=== PATIENT | male | born 1945 | race Caucasian/White ===

== ENCOUNTER 2016-10-12 05:16 | Inpatient (IN) | payer OTHER, MEDICARE ==
[2016-09-30 09:27] VITALS: BMI 33.0
--- NOTE | 2016-09-30 09:58 | PAT Medication Instructions ---
Service Date Sep 30, 2016. Current Home Medication List Alendronate/Cholecalciferol (Fosamax+D 70MG/2800 Iu), 1 TABLET PO WK Aspirin (Aspirin Ec), 81 MG PO HS Fish Oil ([place]ell-3), 1 CAP PO HS Irbesartan (Irbesartan), 1 TAB PO HS Meloxicam (Mobic), 15 MG PO QAM Metformin Hcl (Glucophage), 500 MG PO QAM Metoprolol Succinate (Toprol Xl), 25 MG PO HS Medication Instructions For Your Scheduled Surgery Alendronate/Cholecalciferol (Fosamax+D 70MG/2800 Iu), 1 TABLET PO WK (okay to continue as directed) Meloxicam (Mobic), 15 MG PO QAM (okay to continue per surgeon for instructions) - Hold the following medications starting 09/30/16: Fish Oil (Bunnell-3), 1 CAP PO HS - Hold the following medications 48 hours prior to surgery: Metformin Hcl (Glucophage), 500 MG PO QAM - Hold the following medications as scheduled the night before surgery: Irbesartan (Irbesartan), 1 TAB PO HS - Take the following medications as scheduled the night before surgery: Metoprolol Succinate (Toprol Xl), 25 MG PO HS Aspirin (Aspirin Ec), 81 MG PO HS (okay to continue per surgeon) If you have any questions please call us at [phone] or [phone] or [phone]
[2016-09-30 10:34] LABS: BASO % 0.5 %; BASO ABS # 0.03 K/uL (0-0.2); COMPLETE YES; EOS % 2.1 %; HEMATOCRIT 41.1 % (42-52); IG% 0.2 %; LYMPH % 41.9 %; LYMPH ABS # 2.43 K/uL (1.2-3.4); MANUAL MICROSCOPIC REQUIRED? NO; MEAN CELL VOLUME 86.9 fL (80-100); MEAN CORPUSCULAR HEMOGLOBIN 29.2 pg (25-34); MEAN CORPUSCULAR HGB CONC 33.6 g/dl (32-36); MEAN PLATELET VOLUME 8.6 fL (7.4-10.4); MONO % 10.5 %; NEUT % 44.8 %; PLATELET COUNT 241 K/uL (130-400); RED BLOOD COUNT 4.73 M/uL (4.7-6.1); REVIEW REQ? NO; URINE APPEARANCE CLEAR (CLEAR); URINE BILIRUBIN NEG (NEG); URINE COLOR DK YELLOW; URINE NITRITE NEG (NEG); URINE PH 5.5 (4.5-7.5); URINE SPECIFIC GRAVITY 1.027 (1.000-1.030); UROBILINOGEN NEG (NEG)
--- NOTE | 2016-09-30 10:38 | DIAGNOSTIC IMAGING REPORT ---
CHEST PREADMISSION(PA/LAT) HISTORY: 71 years-old Male preadmission exam COMPARISON: CT chest 10/14/2015 TECHNIQUE: Frontal and lateral views of the chest FINDINGS: Pleural-based calcifications in the region of the left upper lobe and superior segment left lower lobe are again seen. Cardiac silhouette is again mildly enlarged. No pneumothorax, pleural effusion or focal airspace consolidation. The bones are grossly intact. IMPRESSION: 1. No acute cardiopulmonary process. 2. Pleural-based calcifications of the left upper lobe and superior segment left lower lobe are unchanged. The above report was generated using voice recognition software. It may contain grammatical, syntax or spelling errors. Electronically signed by: Sharif Farmer M.D. 09/30/2016 10:37 AM Dictated Date/Time: 09/30/2016 10:35 AM
[2016-09-30 12:39] LABS: BUN/CREATININE RATIO 17.2 (10-20); CALCIUM 8.7 mg/dl (8.5-10.1); CREATININE 0.9 mg/dl (0.60-1.40); POTASSIUM 4.5 mmol/L (3.5-5.1)
[~2016-10-12] VITALS: Ht 177.8 cm; Wt 103.9 kg
[2016-10-12] VITALS (11 sets, daily range): BP systolic 112–165; BP diastolic 69–108; PULSE 69–106; TEMP 36.3–36.9; O2SAT 90–97; Ht 177.8 cm; Wt 103.9 kg
[~2016-10-12 05:16] MED LIST: ASPI81TA28 PO; FSMD/70 PO; GLC/500 PO; IRBE1TAB50 PO; MELO7.5T5 PO; METO25TA3 PO; OMEG10007 PO
[2016-10-12] MEDS ORDERED: HEPARIN SOD 5000 UNIT/0.5 ML CARP SQ SCH (06:00)
[2016-10-12] MEDS ORDERED: CEFAZOLIN 2000 MG/60 ML D5W IV SCH (06:00)
[2016-10-12] MEDS ORDERED: LACTATED RINGER'S 1000ML 1,000 ML IV SCH (06:00)
[2016-10-12] MEDS ORDERED: DEXAMETHASONE SOD INJ 4 MG/ML VIAL ONE ×2 (06:33→08:43)
[2016-10-12] MEDS ORDERED: PHENYLEPHRINE HCL INJ 10 MG/ML VIAL ONE (06:33)
[2016-10-12] MEDS ORDERED: SUCCINYLCHOLINE CHLORIDE 20 MG/ML 10 ML VIAL IV ONE (06:33)
[2016-10-12] MEDS ORDERED: EpHEDrine SULFATE INJ 50 MG/ML AMP ONE (06:33)
[2016-10-12] MEDS ORDERED: FENTANYL CITRATE INJ 50 MCG/1 ML 2 ML VIAL ONE (06:34)
[2016-10-12] MEDS ORDERED: LIDOCAINE HCL 2% 2 ML VIAL (20MG/ML) ONE (06:34)
[2016-10-12] MEDS ORDERED: GLYCOPYRROLATE INJ 0.2 MG/ML VIAL ONE ×2 (06:34→08:43)
[2016-10-12] MEDS ORDERED: ONDANSETRON INJ 2 MG/ML 2 ML VIAL ONE (06:34)
[2016-10-12] MEDS ORDERED: ROCURONIUM BROMIDE 10 MG/ML 5 ML VIAL IV ONE (06:34)
[2016-10-12] MEDS ORDERED: NEOSTIGMINE METHYLSULFATE 5 MG/5 ML SYR ONE (06:34)
[2016-10-12] MEDS ORDERED: MIDAZOLAM HCL 1 MG/ML 2ML VIAL ONE (06:34)
[2016-10-12] MEDS ORDERED: PROPOFOL IV EMULSION 10 MG/ML 20 ML VIAL IV ONE (06:34)
[2016-10-12] MEDS ORDERED: BUPIVACAINE 0.5 % 5 MG/1 ML MPF 30ML VIAL ONE (06:54)
[2016-10-12] MEDS ORDERED: METHYLENE BLUE 0.5% 10 ML VIAL ONE (06:54)
--- NOTE | 2016-10-12 07:27 | History & Physical Bridge Note ---
H&P Re-Evaluation Bridge Note: I have examined the patient, reviewed the History & Physical and in the interval since the performance of the History & Physical I have noted the following changes of clinical significance: No changes noted
[2016-10-12] MEDS ORDERED: NALOXONE HCL 0.4 MG/1 ML VIAL/CARP IV PRN (08:30)
[2016-10-12] MEDS ORDERED: LABETALOL HCL IV 5 MG/ML 20ML IV PRN (08:30)
[2016-10-12] MEDS ORDERED: ONDANSETRON INJ 2 MG/ML 2 ML VIAL IV PRN ×2 (08:30→11:15)
[2016-10-12] MEDS ORDERED: EpHEDrine SULFATE INJ 50 MG/ML AMP IV PRN (08:30)
[2016-10-12] MEDS ORDERED: PHENYLEPHRINE 100MCG/ML 5ML SYR IV PRN (08:30)
[2016-10-12] MEDS ORDERED: MoRPHine SULFATE 10 MG/ML CARP/VIAL IV PRN (08:30)
[2016-10-12] MEDS ORDERED: ATROPINE SULFATE 0.1 MG/ML 5ML SYR IV PRN (08:30)
[2016-10-12] MEDS ORDERED: MEPERIDINE HCL 25 MG/ML CARP IV PRN (08:30)
[2016-10-12] MEDS ORDERED: FLUMAZENIL 0.1 MG/1 ML 10 ML VIAL IV PRN (08:30)
[2016-10-12] MEDS ORDERED: HYDROmorphone INJ 1 MG/ML SYR IV PRN ×2 (08:30→11:15)
[2016-10-12] MEDS ORDERED: HYDROmorphone INJ 2 MG/ML SYR/VIAL ONE (09:00)
[2016-10-12] MEDS ORDERED: FLOSEAL HEMOSTATIC MATRIX 10ML TOP ONE (09:41)
[2016-10-12] MEDS ORDERED: SURGICEL ABSORB HEMOSTAT 2IN X 14IN TOP ONE (09:41)
[2016-10-12] MEDS ORDERED: OXYBUTYNIN CHLORIDE 5 MG TAB PO PRN (11:15)
[2016-10-12] MEDS ORDERED: ACETAMINOPHEN/CODEINE 300/30MG TAB PO PRN (11:15)
[2016-10-12] MEDS ORDERED: KETOROLAC TROMETHAMINE 15 MG/ML VIAL IV PRN (11:15)
[2016-10-12 12:09] LABS: HEMATOCRIT 40.2 % (42-52); MEAN CELL VOLUME 87.2 fL (80-100); MEAN CORPUSCULAR HEMOGLOBIN 29.9 pg (25-34); MEAN PLATELET VOLUME 8.4 fL (7.4-10.4); PLATELET COUNT 231 K/uL (130-400); RED BLOOD COUNT 4.61 M/uL (4.7-6.1); WHITE BLOOD COUNT 10.09 K/uL (4.8-10.8)
[2016-10-12 12:15] LABS: MEAN CORPUSCULAR HGB CONC 34.3 g/dl (32-36)
[2016-10-12 12:37] LABS: BUN/CREATININE RATIO 13.6 (10-20); CALCIUM 8.2 mg/dl (8.5-10.1); CREATININE 0.98 mg/dl (0.60-1.40); POTASSIUM 3.9 mmol/L (3.5-5.1)
--- NOTE | 2016-10-12 12:42 | Anesthesiology Progress Note ---
Anesthesia Post Op Note Date & Time Oct 12, 2016 at 12:42 Vital Signs Pain Intensity: 2 Vital Signs Past 12 Hours Date Time Temp Pulse Resp B/P (MAP) Pulse Ox O2 Delivery O2 Flow Rate FiO2 10/12/16 12:35 36.2 83 20 110/64 92 Nasal Cannula 3 10/12/16 12:01 83 17 119/75 96 10/12/16 12:01 83 17 10/12/16 11:56 83 15 114/73 96 10/12/16 11:56 83 15 10/12/16 11:51 83 14 10/12/16 11:51 83 14 96 10/12/16 11:50 83 19 10/12/16 11:50 83 19 119/78 97 10/12/16 11:46 116/69 10/12/16 11:45 84 18 10/12/16 11:45 84 18 96 10/12/16 11:41 112/79 10/12/16 11:40 84 15 97 10/12/16 11:40 84 15 10/12/16 11:36 121/72 10/12/16 11:35 36.7 85 12 121/72 96 Mask 10 10/12/16 11:35 86 17 10/12/16 11:35 85 17 98 10/12/16 05:40 36.8 106 18 165/108 95 Room Air Notes Mental Status: alert / awake / arousable, participated in evaluation Pt Amnestic to Procedure: Yes Nausea / Vomiting: adequately controlled Pain: adequately controlled Airway Patency, RR, SpO2: stable & adequate BP & HR: stable & adequate Hydration State: stable & adequate Anesthetic Complications: no major complications apparent
[2016-10-12] MEDS ORDERED: PHARMACY GLYCEMIC MGMT CONSULT PRN (12:45)
--- NOTE | 2016-10-12 14:09 | Pharmacy Progress Note ---
Glycemic Control Intl Consult Date of Service Oct 12, 2016. Scope Glycemic Pharmacist consulted by TRICE Hernandez on 10/12/16 for glycemic control and to write orders per [facility] inpatient glycemic control protocol Objective Weight (Kilograms): 103.900 Accuchecks BSG (last 24hrs): Test 10/12/16 06:03 10/12/16 11:39 10/12/16 12:01 Bedside Glucose 95 mg/dl (70-99) 133 mg/dl (70-99) Random Glucose 152 mg/dl (70-99) Laboratory Data (last 24hrs) Test 10/12/16 12:01 Anion Gap 6.0 mmol/L BUN/Creatinine Ratio 13.6 Blood Urea Nitrogen 13 mg/dl Creatinine 0.98 mg/dl Potassium Level 3.9 mmol/L Sodium Level 140 mmol/L White Blood Count 10.09 K/uL Recent Pertinent Medications Outpatient Anti-diabetic Regimen: * metformin Risk Factors for Insulin Resistance: * Steroids * Recent Surgery * Diet Assessment & Plan ASSESSMENT: * 71 yo diabetic M admitted s/p lap prostatectomy, POD #0 * Fasting BSG prior to surgery 95 mg/dL, likely indicative of good glycemic control as outpatient on metformin alone * A1c added to AM labs * Pt did receive IV dexamethasone 8 mg IV total while in OR * Expecting steroid-induced hyperglycemia * Give 0.4 units/kg NPH X 1 to cover steroids given * Continue tight Novolog for first 24 hours post op and loosen tomorrow * Hold oral metformin till diet can be assess post-op * ADA & AACE recommend a goal blood sugar range 140-180 mg/dl for the majority of critically ill & non-critically ill patients. However, more stringent targets may be selected in individual cases. Tighten to 110-140 mg/dL given admission BSGs and tighter control will reduce risk of infection post-op. PLAN FOR INPATIENT GLYCEMIC CONTROL: * Hold outpatient metformin POD #0 * If diet tolerated, add metformin POD #1 with dinner * Basal insulin with NPH 40 units X 1 now * Re-dose only if BSGs >140 mg/dL in the AM * Correctional Insulin with NOVOLOG per scale ACHS + 0200 * Goal Range: Low 110 mg/dL - High 140 mg/dL * Correction Factor: 20 mg/dL/unit * Nutritional / Prandial insulin per carb ratio of 1 unit per 7 grams CHO consumed * Please note that the plan above was derived based on current level of insulin resistance and hospital stress. These recommendations are appropriate for inpatient admission only. Plan of care upon discharge will need to be reassessed to avoid potential outpatient hypo/hyperglycemia. Thank you.
[2016-10-12] MEDS ORDERED: NovoLIN-N (NPH) PER UNIT CHARGE SQ ONE (14:15)
[2016-10-12] MEDS: LACTATED RINGER'S 1000ML 1,000 ML IV SCH ×2 (14:19→18:02)
[2016-10-12] MEDS ORDERED: GLUCOSE 10 TABS/TUBE PO PRN (14:30)
[2016-10-12] MEDS ORDERED: DEXTROSE 50% 50 ML SYR IV PRN (14:30)
[2016-10-12] MEDS ORDERED: GLUCAGON FOR INJ 1 MG VIAL SQ PRN (14:30)
[2016-10-12] MEDS ORDERED: GLUCOSE 40% GEL 15 GM TUBE PO PRN (14:30)
--- NOTE | 2016-10-12 15:10 | [facility] Operative Report ---
Operative Report Operative Date Oct 12, 2016. Pre-Operative Diagnosis Cancer of prostate Post-Operative Diagnosis Same as preoperative diagnosis Procedure(s) Performed Laparoscopic Salvage Prostatectomy, bilateral pelvic lymph node dissection, umbilical hernia repair Surgeon Dr. 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 Complication(s) None Disposition Recovery Room / PACU (stable) Indications Prostate cancer recurrence status post brachytherapy; active cancer within the prostate We had a lengthy discussion regarding his current disease status and the risks of undergoing a salvage prostatectomy. Specifically discussed the risk of fistula, colon injury, rectal injury, incontinence, impotence, and incomplete resection cancer. He is very understanding of the situation, and wishes to proceed with the surgery. Description of Procedure Reagan Carbajal was identified in the preoperative holding area, appropriate informed consent reviewed and completed and the patient was transported to the operating suite. He received appropriate preoperative antibiotics the form of Ancef. Adequate general anesthesia was achieved, the patient was placed in dorsal lithotomy position where he was sterilely prepped and draped in standard fashion. On evaluation of the abdomen he is noted to have an umbilical hernia, with this in mind a Veress needle was passed inferior to the umbilicus and the abdomen was insufflated to 15 mmHg. Given the location of the umbilical hernia I elected to place a right-sided 12 mm hygiene assistant port utilizing a 10 mm 0 lens and an Visiport. Spectrum of the midline revealed the hernia however there were no abdominal contents related through this small amount of adhesions on the upper aspect of midline where his prior a midline laparotomy had occurred. Is able to lyse these adhesions without difficulty utilizing endoscopic scissors. Inspection of the remaining aspects of anterior abdominal wall revealed no other adhesions where our ports were planned. We proceeded to place the ports in sequential fashion in the standard locations for robotic prostatectomy. Before dressing the prostate I begin by mobilizing the left lateral aspect of the sigmoid colon which was slightly adherent to the left aspect of the pelvic wall. After mobilizing as I was able to free the pouch of Ze. I was able to visualize the Luna catheter protruding into the bladder, as well as demarcate location of the prostate, seminal vesicles, and vasa. I made an incision in the posterior aspect of the peritoneum overlying the seminal vesicles. I dissected posterior to the seminal vesicles and then ultimately posterior to the prostate splitting to nondisease fascia. His prior brachytherapy certainly caused a skin reaction with some fibrosis of this area and tedious dissection, over we're able to reach the apex of the prostate without any visible rectal injuries. I then turned my attention back to the anterior abdominal wall, and identified the umbilical ligaments. Medial umbilical ligaments were incised adjacent to the umbilicus on both the right and the left. I incised the peritoneum lateral to each of these down towards internal inguinal rings. On the left he was noted to have an direct inguinal hernia this was easily reduced and I avoided any direct encroachment upon it with my incision. Mind incisions were carried down to the level of the vasa bilaterally. Then dissected under the pubic arch exposing the inferior surface of the pubic arch. I expose the anterior surface the prostate but removing the fat overlying it. The no pelvic fascia was exposed bilaterally. I then incised the endopelvic fascia first on the right and then secondarily on the left. Of note, on each side as I approach the apex I encountered brachytherapy seeds which are external to the prostate itself. Levator musculature was also spared, however was blanched appearance consistent with prior radiation exposure. pubo prostatic ligaments were thinned, and the DVC exposed. A [id number] 0 Vicryl stitch was placed on the dorsal venous complex. Before proceeding further with the prostatectomy, I turned my attention to the lymph node dissection. The right-sided external iliac vein and artery were identified in the fat inferior to it was elevated off of the under aspect of the vein. I from the vein utilizing monopolar electrocautery traced this laterally until I encountered the circumflex vein. Distally, I cared my dissection under the pubic arch until I encountered the obturator nerve. Care was used to avoid injury to the nerve. A clip was placed on the proximal component of the packet. There is excellent hemostasis. I placed an additional clip on on the lymph node packet and push this into the lower pelvis. We may note to the assistance in the room that the right sided lymph node dissection was marked with a clip. I performed the same procedure on the left. I first identified the external iliac vein and artery on the left pelvic sidewall. Then elevated the fat off the inferior aspect of the external iliac vein utilizing monopolar electrocautery. I cared my dissection laterally as far as the circumflex vein distally as far as the obturator nerve. Extreme care was used to hold dissecting the lymphovascular packet off of the nerve. Proximal extent of this packet was controlled with a clip. Hemostasis was excellent. This packet as well as the previously dissected right-sided packet were collected in an Endo Catch bag placed in the upper abdomen. I then turned my attention back to the prostate. By placing lateral to medial traction at the presumed area of the bladder neck and simultaneously pulling on the Luna catheter, I was able to demarcate the bladder neck. A combination of bipolar monopolar electrocautery used to make an anterior cystotomy. Luna catheter was deflated and pulled through the cystotomy to help provide anterior traction on the prostate. I was able to dissect around the posterior aspect of the bladder neck and through the posterior aspect of detrusor muscle. As we carried this further, I encountered her prior dissection as well as the bilateral ampullae of the vasa seminal vesicles. Given the prior posterior dissection of the structures, the dissection from the anterior surface was quite straightforward and allowed me to expose several cm length of the vasa and the full length of the seminal vesicles. Vasa were transected. I was unable to apply anterior traction utilizing the seminal vesicles and the vasa and further inspect my prior posterior dissection of the prostate. Utilizing this approach I was able to carry the slightly further and truly reach the apex of the prostate. Extreme care was used to avoid any incidental injury into the rectum. At that time the vascular pedicles were quite well demarcated, and they were controlled utilizing the robotic vessel sealer device. As I near the area where the rectum was, I avoided utilizing this device and converted to a combination of bipolar electrocautery and sharp dissection. There was excellent hemostasis throughout. Although there was no intent to perform a nerve sparing dissection, I erred on the side of dissecting through the neurovascular bundle to avoid inappropriate encroachment upon the rectum or the prostate. Of note, particularly on the left, the posterior lateral aspect fo the prostate was quite firm. I approached this area meticulously, and as I dissected through this thickened tissue I encountered numerous brachytherapy seeds. These were again quite lateral and outside of the prostatic tissue itself. As I near the apex of the prostate there was again a fibrotic response to his prior brachy therapy. I was able to carefully tease my way through these tissues while identifying the urethra and a true apical tissue of the prostate. Before incising the apex, I controlled the dorsal venous complex was again with bipolar electrocautery. I then used a combination of monopolar electrocautery and sharp dissection to truly separate the apex of the prostate from the remaining aspects of the urethra. Extreme care was used to avoid undue pressure upon the urethra as I suspected this would be quite fragile. After removing the prostate, we inspected the prostatic fossa. There is excellent hemostasis. Prior to the case starting I placed a rectal tube, and at this time we'll utilize this to help check the rectum and rule out injury. We filled the prostatic fossa with irrigation and then administered a small amount of air through the rectal tube. There were no bubbles to imply any unrecognized injury. I perform this test twice. Given the lack of any evidence of injury we removed the rectal tube. I then proceeded to begin by anastomosis. I utilized a double armed V lock suture. We began at the posterior bladder neck and carried this dissection around the anterior surface. I used great care to avoid pulling on the sutures unnecessarily has both the bladder neck and the urethra appeared to be quite friable. In addition to my standard closure I continued my suture line by crossing the sutures in the anterior midline and continuing to imbricate additional tissue over the suture line around the lateral aspects of the prostate. I then placed a new Luna catheter and irrigated the bladder. There is no evidence of any leak, and the urine was clear. At that time placed a MARISOL drain in the abdomen to the left lateral most robotic port. We additionally administered FloSeal coagulant around the bladder neck and anastomosis. The abdomen was subsequently deflated and the robot undocked. I extracted the specimen through the periumbilical incision and incised through the umbilicus itself including the hernia. Specimens were passed off the table. I then proceeded to close the midline incision utilizing a running 0 Vicryl stitch. I incorporate the opening of the umbilical hernia in my closure. Provided a buttressing suture above this fascial closure utilizing 2- 0 Vicryl. I incised a bit of redundant umbilical skin and reapproximated the skin through this entire incision utilizing 4-0 Monocryl. All other incisions were closed utilizing 4-0 Monocryl. MARISOL was sutured in place with a 2-0 silk . All wounds were infiltrated with half percent Marcaine, and dressed with Dermabond. Patient was subsequently extubated and taken to the PACU in stable condition. There were no complications. I attest to the content of the Intraoperative Record and any orders documented therein. Any exceptions are noted below.
[2016-10-12] MEDS: CEFAZOLIN IV 2,000 MG in DEXTROSE 5% 50ML 50 ML IV SCH (16:13)
[2016-10-12] MEDS ORDERED: NURSING VERBAL MED ORDER ONE (16:45)
[2016-10-12] MEDS ORDERED: COUGH DROP (SUGAR FREE) LOZ 24 LOZ/1 BOX PO PRN (16:45)
[2016-10-12] MEDS: ACETAMINOPHEN 500 MG TAB PO SCH (18:02)
[2016-10-12] MEDS: INSULIN ASPART 100 UNITS/ML 3 ML PEN SC SCH ×2 (18:04→21:00)
[2016-10-12] MEDS: HEPARIN SOD 5000 UNIT/0.5 ML CARP SQ SCH (18:05)
[2016-10-12] MEDS ORDERED: IRBESARTAN 150 MG TAB PO SCH (21:00)
[2016-10-12] MEDS ORDERED: METOPROLOL SUCC 25MG EXT REL TAB PO SCH (21:00)
[2016-10-12] MEDS ORDERED: ASPIRIN 81 MG ECTAB PO SCH (21:00)
[2016-10-12] MEDS: DOCUSATE SODIUM 100 MG CAP PO SCH (21:56)
[2016-10-13] MEDS: CEFAZOLIN IV 2,000 MG in DEXTROSE 5% 50ML 50 ML IV SCH ×2 (00:25→07:44)
[2016-10-13] MEDS: ACETAMINOPHEN 500 MG TAB PO SCH ×3 (00:26→12:12)
[2016-10-13] MEDS: LACTATED RINGER'S 1000ML 1,000 ML IV SCH ×2 (00:28→07:41)
[2016-10-13] MEDS ORDERED: INSULIN ASPART 100 UNITS/ML 3 ML PEN SC SCH (02:00)
[2016-10-13 03:57] VITALS: BP 120/67; PULSE 89; TEMP 36.5; O2SAT 94
[2016-10-13 07:06] VITALS: BP 138/74; PULSE 92; TEMP 36.9; O2SAT 92
[2016-10-13 07:16] LABS: BASO % 0.1 %; BASO ABS # 0.01 K/uL (0-0.2); COMPLETE YES; EOS % 0.2 %; IG% 0.3 %; LYMPH % 23.7 %; MEAN CELL VOLUME 85.2 fL (80-100); MEAN CORPUSCULAR HEMOGLOBIN 29.1 pg (25-34); MEAN CORPUSCULAR HGB CONC 34.2 g/dl (32-36); MEAN PLATELET VOLUME 8.6 fL (7.4-10.4); MONO % 9.6 %; NEUT % 66.1 %; PLATELET COUNT 244 K/uL (130-400); RED BLOOD COUNT 4.46 M/uL (4.7-6.1); WHITE BLOOD COUNT 10.11 K/uL (4.8-10.8)
[2016-10-13 07:45] VITALS: O2SAT 92
[2016-10-13] MEDS: HEPARIN SOD 5000 UNIT/0.5 ML CARP SQ SCH (07:47)
[2016-10-13 07:52] LABS: BUN/CREATININE RATIO 16.2 (10-20); CALCIUM 8.1 mg/dl (8.5-10.1); CREATININE 0.81 mg/dl (0.60-1.40); POTASSIUM 3.9 mmol/L (3.5-5.1)
--- NOTE | 2016-10-13 08:03 | Anesthesiology Progress Note ---
Anesthesia Post Op Note Date & Time Oct 13, 2016 at 08:02 Vital Signs Pain Intensity: 1.0 Vital Signs Past 12 Hours Date Time Temp Pulse Resp B/P (MAP) Pulse Ox O2 Delivery O2 Flow Rate FiO2 10/13/16 07:06 36.9 92 16 138/74 (95) 92 Room Air 10/13/16 03:57 36.5 89 18 120/67 (84) 94 Room Air 10/12/16 23:20 36.8 88 18 112/69 (83) 92 Room Air 10/12/16 21:09 117/73 (88) 10/12/16 20:06 36.9 92 18 118/71 (87) 93 Room Air Notes Mental Status: alert / awake / arousable, participated in evaluation Pt Amnestic to Procedure: Yes Nausea / Vomiting: adequately controlled Pain: adequately controlled Airway Patency, RR, SpO2: stable & adequate BP & HR: stable & adequate Hydration State: stable & adequate Anesthetic Complications: no major complications apparent
[2016-10-13 08:42] LABS: ESTIMATED AVERAGE GLUCOSE 120 mg/dl; HA1C FLAG Normal (Normal)
--- NOTE | 2016-10-13 08:49 | Progress Note ---
Subjective Date of Service: Oct 13, 2016. Subjective Pt evaluation today including: conversation w/ patient, chart review, lab review Voiding: rivera catheter in place (patent, draining clear, yellow urine) 71 yo male s/p salvage RALRP with lymph node dissection. Pt denies pain this morning. Feels well. Denies n/v. Tolerating clear liquids. Denies flatus or BM. I&Os acceptable. Labs stable. Review of Systems Constitutional: No fever, No chills Respiratory: No shortness of breath Cardiac: No chest pain Abdomen: No pain, No nausea, No vomiting Male : No hematuria Heme: No abnormal bleeding/bruising Objective Vital Signs Date Time Temp Pulse Resp B/P (MAP) Pulse Ox O2 Delivery O2 Flow Rate FiO2 10/13/16 07:06 36.9 92 16 138/74 (95) 92 Room Air 10/13/16 03:57 36.5 89 18 120/67 (84) 94 Room Air 10/12/16 23:20 36.8 88 18 112/69 (83) 92 Room Air 10/12/16 21:09 117/73 (88) 10/12/16 20:06 36.9 92 18 118/71 (87) 93 Room Air 10/12/16 19:40 Room Air 10/12/16 16:13 36.3 90 18 120/74 (89) 91 Room Air 10/12/16 15:04 36.8 91 18 127/71 (89) 96 Nasal Cannula 3.0 10/12/16 14:01 36.3 87 14 134/96 (109) 93 Nasal Cannula 3.0 10/12/16 13:32 36.3 84 14 124/70 (88) 90 Nasal Cannula 3.0 10/12/16 13:05 94 Nasal Cannula 3.0 10/12/16 13:00 97 Nasal Cannula 3.0 10/12/16 12:58 36.8 69 19 115/75 (88) 97 Nasal Cannula 3.0 10/12/16 12:42 85 20 95 10/12/16 12:42 85 20 10/12/16 12:40 130/79 10/12/16 12:37 83 16 10/12/16 12:37 83 16 93 10/12/16 12:35 36.2 83 20 110/64 92 Nasal Cannula 3 10/12/16 12:35 105/70 10/12/16 12:32 83 19 10/12/16 12:32 83 19 93 10/12/16 12:31 110/64 10/12/16 12:27 85 20 96 10/12/16 12:27 85 20 10/12/16 12:25 106/68 10/12/16 12:22 83 19 10/12/16 12:22 83 19 93 10/12/16 12:20 107/86 10/12/16 12:17 83 19 10/12/16 12:17 83 19 93 10/12/16 12:16 103/79 10/12/16 12:12 82 12 93 10/12/16 12:12 82 12 10/12/16 12:10 102/70 10/12/16 12:07 82 11 96 10/12/16 12:07 82 11 10/12/16 12:05 117/77 10/12/16 12:02 83 14 10/12/16 12:02 83 14 95 10/12/16 12:01 83 17 119/75 96 10/12/16 12:01 83 17 10/12/16 11:56 83 15 114/73 96 10/12/16 11:56 83 15 10/12/16 11:51 83 14 10/12/16 11:51 83 14 96 10/12/16 11:50 83 19 10/12/16 11:50 83 19 119/78 97 10/12/16 11:46 116/69 10/12/16 11:45 84 18 10/12/16 11:45 84 18 96 10/12/16 11:41 112/79 10/12/16 11:40 84 15 97 10/12/16 11:40 84 15 10/12/16 11:36 121/72 10/12/16 11:35 36.7 85 12 121/72 96 Mask 10 10/12/16 11:35 86 17 10/12/16 11:35 85 17 98 Physical Exam General Appearance: no apparent distress Eyes: normal inspection ENT: hearing grossly normal Neck: no JVD Respiratory/Chest: no respiratory distress, no accessory muscle use Cardiovascular: no JVD Abdomen: + pertinent finding (abdominal incisions c/d/i; MARISOL draining serosanguinsous fluid) Extremities: normal inspection Neurologic/Psychiatric: alert, normal mood/affect, oriented x 3 Skin: normal color Laboratory Results Last 24 Hours Test 10/12/16 11:39 10/12/16 12:01 10/12/16 16:47 10/12/16 21:07 Bedside Glucose 133 mg/dl 125 mg/dl 138 mg/dl White Blood Count 10.09 K/uL Red Blood Count 4.61 M/uL Hemoglobin 13.8 g/dL Hematocrit 40.2 % Mean Corpuscular Volume 87.2 fL Mean Corpuscular Hemoglobin 29.9 pg Mean Corpuscular Hemoglobin Concent 34.3 g/dl RDW Standard Deviation 42.4 fL RDW Coefficient of Variation 13.4 % Platelet Count 231 K/uL Mean Platelet Volume 8.4 fL Sodium Level 140 mmol/L Potassium Level 3.9 mmol/L Chloride Level 108 mmol/L Carbon Dioxide Level 26 mmol/L Anion Gap 6.0 mmol/L Blood Urea Nitrogen 13 mg/dl Creatinine 0.98 mg/dl Est Creatinine Clear Calc Drug Dose 82.3 ml/min Estimated GFR () 88.9 Estimated GFR (Non- 76.7 BUN/Creatinine Ratio 13.6 Random Glucose 152 mg/dl Calcium Level 8.2 mg/dl Test 10/13/16 01:55 10/13/16 06:33 10/13/16 08:09 Bedside Glucose 84 mg/dl 90 mg/dl White Blood Count 10.11 K/uL Red Blood Count 4.46 M/uL Hemoglobin 13.0 g/dL Hematocrit 38.0 % Mean Corpuscular Volume 85.2 fL Mean Corpuscular Hemoglobin 29.1 pg Mean Corpuscular Hemoglobin Concent 34.2 g/dl Platelet Count 244 K/uL Mean Platelet Volume 8.6 fL Neutrophils (%) (Auto) 66.1 % Lymphocytes (%) (Auto) 23.7 % Monocytes (%) (Auto) 9.6 % Eosinophils (%) (Auto) 0.2 % Basophils (%) (Auto) 0.1 % Neutrophils # (Auto) 6.68 K/uL Lymphocytes # (Auto) 2.40 K/uL Monocytes # (Auto) 0.97 K/uL Eosinophils # (Auto) 0.02 K/uL Basophils # (Auto) 0.01 K/uL RDW Standard Deviation 41.3 fL RDW Coefficient of Variation 13.3 % Immature Granulocyte % (Auto) 0.3 % Immature Granulocyte # (Auto) 0.03 K/uL Sodium Level 140 mmol/L Potassium Level 3.9 mmol/L Chloride Level 108 mmol/L Carbon Dioxide Level 27 mmol/L Anion Gap 5.0 mmol/L Blood Urea Nitrogen 13 mg/dl Creatinine 0.81 mg/dl Est Creatinine Clear Calc Drug Dose 99.5 ml/min Estimated GFR () 102.9 Estimated GFR (Non- 88.8 BUN/Creatinine Ratio 16.2 Random Glucose 82 mg/dl Estimated Average Glucose 120 mg/dl Hemoglobin A1c 5.8 % Calcium Level 8.1 mg/dl Assessment and Plan POD #1 s/p salvage RALRP with lymph node dissection AFVSS. Pt doing well post-op. Will advance to a mechanical soft diet for breakfast. Hep lock after breakfast if tolerating PO. Encourage ambulation to hallway this morning. Encourage use of IS. Possible d/c home after lunch if tolerating PO, ambulating without difficulty, and pain controlled. The pt will go home with Cipro, Colace, and oxybutynin. Already receiving a standing Rx for [place] from Dr. Allen in [place]. No further pain prescriptions at this time. The pt agrees with this plan. Discharge planning: home
[2016-10-13] MEDS ORDERED: CIPR1TAB10 PO (08:51)
[2016-10-13] MEDS ORDERED: CLC100 PO (08:51)
[2016-10-13] MEDS ORDERED: DTR5 PO (08:51)
--- NOTE | 2016-10-13 08:55 | Discharge Instructions ---
Discharge Instructions Date of Service Oct 13, 2016. Admission Reason for Admission: Prostate Cancer Discharge Discharge Diagnosis / Problem: Prostate Cancer Discharge Goals Goal(s): Decrease discomfort, Increase independence, Improve disease control, Improve nutritional status, Therapeutic intervention Activity Recommendations Activity Limitations: as noted below Shower/Bathe: tomorrow 1. Do not lift >15lbs x 6 weeks. 2. No heavy exercise x 6 weeks. You may engage in light activity such as walking and stairs as tolerated. 3. No sexual intercourse until cleared by Dr. Curry or Dr. Alford. 4. Do not drive x [address] while taking narcotics. 5. You have been prescribed the antibiotic Ciprofloxacin. Please start this 2 days prior to rivera catheter removal. Finish all of the antibiotic you have been prescribed. 6. Immediately call our office at [phone] if your catheter is removed for any reason. 7. Follow-up as scheduled. Please call our office at [phone] if you need to reschedule for any reason. 8. You may resume taking your Mobic and fish oil in 7-10 days. . . Current Hospital Diet Hospital Diet(s): Regular Diet Discharge Diet Recommended Diet: Diabetes Type 2 Diet Procedures Procedures Performed: Laparoscopic Salvage Prostatectomy, bilateral pelvic lymph node dissection, umbilical hernia repair Pending Studies Studies pending at discharge: yes List of pending studies: prostate pathology Laboratory Results Hemoglobin A1c Test 10/13/16 06:33 Range/Units Estimated Average Glucose 120 mg/dl Hemoglobin A1c 5.8 H 4.5-5.6 % Medical Emergencies . Who to Call and When: Medical Emergencies: If at any time you feel your situation is an emergency, please call 911 immediately. . Non-Emergent Contact Non-Emergency issues call your: Urologist Call Non-Emergent contact if: temperature is above 101.5, your pain is not controlled, your pain is worsening, your pain is unusual for you, your pain is concerning you, wound has increased drainage, wound has increased redness, wound has increased pain, you have any medication questions . . "Provider Documentation" section prepared by Tia Smallwood. . VTE Core Measure Inpt VTE Proph given/why not?: Unfractionated heparin SQ, SCD's [place] Drug Monitoring Program Search Results: patient reviewed within database, see additional documentation (Pt receiving chronic Rx for [place]. No further narcotic prescriptions provided. Discussed with pt, and he is agreeable. )
[2016-10-13] MEDS ORDERED: METFORMIN HCL 500 MG TAB PO SCH (09:00)
[2016-10-13] MEDS: DOCUSATE SODIUM 100 MG CAP PO SCH (09:03)
[2016-10-13] MEDS: INSULIN ASPART 100 UNITS/ML 3 ML PEN SC SCH ×2 (09:08→13:10)
[2016-10-13] MEDS ORDERED: NURSING VERBAL MED ORDER ONE (10:15)
[2016-10-13 11:28] VITALS: BP 126/76; PULSE 86; TEMP 36.7; O2SAT 91
[2016-10-13 14:18] VITALS: BP 126/76; PULSE 86; TEMP 36.7; O2SAT 91
--- NOTE | 2016-10-14 09:02 | Discharge Summary ---
Discharge Summary Date of Service Oct 14, 2016. Discharge Summary Admission Date: Oct 12, 2016 at 07:20 Discharge Date: Oct 13, 2016 Discharge Disposition: Home Principal Diagnosis: Prostate cancer Procedures: Robotic salvage prostatectomy with lymph node dissection Medication Reconciliation New Medications: Ciprofloxacin Hcl (Cipro) 500 Mg Tab 500 MG PO BID, #10 TAB Start 2 days prior to rivera catheter removal. Docusate Sodium (Docusate Sodium) 100 Mg Cap 100 MG PO BID PRN for Constipation, #60 CAP 0 Refills Oxybutynin Chloride (Oxybutynin Chloride) 5 Mg Tab 5 MG PO Q8 PRN for BLADDER SPASMS, #30 TAB 0 Refills Continued Medications: Alendronate/Cholecalciferol (Fosamax+D 70MG/2800 Iu) 70 Mg Tab 1 TABLET PO WK, TAB SUNDAYS Aspirin (Aspirin Ec) 81 Mg Tab 81 MG PO HS Irbesartan (Irbesartan) 300 Mg Tab 1 TAB PO HS for 90 Days, TAB 3 Refills Metformin Hcl (Glucophage) 500 Mg Tab 500 MG PO QAM, TAB Metoprolol Succinate (Toprol Xl) 25 Mg Tabcr 25 MG PO HS, #30 TAB Discontinued Medications: Fish Oil ([place]-3) 1 Ea Cap 1 CAP PO HS, CAP Meloxicam (Mobic) 7.5 Mg Tab 15 MG PO QAM, TAB Hospital Course Reagan Carbajal was admitted on a October 12 for planned robotic salvage prostatectomy. Details of the procedure as dictated previously in the operative report, however in summary tolerated the procedure extremely well. He was transferred to the floor in stable condition and progressed appropriately overnight. He was tolerating a diet on the morning of postoperative day 1. He was ambulatory, his pain was well controlled, his drain outputs and urine output were appropriate. All laboratory examinations were appropriate as well without any significant drop in hemoglobin and stable creatinine. Chief determine a stable for discharge home on the evening of postoperative day 1, his MARISOL drain was removed, he received appropriate Rivera teaching and was discharged. Total time spent on discharge = This includes examination of the patient, discharge planning, medication reconciliation, and communication with other providers. Discharge Instructions Please see previously written discharge instructions
--- NOTE | 2016-10-31 13:10 | EDITING REQUIRED CODING QUERY ---
CODING QUERY To promote full compliance with coding requirements relating to patient care, provider participation is requested in all cases of facilities locator uncertainty. Please assist us with the question(s) below: Coding Question(s): Dr. Alford, I am needing to provide the CPT codes for this procedure, and need the approach. Please specify if the approach was: ( ) Loop ( ) Perineal / Transperineal (x ) Radical ( ) Retropubic (Punch / Transcapsular) ( ) Suprapubic / Transvesical Punch ( ) Transcapsular ( ) Other, please explain Physician's Response(s): This is a robotic assisted laparoscopic radical prostatectomy with lymph node dissection - but it is considered a salvage because the patient had prior radiation therapy Thank you for your time, SHAWN Arce, CENTER MEDICAL DIRECTOR
== END 2016-10-13 15:31 | disposition home or self-care (01) | DRG 708 ==
LOC: C.ACU 05:16 → C.MSN 07:20 → ENRESERV 12:12
PROVIDERS: ADMIT Urology; ATTEND Urology
PROC: 0VT04ZZ Resection of Prostate, Percutaneous Endoscopic Approach (ICD-10-PCS; principal; 2016-10-12 07:30)
PROC: 0VT34ZZ Resection of Bilateral Seminal Vesicles, Percutaneous Endoscopic Approach (ICD-10-PCS; principal; 2016-10-12 07:30)
PROC: 0WQF4ZZ Repair Abdominal Wall, Percutaneous Endoscopic Approach (ICD-10-PCS; principal; 2016-10-12 07:30)
PROC: 8E0W4CZ Robotic Assisted Procedure of Trunk Region, Percutaneous Endoscopic Approach (ICD-10-PCS; principal; 2016-10-12 07:30)
DX: C61 Malignant neoplasm of prostate (principal); K42.9 Umbilical hernia without obstruction or gangrene; I25.10 Atherosclerotic heart disease of native coronary artery without angina pectoris; I10 Essential (primary) hypertension; I48.91 Unspecified atrial fibrillation; E11.9 Type 2 diabetes mellitus without complications; M19.90 Unspecified osteoarthritis, unspecified site; N40.0 Benign prostatic hyperplasia without lower urinary tract symptoms; M81.8 Other osteoporosis without current pathological fracture; I25.2 Old myocardial infarction; E66.9 Obesity, unspecified; Z68.32 Body mass index [BMI] 32.0-32.9, adult; Z87.891 Personal history of nicotine dependence; Z92.3 Personal history of irradiation; Z80.42 Family history of malignant neoplasm of prostate; Z79.1 Long term (current) use of non-steroidal anti-inflammatories (NSAID); Z79.82 Long term (current) use of aspirin; Z79.84 Long term (current) use of oral hypoglycemic drugs; Z79.899 Other long term (current) drug therapy

== ENCOUNTER → 2016-11-29 | Outpatient (CLI) | payer OTHER, MEDICARE ==
[~2016-11-29] MED LIST changes: +CIPR1TAB10 PO; +CLC100 PO; +DTR5 PO; -MELO7.5T5 PO; -OMEG10007 PO
== END | disposition home or self-care (01) ==
LOC: C.LABSPEC 10:06
PROVIDERS: ATTEND Urology
DX: C61 Malignant neoplasm of prostate (principal); N39.0 Urinary tract infection, site not specified

== ENCOUNTER → 2016-12-15 | Outpatient (CLI) | payer OTHER, MEDICARE ==
[~2016-12-15] MED LIST changes: -CIPR1TAB10 PO; +DOCU-94 PO; +DTR/5 PO; +GADAVIST IV PRN; +HYDR-4079 PO; +IRBE-39 PO; +LEUP30IN3; +MELO7.5T5 PO; +MULT-506 PO; +OMEG10007 PO
--- NOTE | 2016-12-15 15:51 | DIAGNOSTIC IMAGING REPORT ---
PROSTATE MRI COMBO CLINICAL HISTORY: 71-year-old male with prostate carcinoma status post prostatectomy with positive margins. Postsurgical elevated PSA. TECHNIQUE: Multisequence, multiplanar MR imaging of the prostate was performed before and after the administration of intravenous contrast. Additional postprocessing was performed on a separate [employer] workstation by the radiologist. COMPARISON: None. FINDINGS: The prostate is surgically absent. There are no areas of suspicious marrow replacement. There is colonic diverticulosis with minimal infiltration of the peridiverticular fat at the sigmoid level. Mild sigmoid diverticulitis is suspected. There are small fat-containing inguinal hernias. There are bilateral inguinal fluid collections consistent with postsurgical seromas/lymphoceles. There is a borderline enlarged 1 cm right iliac lymph node No pathologic soft tissue nodules are visualized within the pelvis. There is circumferential enhancement at the bladder neck urethral anastomosis. The symmetry favors postsurgical change control specialist recurrent neoplasm. IMPRESSION: 1. Postsurgical changes of a prior prostatectomy 2. No visible skeletal metastasis 3. Borderline enlarged 1 cm right iliac lymph node 4. Circumferential enhancement the bladder neck ureteral anastomosis. The symmetry favors postsurgical change or recurrent neoplasm 5. Bilateral inguinal seromas/lymphoceles 6. Bilateral fat-containing inguinal hernias 7. Suspected mild diverticulitis Electronically signed by: Brian Toth M.D. 12/15/2016 3:50 PM Dictated Date/Time: 12/15/2016 3:36 PM
== END | disposition home or self-care (01) ==
LOC: C.MRIBC 13:20
PROVIDERS: ATTEND Radiology Radiation Oncology
DX: C61 Malignant neoplasm of prostate (principal); Z98.890 Other specified postprocedural states; R59.9 Enlarged lymph nodes, unspecified; I89.8 Other specified noninfective disorders of lymphatic vessels and lymph nodes; K40.00 Bilateral inguinal hernia, with obstruction, without gangrene, not specified as recurrent

== ENCOUNTER → 2017-04-14 | Outpatient (CLI) | payer OTHER, MEDICARE ==
[~2017-04-14] MED LIST changes: -CLC100 PO; -DTR5 PO; -GADAVIST IV PRN; -IRBE-39 PO; -METO25TA3 PO; +METO25TA4 PO
[2017-04-14 13:07] VITALS: BP 98/56; PULSE 104; TEMP 36.9; O2SAT 94
--- NOTE | 2017-04-14 16:07 | Radiation Oncology Follow-Up ---
Radiation Oncology Follow-Up Date of Visit Apr 14, 2017. Reason For Visit One-month follow-up in cancer survivorship care plan Radiation Completion Date Brachy therapy;prostatectomy;RT 02/23/17;Hormonal suppression Diagnosis (1) Prostate cancer Status: Acute Onset Date: 2009 Permanent Comment: Rising PSA, pretreatment PSA 11 Status post biopsies and finding of a Hurt 3+3 Status post brachytherapy 85 seeds placed 2009 Rising PSA 2013 initiation of hormonal suppression with Lupron Rising PSA with repeat biopsy August 23 2016 Day 4+3, 4+4 and 4+5 Status post prostatectomy 10/13/2016 Hurt 4+5 Extraprostatic extension Seminal vesicle invasion and perineural invasion Positive bladder neck margin right and left and anterior left Post prostatectomy PSA at 1.9 Hormonal suppression ongoing Status post completion of radiation therapy 02/23/2017 he received 7020 cGy Last Edited By: Julienne Mcarthur on Apr 14, 2017 15:57 History of Present Illness Mr. Carbajal was found to have an adenocarcinoma the prostate stage TI cN0 M0 who was seen by Dr. Shahriar jay on 04/24/2009 for consideration of prostate seed implant. His presenting prostate-specific antigen was approximately 13. His pre-implant biopsies revealed a low-grade prostate cancer with a gland measuring 38.7 mL. On 05/16/2009 the patient underwent a prostate seed implant with iodine 125 as monotherapy. The prescribed dose was 145 Gy. A total of 84 seeds was implanted and post implant dosimetry revealed a D 90 of 97.4% with a D 90 of 95% and a B1 50 of 40%. The rectal dose showed a B1 100 of 1.1 mL receiving 1.45% of planned dose. A post-implant prostate-specific antigen in October 2011 showed a decreased to 4.4. In April 2010 prostate-specific antigen was 2.4. In January 2011 his prostate-specific antigen increased to 5.36. In July 2011 his prostate-specific antigen increased to 13.7. Patient underwent a bone scan which showed a single area of increased uptake in the right side of the upper cervical vertebral bodies consistent with degenerative changes. Plain films of the cervical spine were also taken. There was no definitive evidence of metastatic disease. The patient was started on Lupron and given SAYRA 45 mg injection on 09/03/2011. On 12/06/2011 his prostate- specific antigen was repeated showing a response to therapy at 3.56 Patient was seen on 03/01/2012. Digital rectal exam showed no prostate nodularity and affect the prostate was smaller. His prostate-specific antigen was taken on February 22 and was 2.21. Patient was given his second 45 mg injection as he was tolerating these well. Repeat prostate-specific antigen on 07/24/2012 was 1.24. Patient was given his third injection of 45 mg of Lupron. On January 2013 his prostate-specific antigen was repeated and showed a slight increase to 2.37. His fourth injection of Lupron was given with 45 mg with planned repeat in 6 months. In 2013 his prostate-specific antigen continued to increase and the patient was started on the Casodex in addition to his Lupron. Unfortunately his prostate-specific antigen continued to rise and he was felt to have failed Casodex and was referred by his oncologist in [place] Dr. Debora Ruiz to urology at the [facility]. Patient ultimately decided to see Dr. Yael Velasco a urologist with [facility]. She initially saw him on 08/02/2016. His most recent prostate- specific antigen was 11.6. The patient underwent an MRI of the pelvis on 2016, a bone scan 06/09/[address] of the chest abdomen and pelvis previously performed on 10/14/2015. Patient was seen by Dr. Stephen Campbell on 08/06/2016. He agreed with the decision by Dr. Velasco to proceed with a repeat biopsy. This biopsy was performed on . A total of 14 core samples were taken. Biopsy from the left base was positive for adenocarcinoma Day grade 4+4 involving 40% of the core tissue sample with no perineural invasion identified. One biopsy from the left lateral mid gland was positive for adenocarcinoma Hurt grade 4+4 involving 65 % of the core tissue sample with no perineural invasion identified. Two biopsies from the left mid gland was positive for adenocarcinoma Hurt grade 4 +5 involving 25% of the core tissue sample with no perineural invasion identified. Biopsy from the right mid-gland was positive for adenocarcinoma Hurt grade 4+3 involving 30% of the core tissue sample with no perineural invasion identified. Biopsy from the right lateral mid gland were positive for adenocarcinoma Day grade 4+3 involving 10% of the core tissue sample with no perineural invasion identified. Therefore total of 6 out of 14 biopsies were positive. 2 biopsies were positive with Day grade 4+3, 2 of the biopsies were positive for Day grade 4+4 and 2 biopsies were positive for Hurt grade 4+5. For the biopsies were positive in the left gland and 2 were positive in the right gland. Accession #: [id number]. Dr. Velasco ordered a ProstaScint whole body scan with SPECT/CT fusion performed on 09/07/2016. This was compared to his prior studies. There was mild focal radiotracer uptake in the left inferolateral prostate or spotting to an area of hypo-perfusion on the MRI. Additional areas of mild uptake was noted in the right lateral prostate representing either recurrent tumor or viable prostate tissue. Dr. Velasco recommended consideration of possible cryotherapy for a failure post prostate seed implant. She also discussed the possibility of radical prostatectomy. The patient wished to be seen locally and Dr. Velasco was kind enough to contact Dr. Alford. Patient was seen as a new patient on 09/20/2016. After discussion of the salvage treatment options the patient opted to proceed with a robotic radical prostatectomy. He did discuss the probability of disease outside of the prostate as well as the potential risks and side effects of a radical prostatectomy following prior therapy with prostate seed implant. The patient ultimately did agree and procedure was performed on 10/13/2016. The prostate measured 4.0 x 4.0 x 3.2 cm weighing 28 g. This showed residual adenocarcinoma primary Day pattern 4 , secondary Hurt pattern 5 and a tertiary pattern 3. The tumor involved approximately 35% of the prostate by volume. There was evidence of extraprostatic extension involving the left posterior and anterior sites. There was evidence of invasion of the urinary bladder neck. There was evidence of invasion of the seminal vesicles on the right. The margins were involved by carcinoma with positive margins at the bladder neck right and left and anterior left. There was no evidence of lymphovascular invasion. There was evidence of perineural invasion. A total of 5 lymph nodes were taken and all were negative for evidence of metastatic disease. The final AJCC pathologic staging was therefore a pT3b pN0. Case: [id number]. A post-prostatectomy prostate-specific antigen was drawn on 11/18/2016. Unfortunately this showed persistent prostate-specific antigen value of 1.90. This is consistent with residual disease present. Dr. Alford therefore was kind enough to ask us to see his patient to discuss with him the potential role of salvage radiation. Hormonal suppression. Status post completion of salvage radiation therapy 02/23. He received 7020 cGy. Interim History He is doing well from a urinary standpoint. He gave an AUA score of 4. He completed and expanded prostate cancer index composite for clinical practice and gave a score of 5 of 12 and urinary incontinence symptoms. He gave a score of 1 of 12 and urinary irritation symptoms. He was score 0 12 and bowel symptoms. He did not complete the sexual side effects section but did make comment that this was not a problem. He gave a score of 2 of 12 and hormonal vitality symptoms. His total was 8 of 60. He had a recheck PSA March 14, 2017. This was 3.07. He has developed a discomfort in the left groin area. He has had this for the past 3 weeks. The pain does not radiate. He has hydrocodone available. He takes this twice daily because of the discomfort. He gives a pain level of 7 prior to oxycodone. Intermittently he takes Aleve bowel movements are loose for which he takes Metamucil. He saw Dr. Alford yesterday. A CAT scan of the abdomen and pelvis has been ordered to evaluate the left groin pain. Allergies Coded Allergies: Adhesives (Verified Adverse Reaction, Intermediate, REDNESS WITH EKG ELECTRODES, 10/12/16) Home Medications Scheduled Alendronate/Cholecalciferol (Fosamax+D 70MG/2800 Iu), 1 TABLET PO WK Aspirin (Aspirin Ec), 81 MG PO HS Docusate Sodium (Colace), 1 CAP PO DAILY Fish Oil ([place]-3), 1 CAP PO DAILY Irbesartan (Irbesartan), 1 TAB PO HS Leuprolide Acetate (Lupron [place]), 45 MG Q6MO Meloxicam (Mobic), 15 MG PO DAILY Metformin Hcl (Glucophage), 500 MG PO QAM Metoprolol Succinate (Toprol Xl), 50 MG PO HS Multivitamin (Multivitamin), 1 TAB PO DAILY Oxybutynin Chloride (Ditropan), 1 TAB PO BID Scheduled PRN Hydrocodone/Acetaminophen 10MG/325MG ([place] 10MG/325MG), 1 TAB PO Q4H PRN for Pain Review of Systems Gastrointestinal: Symptoms: WNL GI Comments: Continues metamucil;BMs have returned to baseline Oral: Symptoms: No Problems Respiratory: Symptoms: WNL Urinary: Comments: 2 voids/night-improved;Urinary leakage w/strenuous physical activity; Skin: Symptoms: No Problems Physical Exam Vital Signs Date Time Temp Pulse Resp B/P (MAP) Pulse Ox O2 Delivery O2 Flow Rate FiO2 04/14/17 13:07 36.9 104 20 98/56 94 Fatigue: None General Appearance: no apparent distress Eyes: normal inspection, EOMI ENT: normal ENT inspection, hearing grossly normal Respiratory/Chest: lungs clear, no respiratory distress, no accessory muscle use Cardiovascular: regular rate, rhythm, no gallop, no murmur Abdomen: normal bowel sounds, soft, + tenderness (Tenderness is noted in the left lower quadrant and groin. There is no rebound or guarding.) Extremities: non-tender Neurologic/Psychiatric: no motor/sensory deficits, alert, normal mood/affect Skin: warm/dry Pain Management Patient Reports Pain: Yes Initial Pain Intensity: 7.0 Pain Management Plan He has pain medication available to help control his discomfort. He has oxycodone as well as Aleve. Laboratory Laboratory Results: were reviewed Laboratory Comments: Reviewed in the interim history. Pathology Pathology Results: not applicable Imaging Imaging Studies: not applicable Assessment & Plan Plan: His laboratory studies were reviewed with Dr. Sevilla. He continues on the hormone suppression. His next injection is scheduled to be given at Dr. Alford's office in May. Will await the results of the CAT scan and review the images. I did recommend that he take ibuprofen twice daily over the next week. This would help if the discomfort is related to inflammation caused by the radiation. Will otherwise return to our office in 6 months. He is seeing Dr. Alford with a recheck PSA in 4 months. He may call our office if he has any questions or concerns in the interim. Today we completed a cancer survivorship care plan. A copy of the document was given to the patient. Total Time In Follow-Up I spent 20 minutes speaking to the patient and performing examination. I spent 20 minutes reviewing information, preparing the survivorship document, and completing this note. Copy To Jimmy Allen M.D.; Stephen Marcus M.D.; Ventura Alford M.D.
== END | disposition home or self-care (01) ==
LOC: EDSTATUS 03-24 14:45 → C.ONC 12:55
PROVIDERS: ATTEND Physician Assistant Medical
DX: Z08 Encounter for follow-up examination after completed treatment for malignant neoplasm (principal); Z92.3 Personal history of irradiation; Z85.46 Personal history of malignant neoplasm of prostate

== ENCOUNTER → 2017-04-18 | Outpatient (CLI) | payer OTHER, MEDICARE ==
[2017-04-18 14:52] LABS: BLOOD UREA NITROGEN 13 mg/dl (7-18); CREATININE 0.92 mg/dl (0.60-1.40)
== END | disposition home or self-care (01) ==
LOC: C.LAB 11:36
PROVIDERS: ATTEND Urology
DX: C61 Malignant neoplasm of prostate (principal)

== ENCOUNTER → 2017-04-20 | Outpatient (CLI) | payer OTHER, MEDICARE ==
[~2017-04-20] MED LIST changes: +OPTIRAY 320 IV PRN
--- NOTE | 2017-04-20 08:28 | DIAGNOSTIC IMAGING REPORT ---
ABD/PELVIS COMBO CLINICAL HISTORY: 71 years-old Male presenting with C61 Cancer of [id number]. TECHNIQUE: Multidetector CT of the abdomen and pelvis was performed before and after the administration of intravenous contrast. IV contrast: 93 mL of Optiray 320. A dose lowering technique was used consistent with the principles of ALARA (as low as reasonably achievable). COMPARISON: Nondiagnostic CT from 12/16/2016 and MR prostate from 12/15/2016. CT DOSE (mGy.cm): The estimated cumulative dose is 1960.84 mGycm. FINDINGS: [employer] topogram: Surgical clips project over the pelvis from prior prostatectomy. Lung bases: Minimal basilar opacities, likely atelectasis. 7 mm solid pulmonary nodule in the left lower lobe (series 5 image 9), unchanged since 10/14/2015. Multichamber enlargement of the heart. Coronary artery and mitral annular calcification. No pericardial or pleural effusion. Liver: Normal morphology. No liver lesion. Patent hepatic vasculature. Biliary: Mild biliary ductal prominence likely a reservoir effect in the post cholecystectomy state. Gallbladder surgically absent. Pancreas: Mild parenchymal atrophy. Spleen: Normal. Adrenal glands: Normal. Kidneys and ureters: Punctate nonobstructing calculus at the lower pole of the right kidney. Multiple hypodensities in both kidneys without evidence of enhancing septations or mural nodularity. Thin mural calcification noted in the exophytic 4.5 cm cyst arising from the anterior aspect of the interpolar region of the left kidney consistent with a minimally complex cyst (Bosniak 2). No hydronephrosis. Normal excretion of contrast from the bilateral kidneys. Ureters normal. Bladder: Normal. Pelvic organs: Postsurgical changes of prostatectomy. No suspicious enhancing nodularity at the ureteral anastomosis. Bowel: Diverticulosis of the descending and sigmoid colon. No pericolonic inflammatory change or significant colonic wall thickening. The appendix is normal. No bowel obstruction. Feces in the terminal ileum suggests delayed transit. Small hiatal hernia. Peritoneal cavity: No free fluid or intraperitoneal gas. Lymph nodes: Multiple pathologically enlarged lymph nodes in the left inguinal region and less distinctly in the external iliac region. Multilocular focal collections or centrally necrotic nodes in the left external iliac region demonstrate extensive surrounding inflammatory change. Vasculature: The left external iliac artery and vein are poorly visualized as they transit adjacent or through the external iliac inflammatory changes. Abdominal wall: Small fat-containing umbilical hernia. Infiltration along the left lower quadrant associated with the left inguinal canal. Musculoskeletal: Focal hypodense collection extends from the left external iliac region into the left iliopsoas (series 5 image 344). Degenerative changes of the spine. No focal destructive or sclerotic lesion. Degenerative changes of the hips also noted. IMPRESSION: 1. Left inguinal lymphadenopathy and questionable left external iliac lymphadenopathy, which is new from prior. 2. Interval development of significant inflammatory change in the left external iliac region at the site of prior seroma or lymphocele. The multiloculated hypodense collections in the left external iliac region may represent centrally necrotic lymph nodes or small abscesses. Extension into the iliopsoas would favor these being abscesses. 3. Postsurgical changes of prostatectomy. 4. Nonobstructing right renal calculus. 5. Diverticulosis. The report will be called/faxed according to standard departmental protocol. Electronically signed by: Juanito Hughes M.D. 04/20/2017 8:27 AM Dictated Date/Time: 04/20/2017 8:04 AM
== END | disposition home or self-care (01) ==
LOC: C.CTS 07:21
PROVIDERS: ATTEND Urology
DX: C61 Malignant neoplasm of prostate (principal); R59.0 Localized enlarged lymph nodes; N20.0 Calculus of kidney; K57.90 Diverticulosis of intestine, part unspecified, without perforation or abscess without bleeding; Z90.79 Acquired absence of other genital organ(s)

== ENCOUNTER → 2017-04-21 | Outpatient (CLI) | payer OTHER, MEDICARE ==
[~2017-04-21] MED LIST changes: -OPTIRAY 320 IV PRN
[2017-04-21 09:57] LABS: BLOOD UREA NITROGEN 14 mg/dl (7-18); CREATININE 0.82 mg/dl (0.60-1.40)
== END | disposition home or self-care (01) ==
LOC: C.LAB 07:54
PROVIDERS: ATTEND Urology
DX: C61 Malignant neoplasm of prostate (principal)

== ENCOUNTER → 2017-10-12 | Outpatient (CLI) | payer OTHER, MEDICARE ==
[~2017-10-12] MED LIST changes: +ATOR10TA82 PO; +IRBE-39 PO
[2017-10-12 13:01] VITALS: BP 143/87; PULSE 103; TEMP 36.8; O2SAT 95
--- NOTE | 2017-10-12 15:35 | Radiation Oncology Follow-Up ---
Radiation Oncology Follow-Up Date of Visit Oct 12, 2017. Reason For Visit Six-month follow-up Radiation Completion Date External Beam - 02/23/17 Diagnosis (1) Prostate cancer Status: Acute Onset Date: 2009 Permanent Comment: Rising PSA, pretreatment PSA 11 Status post biopsies and finding of a [place] 3+3 Status post brachytherapy 85 seeds placed 2009 Rising PSA 2011 initiation of hormonal suppression 03/2013 Rising PSA with repeat biopsy August 23 2016 Day 4+3, 4+4 and 4+5 Status post prostatectomy 10/13/2016 [place] 4+5 Extraprostatic extension Seminal vesicle invasion and perineural invasion Positive bladder neck margin right and left and anterior left Post prostatectomy PSA at 1.9 Reinitiation of hormonal suppression February 10, 2017. Plan for 18 months of suppression. Status post completion of radiation therapy 02/23/2017. He received 7020 cGy Last Edited By: Julienne Mcarthur on Oct 13, 2017 16:32 History of Present Illness Mr. Carbajal was found to have an adenocarcinoma the prostate stage TI cN0 M0 who was seen by Dr. Shahriar jay on 04/24/2009 for consideration of prostate seed implant. His presenting prostate-specific antigen was approximately 13. His pre-implant biopsies revealed a low-grade prostate cancer with a gland measuring 38.7 mL. On 05/16/2009 the patient underwent a prostate seed implant with iodine 125 as monotherapy. The prescribed dose was 145 Gy. A total of 84 seeds was implanted and post implant dosimetry revealed a D 90 of 97.4% with a D 90 of 95% and a B1 50 of 40%. The rectal dose showed a B1 100 of 1.1 mL receiving 1.45% of planned dose. A post-implant prostate-specific antigen in October 2011 showed a decreased to 4.4. In April 2010 prostate-specific antigen was 2.4. In January 2011 his prostate-specific antigen increased to 5.36. In July 2011 his prostate-specific antigen increased to 13.7. Patient underwent a bone scan which showed a single area of increased uptake in the right side of the upper cervical vertebral bodies consistent with degenerative changes. Plain films of the cervical spine were also taken. There was no definitive evidence of metastatic disease. The patient was started on Lupron and given SAYRA 45 mg injection on 09/03/2011. On 12/06/2011 his prostate- specific antigen was repeated showing a response to therapy at 3.56 Patient was seen on 03/01/2012. Digital rectal exam showed no prostate nodularity and affect the prostate was smaller. His prostate-specific antigen was taken on February 22 and was 2.21. Patient was given his second 45 mg injection as he was tolerating these well. Repeat prostate-specific antigen on 07/24/2012 was 1.24. Patient was given his third injection of 45 mg of Lupron. On January 2013 his prostate-specific antigen was repeated and showed a slight increase to 2.37. His fourth injection of Lupron was given with 45 mg with planned repeat in 6 months. In 2013 his prostate-specific antigen continued to increase and the patient was started on the Casodex in addition to his Lupron. Unfortunately his prostate-specific antigen continued to rise and he was felt to have failed Casodex and was referred by his oncologist in [place] Dr. Debora Ruiz to urology at the [facility]. Patient ultimately decided to see Dr. Yael Velasco a urologist with [facility]. She initially saw him on 08/02/2016. His most recent prostate- specific antigen was 11.6. The patient underwent an MRI of the pelvis on 2016, a bone scan 06/09/[address] of the chest abdomen and pelvis previously performed on 10/14/2015. Patient was seen by Dr. Stephen Campbell on 08/06/2016. He agreed with the decision by Dr. Velasco to proceed with a repeat biopsy. This biopsy was performed on . A total of 14 core samples were taken. Biopsy from the left base was positive for adenocarcinoma [place] grade 4+4 involving 40% of the core tissue sample with no perineural invasion identified. One biopsy from the left lateral mid gland was positive for adenocarcinoma Day grade 4+4 involving 65 % of the core tissue sample with no perineural invasion identified. Two biopsies from the left mid gland was positive for adenocarcinoma Day grade 4 +5 involving 25% of the core tissue sample with no perineural invasion identified. Biopsy from the right mid-gland was positive for adenocarcinoma Day grade 4+3 involving 30% of the core tissue sample with no perineural invasion identified. Biopsy from the right lateral mid gland were positive for adenocarcinoma Day grade 4+3 involving 10% of the core tissue sample with no perineural invasion identified. Therefore total of 6 out of 14 biopsies were positive. 2 biopsies were positive with Day grade 4+3, 2 of the biopsies were positive for [place] grade 4+4 and 2 biopsies were positive for [place] grade 4+5. For the biopsies were positive in the left gland and 2 were positive in the right gland. Accession #: [id number]. Dr. Velasco ordered a ProstaScint whole body scan with SPECT/CT fusion performed on 09/07/2016. This was compared to his prior studies. There was mild focal radiotracer uptake in the left inferolateral prostate or spotting to an area of hypo-perfusion on the MRI. Additional areas of mild uptake was noted in the right lateral prostate representing either recurrent tumor or viable prostate tissue. Dr. Velasco recommended consideration of possible cryotherapy for a failure post prostate seed implant. She also discussed the possibility of radical prostatectomy. The patient wished to be seen locally and Dr. Velasco was kind enough to contact Dr. Alford. Patient was seen as a new patient on 09/20/2016. After discussion of the salvage treatment options the patient opted to proceed with a robotic radical prostatectomy. He did discuss the probability of disease outside of the prostate as well as the potential risks and side effects of a radical prostatectomy following prior therapy with prostate seed implant. The patient ultimately did agree and procedure was performed on 10/13/2016. The prostate measured 4.0 x 4.0 x 3.2 cm weighing 28 g. This showed residual adenocarcinoma primary Day pattern 4 , secondary [place] pattern 5 and a tertiary pattern 3. The tumor involved approximately 35% of the prostate by volume. There was evidence of extraprostatic extension involving the left posterior and anterior sites. There was evidence of invasion of the urinary bladder neck. There was evidence of invasion of the seminal vesicles on the right. The margins were involved by carcinoma with positive margins at the bladder neck right and left and anterior left. There was no evidence of lymphovascular invasion. There was evidence of perineural invasion. A total of 5 lymph nodes were taken and all were negative for evidence of metastatic disease. The final AJCC pathologic staging was therefore a pT3b pN0. Case: [id number]. A post-prostatectomy prostate-specific antigen was drawn on 11/18/2016. Unfortunately this showed persistent prostate-specific antigen value of 1.90. This is consistent with residual disease present. Dr. Alford therefore was kind enough to ask us to see his patient to discuss with him the potential role of salvage radiation. Hormonal suppression. Status post completion of salvage radiation therapy 02/23. He received 7020 cGy. Interim History He feels that he is stable from a urinary standpoint. He gave an AUA score of 7. He completed and expanded prostate cancer index composite for clinical practice and gave a score of 3 of 12 and urinary incontinence symptoms. He gives score 0 of 12 and urinary irritation symptoms. He gave a score of 1 of 12 and bowel symptoms. He gave a score of 8 of 12 and sexual symptoms to note he scored this as not being a problem. He gave a score of 3 of 12 and hormonal vitality symptoms. Total was 15 of 60. He had a recheck PSA July 11, 2017. That was 0.56. Allergies Coded Allergies: Adhesives (Verified Adverse Reaction, Intermediate, REDNESS WITH EKG ELECTRODES, 10/12/16) Home Medications Scheduled Alendronate/Cholecalciferol (Fosamax+D 70MG/2800 Iu), 1 TABLET PO WK Aspirin (Aspirin Ec), 81 MG PO HS Atorvastatin (Lipitor), 1 TAB PO DAILY Docusate Sodium (Colace), 1 CAP PO DAILY Irbesartan (Avapro), 1 TAB PO DAILY Leuprolide Acetate (Lupron Depot), 45 MG Q6MO Meloxicam (Mobic), 15 MG PO DAILY Metformin Hcl (Glucophage), 500 MG PO QAM Metoprolol Succinate (Toprol Xl), 50 MG PO HS Multivitamin (Multivitamin), 1 TAB PO DAILY Oxybutynin Chloride (Ditropan), 1 TAB PO BID Scheduled PRN Hydrocodone/Acetaminophen 10MG/325MG ([place] 10MG/325MG), 1 TAB PO Q4H PRN for Pain Review of Systems Gastrointestinal: Symptoms: WNL GI Comments: Continues metamucil;BMs have returned to baseline Oral: Symptoms: No Problems Respiratory: Symptoms: WNL Urinary: Symptoms: WNL, Incontinence, Nocturia Comments: Nocturia x 2-3, Stress Incontinence, See AUA & EPIC Skin: Symptoms: No Problems Physical Exam Vital Signs Date Time Temp Pulse Resp B/P (MAP) Pulse Ox O2 Delivery O2 Flow Rate FiO2 10/12/17 13:01 36.8 103 16 143/87 95 Fatigue: None General Appearance: no apparent distress Eyes: normal inspection, EOMI ENT: normal ENT inspection, hearing grossly normal Respiratory/Chest: lungs clear, no respiratory distress, no accessory muscle use Cardiovascular: regular rate, rhythm, no gallop, no murmur Abdomen: non tender, soft, no organomegaly Anal / Rectum: Normal sphincter tone. There is a smooth nodule at 6 o'clock with the patient in the prone position. Probable internal hemorrhoid will polyp. There is no rectal bleeding. Extremities: no pedal edema Neurologic/Psychiatric: no motor/sensory deficits, alert, normal mood/affect Skin: warm/dry Pain Management Patient Reports Pain: No Initial Pain Intensity: 0.0 Pain Management Plan He denies pain therefore requires no pain management. Laboratory Laboratory Results: were reviewed Laboratory Comments: Reviewed in the interim history. Pathology Pathology Results: were reviewed, and pertinent findings noted in HPI Imaging Imaging Studies: not applicable Assessment & Plan Plan: Continue PSAs every 6 months. He has an appointment with Dr. Alford in December and will have a PSA prior to that visit. Plan is for hormonal suppression for 18 months. This is being given in radiation oncology. We discussed doing Kegel exercises to help treat incontinence. He is familiar with patients undergoing physical therapy to help with incontinence. I have asked him to call if he would like a referral for physical therapy if the Kegel exercises do not help. We will have him return to our office in January at the time of his next Lupron injection. We will also perform examination to determine if the palpable area has decreased in size since completing the radiation treatments. This is reviewed with Dr. Sevilla and he was in agreement to the above plan of treatment. This will be the final Lupron injection in January. Total Time In Follow-Up I spent 20 minutes speaking to the patient in performing examination. I spent 15 minutes reviewing information and completing this note. AK Copy To Jimmy Allen M.D.; [place] Alford M.D.
== END | disposition home or self-care (01) ==
LOC: C.ONC 12:47
PROVIDERS: ATTEND Physician Assistant Medical
DX: Z08 Encounter for follow-up examination after completed treatment for malignant neoplasm (principal); Z92.3 Personal history of irradiation; Z85.46 Personal history of malignant neoplasm of prostate

== ENCOUNTER 2021-04-12 12:06 | Inpatient (IN) ==
[2021-04-12] MEDS ORDERED: SODIUM CHLORIDE 0.9% 500 ML IV STA (12:23)
[2021-04-12] MEDS ORDERED: STAT IV Infusion **Titration per Protocol STA (12:23)
[2021-04-12] MEDS ORDERED: dilTIAZem HCl 5 MG/ML 5 ML VIAL IV STA ×2 (12:23→13:31)
[2021-04-12] MEDS ORDERED: dilTIAZem HCl 5 MG/ML 5 ML VIAL IV ONE (12:24)
[2021-04-12 12:29] LABS: Basophils # (auto) 0.02 K/uL (0-0.2); Basophils % (auto) 0.2 %; Eosinophils # (auto) 0.05 K/uL (0-0.5); Eosinophils % (auto) 0.6 %; Immature Granulocytes # (auto) 0.02 K/uL (0.00-0.02); Immature Granulocytes % (auto) 0.2 %; Lymphocytes # (auto) 0.66 K/uL (1.2-3.4); Lymphocytes % (auto) 8.2 %; Mean Corpuscular Hemoglobin 29.9 pg (25-34); Mean Corpuscular Hgb Conc 33.3 g/dL (32-36); Mean Corpuscular Volume 89.7 fL (80-100); Mean Platelet Volume 9.4 fL (7.4-10.4); Monocytes # (auto) 1.26 K/uL (0.11-0.59); Monocytes % (auto) 15.7 %; Neutrophils # (auto) 6.01 K/uL (1.4-6.5); Neutrophils % (auto) 75.1 %; Platelet Count 172 K/uL (130-400); RDW Coefficient of Variation 13.5 % (11.5-14.5); RDW Standard Deviation 44.3 fL (36.4-46.3); Red Blood Count 4.68 M/uL (4.7-6.1); White Blood Count 8.02 K/uL (4.8-10.8)
--- NOTE | 2021-04-12 12:29 | Emergency Department Note ---
History of Present Illness General Chief complaint: Cardiac Assessment Stated complaint: Heart racing Time Seen by Provider: 04/12/21 12:14 Source: patient and family (Son) Mode of arrival: EMS History of Present Illness Provider complaint: Tachycardia Onset (ago): day(s) 4 Location: chest Pain Consistency: + intermittent Quality: + other (Heart racing) Relieved By: + none Associated symptoms: + shortness of breath; no chest pain, no cough, no fever/chills or no syncope This is a 75-year-old male with a history of paroxysmal atrial fibrillation only on aspirin presenting with palpitations starting 4 days ago. He states that he feels his heart racing. It is associated with shortness of breath. He denies any chest pain or discomfort. He did not pass out or feel like he was going to pass out. He recently saw his secretary book keeper and he is only on aspirin for paroxysmal A. fib. He does not know why he was not put on other blood thinners. He has not been sick recently other than 3 weeks ago when he had Covid. He states he is fully recovered from that. He is not having any fever, abdominal pain, vomiting, diarrhea or urinary symptoms. He denies any leg swelling or pain. He does still have a residual cough occasionally. Home Medications Medication Instructions Recorded Confirmed Type alendronate 70 mg tablet 70 mg PO WK tab 10/10/18 04/12/21 History enzalutamide 40 mg capsule (Xtandi) 160 mg PO DAILY 10/12/19 04/12/21 History metformin 500 mg tablet 500 mg PO DAILY 10/12/19 04/12/21 History amlodipine 5 mg tablet 5 mg PO DAILY #30 tab 08/20/20 04/12/21 Rx atorvastatin 10 mg tablet (Lipitor) 40 mg PO DAILY #0 tab 08/20/20 04/12/21 Rx metoprolol succinate 25 mg 25 mg PO DAILY 08/20/20 04/12/21 History tablet,extended release 24 hr nystatin 100,000 unit/gram topical 1 applic TOPICAL BID #15 g 08/25/20 04/12/21 Rx cream triamcinolone acetonide 0.1 % 1 applic TOPICAL BID #15 g 08/25/20 04/12/21 Rx topical cream solifenacin 10 mg tablet (Vesicare) 10 mg PO DAILY #90 tab 02/25/21 04/12/21 Rx aspirin 81 mg capsule 81 mg PO DAILY 04/12/21 04/12/21 History hydrocodone 10 mg-acetaminophen 1 tab PO DAILY 04/12/21 04/12/21 History 325 mg tablet Allergies Allergy/AdvReac Type Severity Reaction Status Date / Time adhesive AdvReac Intermediate REDNESS Verified 04/12/21 13:23 WITH EKG ELECTRODES Past Med/Surg History Medical History (Updated 04/12/21 @ 13:33 by Eduard Sol MD) Hx of brachytherapy Surgical History H/O heart surgery History of carpal tunnel surgery Hx of cholecystectomy Family History Mother Lung cancer Father Lung cancer Social History Smoking Status: Never smoker Hx Alcohol Use: No Hx Substance Use: No Preferred Language: Portuguese Communication Ability: Effective Angular Developer Required: No Beliefs That Will Affect Care: None Current Living Situation: Spouse Feels Safe at Home: Yes Assistive Devices: None Review of Systems See HPI for pertinent positives & negatives. and A total of 10 systems reviewed and were otherwise negative Physical Exam Vital Signs Vital Signs - 24 hr 04/12/21 12:12 04/12/21 12:25 04/12/21 12:30 Temperature 37.2 C Temperature Source Oral Pulse Rate 149 H 132 H 130 H Pulse Rate from SpO2 Sensor 110 H 106 H Respiratory Rate 28 H 26 H 21 Respiratory Effort / Characteristics Spontaneous Short of Breath SOB on Exertion Respiratory Depth Normal Blood Pressure 125/90 130/102 H Blood Pressure Mean 101 111 Blood Pressure Position Semi-fowlers Pulse Oximetry 90 97 97 Oxygen Delivery Method Room Air Nasal Cannula Nasal Cannula Oxygen Flow Rate 2 2 Sepsis Recent Fever Within 48 Hours No Sepsis New/Unexplained Change in Mental Status No Sepsis Action Taken by Nursing No Action Required 04/12/21 12:37 04/12/21 12:45 04/12/21 13:00 Temperature Temperature Source Pulse Rate 128 H 126 H 127 H Pulse Rate from SpO2 Sensor 93 H 111 H 72 Respiratory Rate 25 H 24 26 H Respiratory Effort / Characteristics Respiratory Depth Blood Pressure 120/76 125/85 Blood Pressure Mean 90 98 Blood Pressure Position Pulse Oximetry 97 95 96 Oxygen Delivery Method Nasal Cannula Nasal Cannula Nasal Cannula Oxygen Flow Rate 2 2 2 Sepsis Recent Fever Within 48 Hours Sepsis New/Unexplained Change in Mental Status Sepsis Action Taken by Nursing 04/12/21 13:01 04/12/21 13:15 04/12/21 13:30 Temperature Temperature Source Pulse Rate 127 H 127 H 126 H Pulse Rate from SpO2 Sensor 85 113 H 122 H Respiratory Rate 23 25 H 28 H Respiratory Effort / Characteristics Respiratory Depth Blood Pressure 141/90 H 140/83 Blood Pressure Mean 107 102 Blood Pressure Position Pulse Oximetry 94 95 96 Oxygen Delivery Method Nasal Cannula Nasal Cannula Nasal Cannula Oxygen Flow Rate 2 2 2 Sepsis Recent Fever Within 48 Hours Sepsis New/Unexplained Change in Mental Status Sepsis Action Taken by Nursing 04/12/21 13:31 04/12/21 13:45 Temperature Temperature Source Pulse Rate 127 H 126 H Pulse Rate from SpO2 Sensor 114 H 119 H Respiratory Rate 29 H 29 H Respiratory Effort / Characteristics Respiratory Depth Blood Pressure 134/82 106/78 Blood Pressure Mean 99 87 Blood Pressure Position Pulse Oximetry 95 96 Oxygen Delivery Method Nasal Cannula Nasal Cannula Oxygen Flow Rate 2 2 Sepsis Recent Fever Within 48 Hours Sepsis New/Unexplained Change in Mental Status Sepsis Action Taken by Nursing Constitutional: Vital signs reviewed. Eyes: Pupils are equal round reactive to light. Conjunctiva are noninjected. ENT: Pharynx is clear without erythema or exudate. Mucous membranes are moist. Neck supple without meningeal signs. Respiratory: Clear to auscultation bilaterally. Breath sounds are equal bilaterally. Cardiovascular: Tachycardic. Heart rate 130. GI: Soft, nondistended and nontender. Bowel sounds are present. Rectal: Guaiac negative brown stool. Musculoskeletal: No peripheral edema. No lower extremity tenderness. Integumentary: No cyanosis. or jaundice. Neurological: The patient is awake and alert. No focal deficits. Psychiatric: Normal affect. Not anxious appearing. Course Administered Medications Diltiazem HCl 125 mg/ Dextrose 125 mls @ 5 mls/hr IV .Q24H [facility]; Protocol Stop: 05/12/21 12:29 Last Titration: 04/12/21 13:35 Dose: 10 mg/hr, 10 mls/hr Documented by: [id number] Cosigned by: [id number] Admin: 04/12/21 12:42 Dose: 5 mg/hr, 5 mls/hr Documented by: [id number] Cosigned by: [id number] Heparin Sodium/Dextrose (Heparin Sodium/Dextrose) 25,000 units in 500 mls @ 20 mls/hr IV .Q24H [facility]; Protocol Stop: 05/12/21 13:14 Last Admin: 04/12/21 13:41 Dose: 1,000 units/hr, 20 mls/hr Documented by: [id number] Cosigned by: [id number] Magnesium Sulfate/Dextrose (Magnesium Sulfate / D5w) 1 gm in 100 mls @ 100 mls/hr IV Q1H [facility] Stop: 04/12/21 15:33 Last Admin: 04/12/21 13:49 Dose: 100 mls/hr Documented by: [id number] Discontinued Medications Diltiazem HCl (Diltiazem Hcl 5 Mg/Ml 5 Ml Vial) Confirm Administered Dose 25 mg IV .STK-MED ONE Stop: 04/12/21 12:25 Last Admin: 04/12/21 12:42 Dose: Not Given Documented by: [id number] Diltiazem HCl (Diltiazem Hcl 5 Mg/Ml 5 Ml Vial) 5 mg IV NOW STA Stop: 04/12/21 12:24 Last Admin: 04/12/21 12:42 Dose: 5 mg Documented by: [id number] Cosigned by: [id number] Diltiazem HCl (Diltiazem Hcl 5 Mg/Ml 5 Ml Vial) 5 mg IV NOW STA Stop: 04/12/21 13:32 Last Admin: 04/12/21 13:43 Dose: 5 mg Documented by: [id number] Cosigned by: [id number] Heparin Sodium (Porcine) (Heparin Sod (Porcine) 1000 Unit/Ml) 1 units IV NOW ONE Stop: 04/12/21 13:05 Last Admin: 04/12/21 13:43 Dose: 4,000 units Documented by: [id number] Cosigned by: [id number] Sodium Chloride (Nss) 500 mls @ 999 mls/hr IV .Q31M STA Stop: 04/12/21 12:53 Last Admin: 04/12/21 12:42 Dose: Not Given Documented by: [id number] Critical Care Time Critical Care Time: Yes Total Critical Care Time: 40 I have personally spent approximately 40 minutes of critical care time in the direct management of this patient. This includes bedside care, interpretation of diagnostic studies, and testing, discussion with consultants, patient, and family members, and other required patient management activities. These minutes are in excess of all separately billable procedures. Medical Decision Making Differential Diagnosis Sinus tachycardia, atrial fibrillation with RVR, metabolic derangement, unstable angina, anemia Medical Records Attestation: I reviewed the patient's medical records. I did perform a limited focused review of portions of the patient's old chart on the electronic medical record. The patient developed dyspnea on exertion with decreased exercise tolerance and diaphoresis in July of last year and had a cardiac catheterization which showed the following:Coronary Anatomy Dominant: Right Left Main (% Stenosis): Ostial (20) and Distal LAD (% Stenosis): Ostial (20) and Distal (60) D1 (% Stenosis): Proximal Circumflex (% Stenosis): Normal OM1 (% Stenosis): Mid (Mild irregularity) OM2 (% Stenosis): Normal RCA (% Stenosis): Mid (Mild) R PDA (% Stenosis): Normal R PL1 (% Stenosis): Normal Ramus (% Stenosis): Proximal (30) Left Ventricular Angiography EF (%): N/A Home Medications Current Medication List: was personally reviewed by me Laboratory Data Attestation: I reviewed the patient's lab results. Result diagrams: 04/12/21 12:12 04/12/21 12:12 Lab Results 04/12/21 04/12/21 04/12/21 Range/Units 12:12 12:12 12:12 WBC 8.02 (4.8-10.8) K/uL RBC 4.68 L (4.7-6.1) M/uL Hgb 14.0 (14.0-18.0) g/dL Hct 42.0 (42-52) % MCV 89.7 (80-100) fL MCH 29.9 (25-34) pg MCHC 33.3 (32-36) g/dL RDW Std Deviation 44.3 (36.4-46.3) fL RDW Coeff of Lisa 13.5 (11.5-14.5) % Plt Count 172 (130-400) K/uL MPV 9.4 (7.4-10.4) fL Immature Gran % (Auto) 0.2 % Neut % (Auto) 75.1 % Lymph % (Auto) 8.2 % Sunflower % (Auto) 15.7 % Eos % (Auto) 0.6 % Baso % (Auto) 0.2 % Neut # (Auto) 6.01 (1.4-6.5) K/uL Lymph # (Auto) 0.66 L (1.2-3.4) K/uL Sunflower # (Auto) 1.26 H (0.11-0.59) K/uL Eos # (Auto) 0.05 (0-0.5) K/uL Baso # (Auto) 0.02 (0-0.2) K/uL Immature Gran # (Auto) 0.02 (0.00-0.02) K/uL APTT (21.0-31.0) Seconds PTT Ratio Sodium 139 (136-145) mmol/L Potassium 3.7 (3.5-5.1) mmol/L Chloride 106 (98-107) mmol/L Carbon Dioxide 24 (21-32) mmol/L Anion Gap 9 (3-11) BUN 15 (6-23) mg/dl Creatinine 1.04 (0.6-1.4) mg/dl Est Cr Clr Drug Dosing 71.1 ml/min Est GFR ( Amer) 80.5 ml/min Est GFR (Non-Af Amer) 69.4 ml/min BUN/Creatinine Ratio 14.4 (10-20) Glucose 98 (70-99(Fasting)) mg/dl Calcium 8.5 (8.5-10.1) mg/dl Magnesium 1.4 L (1.7-2.4) mg/dl Total Bilirubin 0.7 (0.2-1.0) mg/dl AST 13 (13-39) U/L ALT 5 L (7-52) U/L Alkaline Phosphatase 119 H (34-104) U/L Troponin I 0.10 H* (0-0.04) ng/ml Total Protein 6.9 (6.0-8.3) gm/dl Albumin 3.4 (3.4-5.0) gm/dl Globulin 3.5 (2.5-4.0) gm/dl Albumin/Globulin Ratio 1.0 (0.9-2) TSH 1.571 (0.300-4.500) uIu/ml SARS-CoV-2, RNA, NAAT (NEGATIVE) 02/20/22 02/20/22 Range/Units 12:12 12:33 WBC (4.8-10.8) K/uL RBC (4.7-6.1) M/uL Hgb (14.0-18.0) g/dL Hct (42-52) % MCV (80-100) fL MCH (25-34) pg MCHC (32-36) g/dL RDW Std Deviation (36.4-46.3) fL RDW Coeff of Lisa (11.5-14.5) % Plt Count (130-400) K/uL MPV (7.4-10.4) fL Immature Gran % (Auto) % Neut % (Auto) % Lymph % (Auto) % Sunflower % (Auto) % Eos % (Auto) % Baso % (Auto) % Neut # (Auto) (1.4-6.5) K/uL Lymph # (Auto) (1.2-3.4) K/uL Sunflower # (Auto) (0.11-0.59) K/uL Eos # (Auto) (0-0.5) K/uL Baso # (Auto) (0-0.2) K/uL Immature Gran # (Auto) (0.00-0.02) K/uL APTT 26.0 (21.0-31.0) Seconds PTT Ratio 1.0 Sodium (136-145) mmol/L Potassium (3.5-5.1) mmol/L Chloride (98-107) mmol/L Carbon Dioxide (21-32) mmol/L Anion Gap (3-11) BUN (6-23) mg/dl Creatinine (0.6-1.4) mg/dl Est Cr Clr Drug Dosing ml/min Est GFR ( Amer) ml/min Est GFR (Non-Af Amer) ml/min BUN/Creatinine Ratio (10-20) Glucose (70-99(Fasting)) mg/dl Calcium (8.5-10.1) mg/dl Magnesium (1.7-2.4) mg/dl Total Bilirubin (0.2-1.0) mg/dl AST (13-39) U/L ALT (7-52) U/L Alkaline Phosphatase (34-104) U/L Troponin I (0-0.04) ng/ml Total Protein (6.0-8.3) gm/dl Albumin (3.4-5.0) gm/dl Globulin (2.5-4.0) gm/dl Albumin/Globulin Ratio (0.9-2) TSH (0.300-4.500) uIu/ml SARS-CoV-2, RNA, NAAT NEGATIVE (NEGATIVE) Imaging Data Radiologist's Impression: Chest X-Ray 04/12/21 12:23 XR chest 1V portable HISTORY: 75 years-old Male Dysrhythmia acute atypical chest pain COMPARISON: Chest radiograph 09/30/[address] 10/14/2015. TECHNIQUE: Portable AP view of the chest FINDINGS: Cardiac silhouette is enlarged. Pulmonary vascular congestion with ill-defined bilateral mid to lower lung zone predominant airspace opacities. No pneumothorax, or large pleural effusion. Degenerative changes of the shoulders and spine. Left-sided pleural calcifications redemonstrated. IMPRESSION: 1. Ill-defined opacities of the mid to lower lung zones is suggestive of an infectious or inflammatory pneumonitis. 2. Cardiomegaly. ACT 112: Negative or not required by law. The above report was generated using voice recognition software. It may contain grammatical, syntax or spelling errors. Electronically signed by: Cuate Farmer M.D. 04/12/2021 12:54 PM ECG Data Attestation: I personally reviewed and interpreted this ECG as follows: Indication: + SOB/dyspnea Rate (beats per minute): 151 Rhythm: + other (Supraventricular tachycardia) ECG Intervals/blocks: + Left anterior fascicular block and + Normal QRS ECG ST segments: + Nonspecific ST abnormalities ECG Findings: no PVCs Comparison ECG Date: from (2020-08-18) Change: the following changes noted (Tachycardia is new. Left anterior fascicular block was previously present.) MDM Narrative I did evaluate the patient as noted above. The patient is presenting with tac hycardia intermittently for the past 4 days with shortness of breath. He does have a history of paroxysmal A. fib. IV access was established. I did place an order for continuous cardiac monitoring. The monitor showed atrial fibrillation at a rate of 130.I did order and personally review the patient's 12-lead EKG as described above. He has A. fib with a rate of [address] changes. I did treat him with Cardizem 5 mg IV and 1/2 L of normal saline IV. He was placed on a continuous IV drip of Cardizem at 5 mg an hour. I did look through old visits from the [employer] system to cardiology and there is no mention of atrial fibrillation. I also cannot find any prior EKG showing atrial fibrillation. His son states that he never heard that he had atrial fibrillation and the patient does not know why he thought he had it. I did discuss risks and benefits of heparinization and he was agreeable to it. He denies any history of major bleed or any black or bloody stools. Idid perform a rectal examination and he had guaiac negative brown stool. I did start the patient on heparin with a bolus and continuous infusion. I did order and personally reviewed the images of the patient's chest x-ray as described above. He has what appears to be bilateral lower lobe pneumonitis. I did order and review the patient's blood work as noted in the electronic medical record. CBC is unremarkable without leukocytosis or anemia. Platelet count is 172. Electrolytes are unremarkable other than the mag of 1.4. He was given IV magnesium. His troponin is slightly elevated at 0.10. TSH is within normal limits. Covid testing is negative. I did discuss the test results with the patient. His heart rate is still at 125 on 10 mg of Cardizem an hour. I did bolus him with another 5 mg IV bolus of Cardizem. His heart rate did come down to 118. He will be hospitalized for further care and evaluation. I did discuss case with the hospitalist and continuous pillowcase cutter. Impression & Plan Atrial fibrillation with rapid ventricular response, Elevated troponin, Hypomagnesemia, Pneumonitis Discharge Plan Visit Data Chief Complaint: Cardiac Assessment Stated Complaint: Heart racing ED Provider: Eduard Sol Discharge Problem: Atrial fibrillation with rapid ventricular response, Elevated troponin, Hypomagnesemia, Pneumonitis Patient Disposition: Being Evaluated by Hospitalist Forms Stand Alone Forms: My [facility] Prescriptions Prescriptions: No Action metformin 500 mg tablet 500 mg PO DAILY RF: 0 Xtandi 40 mg capsule 160 mg PO DAILY RF: 0 alendronate 70 mg tablet 70 mg PO WK RF: 0 triamcinolone acetonide 0.1 % cream 1 applic topical BID Qty: 15 RF: 2 nystatin 100,000 unit/gram cream 1 applic topical BID Qty: 15 RF: 2 solifenacin [Vesicare] 10 mg tablet 10 mg PO DAILY Qty: 90 RF: 3 metoprolol succinate 25 mg Tablet Extended Release 24 Hr 25 mg PO DAILY RF: 0 atorvastatin [Lipitor] 10 mg tablet 40 mg PO DAILY Qty: 0 RF: 0 amlodipine 5 mg tablet 5 mg PO DAILY Qty: 30 RF: 6 hydrocodone-acetaminophen 10-325 mg tablet 1 tab PO DAILY RF: 0 aspirin 81 mg Capsule 81 mg PO DAILY RF: 0 Referrals Referrals: Jimmy Allen [Primary Care Provider] -
[2021-04-12] MEDS: dilTIAZem HCL 125 MG in DEXTROSE 5% 100 ML IV SCH ×2 (12:42→22:27)
[2021-04-12] MEDS ORDERED: Heparin IV Adult Wt-Based Low-Dose WITH Bolus Protocol STA (12:49)
--- NOTE | 2021-04-12 12:55 | XRay Report ---
XR chest 1V portable HISTORY: 75 years-old Male Dysrhythmia acute atypical chest pain COMPARISON: Chest radiograph 09/30/[address] 10/14/2015. TECHNIQUE: Portable AP view of the chest FINDINGS: Cardiac silhouette is enlarged. Pulmonary vascular congestion with ill-defined bilateral mid to lower lung zone predominant airspace opacities. No pneumothorax, or large pleural effusion. Degenerative c hanges of the shoulders and spine. Left-sided pleural calcifications redemonstrated. IMPRESSION: 1. Ill-defined opacities of the mid to lower lung zones is suggestive of an infectious or inflammator y pneumonitis. 2. Cardiomegaly. ACT 112: Negative or not required by law. The above report was generated using voice recognition software. It may contain grammatical, syntax o r spelling errors. Electronically signed by: Cuate Farmer M.D. 04/12/2021 12:54 PM
[2021-04-12 12:58] LABS: Albumin Level 3.4 gm/dl (3.4-5.0); BUN Creatinine Ratio 14.4 (10-20); Bilirubin,Total 0.7 mg/dl (0.2-1.0); Calcium 8.5 mg/dl (8.5-10.1); Creatinine Clr Calc Pharmacy 71.1 ml/min; Est GFR (African American) 80.5 ml/min; Est GFR (Non-African American) 69.4 ml/min; Globulin 3.5 gm/dl (2.5-4.0); Magnesium 1.4 mg/dl (1.7-2.4); Potassium 3.7 mmol/L (3.5-5.1); Total Protein 6.9 gm/dl (6.0-8.3)
[2021-04-12] MEDS ORDERED: HEPARIN SOD (PORCINE) 1000 UNIT/ML IV ONE (13:04)
[2021-04-12 13:05] LABS: Troponin I 0.1 ng/ml (0-0.04)
[2021-04-12] MEDS ORDERED: HEPARIN SODIUM/DEXTROSE 25,000 UNITS/500 ML BAG IV SCH (13:15)
[2021-04-12] MEDS: MAGNESIUM SULFATE / D5W 1 GM/100 ML BAG IV SCH ×2 (13:49→14:58)
--- NOTE | 2021-04-12 13:56 | History & Physical Report ---
Date of Service April 12, 2021 Assessment & Plan (1) Atrial fibrillation with rapid ventricular response: (2) Elevated troponin: (3) Pulmonary embolism: Plan: Patient is 75-year-old male with PMH CAD medically managed, HTN, dyslipidemia, DM II, diastolic dysfunction, metastatic prostate cancer to bone s/p Brachy therapy, prostatectomy currently on Lupron and enzalutamide following with urology-Dr. Alford and [place] oncology-Dr. Leal presented to ER with complaint of palpitations x 3-4 days. 3 weeks ago had COVID-19. Outpatient cardiology notes do not report history of atrial fibrillation. In ER patient found to be tachycardic up to 150, atrial fibrillation RVR. Noted to be hypoxic on room air with ambulation down into the 80s, up to low 90s on 2 L via nasal cannula. No leukocytosis, TSH WNL. Troponin 0.1 Obtained CTA chest to R/O PE secondary to patient's new A. fib, recent history of COVID-19 and history of CVA 1. Extensive bilateral pulmonary emboli with evidence of right heart strain. 2. Trace pleural effusions with right lung base opacities suggestive of atelectasis and possible developing pulmonary infarct(s). 3. Indeterminate 1.1 cm lobular solid nodule of the left lower lobe has slightly increased in size dating back to the comparison 2016 study. Equivocal central macroscopic fat raises the possibility of a pulmonary hamartoma. 1 year follow- up chest CT recommended. In ER patient was given bolus and started on low-dose heparin. Will switch to standard dose heparin In ER on Cardizem drip, will continue Continue home metoprolol succinate Magnesium level was 1.4, in ER given 2 g magnesium sulfate Continue supplemental oxygen Echo Pulmonology consult Trend troponin EKG a.m. Cardiology consult CBC, BMP, mag level in a.m. History of CAD Plan as above Continue aspirin, atorvastatin, metoprolol succinate DM II A1c in a.m. Hold metformin NovoLog sliding scale HTN Continue amlodipine, metoprolol succinate Dyslipidemia Continue atorvastatin History metastatic prostate cancer to bone S/p brachy therapy, prostatectomy currently on Lupron and enzalutamide following with urology-Dr. Alford and [place] oncology-Dr. Leal Reports just had PET scan at [place] recently, unsure of results Today's CT chest with subtle upper abdominal omental nodules, suspicious for omental carcinomatosis, mild mediastinal adenopathy Will need further follow-up with oncology DVT Prophylaxis On Heparin IV Full Code as per discussion with pt Follows with Dr Jimmy Allen in [place] for routine care Pt was seen and care coordinated with Dr Sow. See addendum History of Present Illness Chief Complaint: Palpitations Primary Care Provider: Jimmy Allen Patient is 75-year-old male with PMH CAD medically managed, HTN, dyslipidemia, DM II, diastolic dysfunction, metastatic prostate cancer to bone s/p brachy therapy, prostatectomy currently on Lupron and enzalutamide following with urology-Dr. Alford and [place] oncology-Dr. Leal presented to ER with complaint of palpitations x 3-4 days. Patient reports 3 weeks ago had onset of headache, myalgias, cough, shortness of breath. He reports positive COVID-19 test. Reports his myalgias and headache and shortness of breath improved. Cough has continued to improve however still has some nonproductive cough. 3 to 4 days ago patient states started with exertional shortness of breath and heart racing. He states he has been unable to walk more than a few steps without needing to sit down secondary to the shortness of breath. Patient reports intermittent anterior chest discomfort described as dull ache that is nonradiating. Patient is unsure if this occurs with the episodes of shortness of breath, heart racing or ambulation. Unsure if he is dizzy. Denies syncope. Has chronic urinary incontinence secondary to prostate surgery, denies any hematuria, dysuria. Reports wound to buttock "for a long time" that he admits gets pruritic and he itches. He sometimes uses a topical steroid cream. Denies fever/chills, diaphoresis, N/V/D/C, vision changes, neck pain, orthopnea, mopped assist, sore throat, choking, otalgia, rhinorrhea, abdominal pain, paresthesias, extremity weakness, extremity edema, other rashes, urinary symptoms. Follows with [facility] cardiology and no mention of atrial fibrillation in outpatient notes. Allergies Allergy/AdvReac Type Severity Reaction Status Date / Time adhesive AdvReac Intermediate REDNESS Verified 04/12/21 13:23 WITH EKG ELECTRODES Home Medications Medication Instructions Recorded Confirmed Type alendronate 70 mg tablet 70 mg PO WK tab 10/10/18 04/12/21 History enzalutamide 40 mg capsule (Xtandi) 160 mg PO DAILY 10/12/19 04/12/21 History metformin 500 mg tablet 500 mg PO DAILY 10/12/19 04/12/21 History amlodipine 5 mg tablet 5 mg PO DAILY #30 tab 08/20/20 04/12/21 Rx metoprolol succinate 25 mg 25 mg PO DAILY 08/20/20 04/12/21 History tablet,extended release 24 hr nystatin 100,000 unit/gram topical 1 applic TOPICAL BID #15 g 08/25/20 04/12/21 Rx cream triamcinolone acetonide 0.1 % 1 applic TOPICAL BID #15 g 08/25/20 04/12/21 Rx topical cream aspirin 81 mg capsule 81 mg PO HS 04/12/21 04/12/21 History atorvastatin 10 mg tablet (Lipitor) 40 mg PO HS 04/12/21 04/12/21 History hydrocodone 10 mg-acetaminophen 1 tab PO DAILY PRN 04/12/21 04/12/21 History 325 mg tablet metoprolol succinate 25 mg 12.5 mg PO HS 04/12/21 04/12/21 History tablet,extended release 24 hr solifenacin 10 mg tablet (Vesicare) 10 mg PO HS 04/12/21 04/12/21 History Past Med/Surg History Medical History CAD (coronary artery disease) Diabetes mellitus, type II Dyslipidemia HTN (hypertension) Hx of brachytherapy Prostate cancer metastatic to bone Surgical History H/O heart surgery History of cardiac catheterization History of carpal tunnel surgery History of prostatectomy Hx of cholecystectomy Family History Mother Lung cancer Father Lung cancer Social History Smoking Status: Never smoker Second Hand Exposure: No; Do You Dip or Chew Tobacco: No; Tobacco Cessation Education Requested by Patient: No Hx Alcohol Use: No Hx Substance Use: No Preferred Language: Slovenian Communication Ability: Effective Back Padder Required: No Beliefs That Will Affect Care: Muslim Current Living Situation: Spouse Other Information That Helps Us Care for You: No Feels Safe at Home: Yes Safety Concerns: Feels Safe At This Time Assistive Devices: None Review of Systems Review of Systems: All systems reviewed & are unremarkable except as noted in HPI & below Physical Exam Physical Exam: General: mild distress, overweight Head: normocephalic, atraumatic Eyes: PERRL, EOM's intact, conjunctiva non-injected, anicteric ENT: normal inspection external ears, nose, mucous membranes moist Neck: supple, trachea midline Lungs: clear, at rest RR: 20, with ambulation to bathroom RR: 24 with noted SOB and unable to speak in full sentences, improves with rest, O2 sat drops to 84% on RA with ambulation up to 94% on 2L via NC, no wheezing/rhonchi/rales CV: tachycardia rate 124, irregular, no murmur, trace edema Abd: normal BS, soft, non-tender Ext: no cyanosis, no calf tenderness Neuro: A&O x 3, no focal deficits noted, normal affect Skin: warm, dry, buttocks: +nonblanching erythema, purple coloration with scaling and peeling skin, no discharge or ulceration noted Results & Data Results & Data ([facility]) Vital Signs (Past 12 Hours) Vital Signs Temp Pulse Resp BP Pulse Ox 04/12/21 12:37 128 H 25 H 120/76 97 04/12/21 12:30 130 H 21 130/102 H 97 04/12/21 12:25 132 H 26 H 97 04/12/21 12:12 37.2 C 149 H 28 H 125/90 90 Laboratory Results Short CBC 04/12/21 Range/Units 12:12 WBC 8.02 (4.8-10.8) K/uL Hgb 14.0 (14.0-18.0) g/dL Hct 42.0 (42-52) % Plt Count 172 (130-400) K/uL BMP 04/12/21 04/12/21 04/12/21 12:12 16:58 18:06 Sodium 139 137 Potassium 3.7 3.8 Chloride 106 103 Carbon Dioxide 24 22 BUN 15 13 Creatinine 1.04 0.95 Glucose 98 126 H Calcium 8.5 8.0 L Cardiac Enzymes 04/12/21 04/12/21 Range/Units 12:12 18:06 Troponin I 0.10 H* 0.09 H* (0-0.04) ng/ml Liver Function 04/12/21 Range/Units 12:12 Total Bilirubin 0.7 (0.2-1.0) mg/dl AST 13 (13-39) U/L ALT 5 L (7-52) U/L Alkaline Phosphatase 119 H (34-104) U/L Albumin 3.4 (3.4-5.0) gm/dl Diagnostic Findings Chest X-Ray 04/12/21 12:23 XR chest 1V portable HISTORY: 75 years-old Male Dysrhythmia acute atypical chest pain COMPARISON: Chest radiograph 09/30/[address] 10/14/2015. TECHNIQUE: Portable AP view of the chest FINDINGS: Cardiac silhouette is enlarged. Pulmonary vascular congestion with ill-defined bilateral mid to lower lung zone predominant airspace opacities. No pneumothorax, or large pleural effusion. Degenerative changes of the shoulders and spine. Left-sided pleural calcifications redemonstrated. IMPRESSION: 1. Ill-defined opacities of the mid to lower lung zones is suggestive of an infectious or inflammatory pneumonitis. 2. Cardiomegaly. ACT 112: Negative or not required by law. The above report was generated using voice recognition software. It may contain grammatical, syntax or spelling errors. Electronically signed by: Cuate Farmer M.D. 04/12/2021 12:54 PM Chest CTA 04/12/21 15:58 CT angio chest PE protocol CT DOSE: 643.96 mGy.cm HISTORY: 75 years-old Male with PE. Acute shortness of breath chest pain and cardiac arrhythmia TECHNIQUE: Multiple CTA images of the chest were obtained after the intravenous administration of 120 ml Optiray. Coronal and sagittal MIPS were obtained from the axial data set and were submitted for review. All measurements were obtained according to NASCET criteria. A dose lowering technique was utilized adhering to the principles of ALARA. COMPARISON: Chest radiograph of same day, chest CT 10/14/2015, CT abdomen and pelvis 05/23/2018. FINDINGS: CTA: Heart is moderately enlarged. No pericardial effusion. Myocardial thickening with mural fibrofatty changes of the left ventricular apex are suggestive of prior myocardial infarction. Aortic and mitral annular with mild to moderate coronary artery calcifications. No thoracic aortic aneurysm or dissection. Patency of the imaged great vessels. Extensive bilateral pulmonary emboli involve the lobar, segmental and subsegmental pulmonary arterial branches bilaterally, right greater than left. Straightening of the intraventricular cardiac septum. Mild dilation of the pulmonary artery. CT CHEST: No thyroid nodule. Prominent and mildly enlarged mediastinal and hilar lymph nodes measure up to 10 mm, likely reactive. Trace pleural effusions. No pneumothorax. Chronic cortical thickening of the posterolateral left fifth rib with adjacent pleural calcifications and pleural parenchymal scarring is similar in appearance to the 2016 exam. There is a lobular solid 1.1 x 0.8 x 1.9 cm nodule of the left lower lobe which previously measured up to 9 mm on the 2016 exam. This may demonstrate macroscopic fat centrally. Groundglass and consolida tive opacities are noted within the right lung base. The central airways are patent. 9.1 x 8.1 cm cyst of the right kidney. Small hiatal hernia with mild distal esophageal wall thickening. No acute process of the imaged upper abdomen. Colonic diverticulosis. Mild fecal retention. Indeterminate 1.1 x 0.8 cm nodule involves the upper abdominal omentum on image 41 series 4. Several additional subtle subcentimeter nodular foci also noted throughout the omentum. Healed chronic right-sided rib fractures. Healing subacute appearing nondisplaced fracture of the anterior left seventh rib. Bilateral gynecomastia. IMPRESSION: 1. Extensive bilateral pulmonary emboli with evidence of right heart strain. 2. Trace pleural effusions with right lung base opacities suggestive of atelectasis and possible developing pulmonary infarct(s). 3. Indeterminate 1.1 cm lobular solid nodule of the left lower lobe has slightly increased in size dating back to the comparison 2016 study. Equivocal central m acroscopic fat raises the possibility of a pulmonary hamartoma. 1 year follow-up chest CT recommended. 4. Subtle upper abdominal omental nodules are suspicious for omental carcinomatosis. Oncology follow-up is needed. 5. Small hiatal hernia. 6. Mild mediastinal adenopathy. ACT 112: Negative or not required by law. The above report was generated using voice recognition software. It may contain grammatical, syntax or spelling errors. Electronically signed by: Cuate Farmer M.D. 04/12/2021 4:48 PM Supervising Physician Co-Signing Physician Notes Attending Addendum: delayed entry date of service noted above care coordinated with TAMIA Zelaya please refer to her notes for full details, I agree with her notes patient seen and examined, records reviewed by myself as well on exam, patient seen resting in bed, sitting up, not in distress On 2 L of oxygen States he feels improved overall No active dyspnea, chest pain, palpitations, dizziness no other symptoms VS noted and reviewed oriented x3, not in distress, speaks in sentences with no effort nor accessory muscle use normal rate, regular rhythm, no murmurs Mild rales at the bases non distended, soft, nontender no bipedal edema, erythema, warmth no neuro deficits WBC 8.0 Hg [address] chest: Extensive bilateral pulmonary emboli EKG: Atrial flutter, heart rate 150s ASSESSMENT AND PLAN Extensive lateral PE Risk factors: Underlying metastatic prostate cancer, recent COVID-19 infection Continue heparin IV drip Echocardiogram ordered We will consult pulmonary service Atrial fibrillation in RVR Continue to Cardizem drip Already on heparin drip We will consult cardiology other diagnoses and plan of care as per RON Zelaya. notes Kwesi Sow MD
[2021-04-12] MEDS ORDERED: FUROSEMIDE INJ 20 MG/2 ML VIAL IV ONE (16:00)
[2021-04-12] MEDS ORDERED: GLUCAGON FOR INJ 1 MG VIAL SQ PRN (16:12)
[2021-04-12] MEDS ORDERED: DEXTROSE 50% 50 ML SYRINGE IV PRN (16:12)
[2021-04-12] MEDS ORDERED: GLUCOSE 10 TABS/TUBE PO PRN (16:12)
[2021-04-12] MEDS ORDERED: GLUCOSE 40% GEL 15 GM TUBE PO PRN (16:12)
[2021-04-12] MEDS ORDERED: ACETAMINOPHEN 325 MG TAB PO PRN (16:12)
[2021-04-12] MEDS ORDERED: CARBOHYDRATES FOR HYPOGLYCEMIA PO PRN (16:12)
[2021-04-12] MEDS ORDERED: OPTIRAY 320 125ml IV ONE (16:33)
--- NOTE | 2021-04-12 16:50 | CT Scan Report ---
CT angio chest PE protocol CT DOSE: 643.96 mGy.cm HISTORY: 75 years-old Male with PE. Acute shortness of breath chest pain and cardiac arrhythmia TECHNIQUE: Multiple CTA images of the chest were obtained after the intravenous administration of 120 ml Optiray. Coronal and sagittal MIPS were obtained from the axial data set and were submitted for review. All measurements were obtained according to NASCET criteria. A dose lowering technique was u tilized adhering to the principles of ALARA. COMPARISON: Chest radiograph of same day, chest CT 10/14/2015, CT abdomen and pelvis 05/23/2018. FINDINGS: CTA: Heart is moderately enlarged. No pericardial effusion. Myocardial thickening with mural fibrofatty ch anges of the left ventricular apex are suggestive of prior myocardial infarction. Aortic and mitral a nnular with mild to moderate coronary artery calcifications. No thoracic aortic aneurysm or dissectio n. Patency of the imaged great vessels. Extensive bilateral pulmonary emboli involve the lobar, segme ntal and subsegmental pulmonary arterial branches bilaterally, right greater than left. Straightening of the intraventricular cardiac septum. Mild dilation of the pulmonary artery. CT CHEST: No thyroid nodule. Prominent and mildly enlarged mediastinal and hilar lymph nodes measure up to 10 m m, likely reactive. Trace pleural effusions. No pneumothorax. Chronic cortical thickening of the post erolateral left fifth rib with adjacent pleural calcifications and pleural parenchymal scarring is si milar in appearance to the 2016 exam. There is a lobular solid 1.1 x 0.8 x 1.9 cm nodule of the left lower lobe which previously measured up to 9 mm on the 2016 exam. This may demonstrate macroscopic fa t centrally. Groundglass and consolidative opacities are noted within the right lung base. The centra l airways are patent. 9.1 x 8.1 cm cyst of the right kidney. Small hiatal hernia with mild distal esophageal wall thickenin g. No acute process of the imaged upper abdomen. Colonic diverticulosis. Mild fecal retention. Indete rminate 1.1 x 0.8 cm nodule involves the upper abdominal omentum on image 41 series 4. Several additi onal subtle subcentimeter nodular foci also noted throughout the omentum. Healed chronic right-sided rib fractures. Healing subacute appearing nondisplaced fracture of the anterior left seventh rib. Evin ateral gynecomastia. IMPRESSION: 1. Extensive bilateral pulmonary emboli with evidence of right heart strain. 2. Trace pleural effusions with right lung base opacities suggestive of atelectasis and possible deve loping pulmonary infarct(s). 3. Indeterminate 1.1 cm lobular solid nodule of the left lower lobe has slightly increased in size da ting back to the comparison 2016 study. Equivocal central macroscopic fat raises the possibility of a pulmonary hamartoma. 1 year follow-up chest CT recommended. 4. Subtle upper abdominal omental nodules are suspicious for omental carcinomatosis. Oncology follow- up is needed. 5. Small hiatal hernia. 6. Mild mediastinal adenopathy. ACT 112: Negative or not required by law. The above report was generated using voice recognition software. It may contain grammatical, syntax o r spelling errors. Electronically signed by: Cuate Farmer M.D. 04/12/2021 4:48 PM
[2021-04-12] MEDS: INSULIN ASPART PER UNIT SC SCH ×2 (16:51→21:14)
[2021-04-12 17:29] LABS: BUN Creatinine Ratio 13.7 (10-20); Creatinine Clr Calc Pharmacy 77.8 ml/min; Est GFR (African American) 89.8 ml/min; Est GFR (Non-African American) 77.4 ml/min
[2021-04-12 18:47] LABS: Potassium 3.8 mmol/L (3.5-5.1)
[2021-04-12 19:07] LABS: Troponin I 0.09 ng/ml (0-0.04)
[2021-04-12] MEDS ORDERED: Heparin IV Adult Wt-Based Standard *NO* Bolus Protocol IV SCH (19:16)
[2021-04-12] MEDS: HEPARIN SODIUM/DEXTROSE 25,000 UNITS/500 ML BAG IV SCH (20:02)
[2021-04-12 20:35] LABS: Partial Thromboplastin Ratio 1.4
[2021-04-13 02:42] LABS: Hematocrit (blood only) 38.7 % (42-52); Hemoglobin 12.8 g/dL (14.0-18.0); Mean Corpuscular Hemoglobin 29.2 pg (25-34); Mean Corpuscular Hgb Conc 33.1 g/dL (32-36); Mean Corpuscular Volume 88.4 fL (80-100); Mean Platelet Volume 9.2 fL (7.4-10.4); Platelet Count 172 K/uL (130-400); RDW Coefficient of Variation 13.3 % (11.5-14.5); RDW Standard Deviation 42.6 fL (36.4-46.3); Red Blood Count 4.38 M/uL (4.7-6.1); White Blood Count 6.72 K/uL (4.8-10.8)
[2021-04-13 03:07] LABS: Troponin I 0.07 ng/ml (0-0.04)
[2021-04-13 03:13] LABS: Partial Thromboplastin Ratio 2.1
[2021-04-13 03:20] LABS: Magnesium 1.7 mg/dl (1.7-2.4)
[2021-04-13] MEDS: HEPARIN SODIUM/DEXTROSE 25,000 UNITS/500 ML BAG IV SCH ×2 (06:36→23:03)
[2021-04-13] MEDS: dilTIAZem HCL 125 MG in DEXTROSE 5% 100 ML IV SCH ×3 (06:36→23:03)
[2021-04-13 07:24] LABS: Estimated Average Glucose 128 mg/dl; Hemoglobin A1C 6.1 % (4.5-5.6)
--- NOTE | 2021-04-13 08:53 | Pulmonary Consultation ---
Date of Consultation April 13, 2021 Assessment & Plan (1) Pulmonary embolism: (2) Acute respiratory failure with hypoxia: CT chest 04/12/2021 personally reviewed: Extensive bilateral PE affecting the right and the left main pulmonary artery Bilateral dependent atelectasis Small right-sided pleural effusion Insignificant mediastinal lymphadenopathy 2D echo to 04/13/21: EF 55 to 60%, moderate concentric LVH, RVSP 54 mmHg --Acute pulmonary embolism sPESI 8.9% Patient has history of prostate CA Currently hemodynamically stable No indication for TPA I would consider this a provoked given that he recently had COVID-19 pneumonia --Acute hypoxic respiratory failure Secondary to above We will do supplementation to keep O2 saturation between 90-92% --[id number] smoking history Patient will benefit from PFTs as an outpatient Plan: Recommend urgent 2D echo if not already done to look at the right-sided heart p ressures No indication for TPA right now Continue with heparin drip Incentive spirometry Please note the above document was generated using voice recognition software. It may contain grammatical, syntax or spelling errors.Any formal questions or concerns about the content, text or information contained within the body of this dictation should be directly addressed to the provider for clarification. History of Present Illness Attending Physician: Kwesi Sow MD History of Present Illness 75-year-old male presents to the hospital with complaints of shortness of breath and palpitation Past medical history: Coronary artery disease medically managed, dyslipidemia, hypertension, history of metastatic prostate CA currently on oral chemotherapy Patient was also diagnosed with COVID-19 pneumonia approximately 4 weeks ago Patient had CTA chest done in the ED which showed pulmonary embolism Pulmonary consulted for the same At the time of examination patient said that he is doing well compared to when he came to the hospital The palpitations have decreased He still complains of shortness of breath especially on exertion Denies any headache, no chest pain, no pleuritic chest pain Denies any cough. No hemoptysis Fair appetite. Social history: [id number] smoking history quit at the age of 49 Lung cancer, history of lung cancer in the father was a smoker Allergies Allergy/AdvReac Type Severity Reaction Status Date / Time adhesive AdvReac Intermediate REDNESS Verified 04/12/21 13:23 WITH EKG ELECTRODES Home Medications Medication Instructions Recorded Confirmed Type alendronate 70 mg tablet 70 mg PO WK tab 10/10/18 04/12/21 History enzalutamide 40 mg capsule (Xtandi) 160 mg PO DAILY 10/12/19 04/12/21 History metformin 500 mg tablet 500 mg PO DAILY 10/12/19 04/12/21 History amlodipine 5 mg tablet 5 mg PO DAILY #30 tab 08/20/20 04/12/21 Rx metoprolol succinate 25 mg 25 mg PO DAILY 08/20/20 04/12/21 History tablet,extended release 24 hr nystatin 100,000 unit/gram topical 1 applic TOPICAL BID #15 g 08/25/20 04/12/21 Rx cream triamcinolone acetonide 0.1 % 1 applic TOPICAL BID #15 g 08/25/20 04/12/21 Rx topical cream aspirin 81 mg capsule 81 mg PO HS 04/12/21 04/12/21 History atorvastatin 10 mg tablet (Lipitor) 40 mg PO HS 04/12/21 04/12/21 History hydrocodone 10 mg-acetaminophen 1 tab PO DAILY PRN 04/12/21 04/12/21 History 325 mg tablet metoprolol succinate 25 mg 12.5 mg PO HS 04/12/21 04/12/21 History tablet,extended release 24 hr solifenacin 10 mg tablet (Vesicare) 10 mg PO HS 04/12/21 04/12/21 History Patient History Medical History CAD (coronary artery disease) Diabetes mellitus, type II Dyslipidemia HTN (hypertension) Hx of brachytherapy Prostate cancer metastatic to bone Surgical History H/O heart surgery History of cardiac catheterization History of carpal tunnel surgery History of prostatectomy Hx of cholecystectomy Family History Mother Lung cancer Father Lung cancer Social History Smoking Status: Never smoker Second Hand Exposure: No; Do You Dip or Chew Tobacco: No; Tobacco Cessation Education Requested by Patient: No Hx Alcohol Use: No Hx Substance Use: No Preferred Language: Italian Communication Ability: Effective Cat Hooker Required: No Beliefs That Will Affect Care: Jainism Current Living Situation: Spouse Other Information That Helps Us Care for You: No Feels Safe at Home: Yes Safety Concerns: Feels Safe At This Time Assistive Devices: None Review of Systems Review of Systems: All systems reviewed & are unremarkable except as noted in HPI & below Physical Exam Physical Exam: Constitutional: No acute distress HEENT: EOMI, PERRLA Respiratory system: Decreased air entry bilaterally, no wheeze, no rhonchi, mild crackles bilaterally CVS: S1-S2 positive, no murmurs or gallops Abdomen: Soft, nontender, nondistended, positive bowel sounds x4 Extremities: +2 pulses bilaterally radialis/ dorsalis pedis, no cyanosis, no edema Neuro: Awake alert oriented x3 Psych: Normal mood and affect G/U: No Luna Skin: no rashes, warm and dry Lymphatic: no cervical or axillary lymphadenopathy Results & Data Results & Data ([facility]) Vital Signs (Past 12 Hours) Vital Signs Temp Pulse Resp BP Pulse Ox 04/13/21 08:06 36.9 C 101 H 18 110/72 94 04/13/21 02:58 37 C 102 H 15 111/68 92 04/12/21 23:20 37.0 C 64 18 106/65 90 Laboratory Results 04/13/21 02:30 04/12/21 18:06 PG Care Time/CCT Total # of Minutes Spent Total Time Spent with Patient: Total time spent is greater than 50% in coordination of care (as documented) at patient's floor/unit and/or counseling patient: [place] [address] Initial Inpt Care Lvl 3 Patient Type New Diagnoses Pulmonary embolism I26.99 Acute respiratory failure with hypoxia J96.01
[2021-04-13] MEDS: INSULIN ASPART PER UNIT SC SCH ×4 (09:29→21:18)
[2021-04-13 09:46] LABS: BUN Creatinine Ratio 11.3 (10-20); Calcium 8.1 mg/dl (8.5-10.1); Creatinine Clr Calc Pharmacy 68.9 ml/min; Est GFR (African American) 78.6 ml/min; Est GFR (Non-African American) 67.8 ml/min
--- NOTE | 2021-04-13 10:22 | Electrocardiogram Report ---
Test Reason : Blood Pressure : / mmHG Vent. Rate : 083 BPM Atrial Rate : 300 BPM P-R Int : 000 ms QRS Dur : 092 ms QT Int : 414 ms P-R-T Axes : 000 -40 056 degrees QTc Int : 486 ms Atrial flutter with variable A-V block Left axis deviation Prolonged QT Abnormal ECG When compared with ECG of 30-SEP-2016 10:09, Atrial flutter is new Confirmed by Ventura Villa ([id number]) on 04/13/2021 10:22:44 AM Referred By: REFERRED SELF Confirmed By:Anil Villa
--- NOTE | 2021-04-13 10:22 | Electrocardiogram Report ---
Test Reason : Blood Pressure : / mmHG Vent. Rate : 151 BPM Atrial Rate : 151 BPM P-R Int : 124 ms QRS Dur : 084 ms QT Int : 258 ms P-R-T Axes : 000 -46 097 degrees QTc Int : 408 ms Supraventricular tachycardia , possibly atrial flutter Left anterior fascicular block Marked ST abnormality, possible lateral subendocardial injury Abnormal ECG When compared with ECG of 30-SEP-2016 10:09, Vent. rate has increased BY 82 BPM Left anterior fascicular block is now Present ST now depressed in Lateral leads Confirmed by Ventura Villa ([id number]) on 04/13/2021 10:22:15 AM Referred By: ED Confirmed By:Anil Villa
--- NOTE | 2021-04-13 10:25 | Electrocardiogram Report ---
Test Reason : Blood Pressure : / mmHG Vent. Rate : 124 BPM Atrial Rate : 125 BPM P-R Int : 144 ms QRS Dur : 080 ms QT Int : 330 ms P-R-T Axes : 000 -52 107 degrees QTc Int : 474 ms Supraventricular tachycardia likely atrial flutter Left axis deviation Nonspecific ST abnormality Abnormal ECG Confirmed by Ventura Villa ([id number]) on 04/13/2021 10:24:47 AM Referred By: REFERRED SELF Confirmed By:Anil Villa
--- NOTE | 2021-04-13 11:18 | Cardiology Consultation ---
Date of Consultation April 13, 2021 Assessment & Plan (1) Acute respiratory failure with hypoxia: (2) Pulmonary embolism: (3) CAD (coronary artery disease): (4) Atrial flutter: (5) Atrial fibrillation with rapid ventricular response: (6) Elevated troponin: Complex 75-year-old male with metastatic prostate cancer, positive for COVID-19 approximately 3 weeks ago. Patient presented to [facility] on April 12, 2021 with complaints of significant shortness of breath and tachypalpitations with work-up revealing extensive bilateral pulmonary emboli with associated atrial flutter/fibrillation and elevated troponin without symptoms to suggest an acute coronary syndrome. IV heparin initiated appropriately with likely plans for lifelong anticoagulation. Recommend resumption of metoprolol, weaning off the Cardizem drip as indicated. Resting echocardiogram pending. Further recommend ations pending the results of the resting echocardiogram as well as evaluation by Dr. Allan. Supervising Physician Co-Signing Physician Notes Patient seen and examined at bedside. History of metastatic prostate cancer and recent COVID-19 infection. He presented to the emergency department 04/12/2021 secondary to significant shortness of breath and palpitations. Evaluation revealing bilateral pulmonary embolus and rapid atrial fibrillation. Intravenous heparin and IV diltiazem infusion initiated. Heart rates improved. Currently resting comfortably. Denies chest pain or shortness of breath at rest. No palpitations, lightheadedness, or dizziness. Denies any recent travel or trauma. No asymmetric lower extremity edema or calf tenderness. PE: VSS. Gen: NAD, AAO x3. Heart: Irregular rhythm, normal S1-S2. No murmur. Lungs: Clear bilateral, no rales, rhonchi, wheeze. Remedies: Trace bilateral pedal edema. Neuro: No focal deficit. A/P: Agree with above PA-C history, physical exam, assessment and plan. Wean Cardizem infusion as tolerated. Outpatient dose of Toprol-XL 12.5 mg daily. Titrated to 25 mg twice daily during hospitalization. Continue IV heparin with transition to oral anticoagulation as per internal medicine. Assess bilateral lower extremity venous duplex. History of Present Illness Reason for Consultation: Atrial fibrillation Requesting Physician: Magi Attending Physician: Magi History of Present Illness Mr. Reagan Carbajal is a very pleasant 75-year-old male with notable history including metastatic prostate cancer to the bone, status post brachytherapy, prostatectomy, currently on Lupron and enzalutamide. Patient notably had Covid- 19 about 3 weeks ago. Last Tuesday, on his way to [place] for cancer follow- up, the patient noticed increased shortness of breath that he attributed to anxiety. Since that time he has experienced increased dyspnea, nonproductive cough, and generalized malaise. Over the weekend he experienced significantly worsening dyspnea with associated palpitations, marked reduction in exercise tolerance. Patient was referred to the ER with EKG on presentation revealing what appears to be atrial flutter at a ventricular rate of 151 bpm with left anterior fascicular block, marked inferior and lateral T wave changes. Due to observed hypoxia patient ultimately referred for a CT angio of the chest, PE protocol, that revealed extensive bilateral pulmonary emboli with evidence of right heart strain, trace pleural effusions, right lung base opacity suggestive of atelectasis and possible developing pulmonary infarct. There was an indeterminate 1.1 cm lobular solid nodule of the left lower lobe there was felt to be slightly increased in size, subtle upper abdominal omental nodule suspicious for omental carciomatosis, small hiatal hernia, mild mediastinal adenopathy. IV heparin initiated in the ER. Resting echocardiography has been completed, formal interpretation pending along with pulmonary consultation. EKGs and continuous telemetry monitoring revealed atrial flutter/fibrillation with acceptably controlled rates on diltiazem. It does not appear that his prior to arrival metoprolol succinate was continued on admission. The patient, at the time of my evaluation, is no longer requiring supplemental oxygen. Patient initially presented on August 18, 2020 with significant exertional dyspnea, abrupt onset reduction in exercise tolerance/functional status. Laboratory work revealed renal dysfunction and mild hyperkalemia for which meloxicam was discontinued. Valsartan was initially held due to observed hypotension then discontinued noting laboratory findings of renal dysfunction and hyperkalemia. Metoprolol was increased to 25 mg in the morning and 12.5 mg in the evening for additional heart rate control. Atorvastatin increased to 40 mg/day. Resting echocardiography showed normal LV systolic function without wall motion abnormality (see below). Diagnostic cardiac catheterization on August 20, 2020 revealed right-dominant coronary anatomy with moderate coronary atherosclerosis (60% narrowing of the LAD at the juncture of the mid and apical portions, thin caliber vessel, 30% narrowing at the origin of the high diagonal branch, luminal irregularities of the left circumflex, moderate irregularities of the ramus intermedius, and mild luminal irregularities of the RCA), normal left ventricular end-diastolic pressure. Medication changes made at the time of catheterization included the addition of amlodipine 5 mg/day. Past Medical and Surgical History The patient describes having a tumor behind the heart, undergoing surgical intervention as an , benign. Atherosclerotic heart disease of three affiliated coronary artery Hypertension Diastolic dysfunction Dyslipidemia Type 2 diabetes mellitus Prostate cancer, metastatic (bone). Status post brachytherapy. On Lupron and Xtandi. Followed by Dr. Ventura Alford Urinary incontinence. Nocturia. Obesity Status post cholecystectomy Status post prostatectomy Status post carpal tunnel surgery Family History: Positive for lung cancer in both mother and father Social History: Reformed smoker. Social alcohol. No illegal drug use. . Retired. Complete Review of Systems is as stated above, negative, or noncontributory. Allergies Allergy/AdvReac Type Severity Reaction Status Date / Time adhesive AdvReac Intermediate REDNESS Verified 04/12/21 13:23 WITH EKG ELECTRODES Home Medications Medication Instructions Recorded Confirmed Type alendronate 70 mg tablet 70 mg PO WK tab 10/10/18 04/12/21 History enzalutamide 40 mg capsule (Xtandi) 160 mg PO DAILY 10/12/19 04/12/21 History metformin 500 mg tablet 500 mg PO DAILY 10/12/19 04/12/21 History amlodipine 5 mg tablet 5 mg PO DAILY #30 tab 08/20/20 04/12/21 Rx metoprolol succinate 25 mg 25 mg PO DAILY 08/20/20 04/12/21 History tablet,extended release 24 hr nystatin 100,000 unit/gram topical 1 applic TOPICAL BID #15 g 08/25/20 04/12/21 Rx cream triamcinolone acetonide 0.1 % 1 applic TOPICAL BID #15 g 08/25/20 04/12/21 Rx topical cream aspirin 81 mg capsule 81 mg PO HS 04/12/21 04/12/21 History atorvastatin 10 mg tablet (Lipitor) 40 mg PO HS 04/12/21 04/12/21 History hydrocodone 10 mg-acetaminophen 1 tab PO DAILY PRN 04/12/21 04/12/21 History 325 mg tablet metoprolol succinate 25 mg 12.5 mg PO HS 04/12/21 04/12/21 History tablet,extended release 24 hr solifenacin 10 mg tablet (Vesicare) 10 mg PO HS 04/12/21 04/12/21 History Patient History Medical History CAD (coronary artery disease) Diabetes mellitus, type II Dyslipidemia HTN (hypertension) Hx of brachytherapy Prostate cancer metastatic to bone Surgical History H/O heart surgery History of cardiac catheterization History of carpal tunnel surgery History of prostatectomy Hx of cholecystectomy Family History Mother Lung cancer Father Lung cancer Social History Smoking Status: Never smoker Second Hand Exposure: No; Do You Dip or Chew Tobacco: No; Tobacco Cessation Education Requested by Patient: No Hx Alcohol Use: No Hx Substance Use: No Preferred Language: Lithuanian Communication Ability: Effective Crisis Counselor Required: No Beliefs That Will Affect Care: Anglican Current Living Situation: Spouse Other Information That Helps Us Care for You: No Feels Safe at Home: Yes Safety Concerns: Feels Safe At This Time Assistive Devices: None Review of Systems Review of Systems: Complete Review of Systems is as stated above, negative, or noncontributory. Physical Exam Physical Exam: General: Alert, healthy, no distress, well nourished, well developed, comfortabl e and cooperative Eyes: PER. Conjunctiva pink, sclera clear. HENT: Normocephalic. Atraumatic. Neck: No carotid bruits. No JVD. No HJR. Heart: Regular at 90 bpm. No murmur. No rub. PMI is nondisplaced. Lungs: Diminished but clear. Abdomen: +BS. Soft. Nontender. No masses. No organomegaly. Extremities: No edema. No clubbing. No cyanosis. Pulses: radial=2/4, posterior tibial=2/4. Limited neurological examination: No focal deficit. Results & Data ([facility]) Vital Signs (Past 12 Hours) Vital Signs Temp Pulse Resp BP Pulse Ox 04/13/21 10:34 36.5 C 96 H 19 122/86 94 04/13/21 08:06 36.9 C 101 H 18 110/72 94 04/13/21 02:58 37 C 102 H 15 111/68 92 04/12/21 23:20 37.0 C 64 18 106/65 90 Laboratory Results Laboratory Results - last 24 hr 04/12/21 04/12/21 04/12/21 12:12 12:12 12:12 WBC 8.02 RBC 4.68 L Hgb 14.0 Hct 42.0 MCV 89.7 MCH 29.9 MCHC 33.3 RDW Std Deviation 44.3 RDW Coeff of Lsia 13.5 Plt Count 172 MPV 9.4 Immature Gran % (Auto) 0.2 Neut % (Auto) 75.1 Lymph % (Auto) 8.2 Wagoner % (Auto) 15.7 Eos % (Auto) 0.6 Baso % (Auto) 0.2 Neut # (Auto) 6.01 Lymph # (Auto) 0.66 L Wagoner # (Auto) 1.26 H Eos # (Auto) 0.05 Baso # (Auto) 0.02 Immature Gran # (Auto) 0.02 APTT PTT Ratio Sodium 139 Potassium 3.7 Chloride 106 Carbon Dioxide 24 Anion Gap 9 BUN 15 Creatinine 1.04 Est Cr Clr Drug Dosing 71.1 Est GFR ( Amer) 80.5 Est GFR (Non-Af Amer) 69.4 BUN/Creatinine Ratio 14.4 Glucose 98 POC Glucose Estimat Average Glucose Hemoglobin A1c Calcium 8.5 Magnesium 1.4 L Total Bilirubin 0.7 AST 13 ALT 5 L Alkaline Phosphatase 119 H Troponin I 0.10 H* Total Protein 6.9 Albumin 3.4 Globulin 3.5 Albumin/Globulin Ratio 1.0 TSH 1.571 SARS-CoV-2, RNA, NAAT 04/12/21 04/12/21 04/12/21 12:12 12:33 16:44 WBC RBC Hgb Hct MCV MCH MCHC RDW Std Deviation RDW Coeff of Lisa Plt Count MPV Immature Gran % (Auto) Neut % (Auto) Lymph % (Auto) Wagoner % (Auto) Eos % (Auto) Baso % (Auto) Neut # (Auto) Lymph # (Auto) Wagoner # (Auto) Eos # (Auto) Baso # (Auto) Immature Gran # (Auto) APTT 26.0 PTT Ratio 1.0 Sodium Potassium Chloride Carbon Dioxide Anion Gap BUN Creatinine Est Cr Clr Drug Dosing Est GFR ( Amer) Est GFR (Non-Af Amer) BUN/Creatinine Ratio Glucose POC Glucose 125 H Estimat Average Glucose Hemoglobin A1c Calcium Magnesium Total Bilirubin AST ALT Alkaline Phosphatase Troponin I Total Protein Albumin Globulin Albumin/Globulin Ratio TSH SARS-CoV-2, RNA, NAAT NEGATIVE 04/12/21 04/12/21 04/12/21 16:58 18:06 19:49 WBC RBC Hgb Hct MCV MCH MCHC RDW Std Deviation RDW Coeff of Lisa Plt Count MPV Immature Gran % (Auto) Neut % (Auto) Lymph % (Auto) Wagoner % (Auto) Eos % (Auto) Baso % (Auto) Neut # (Auto) Lymph # (Auto) Wagoner # (Auto) Eos # (Auto) Baso # (Auto) Immature Gran # (Auto) APTT PTT Ratio Sodium 137 Potassium 3.8 Chloride 103 Carbon Dioxide 22 Anion Gap BUN 13 Creatinine 0.95 Est Cr Clr Drug Dosing 77.8 Est GFR ( Amer) 89.8 Est GFR (Non-Af Amer) 77.4 BUN/Creatinine Ratio 13.7 Glucose 126 H POC Glucose 121 H Estimat Average Glucose Hemoglobin A1c Calcium 8.0 L Magnesium Total Bilirubin AST ALT Alkaline Phosphatase Troponin I 0.09 H* Total Protein Albumin Globulin Albumin/Globulin Ratio TSH SARS-CoV-2, RNA, NAAT 04/12/21 04/13/21 04/13/21 20:19 02:30 02:30 WBC RBC Hgb Hct MCV MCH MCHC RDW Std Deviation RDW Coeff of Lisa Plt Count MPV Immature Gran % (Auto) Neut % (Auto) Lymph % (Auto) Wagoner % (Auto) Eos % (Auto) Baso % (Auto) Neut # (Auto) Lymph # (Auto) Wagoner # (Auto) Eos # (Auto) Baso # (Auto) Immature Gran # (Auto) APTT 38.0 H 54.0 H* PTT Ratio 1.4 2.1 Sodium Potassium Chloride Carbon Dioxide Anion Gap BUN Creatinine Est Cr Clr Drug Dosing Est GFR ( Amer) Est GFR (Non-Af Amer) BUN/Creatinine Ratio Glucose POC Glucose Estimat Average Glucose Hemoglobin A1c Calcium Magnesium 1.7 Total Bilirubin AST ALT Alkaline Phosphatase Troponin I 0.07 H* Total Protein Albumin Globulin Albumin/Globulin Ratio TSH SARS-CoV-2, RNA, NAAT 04/13/21 04/13/21 04/13/21 02:30 02:30 07:02 WBC 6.72 RBC 4.38 L Hgb 12.8 L Hct 38.7 L MCV 88.4 MCH 29.2 MCHC 33.1 RDW Std Deviation 42.6 RDW Coeff of Lisa 13.3 Plt Count 172 MPV 9.2 Immature Gran % (Auto) Neut % (Auto) Lymph % (Auto) Wagoner % (Auto) Eos % (Auto) Baso % (Auto) Neut # (Auto) Lymph # (Auto) Wagoner # (Auto) Eos # (Auto) Baso # (Auto) Immature Gran # (Auto) APTT PTT Ratio Sodium Potassium Chloride Carbon Dioxide Anion Gap BUN Creatinine Est Cr Clr Drug Dosing Est GFR ( Amer) Est GFR (Non-Af Amer) BUN/Creatinine Ratio Glucose POC Glucose 117 H Estimat Average Glucose 128 Hemoglobin A1c 6.1 H Calcium Magnesium Total Bilirubin AST ALT Alkaline Phosphatase Troponin I Total Protein Albumin Globulin Albumin/Globulin Ratio TSH SARS-CoV-2, RNA, NAAT 04/13/21 04/13/21 09:04 10:55 WBC RBC Hgb Hct MCV MCH MCHC RDW Std Deviation RDW Coeff of Lisa Plt Count MPV Immature Gran % (Auto) Neut % (Auto) Lymph % (Auto) Wagoner % (Auto) Eos % (Auto) Baso % (Auto) Neut # (Auto) Lymph # (Auto) Wagoner # (Auto) Eos # (Auto) Baso # (Auto) Immature Gran # (Auto) APTT PTT Ratio Sodium 137 Potassium 4.0 Chloride 102 Carbon Dioxide 29 Anion Gap 6 BUN 12 Creatinine 1.06 Est Cr Clr Drug Dosing 68.9 Est GFR ( Amer) 78.6 Est GFR (Non-Af Amer) 67.8 BUN/Creatinine Ratio 11.3 Glucose 136 H POC Glucose 93 Estimat Average Glucose Hemoglobin A1c Calcium 8.1 L Magnesium Total Bilirubin AST ALT Alkaline Phosphatase Troponin I Total Protein Albumin Globulin Albumin/Globulin Ratio TSH SARS-CoV-2, RNA, NAAT Diagnostic Findings August 18, 2020 TTE Interpretation Summary (as per Dr. Toth): The LV wall thickness is moderately increased (concentric). The left ventricular wall motion is normal. The qualitative LV ejection fraction is 65-69% (normal). The left ventricular diastolic function is mildly abnormal (grade I). The aortic valve is mildly calcified. Aortic stenosis is absent. There is moderate mitral annular calcification. Mitral stenosis is absent. Significant mitral regurgitation is absent. There is no evidence of pulmonary hypertension. August 20, 2020 Coronary Angiography ([facility], Dr. Grant): Left main: Normal length and caliber with mild calcification and 20% ostial and distal narrowing Left anterior descending: Type III in distribution gives rise to a high diagonal branch and a large septal branch in its proximal portion. Then courses to the apex. At the juncture of the mid and apical portions there is a 60 % narrowing in a thin caliber vessel. The origin of the high diagonal branch is narrowed by 30% Left circumflex: Nondominant moderately large. It gives rise to a small marginal branch then large obtuse marginal branch with only a trivial vessel along the AV groove. There are moderate luminal irregularities in the left circumflex distribution. Ramus intermedius: Large bifurcating vessel with moderate irregularities of less than 30% in its proximal Right coronary artery: Large dominant vessel giving rise to a sinoatrial and conus branch at its origin, a large right ventricular branch in its midportion and a small acute marginal branch. At the AV groove it gives rise to a long posterior descending artery and along the AV groove a bifurcating posterior ventricular branch. There are mild luminal irregularities in right coronary distribution LV angiography: Not performed Hemodynamics left ventricular pressure 130/1 LVEDP is 6 Continuous telemetry monitoring reveals atrial flutter, possibly atrial fibrillation with rates in the 80s and 90s.
[2021-04-13] MEDS: METOPROLOL SUCC 25MG EXT REL TAB PO SCH ×2 (13:12→21:20)
--- NOTE | 2021-04-13 13:25 | Hospitalist Progress Note ---
Date of Service April 13, 2021 Assessment & Plan (1) Atrial fibrillation with rapid ventricular response: (2) Elevated troponin: (3) Pulmonary embolism: Plan: Patient is 75-year-old male with CAD, HTN, dyslipidemia, DM II, diastolic dysfunction, metastatic prostate cancer to bone s/p Brachy therapy, prostatectomy currently on Lupron and enzalutamide following with urology-Dr. Alford and [place] oncology-Dr. Leal presented to ER with complaint of palpitations x 3-4 days. 3 weeks ago had COVID-19. Outpatient cardiology notes do not report history of atrial fibrillation. Atrial fibrillation, in rapid ventricular response In the setting of extensive bilateral pulmonary embolism In ER patient found to be tachycardic up to 150, atrial fibrillation RVR. Noted to be hypoxic on room air with ambulation down into the 80s, up to low 90s on 2 L via nasal cannula. No leukocytosis, TSH WNL. Troponin 0.1 Obtained CTA chest to R/O PE secondary to patient's new A. fib, recent history of COVID-19 and history of CVA 1. Extensive bilateral pulmonary emboli with evidence of right heart strain. 2. Trace pleural effusions with right lung base opacities suggestive of atelectasis and possible developing pulmonary infarct(s). 3. Indeterminate 1.1 cm lobular solid nodule of the left lower lobe has slightly increased in size dating back to the comparison 2016 study. Equivocal central macroscopic fat raises the possibility of a pulmonary hamartoma. 1 year follow- up chest CT recommended. Main risk factors for extensive PE include underlying metastatic prostatic cancer, recent Covid infection Hemodynamically stable, currently on room air Continue heparin drip Echocardiogram pending Pulmonary service consulted, appreciate the recommendations Patient in A. fib, now rate controlled Usual metoprolol increased from 25/12.5 mg to 25 twice daily Wean off diltiazem drip Continue heparin drip Renal service consulted, appreciate the recommendations History of CAD Plan as above Continue aspirin, atorvastatin, metoprolol succinate DM II A1c 6.1 Hold metformin NovoLog sliding scale HTN Continue amlodipine, metoprolol succinate Dyslipidemia Continue atorvastatin History metastatic prostate cancer to bone S/p brachy therapy, prostatectomy currently on Lupron and enzalutamide following with urology-Dr. Alford and [place] oncology-Dr. Leal Reports just had PET scan at [facility] recently Today's CT chest with subtle upper abdominal omental nodules, suspicious for omental carcinomatosis, mild mediastinal adenopathy Will need further follow-up with oncology, scheduled to see [facility] oncologist April 20 DVT Prophylaxis On Heparin IV Disposition Lives at home Anticipate discharge to home medically stable plan of care discussed with patient in detail and at length all questions answered He is understanding, agreeable, comfortable with the plan of care Admission and Anticipated Discharge Date Admission Date: April 12, 2021 Subjective Follow-up for extensive bilateral PEs, atrial fibrillation RVR, etc. Seen resting in bed, sitting up, in good spirits States he continues to feel improved today Denies shortness of breath, chest pain, palpitations, dizziness No bleeding No other symptoms Review of Systems Review of Systems: all noted and negative except for above Physical Exam Physical Exam: General- oriented x 3, not in distress, speaks in sentences with no effort or accessory muscle use Eyes- anicteric Neck- no JVD Lungs- clear BS BL no rales/wheezing Heart- normal rate, irregularly irregular rhythm; no murmurs Abdomen- normal bowel sounds, nondistended, soft, nontender Extremities- no pretibial edema, no calf tenderness Neuro- alert, oriented x 3; no gross focal neurologic deficits Skin- warm & dry Results & Data Results & Data ([facility]) Vital Signs (Past 12 Hours) Vital Signs Temp Pulse Resp BP Pulse Ox 04/13/21 13:09 101 H 16 111/72 93 04/13/21 10:34 36.5 C 96 H 19 122/86 94 04/13/21 08:06 36.9 C 101 H 18 110/72 94 04/13/21 02:58 37 C 102 H 15 111/68 92 all noted and reviewed including below
--- NOTE | 2021-04-14 06:57 | Ultrasound Report ---
BILATERAL LOWER EXTREMITY VENOUS DOPPLER CLINICAL HISTORY: Pulmonary emboli. COMPARISON STUDY: No previous studies for comparison. TECHNIQUE: Sonography of the deep venous system of the bilateral lower extremities was performed. Co mpression and augmentation were evaluated. FINDINGS: There is no deep venous thrombus within the right lower extremity. Note is made of extensiv e superficial thrombus within the left greater saphenous vein. This extends the near entirety of the greater saphenous vein to within 1 cm of the confluent within the common femoral vein. There is deep venous thrombus within the left gastrocnemius veins which begins 1.7 cm from the confluence with the popliteal vein. A 5.6 x 1.2 x 3.3 cm left popliteal fluid collection is noted. This contains a 1.3 cm oval-shaped hypoechoic focus without color flow. This favors a complex popliteal cyst. IMPRESSION: 1. Deep venous thrombus within the left gastrocnemius veins and extensive superficial thrombus within the left greater saphenous vein. 2. No deep venous thrombus within the right lower extremity. ACT 112: Negative or not required by law. Electronically signed by: Cheikh Lopez M.D. 04/14/2021 6:56 AM
[2021-04-14 07:14] LABS: Basophils # (auto) 0.01 K/uL (0-0.2); Basophils % (auto) 0.2 %; Eosinophils # (auto) 0.15 K/uL (0-0.5); Eosinophils % (auto) 2.4 %; Hematocrit (blood only) 40.6 % (42-52); Hemoglobin 13.5 g/dL (14.0-18.0); Immature Granulocytes # (auto) 0.03 K/uL (0.00-0.02); Immature Granulocytes % (auto) 0.5 %; Mean Corpuscular Hemoglobin 29.5 pg (25-34); Mean Corpuscular Hgb Conc 33.3 g/dL (32-36); Mean Corpuscular Volume 88.6 fL (80-100); Mean Platelet Volume 9.3 fL (7.4-10.4); Monocytes # (auto) 0.84 K/uL (0.11-0.59); Monocytes % (auto) 13.4 %; Neutrophils # (auto) 4.22 K/uL (1.4-6.5); Neutrophils % (auto) 67.5 %; Platelet Count 231 K/uL (130-400); RDW Coefficient of Variation 13.4 % (11.5-14.5); Red Blood Count 4.58 M/uL (4.7-6.1); White Blood Count 6.25 K/uL (4.8-10.8)
[2021-04-14 07:38] LABS: BUN Creatinine Ratio 12.5 (10-20); Calcium 8.4 mg/dl (8.5-10.1); Creatinine Clr Calc Pharmacy 76.3 ml/min; Est GFR (African American) 88.6 ml/min; Est GFR (Non-African American) 76.5 ml/min; Magnesium 1.7 mg/dl (1.7-2.4); Potassium 3.4 mmol/L (3.5-5.1)
[2021-04-14 07:41] LABS: Partial Thromboplastin Ratio 1.7
[2021-04-14 07:48] LABS: Partial Thromboplastin Time 45.3 Seconds (21.0-31.0)
[2021-04-14] MEDS ORDERED: POTASSIUM CHLORIDE CRTAB 20 MEQ TABCR PO STA (08:12)
[2021-04-14] MEDS: INSULIN ASPART PER UNIT SC SCH ×4 (08:36→20:28)
[2021-04-14] MEDS: METOPROLOL SUCC 25MG EXT REL TAB PO SCH ×2 (08:37→20:26)
[2021-04-14] MEDS: dilTIAZem HCL 125 MG in DEXTROSE 5% 100 ML IV SCH (10:57)
--- NOTE | 2021-04-14 11:50 | Cardiology Progress Note ---
Date of Service April 14, 2021 Assessment & Plan (1) Acute respiratory failure with hypoxia: (2) Pulmonary embolism: (3) CAD (coronary artery disease): (4) Atrial flutter: (5) Atrial fibrillation with rapid ventricular response: (6) Elevated troponin: Plan: Complex 75-year-old male with metastatic prostate cancer, positive for COVID-19 approximately 3 weeks ago. Patient presented to [facility] on April 12, 2021 with complaints of significant shortness of breath and tachypalpitations with work-up revealing left lower extremity DVT and extensive bilateral pulmonary emboli with associated atrial flutter/fibrillation and an elevated troponin without symptoms to suggest an acute coronary syndrome. IV heparin prescribed with plans for likely lifelong anticoagulation hereinafter. Recommend weaning off of Cardizem, concurrently increasing metoprolol for heart rate control. Plans are for rate control strategy at at this point though may change down the road pending course. Admission and Anticipated Discharge Date Admission Date: April 12, 2021 Supervising Physician Co-Signing Physician Notes Patient seen and examined at bedside. History of metastatic prostate cancer and recent COVID-19 infection. He presented to the emergency department 04/12/2021 secondary to significant shortness of breath and palpitations. Evaluation revealing bilateral pulmonary embolus and rapid atrial fibrillation. Diltiazem dose reduced to 5 mg/h. Heart rate control improved overnight. Currently resting comfortably. Denies chest pain or shortness of breath at rest. No palpitations, lightheadedness, or dizziness. Denies any recent travel or trauma. Venous duplex demonstrates DVT of the left gastrocnemius veins and extensive superficial thrombus within the left greater saphenous vein. No thrombus in the right lower extremity. PE: VSS. Gen: NAD, AAO x3. Heart: Irregular rhythm, normal S1-S2. No murmur. Lungs: Clear bilateral, no rales, rhonchi, wheeze. Remedies: Trace bilateral pedal edema. Neuro: No focal deficit. A/P: Agree with above PA-C history, physical exam, assessment and plan. Wean Cardizem infusion as tolerated. Continue metoprolol, titrated to 25 mg twice daily during hospitalization. Continue IV heparin with transition to oral anticoagulation as per internal medicine. Subjective Patient seen and examined. Chart, medications, and telemetry reviewed. No chest pain. Stable dyspnea with activity. No resting dyspnea. No palpitations. No orthopnea or PND. No peripheral edema. No lower extremity pain. No dizziness or near syncope. No subjective fevers or chills. No melena or hematochezia. April 13, 2021 TTE interpretation summary ([facility], Dr. Allan): Compared to the echocardiogram dated July 2020 in the [employer] system, there is now evidence of moderate pulmonary hypertension. The rhythm is atrial fibrillation with a rapid ventricular response. Ejection fraction 55 to 60%. Moderate concentric LVH. Normal RV size and systolic function. Moderately dilated left atrium. Moderate aortic valve sclerosis, without significant stenosis. Mild tricuspid regurgitation. Mild aortic root dilatation. Estimated pulmonary artery systolic pressure 54 mmHg. Telemetry reveals atrial flutter with rates ranging from 70s to 100s. Review of Systems Review of Systems: All systems reviewed & are unremarkable except as noted in Subjective Physical Exam Physical Exam: General: Alert, healthy, no distress, well nourished, well developed, comfortable and cooperative Eyes: PER. Conjunctiva pink, sclera clear. HENT: Normocephalic. Atraumatic. Neck: No carotid bruits. No JVD. No HJR. Heart: Slightly irregular around 80 bpm. Soft systolic ejection murmur. No diastolic murmur. No rub. Lungs: Diminished but clear. Abdomen: +BS. Soft. Nontender. No masses. No organomegaly. Extremities: No edema. No clubbing. No cyanosis. Pulses: radial=2/4, posterior tibial=2/4. Limited neurological examination: No focal deficit. Results & Data ([facility]) Vital Signs (Past 12 Hours) Vital Signs Temp Pulse Pulse Resp BP Pulse Ox 04/14/21 11:24 36.5 C 83 19 110/77 91 04/14/21 07:15 88 04/14/21 06:57 36.8 C 88 18 117/74 94 04/14/21 03:50 36.7 C 88 16 112/69 93 Laboratory Results Laboratory Results - last 24 hr 04/13/21 04/13/21 04/14/21 16:19 19:54 06:41 WBC RBC Hgb Hct MCV MCH MCHC RDW Std Deviation RDW Coeff of Lisa Plt Count MPV Immature Gran % (Auto) Neut % (Auto) Lymph % (Auto) [place] % (Auto) Eos % (Auto) Baso % (Auto) Neut # (Auto) Lymph # (Auto) [place] # (Auto) Eos # (Auto) Baso # (Auto) Immature Gran # (Auto) APTT 45.3 H* PTT Ratio 1.7 Sodium Potassium Chloride Carbon Dioxide Anion Gap BUN Creatinine Est Cr Clr Drug Dosing Est GFR ( Amer) Est GFR (Non-Af Amer) BUN/Creatinine Ratio Glucose POC Glucose 117 H 107 H Calcium Magnesium 04/14/21 04/14/21 04/14/21 06:41 06:41 07:15 WBC 6.25 RBC 4.58 L Hgb 13.5 L Hct 40.6 L MCV 88.6 MCH 29.5 MCHC 33.3 RDW Std Deviation 43.0 RDW Coeff of Lisa 13.4 Plt Count 231 MPV 9.3 Immature Gran % (Auto) 0.5 Neut % (Auto) 67.5 Lymph % (Auto) 16.0 [place] % (Auto) 13.4 Eos % (Auto) 2.4 Baso % (Auto) 0.2 Neut # (Auto) 4.22 Lymph # (Auto) 1.00 L [place] # (Auto) 0.84 H Eos # (Auto) 0.15 Baso # (Auto) 0.01 Immature Gran # (Auto) 0.03 H APTT PTT Ratio Sodium 135 L Potassium 3.4 L Chloride 101 Carbon Dioxide 27 Anion Gap 7 BUN 12 Creatinine 0.96 Est Cr Clr Drug Dosing 76.3 Est GFR ( Amer) 88.6 Est GFR (Non-Af Amer) 76.5 BUN/Creatinine Ratio 12.5 Glucose 109 H POC Glucose 122 H Calcium 8.4 L Magnesium 1.7 04/14/21 11:22 WBC RBC Hgb Hct MCV MCH MCHC RDW Std Deviation RDW Coeff of Lisa Plt Count MPV Immature Gran % (Auto) Neut % (Auto) Lymph % (Auto) [place] % (Auto) Eos % (Auto) Baso % (Auto) Neut # (Auto) Lymph # (Auto) [place] # (Auto) Eos # (Auto) Baso # (Auto) Immature Gran # (Auto) APTT PTT Ratio Sodium Potassium Chloride Carbon Dioxide Anion Gap BUN Creatinine Est Cr Clr Drug Dosing Est GFR ( Amer) Est GFR (Non-Af Amer) BUN/Creatinine Ratio Glucose POC Glucose 111 H Calcium Magnesium
[2021-04-14] MEDS: TRIAMCINOLONE ACET 0.1% CR 15 GM TUBE EXT SCH ×2 (12:55→20:26)
[2021-04-14] MEDS: HEPARIN SODIUM/DEXTROSE 25,000 UNITS/500 ML BAG IV SCH (14:32)
--- NOTE | 2021-04-14 15:19 | Hospitalist Progress Note ---
Date of Service April 14, 2021 Assessment & Plan (1) Atrial fibrillation with rapid ventricular response: (2) Elevated troponin: (3) Pulmonary embolism: Plan: Patient is 75-year-old male with CAD, HTN, dyslipidemia, DM II, diastolic dysfunction, metastatic prostate cancer to bone s/p Brachy therapy, prostatectomy currently on Lupron and enzalutamide following with urology-Dr. Alford and [facility]-Dr. Leal presented to ER with complaint of palpitations x 3-4 days. 3 weeks ago had COVID-19. Outpatient cardiology notes do not report history of atrial fibrillation. Atrial fibrillation, in rapid ventricular response In the setting of Extensive Acute Bilateral Pulmonary Emboli In ER patient found to be tachycardic up to 150, atrial fibrillation RVR. Noted to be hypoxic on room air with ambulation down into the 80s, up to low 90s on 2 L via nasal cannula. No leukocytosis, TSH WNL. Troponin 0.1 Obtained CTA chest to R/O PE secondary to patient's new A. fib, recent history of COVID-19 and history of CVA 1. Extensive bilateral pulmonary emboli with evidence of right heart strain. 2. Trace pleural effusions with right lung base opacities suggestive of atelectasis and possible developing pulmonary infarct(s). 3. Indeterminate 1.1 cm lobular solid nodule of the left lower lobe has slightly increased in size dating back to the comparison 2016 study. Equivocal central macroscopic fat raises the possibility of a pulmonary hamartoma. 1 year follow-up chest CT recommended. Main risk factors for extensive PE include underlying metastatic prostatic cancer, recent Covid infection Hemodynamically stable, currently on room air no chest pain, has mild dyspnea on exertion Echocardiogram: EF 55 to 60%, moderate concentric LVH, no significant aortic valve stenosis, pulmonary pressure 54 mmHg mild aortic dilatation Continue heparin drip--> transition to PO Eliquis tomorrow Pulmonary service consulted, appreciate the recommendations Patient remains in A. fib, has been rate controlled since yesterday Usual metoprolol increased from 25mg and 12.5 mg, to 25 twice daily Wean off diltiazem drip Continue heparin drip, Eliquis tomorrow Cardiology service consulted, appreciate the recommendations History of CAD Plan as above Continue aspirin, atorvastatin, metoprolol succinate DM II A1c 6.1 Hold metformin NovoLog sliding scale HTN Continue amlodipine, metoprolol succinate Dyslipidemia Continue atorvastatin History metastatic prostate cancer to bone S/p brachy therapy, prostatectomy currently on Lupron and enzalutamide following with urology-Dr. Alford and [facility]-Dr. 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 Seen resting in bed, sitting up, in good spirits States he continues to feel better Chest pain has resolved, has minimal dyspnea on exertion Now on room air No palpitations, dizziness, nausea vomiting, bleeding Patient denies any other symptom Review of Systems Review of Systems: all noted and negative except for above Physical Exam Physical Exam: General- oriented x 3, not in distress, speaks in sentences with no effort or accessory muscle use Eyes- anicteric Neck- no JVD Lungs-clear breath sounds, no crackles or wheezing bilaterally Heart- normal rate, regular rhythm; no murmurs Abdomen- normal bowel sounds, nondistended, soft, nontender Extremities- no pretibial edema, no calf tenderness Neuro- alert, oriented x 3; no gross focal neurologic deficits Skin- warm & dry Results & Data Results & Data ([facility]) Vital Signs (Past 12 Hours) Vital Signs Temp Pulse Pulse Resp BP Pulse Ox 04/14/21 11:24 36.5 C 83 19 110/77 91 04/14/21 07:15 88 04/14/21 06:57 36.8 C 88 18 117/74 94 04/14/21 03:50 36.7 C 88 16 112/69 93 all noted and reviewed including below
--- NOTE | 2021-04-14 16:04 | Pulmonology Progress Note ---
Date of Service April 14, 2021 Assessment & Plan (1) Pulmonary embolism: (2) Acute respiratory failure with hypoxia: Plan: CT chest 04/12/2021 personally reviewed: Extensive bilateral PE affecting the right and the left main pulmonary artery Bilateral dependent atelectasis Small right-sided pleural effusion Insignificant mediastinal lymphadenopathy 2D echo to 04/13/21: EF 55 to 60%, moderate concentric LVH, RVSP 54 mmHg --Acute pulmonary embolism with left lower extremity DVT sPESI 8.9% Patient has history of prostate CA Currently hemodynamically stable No indication for TPA I would consider this a provoked given that he recently had COVID-19 pneumonia Patient also has history of metastatic prostate CA which also predisposes him for hypercoagulable state --Acute hypoxic respiratory failure Secondary to above We will do supplementation to keep O2 saturation between 90-92% --Pulmonary hypertension Likely a combination of type II and type III PE definitely playing a role as well Given the hemodynamic stability, would not recommend TPA --[id number] smoking history Patient will benefit from PFTs as an outpatient Plan: Given the history of metastatic cancer subcu Lovenox should be thought of for at least 6 months. I would recommend to get an input from oncology regarding the same No further recommendation from pulmonary perspective. We will sign off. Please call directly with any questions Please note the above document was generated using voice recognition software. It may contain grammatical, syntax or spelling errors.Any formal questions or concerns about the content, text or information contained within the body of t his dictation should be directly addressed to the provider for clarification. Admission and Anticipated Discharge Date Admission Date: April 12, 2021 Subjective Patient seen and examined at bedside. No acute distress, no adverse events overnight He says that he is feeling better. Does get short of breath on exertion His saturation stays around 89% on room air at rest. Denies any chest pain, no hemoptysis No hematuria, no hematochezia. Review of Systems Review of Systems: All systems reviewed & are unremarkable except as noted in Subjective Physical Exam Physical Exam: Constitutional: No acute distress HEENT: EOMI, PERRLA Respiratory system: Decreased air entry bilaterally, no wheeze, no rhonchi, mild crackles bilaterally CVS: S1-S2 positive, no murmurs or gallops, irregular, tachycardia Abdomen: Soft, nontender, nondistended, positive bowel sounds x4 Extremities: +2 pulses bilaterally radialis/ dorsalis pedis, no cyanosis, no edema Neuro: Awake alert oriented x3 Psych: Normal mood and affect G/U: No Luna Skin: no rashes, warm and dry Lymphatic: no cervical or axillary lymphadenopathy Results & Data Results & Data ([facility]) Vital Signs (Past 12 Hours) Vital Signs Temp Pulse Pulse Resp BP Pulse Ox 04/14/21 15:53 124 H 04/14/21 11:24 36.5 C 83 19 110/77 91 04/14/21 07:15 88 04/14/21 06:57 36.8 C 88 18 117/74 94 Laboratory Results 04/14/21 06:41 04/14/21 06:41 PG Care Time/CCT Total # of Minutes Spent Total Time Spent with Patient: Total time spent is greater than 50% in coordination of care (as documented) at patient's floor/unit and/or counseling patient: C[place] [address] Subseq Hosp Care Lvl 2 Patient Type Established Diagnoses Pulmonary embolism I26.99 Acute respiratory failure with hypoxia J96.01
[2021-04-14] MEDS ORDERED: LORazepam 0.5 MG TAB PO STA (19:46)
[2021-04-14 20:07] LABS: Partial Thromboplastin Ratio 1.9
[2021-04-14 20:20] LABS: Partial Thromboplastin Time 49.1 Seconds (21.0-31.0)
[2021-04-15] MEDS: dilTIAZem HCL 125 MG in DEXTROSE 5% 100 ML IV SCH ×2 (01:25→15:52)
[2021-04-15] MEDS: HEPARIN SODIUM/DEXTROSE 25,000 UNITS/500 ML BAG IV SCH ×2 (04:45→20:21)
[2021-04-15 05:50] LABS: Basophils # (auto) 0.02 K/uL (0-0.2); Basophils % (auto) 0.4 %; Eosinophils # (auto) 0.16 K/uL (0-0.5); Eosinophils % (auto) 3.1 %; Hematocrit (blood only) 37.2 % (42-52); Hemoglobin 12.4 g/dL (14.0-18.0); Immature Granulocytes # (auto) 0.03 K/uL (0.00-0.02); Immature Granulocytes % (auto) 0.6 %; Lymphocytes # (auto) 0.66 K/uL (1.2-3.4); Mean Corpuscular Hemoglobin 29.5 pg (25-34); Mean Corpuscular Hgb Conc 33.3 g/dL (32-36); Mean Corpuscular Volume 88.4 fL (80-100); Mean Platelet Volume 9.3 fL (7.4-10.4); Monocytes # (auto) 0.73 K/uL (0.11-0.59); Monocytes % (auto) 14.4 %; Neutrophils # (auto) 3.48 K/uL (1.4-6.5); Neutrophils % (auto) 68.5 %; Platelet Count 224 K/uL (130-400); RDW Coefficient of Variation 13.5 % (11.5-14.5); Red Blood Count 4.21 M/uL (4.7-6.1); White Blood Count 5.08 K/uL (4.8-10.8)
[2021-04-15 06:11] LABS: BUN Creatinine Ratio 13.3 (10-20); Calcium 8.4 mg/dl (8.5-10.1); Creatinine Clr Calc Pharmacy 81.4 ml/min; Est GFR (African American) 95.8 ml/min; Est GFR (Non-African American) 82.7 ml/min; Potassium 3.7 mmol/L (3.5-5.1)
[2021-04-15 06:13] LABS: Partial Thromboplastin Ratio 2.1
[2021-04-15 06:15] LABS: Partial Thromboplastin Time 55.3 Seconds (21.0-31.0)
[2021-04-15] MEDS: INSULIN ASPART PER UNIT SC SCH ×4 (08:54→20:20)
[2021-04-15] MEDS: METOPROLOL SUCC 25MG EXT REL TAB PO SCH (08:57)
[2021-04-15] MEDS: TRIAMCINOLONE ACET 0.1% CR 15 GM TUBE EXT SCH ×2 (08:58→20:29)
--- NOTE | 2021-04-15 10:51 | Cardiology Progress Note ---
Date of Service April 15, 2021 Assessment & Plan (1) Acute respiratory failure with hypoxia: (2) Pulmonary embolism: (3) CAD (coronary artery disease): (4) Atrial flutter: (5) Atrial fibrillation with rapid ventricular response: (6) Elevated troponin: Plan: Complex 75-year-old male with metastatic prostate cancer, positive for COVID-19 approximately 3 weeks ago. Patient presented to [facility] on April 12, 2021 with complaints of significant shortness of breath and tachypalpitations with work-up revealing left lower extremity DVT and extensive bilateral pulmonary emboli with associated atrial flutter/fibrillation and an elevated troponin without symptoms to suggest an acute coronary syndrome. On IV heparin without issue. Possible lifelong anticoagulation discussed. Increase metoprolol succinate to 50 mg twice a day for additional heart rate control, weaning off IV Cardizem. Rate control strategy planned at this point Admission and Anticipated Discharge Date Admission Date: April 12, 2021 Supervising Physician Co-Signing Physician Notes Patient seen and examined at bedside. Elevated heart rate noted yesterday in the setting of anxiety related to emotional stress. Heart rates improved this morning. Denies chest pain, palpitations, or shortness of breath at rest. Offers no new concerns/complaints. PE: VSS. Gen: NAD, AAO x3. Heart: Irregular rhythm, normal S1-S2. No murmur. Lungs: Clear bilateral, no rales, rhonchi, wheeze. Remedies: Trace bilateral pedal edema. Neuro: No focal deficit. A/P: Agree with above PA-C history, physical exam, assessment and plan. Agree with titration of Toprol-XL to 50 mg twice daily. Wean Cardizem infusion as tolerated. Continue IV heparin. Possible lifelong anticoagulation discussed. Consider transition to subcutaneous Lovenox due to history of metastatic cancer. Subjective Patient seen and examined. Chart, medications, and telemetry reviewed. Patient notes anxiety after receiving information from [facility] regarding metastatic prostate cancer. No chest pain. Stable dyspnea. No overt palpitations. No orthopnea or PND. No peripheral edema. Continuous telemetry monitoring reveals atrial flutter ranging from the 80s to 120s, back on Cardizem drip at 10 mg/hour April 13, 2021 TTE interpretation summary ([facility], Dr. Allan): Compared to the echocardiogram dated July 2020 in the [employer] system, there is now evidence of moderate pulmonary hypertension. The rhythm is atrial fibrillation with a rapid ventricular response. Ejection fraction 55 to 60%. Moderate concentric LVH. Normal RV size and systolic function. Moderately dilated left atrium. Moderate aortic valve sclerosis, without significant stenosis. Mild tricuspid regurgitation. Mild aortic root dilatation. Estimated pulmonary artery systolic pressure 54 mmHg. Review of Systems Review of Systems: Complete Review of Systems is as stated above, negative, or noncontributory. Physical Exam Physical Exam: General: Alert, healthy, no distress, well nourished, well developed, comfortable and cooperative Eyes: PER. Conjunctiva pink, sclera clear. HENT: Normocephalic. Atraumatic. Neck: No carotid bruits. No JVD. No HJR. Heart: Slightly irregular around 110 bpm. Soft systolic ejection murmur. No diastolic murmur. No rub. Lungs: Diminished but clear. Abdomen: +BS. Soft. Nontender. No masses. No organomegaly. Extremities: No edema. No clubbing. No cyanosis. Pulses: radial=2/4, posterior tibial=2/4. Limited neurological examination: No focal deficit. Results & Data ([facility]) Vital Signs (Past 12 Hours) Vital Signs Temp Pulse Pulse Resp BP Pulse Ox 04/15/21 07:54 36.6 C 71 20 118/76 96 04/15/21 03:51 36.6 C 111 H 15 122/75 95 04/14/21 23:25 36.7 C 107 H 15 110/66 96 04/14/21 23:06 93 H Laboratory Results Laboratory Results - last 24 hr 04/14/21 04/14/21 04/14/21 11:22 12:01 16:25 WBC RBC Hgb Hct MCV MCH MCHC RDW Std Deviation RDW Coeff of Lisa Plt Count MPV Immature Gran % (Auto) Neut % (Auto) Lymph % (Auto) [place] % (Auto) Eos % (Auto) Baso % (Auto) Neut # (Auto) Lymph # (Auto) [place] # (Auto) Eos # (Auto) Baso # (Auto) Immature Gran # (Auto) APTT PTT Ratio Sodium Potassium Chloride Carbon Dioxide Anion Gap BUN Creatinine Est Cr Clr Drug Dosing Est GFR ( Amer) Est GFR (Non-Af Amer) BUN/Creatinine Ratio Glucose POC Glucose 111 H 106 H Calcium Prostate Specific Ag 12.527 H Total Testosterone Free Testosterone 04/14/21 04/14/21 04/15/21 19:33 20:17 05:15 WBC 5.08 RBC 4.21 L Hgb 12.4 L Hct 37.2 L MCV 88.4 MCH 29.5 MCHC 33.3 RDW Std Deviation 43.0 RDW Coeff of Lisa 13.5 Plt Count 224 MPV 9.3 Immature Gran % (Auto) 0.6 Neut % (Auto) 68.5 Lymph % (Auto) 13.0 [place] % (Auto) 14.4 Eos % (Auto) 3.1 Baso % (Auto) 0.4 Neut # (Auto) 3.48 Lymph # (Auto) 0.66 L [place] # (Auto) 0.73 H Eos # (Auto) 0.16 Baso # (Auto) 0.02 Immature Gran # (Auto) 0.03 H APTT 49.1 H* PTT Ratio 1.9 Sodium Potassium Chloride Carbon Dioxide Anion Gap BUN Creatinine Est Cr Clr Drug Dosing Est GFR ( Amer) Est GFR (Non-Af Amer) BUN/Creatinine Ratio Glucose POC Glucose 110 H Calcium Prostate Specific Ag Total Testosterone Free Testosterone 04/15/21 04/15/21 04/15/21 05:15 05:15 05:15 WBC RBC Hgb Hct MCV MCH MCHC RDW Std Deviation RDW Coeff of Lisa Plt Count MPV Immature Gran % (Auto) Neut % (Auto) Lymph % (Auto) [place] % (Auto) Eos % (Auto) Baso % (Auto) Neut # (Auto) Lymph # (Auto) [place] # (Auto) Eos # (Auto) Baso # (Auto) Immature Gran # (Auto) APTT 55.3 H* PTT Ratio 2.1 Sodium 136 Potassium 3.7 Chloride 105 Carbon Dioxide 24 Anion Gap 7 BUN 12 Creatinine 0.90 Est Cr Clr Drug Dosing 81.4 Est GFR ( Amer) 95.8 Est GFR (Non-Af Amer) 82.7 BUN/Creatinine Ratio 13.3 Glucose 101 H POC Glucose Calcium 8.4 L Prostate Specific Ag Total Testosterone Pending Free Testosterone Pending 04/15/21 07:45 WBC RBC Hgb Hct MCV MCH MCHC RDW Std Deviation RDW Coeff of Lisa Plt Count MPV Immature Gran % (Auto) Neut % (Auto) Lymph % (Auto) [place] % (Auto) Eos % (Auto) Baso % (Auto) Neut # (Auto) Lymph # (Auto) [place] # (Auto) Eos # (Auto) Baso # (Auto) Immature Gran # (Auto) APTT PTT Ratio Sodium Potassium Chloride Carbon Dioxide Anion Gap BUN Creatinine Est Cr Clr Drug Dosing Est GFR ( Amer) Est GFR (Non-Af Amer) BUN/Creatinine Ratio Glucose POC Glucose 114 H Calcium Prostate Specific Ag Total Testosterone Free Testosterone
[2021-04-15] MEDS ORDERED: METOPROLOL SUCC 25MG EXT REL TAB PO ONE (11:30)
[2021-04-15] MEDS ORDERED: HYDROcodone/ACETAMINOPHEN 10/325 TAB PO PRN (12:40)
--- NOTE | 2021-04-15 12:42 | Hospitalist Progress Note ---
Date of Service April 15, 2021 Assessment & Plan (1) Acute respiratory failure with hypoxia: Plan: 2/2 acute bilateral pulmonary emboli. Cont heparin drip, still hypoxic but improved. (2) Atrial fibrillation with rapid ventricular response: Plan: New onset atrial fibrillation likely from acute PE. Heart rate control overnight with diltiazem intravenous drip. Now weaning off with transition to metoprolol 50mg PO BID per cardiology. Remains on heparin drip. With acute PE in setting of known malignancy, will need long-term anticoagulation. Will plan to transition him to apixaban tomorrow if not sooner as no chest pain or SOB are present. (3) Pulmonary embolism: Plan: Extensive bilateral pulmonary emboli with evidence of right heart strain on CT scan. Likely provoked either from malignancy underlying or recent infection with covid-19. Cont heparin with oral AC transition as above. Currently hypoxic at rest, 95% on 3LPM NC. Cont to wean as tolerated. Echocardiogram: EF 55 to 60%, moderate concentric LVH, no significant aortic valve stenosis, pulmonary pressure 54 mmHg mild aortic dilatation Continue heparin drip--> transition to PO Eliquis tomorrow Pulmonary service consulted, appreciate the recommendations Telemetry reviewed and Patient remains in A. fib (4) Elevated troponin: Plan: unrelated to ACS, per #5 (5) CAD (coronary artery disease): Plan: chronic, stable. Elevated troponin not likely reflective of ACS on admission per cardiology. Restart Lipitor and ASA now. (6) HTN (hypertension): Plan: chronic, stable. Cont Toprol per home regimen. Norvasc held and will cont to hold as BP low normal and want to reduce polypharmacy. (7) Diabetes mellitus, type II: Plan: Chronic, on metformin at home, currently held. At inpatient goal, Cont current insulin therapy. (8) Prostate cancer metastatic to bone: Plan: History metastatic prostate cancer to bone S/p brachy therapy, prostatectomy currently on Lupron and enzalutamide following with urology-Dr. Alford and [facility] oncology-Dr. Leal Reports just had PET scan at [facility] recently-record unavailable CT chest with subtle upper abdominal omental nodules, suspicious for omental carcinomatosis, mild mediastinal adenopathy PSA doubled in last month-patient is aware of this. As PSA is APR, may be related to recent covid infection, also. Will need further follow-up with oncology, scheduled to see [facility] oncologist April 20 Restart Xtandi per home regimen. Restart nightly vesicare per home regimen. (9) Radiation-induced dermatitis: Plan: to buttock area, cont steroid cream per home regimen. (10) DVT prophylaxis: Plan: heparin drip Full Code Dispo-to home in next couple of days when transitioned to oral medications. Salena Amezquita DO [facility] Hospitalist Admission and Anticipated Discharge Date Admission Date: April 12, 2021 Subjective Patient seen and examined. Chart, medications, and telemetry reviewed. Patient notes anxiety after receiving information from [facility] regarding metastatic prostate cancer. No chest pain. Stable dyspnea. No overt p alpitations. No orthopnea or PND. No peripheral edema. Continuous telemetry monitoring reveals atrial flutter ranging from the 80s to 120s, back on Cardizem drip at 10 mg/hour April 13, 2021 TTE interpretation summary ([facility], Dr. Allan): Compared to the echocardiogram dated July 2020 in the [employer] system, there is now evidence of moderate pulmonary hypertension. The rhythm is atrial fibrillation with a rapid ventricular response. Ejection fraction 55 to 60%. Moderate concentric LVH. Normal RV size and systolic function. Moderately dilated left atrium. Moderate aortic valve sclerosis, without significant stenosis. Mild tricuspid regurgitation. Mild aortic root dilatation. Estimated pulmonary artery systolic pressure 54 mmHg. Results & Data Results & Data ([facility]) Vital Signs (Past 12 Hours) Vital Signs Temp Pulse Resp BP Pulse Ox 04/15/21 11:12 37.0 C 76 18 113/73 95 04/15/21 07:54 36.6 C 71 20 118/76 96 04/15/21 03:51 36.6 C 111 H 15 122/75 95 Laboratory Results Short CBC 04/15/21 Range/Units 05:15 WBC 5.08 (4.8-10.8) K/uL Hgb 12.4 L (14.0-18.0) g/dL Hct 37.2 L (42-52) % Plt Count 224 (130-400) K/uL BMP 04/15/21 05:15 Sodium 136 Potassium 3.7 Chloride 105 Carbon Dioxide 24 BUN 12 Creatinine 0.90 Glucose 101 H Calcium 8.4 L Medications Administered Current Inpatient Medications Acetaminophen (Acetaminophen 325 Mg Tab) 650 mg PO Q4H PRN PRN Reason: Pain or Fever Stop: 05/12/21 16:11 Dextrose (Dextrose 50% 50 Ml Syringe) 25 - 50 ml IV UD PRN; Protocol PRN Reason: Hypoglycemia Protocol Stop: 05/12/21 16:11 Glucagon (Glucagon For Inj 1 Mg Vial) 1 mg SQ UD PRN; Protocol PRN Reason: Hypoglycemia Protocol Stop: 05/12/21 16:11 Glucose (Glucose 10 Tabs/Tube) 4 - 8 tabs PO UD PRN; Protocol PRN Reason: Hypoglycemia Protocol Stop: 05/12/21 16:11 Glucose (Glucose 40% Gel 15 Gm Tube) 15 - 30 gm PO UD PRN; Protocol PRN Reason: Hypoglycemia Protocol Stop: 05/12/21 16:11 Diltiazem HCl 125 mg/ Dextrose 125 mls @ 5 mls/hr IV .Q24H [facility]; Protocol Stop: 05/12/21 12:29 Last Titration: 04/15/21 10:55 Dose: 5 mg/hr, 5 mls/hr Documented by: Heparin Sodium/Dextrose (Heparin Sodium/Dextrose) 25,000 units in 500 mls @ 32 mls/hr IV .[id number] [facility]; Protocol Stop: 05/12/21 19:44 Last Titration: 04/15/21 07:10 Dose: 1,600 units/hr, 32 mls/hr Documented by: Insulin Aspart (Insulin Aspart Per Unit) 0 units SC ACHS [facility] Stop: 05/12/21 16:29 Last Admin: 04/15/21 11:57 Dose: 4 units Documented by: Metoprolol Succinate (Metoprolol Succ 50mg Ext Rel Tab) 50 mg PO BID [facility] Stop: 05/15/21 20:59 Miscellaneous (Carbohydrates For Hypoglycemia ) 15 - 30 gm PO UD PRN PRN Reason: Hypoglycemia Protocol Stop: 05/12/21 16:11 Triamcinolone Acetonide (Triamcinolone Acet 0.1% Cr 15 Gm Tube) 1 appln EXT BID [facility] Stop: 05/14/21 11:44 Last Admin: 04/15/21 08:58 Dose: 1 appln Documented by:
[2021-04-15] MEDS: ATORVASTATIN 40 MG TAB PO SCH (20:22)
[2021-04-15] MEDS: ASPIRIN 81 MG ECTAB PO SCH (20:22)
[2021-04-15] MEDS: METOPROLOL SUCC 50MG EXT REL TAB PO SCH (20:29)
[2021-04-16 05:03] LABS: Basophils # (auto) 0.02 K/uL (0-0.2); Basophils % (auto) 0.4 %; Eosinophils % (auto) 3.7 %; Hematocrit (blood only) 37.5 % (42-52); Hemoglobin 12.4 g/dL (14.0-18.0); Immature Granulocytes # (auto) 0.02 K/uL (0.00-0.02); Immature Granulocytes % (auto) 0.4 %; Mean Corpuscular Hemoglobin 29.2 pg (25-34); Mean Corpuscular Hgb Conc 33.1 g/dL (32-36); Mean Corpuscular Volume 88.4 fL (80-100); Mean Platelet Volume 9.1 fL (7.4-10.4); Monocytes # (auto) 0.96 K/uL (0.11-0.59); Monocytes % (auto) 17.6 %; Neutrophils # (auto) 3.64 K/uL (1.4-6.5); Neutrophils % (auto) 66.9 %; Platelet Count 236 K/uL (130-400); RDW Coefficient of Variation 13.4 % (11.5-14.5); RDW Standard Deviation 43.2 fL (36.4-46.3); Red Blood Count 4.24 M/uL (4.7-6.1); White Blood Count 5.44 K/uL (4.8-10.8)
[2021-04-16 05:25] LABS: BUN Creatinine Ratio 14.7 (10-20); Calcium 8.9 mg/dl (8.5-10.1); Creatinine Clr Calc Pharmacy 71.8 ml/min; Est GFR (African American) 82.4 ml/min; Est GFR (Non-African American) 71.1 ml/min; Potassium 3.9 mmol/L (3.5-5.1)
[2021-04-16 05:40] LABS: Partial Thromboplastin Ratio 2.4
[2021-04-16 05:43] LABS: Partial Thromboplastin Time 62.3 Seconds (21.0-31.0)
[2021-04-16] MEDS: dilTIAZem HCL 125 MG in DEXTROSE 5% 100 ML IV SCH ×3 (07:24→15:16)
[2021-04-16] MEDS: INSULIN ASPART PER UNIT SC SCH ×4 (08:31→20:47)
[2021-04-16] MEDS: METOPROLOL SUCC 50MG EXT REL TAB PO SCH (08:37)
[2021-04-16] MEDS: TRIAMCINOLONE ACET 0.1% CR 15 GM TUBE EXT SCH ×2 (08:38→20:06)
[2021-04-16] MEDS: APIXABAN 5 MG TABLET PO SCH ×2 (09:50→20:03)
--- NOTE | 2021-04-16 10:56 | Cardiology Progress Note ---
Date of Service April 16, 2021 Assessment & Plan (1) Acute respiratory failure with hypoxia: (2) Pulmonary embolism: (3) CAD (coronary artery disease): (4) Atrial flutter: (5) Atrial fibrillation with rapid ventricular response: (6) Elevated troponin: Plan: Complex 75-year-old male with metastatic prostate cancer, recent COVID-19 infection, admitted to [facility] on April 12, 2021 with complaints of significant shortness of breath and palpitations - work-up revealed left lower extremity DVT and extensive bilateral pulmonary emboli with associated atrial flutter/fibrillation and an elevated troponin without symptoms to suggest an acute coronary syndrome. IV heparin transitioned to apixaban (Eliquis) as per hospitalist. Will increase metoprolol succinate further, to 75 mg twice a day, for additional heart rate control. Wean to discontinue IV Cardizem today. Recommend outpatient cardiology hospital follow-up in 1-2 weeks. Admission and Anticipated Discharge Date Admission Date: April 12, 2021 Supervising Physician Co-Signing Physician Notes Patient seen and examined at bedside. Heart rates improved this morning. Intravenous diltiazem reduced to 5 mg/h. Denies chest pain, palpitations, or shortness of breath at rest. Offers no new concerns/complaints. PE: VSS. Gen: NAD, AAO x3. Heart: Irregular rhythm, normal S1-S2. No murmur. Lungs: Clear bilateral, no rales, rhonchi, wheeze. Remedies: Trace bilateral pedal edema. Neuro: No focal deficit. A/P: Agree with above PA-C history, physical exam, assessment and plan. Agree with titration of Toprol-XL to 75 mg twice daily. Wean Cardizem infusion as tolerated. Transitioned to oral Eliquis per internal medicine. Possible lifelo ng anticoagulation discussed. Subjective Patient seen and examined. Chart, medications, and telemetry reviewed. No chest pain. Stable dyspnea. No overt palpitations. No orthopnea or PND. No peripheral edema. Continuous telemetry monitoring reveals atrial flutter mainly in the 90's to low 100's. On Cardizem drip at 5 mg/hour, metoprolol succinate at 50 mg twice a day. April 13, 2021 TTE interpretation summary ([facility], Dr. Allan): Compared to the echocardiogram dated July 2020 in the [employer] system, there is now evidence of moderate pulmonary hypertension. The rhythm is atrial fibrillation with a rapid ventricular response. Ejection fraction 55 to 60%. Moderate concentric LVH. Normal RV size and systolic function. Moderately dilated left atrium. Moderate aortic valve sclerosis, without significant stenosis. Mild tricuspid regurgitation. Mild aortic root dilatation. Estimated pulmonary artery systolic pressure 54 mmHg. Review of Systems Review of Systems: Complete Review of Systems is as stated above, negative, or noncontributory. Physical Exam Physical Exam: General: Alert, healthy, no distress, well nourished, well developed, comfortable and cooperative Eyes: PER. Conjunctiva pink, sclera clear. HENT: Normocephalic. Atraumatic. Neck: No carotid bruits. No JVD. No HJR. Heart: Slightly irregular around 90 bpm. Soft systolic ejection murmur. No diastolic murmur. No rub. Lungs: Diminished but clear. Abdomen: +BS. Soft. Nontender. No masses. No organomegaly. Extremities: No edema. No clubbing. No cyanosis. Pulses: radial=2/4, posterior tibial=2/4. Limited neurological examination: No focal deficit. Results & Data ([facility]) Vital Signs (Past 12 Hours) Vital Signs Temp Pulse Resp BP BP Pulse Ox 04/16/21 10:53 36.7 C 91 H 19 111/74 95 04/16/21 08:52 36.5 C 117 H 20 151/95 H 96 04/16/21 03:00 36.9 C 69 16 109/56 L 95 04/16/21 01:00 112 H 127/78 04/15/21 23:05 36.7 C 97 H 17 137/84 95
[2021-04-16] MEDS ORDERED: METOPROLOL SUCC 25MG EXT REL TAB PO ONE (11:00)
--- NOTE | 2021-04-16 18:44 | Hospitalist Progress Note ---
Date of Service April 16, 2021 Assessment & Plan (1) Acute respiratory failure with hypoxia: Plan: 2/2 acute bilateral pulmonary emboli and possibly afib, cont plan per below. (2) Atrial fibrillation with rapid ventricular response: Plan: New onset atrial fibrillation likely from acute PE. Cont rate control overnight with diltiazem intravenous drip and transition to oral metoprolol which was increased again today. With acute PE in setting of known malignancy, will need long-term anticoagulation. Transitioned to apixaban. (3) Pulmonary embolism: Plan: Extensive bilateral pulmonary emboli with evidence of right heart strain on CT scan. Likely provoked either from malignancy underlying or recent infection w ith covid-19. Hypoxia improving, Cont to wean oxygen as tolerated. Heparin switched to apixaban today. (4) Elevated troponin: Plan: unrelated to ACS, per #5 (5) CAD (coronary artery disease): Plan: chronic, stable. Elevated troponin not likely reflective of ACS on admission per cardiology. Restart Lipitor and ASA now. (6) HTN (hypertension): Plan: chronic, stable. Cont Toprol per home regimen. Norvasc held and will cont to hold as BP low normal and want to reduce polypharmacy. (7) Diabetes mellitus, type II: Plan: Chronic, on metformin at home, currently held. At inpatient goal, Cont current insulin therapy. (8) Prostate cancer metastatic to bone: Plan: History metastatic prostate cancer to bone S/p brachy therapy, prostatectomy currently on Lupron and enzalutamide following with urology-Dr. Alford and [facility] oncology-Dr. Leal Reports just had PET scan at [facility] recently-record unavailable CT chest with subtle upper abdominal omental nodules, suspicious for omental carcinomatosis, mild mediastinal adenopathy PSA doubled in last month-patient is aware of this. As PSA is APR, may be related to recent covid infection, also. Will need further follow-up with oncology, scheduled to see [facility] oncologist April 20 Restart Xtandi per home regimen. Restart nightly vesicare per home regimen. (9) Radiation-induced dermatitis: Plan: to buttock area, cont steroid cream per home regimen. (10) DVT prophylaxis: Plan: apixaban Full Code Dispo-to home in next couple of days when transitioned to oral medications and proven rate control with current medications, ok with cardiology for discharge. Salena Amezquita DO [facility] Hospitalist Admission and Anticipated Discharge Date Admission Date: April 12, 2021 Subjective 75 yo M with acute PE and new onset afib with RVR still weaning from dilt drip to oral metoprolol with improvement in rate overnight remains in afib remains asymptomatic and 96% on 1 LPM oxygen supplementation denies SOB tolerating PO and doing well overall. Review of Systems Review of Systems: All systems were reviewed and negative except as indicated in subjective above. Physical Exam Physical Exam: CONSTITUTIONAL: WNWD, vitals as above, generally well- appearing, NAD EYES: normal conjunctivae, ENT: external ear and nose normal, MMM NECK: trachea midline, RESPIRATORY: clear to auscultation bilaterally, no crackles, rales or wheezes, normal respiratory effort CARDIOVASCULAR: ireeg rate and irreg rhythm, S1 and 2 heard without murmurs, gallops or rubs, no JVD, no peripheral edema CHEST: inspection of chest was normal GASTROINTESTINAL: soft, nontender, ND, no guarding MUSCULOSKELETAL: strength 5/5 throughout, head is normocephalic and atraumatic, SKIN: warm and dry, NEUROLOGIC: CN 2-12 grossly intact, normal cognition, normal speech, no tremor PSYCHIATRIC: alert cooperative and oriented to person, place and time. Euthymic mood, makes good eye contact, language grossly intact, recent and remote memory grossly intact. Results & Data Results & Data ([facility]) Vital Signs (Past 12 Hours) Vital Signs Temp Pulse Pulse Resp BP Pulse Ox 04/16/21 16:02 36.4 C L 88 16 115/78 96 04/16/21 14:47 97 H 04/16/21 10:53 36.7 C 91 H 19 111/74 95 04/16/21 08:52 36.5 C 117 H 20 151/95 H 96 Laboratory Results Short CBC 04/16/21 Range/Units 04:45 WBC 5.44 (4.8-10.8) K/uL Hgb 12.4 L (14.0-18.0) g/dL Hct 37.5 L (42-52) % Plt Count 236 (130-400) K/uL BMP 04/16/21 04:45 Sodium 136 Potassium 3.9 Chloride 104 Carbon Dioxide 24 BUN 15 Creatinine 1.02 Glucose 100 H Calcium 8.9 Medications Administered Current Inpatient Medications Acetaminophen (Acetaminophen 325 Mg Tab) 650 mg PO Q4H PRN PRN Reason: Pain or Fever Stop: 05/12/21 16:11 Hydrocodone Bitart/Acetaminophen (Hydrocodone/Acetaminophen 10/325 Tab) 1 tab P O DAILY PRN PRN Reason: Pain Stop: 04/29/21 12:39 Apixaban (Apixaban 5 Mg Tablet) 10 mg PO BID [facility] Stop: 04/22/21 21:01 Last Admin: 04/16/21 09:50 Dose: 10 mg Documented by: Aspirin (Aspirin 81 Mg Ectab) 81 mg PO HS [facility] Stop: 05/15/21 20:59 Last Admin: 04/15/21 20:22 Dose: 81 mg Documented by: Atorvastatin Calcium (Atorvastatin 40 Mg Tab) 40 mg PO [facility] Stop: 05/15/21 20:59 Last Admin: 04/15/21 20:22 Dose: 40 mg Documented by: Dextrose (Dextrose 50% 50 Ml Syringe) 25 - 50 ml IV UD PRN; Protocol PRN Reason: Hypoglycemia Protocol Stop: 05/12/21 16:11 Glucagon (Glucagon For Inj 1 Mg Vial) 1 mg SQ UD PRN; Protocol PRN Reason: Hypoglycemia Protocol Stop: 05/12/21 16:11 Glucose (Glucose 10 Tabs/Tube) 4 - 8 tabs PO UD PRN; Protocol PRN Reason: Hypoglycemia Protocol Stop: 05/12/21 16:11 Glucose (Glucose 40% Gel 15 Gm Tube) 15 - 30 gm PO UD PRN; Protocol PRN Reason: Hypoglycemia Protocol Stop: 05/12/21 16:11 Diltiazem HCl 125 mg/ Dextrose 125 mls @ 5 mls/hr IV .Q24H [facility]; Protocol Stop: 05/12/21 12:29 Last Admin: 04/16/21 15:16 Dose: Not Given Documented by: Insulin Aspart (Insulin Aspart Per Unit) 0 units SC ACHS [facility] Stop: 05/12/21 16:29 Last Admin: 04/16/21 17:15 Dose: 5 units Documented by: Metoprolol Succinate (Metoprolol Succ 25mg Ext Rel Tab) 75 mg PO BID [facility] Stop: 05/16/21 20:59 Miscellaneous (Carbohydrates For Hypoglycemia ) 15 - 30 gm PO UD PRN PRN Reason: Hypoglycemia Protocol Stop: 05/12/21 16:11 Miscellaneous (Enzalutamide (Xtandi)-Order Awaiting Action) 1 ea N/A QS [facility] Stop: 05/15/21 13:14 Last Admin: 04/16/21 15:46 Dose: Not Given Documented by: Miscellaneous (Solifenacin [Vesicare] 10 Mg - Order Awaiting Action) 1 ea N/A QS [facility] Stop: 05/15/21 15:59 Last Admin: 04/16/21 15:46 Dose: Not Given Documented by: Triamcinolone Acetonide (Triamcinolone Acet 0.1% Cr 15 Gm Tube) 1 appln EXT BID [facility] Stop: 05/14/21 11:44 Last Admin: 04/16/21 08:38 Dose: 1 appln Documented by:
[2021-04-16] MEDS: ASPIRIN 81 MG ECTAB PO SCH (20:04)
[2021-04-16] MEDS: ATORVASTATIN 40 MG TAB PO SCH (20:04)
[2021-04-16] MEDS: METOPROLOL SUCC 25MG EXT REL TAB PO SCH (20:05)
[2021-04-17] MEDS: INSULIN ASPART PER UNIT SC SCH ×2 (07:54→12:23)
[2021-04-17] MEDS: TRIAMCINOLONE ACET 0.1% CR 15 GM TUBE EXT SCH (08:17)
[2021-04-17] MEDS: METOPROLOL SUCC 25MG EXT REL TAB PO SCH (08:18)
[2021-04-17] MEDS: APIXABAN 5 MG TABLET PO SCH (08:18)
[2021-04-17] MEDS: dilTIAZem HCL 125 MG in DEXTROSE 5% 100 ML IV SCH ×2 (10:23→10:36)
--- NOTE | 2021-04-17 10:27 | Cardiology Progress Note ---
Date of Service April 17, 2021 Assessment & Plan (1) Acute respiratory failure with hypoxia: (2) Pulmonary embolism: (3) CAD (coronary artery disease): (4) Atrial flutter: (5) Atrial fibrillation with rapid ventricular response: (6) Elevated troponin: Plan: Complex 75-year-old male with metastatic prostate cancer, recent COVID-19 infection, admitted to [facility] on April 12, 2021 with complaints of significant shortness of breath and palpitations - work-up revealed left lower extremity DVT and extensive bilateral pulmonary emboli with associated atrial flutter/fibrillation and an elevated troponin without symptoms to suggest an acute coronary syndrome. IV heparin transitioned to apixaban (Eliquis). Heart rates are mildly elevated, not unexpected, asymptomatic. Will increase metoprolol succinate further to 100 mg twice per day. Plan, for now, is rate control until patient has recovered from the above insults and is properly anticoagulation prior to considering referral for direct-current cardioversion, as discussed. Recommend outpatient cardiology follow-up in 1 to 2 weeks. Admission and Anticipated Discharge Date Admission Date: April 12, 2021 Supervising Physician Co-Signing Physician Notes Patient seen and examined at bedside. Feeling well from a cardiovascular standpoint. Heart rate unchanged. Telemetry of atrial fibrillation with heart rate ranging from 100-120 bpm. Denies chest pain, palpitations, or shortness of breath at rest. Offers no new concerns/complaints. PE: VSS. Gen: NAD, AAO x3. Heart: Irregular rhythm, normal S1-S2. No murmur. Lungs: Clear bilateral, no rales, rhonchi, wheeze. Remedies: Trace bilateral pedal edema. Neuro: No focal deficit. A/P: Agree with above PA-C history, physical exam, assessment and plan. Continue Eliquis and Toprol-XL. Consideration for external direct-current cardioversion after 4 weeks of adequate anticoagulation. Possible lifelong anticoagulation discussed. Subjective Patient seen and examined. Chart, medications, and telemetry reviewed. No chest pain. Stable dyspnea. No tachypalpitations. No orthopnea or PND. No peripheral edema. Off Cardizem drip. Continuous telemetry monitoring reveals atrial flutter currently around 110 bpm. April 13, 2021 TTE interpretation summary ([facility], Dr. Allan): Compared to the echocardiogram dated July 2020 in the [facility] system, there is now evidence of moderate pulmonary hypertension. The rhythm is atrial fibrillation with a rapid ventricular response. Ejection fraction 55 to 60%. Moderate concentric LVH. Normal RV size and systolic function. Moderately dilated left atrium. Moderate aortic valve sclerosis, without significant stenosis. Mild tricuspid regurgitation. Mild aortic root dilatation. Estimated pulmonary artery systolic pressure 54 mmHg. Review of Systems Review of Systems: Complete Review of Systems is as stated above, negative, or noncontributory. Physical Exam Physical Exam: General: Alert, healthy, no distress, well nourished, well developed, comfortable and cooperative Eyes: PER. Conjunctiva pink, sclera clear. HENT: Normocephalic. Atraumatic. Neck: No carotid bruits. No JVD. No HJR. Heart: Slightly irregular around 100 bpm. Soft systolic ejection murmur. No diastolic murmur. No rub. Lungs: Diminished but clear. Abdomen: +BS. Soft. Nontender. No masses. No organomegaly. Extremities: No edema. No clubbing. No cyanosis. Pulses: radial=2/4, posterior tibial=2/4. Limited neurological examination: No focal deficit. Results & Data ([facility]) Vital Signs (Past 12 Hours) Vital Signs Temp Pulse Pulse Resp BP Pulse Ox 04/17/21 09:59 134 H 04/17/21 06:54 36.7 C 65 20 129/80 94 04/17/21 03:52 36.6 C 74 18 124/77 94 04/17/21 02:09 85 04/16/21 23:33 36.8 C 81 18 119/61 92 Laboratory Results Laboratory Results - last 24 hr 04/16/21 04/16/21 04/16/21 11:30 16:05 20:41 POC Glucose 92 104 H 105 H 04/17/21 07:12 POC Glucose 110 H
[2021-04-17] MEDS ORDERED: METOPROLOL SUCC 50MG EXT REL TAB PO SCH (10:30)
--- NOTE | 2021-04-17 15:03 | Discharge Summary ---
Date of Service April 17, 2021 Admission HPI Per Admitting Provider Patient is 75-year-old male with PMH CAD medically managed, HTN, dyslipidemia, DM II, diastolic dysfunction, metastatic prostate cancer to bone s/p brachy therapy, prostatectomy currently on Lupron and enzalutamide following with urology-Dr. Alford and [place] onc[facility]-Dr. Leal presented to ER with complaint of palpitations x 3-4 days. Patient reports 3 weeks ago had onset of headache, myalgias, cough, shortness of breath. He reports positive COVID-19 test. Reports his myalgias and headache and shortness of breath improved. Cough has continued to improve however still has some nonproductive cough. 3 to 4 days ago patient states started with exertional shortness of breath and heart racing. He states he has been unable to walk more than a few steps without needing to sit down secondary to the shortness of breath. Patient reports intermittent anterior chest discomfort described as dull ache that is nonradiating. Patient is unsure if this occurs with the episodes of shortness of breath, heart racing or ambulation. Unsure if he is dizzy. Denies syncope. Has chronic urinary incontinence secondary to prostate surgery, denies any hematuria, dysuria. Reports wound to buttock "for a long time" that he admits gets pruritic and he itches. He sometimes uses a topical steroid cream. Denies fever/chills, diaphoresis, N/V/D/C, vision changes, neck pain, orthopnea, mopped assist, sore throat, choking, otalgia, rhinorrhea, abdominal pain, paresthesias, extremity weakness, extremity edema, other rashes, urinary symptoms. Follows with [facility] [place] and no mention of atrial fibrillation in outpatient notes. Admission Exam Per Admitting Provider General: mild distress, overweight Head: normocephalic, atraumatic Eyes: PERRL, EOM's intact, conjunctiva non-injected, anicteric ENT: normal inspection external ears, nose, mucous membranes moist Neck: supple, trachea midline Lungs: clear, at rest RR: 20, with ambulation to bathroom RR: 24 with noted SOB and unable to speak in full sentences, improves with rest, O2 sat drops to 84% on RA with ambulation up to 94% on 2L via NC, no wheezing/rhonchi/rales CV: tachycardia rate 124, irregular, no murmur, trace edema Abd: normal BS, soft, non-tender Ext: no cyanosis, no calf tenderness Neuro: A&O x 3, no focal deficits noted, normal affect Skin: warm, dry, buttocks: +nonblanching erythema, purple coloration with scaling and peeling skin, no discharge or ulceration noted Principal Diagnosis Acute respiratory failure with hypoxia-resolved. Acute pulmonary embolism Pulmonary hypertension Acute Left DVT Atrial flutter Atrial fibrillation with rapid ventricular response Elevated troponin Prostate cancer Discharge Exam CONSTITUTIONAL: WNWD, vitals as above, generally well-appearing, NAD EYES: normal conjunctivae, ENT: external ear and nose normal, MMM NECK: trachea midline, RESPIRATORY: clear to auscultation bilaterally, no crackles, rales or wheezes, normal respiratory effort CARDIOVASCULAR: irreg rate and irreg rhythm, S1 and 2 heard without murmurs, gallops or rubs, no JVD, no peripheral edema CHEST: inspection of chest was normal GASTROINTESTINAL: soft, nontender, ND, no guarding MUSCULOSKELETAL: strength 5/5 throughout, head is normocephalic and atraumatic, SKIN: warm and dry, NEUROLOGIC: CN 2-12 grossly intact, normal cognition, normal speech, no tremor PSYCHIATRIC: alert cooperative and oriented to person, place and time. Euthymic mood, makes good eye contact, language grossly intact, recent and remote memory grossly intact. Discharge Data Allergies Allergy/AdvReac Type Severity Reaction Status Date / Time adhesive AdvReac Intermediate REDNESS Verified 04/12/21 13:23 WITH EKG ELECTRODES Consultations 04/12/21 13:31 ED Decision to Admit Stat 04/12/21 15:20 Consult Cardiology Routine 04/13/21 08:00 Consult Pulmonology Routine Ordered Studies Laboratory Results WBC 5.44 K/uL (4.8-10.8) 04/16/21 04:45 RBC 4.24 M/uL (4.7-6.1) L 04/16/21 04:45 Hgb 12.4 g/dL (14.0-18.0) L 04/16/21 04:45 Hct 37.5 % (42-52) L 04/16/21 04:45 MCV 88.4 fL (80-100) 04/16/21 04:45 MCH 29.2 pg (25-34) 04/16/21 04:45 MCHC 33.1 g/dL (32-36) 04/16/21 04:45 RDW Std Deviation 43.2 fL (36.4-46.3) 04/16/21 04:45 RDW Coeff of Lisa 13.4 % (11.5-14.5) 04/16/21 04:45 Plt Count 236 K/uL (130-400) 04/16/21 04:45 MPV 9.1 fL (7.4-10.4) 04/16/21 04:45 Immature Gran % (Auto) 0.4 % 04/16/21 04:45 Neut % (Auto) 66.9 % 04/16/21 04:45 Lymph % (Auto) 11.0 % 04/16/21 04:45 [place] % (Auto) 17.6 % 04/16/21 04:45 Eos % (Auto) 3.7 % 04/16/21 04:45 Baso % (Auto) 0.4 % 04/16/21 04:45 Neut # (Auto) 3.64 K/uL (1.4-6.5) 04/16/21 04:45 Lymph # (Auto) 0.60 K/uL (1.2-3.4) L 04/16/21 04:45 [place] # (Auto) 0.96 K/uL (0.11-0.59) H 04/16/21 04:45 Eos # (Auto) 0.20 K/uL (0-0.5) 04/16/21 04:45 Baso # (Auto) 0.02 K/uL (0-0.2) 04/16/21 04:45 Immature Gran # (Auto) 0.02 K/uL (0.00-0.02) 04/16/21 04:45 APTT 62.3 Seconds (21.0-31.0) H* 04/16/21 04:45 PTT Ratio 2.4 04/16/21 04:45 Sodium 136 mmol/L (136-145) 04/16/21 04:45 Potassium 3.9 mmol/L (3.5-5.1) 04/16/21 04:45 Chloride 104 mmol/L (98-107) 04/16/21 04:45 Carbon Dioxide 24 mmol/L (21-32) 04/16/21 04:45 Anion Gap 8 (3-11) 04/16/21 04:45 BUN 15 mg/dl (6-23) 04/16/21 04:45 Creatinine 1.02 mg/dl (0.6-1.4) 04/16/21 04:45 Est Cr Clr Drug Dosing 71.8 ml/min 04/16/21 04:45 Est GFR ( Amer) 82.4 ml/min 04/16/21 04:45 Est GFR (Non-Af Amer) 71.1 ml/min 04/16/21 04:45 BUN/Creatinine Ratio 14.7 (10-20) 04/16/21 04:45 Glucose 100 mg/dl (70-99(Fasting)) H 04/16/21 04:45 POC Glucose 121 mg/dl (70-99) H 04/17/21 12:04 Estimat Average Glucose 128 mg/dl 04/13/21 02:30 Hemoglobin A1c 6.1 % (4.5-5.6) H 04/13/21 02:30 Calcium 8.9 mg/dl (8.5-10.1) 04/16/21 04:45 Magnesium 1.7 mg/dl (1.7-2.4) 04/14/21 06:41 Total Bilirubin 0.7 mg/dl (0.2-1.0) 04/12/21 12:12 AST 13 U/L (13-39) 04/12/21 12:12 ALT 5 U/L (7-52) L 04/12/21 12:12 Alkaline Phosphatase 119 U/L (34-104) H 04/12/21 12:12 Troponin I 0.07 ng/ml (0-0.04) H* 04/13/21 02:30 Total Protein 6.9 gm/dl (6.0-8.3) 04/12/21 12:12 Albumin 3.4 gm/dl (3.4-5.0) 04/12/21 12:12 Globulin 3.5 gm/dl (2.5-4.0) 04/12/21 12:12 Albumin/Globulin Ratio 1.0 (0.9-2) 04/12/21 12:12 Prostate Specific Ag 12.527 ng/ml (0-4) H 04/14/21 12:01 TSH 1.571 uIu/ml (0.300-4.500) 04/12/21 12:12 SARS-CoV-2, RNA, NAAT NEGATIVE (NEGATIVE) 04/12/21 12:33 Impressions Chest X-Ray 04/12/21 12:23 XR chest 1V portable HISTORY: 75 years-old Male Dysrhythmia acute atypical chest pain COMPARISON: Chest radiograph 09/30/[address] 10/14/2015. TECHNIQUE: Portable AP view of the chest FINDINGS: Cardiac silhouette is enlarged. Pulmonary vascular congestion with ill-defined bilateral mid to lower lung zone predominant airspace opacities. No pneumothorax, or large pleural effusion. Degenerative changes of the shoulders and spine. Left-sided pleural calcifications redemonstrated. IMPRESSION: 1. Ill-defined opacities of the mid to lower lung zones is suggestive of an infectious or inflammatory pneumonitis. 2. Cardiomegaly. ACT 112: Negative or not required by law. The above report was generated using voice recognition software. It may contain grammatical, syntax or spelling errors. Electronically signed by: Cuate Farmer M.D. 04/12/2021 12:54 PM Chest CTA 04/12/21 15:58 CT angio chest PE protocol CT DOSE: 643.96 mGy.cm HISTORY: 75 years-old Male with PE. Acute shortness of breath chest pain and cardiac arrhythmia TECHNIQUE: Multiple CTA images of the chest were obtained after the intravenous administration of 120 ml Optiray. Coronal and sagittal MIPS were obtained from the axial data set and were submitted for review. All measurements were obtained according to NASCET criteria. A dose lowering technique was utilized adhering to the principles of ALARA. COMPARISON: Chest radiograph of same day, chest CT 10/14/2015, CT abdomen and pelvis 05/23/2018. FINDINGS: CTA: Heart is moderately enlarged. No pericardial effusion. Myocardial thickening with mural fibrofatty changes of the left ventricular apex are suggestive of prior myocardial infarction. Aortic and mitral annular with mild to moderate coronary artery calcifications. No thoracic aortic aneurysm or dissection. Patency of the imaged great vessels. Extensive bilateral pulmonary emboli involve the lobar, segmental and subsegmental pulmonary arterial branches bilaterally, right greater than left. Straightening of the intraventricular ca rdiac septum. Mild dilation of the pulmonary artery. CT CHEST: No thyroid nodule. Prominent and mildly enlarged mediastinal and hilar lymph nodes measure up to 10 mm, likely reactive. Trace pleural effusions. No pneumothorax. Chronic cortical thickening of the posterolateral left fifth rib with adjacent pleural calcifications and pleural parenchymal scarring is similar in appearance to the 2016 exam. There is a lobular solid 1.1 x 0.8 x 1.9 cm nodule of the left lower lobe which previously measured up to 9 mm on the 2016 exam. This may demonstrate macroscopic fat centrally. Groundglass and consolidative opacities are noted within the right lung base. The central airways are patent. 9.1 x 8.1 cm cyst of the right kidney. Small hiatal hernia with mild distal esophageal wall thickening. No acute process of the imaged upper abdomen. Colonic diverticulosis. Mild fecal retention. Indeterminate 1.1 x 0.8 cm nodule involves the upper abdominal omentum on image 41 series 4. Several additional subtle subcentimeter nodular foci also noted throughout the omentum. Healed chronic right-sided rib fractures. Healing subacute appearing nondisplaced fracture of the anterior left seventh rib. Bilateral gynecomastia. IMPRESSION: 1. Extensive bilateral pulmonary emboli with evidence of right heart strain. 2. Trace pleural effusions with right lung base opacities suggestive of atelectasis and possible developing pulmonary infarct(s). 3. Indeterminate 1.1 cm lobular solid nodule of the left lower lobe has slightly increased in size dating back to the comparison 2016 study. Equivocal central macroscopic fat raises the possibility of a pulmonary hamartoma. 1 year follow- up chest CT recommended. 4. Subtle upper abdominal omental nodules are suspicious for omental carcinomatosis. Oncology follow-up is needed. 5. Small hiatal hernia. 6. Mild mediastinal adenopathy. ACT 112: Negative or not required by law. The above report was generated using voice recognition software. It may contain grammatical, syntax or spelling errors. Electronically signed by: Cuate Farmer M.D. 04/12/2021 4:48 PM Venous Doppler Study 04/14/21 00:00 BILATERAL LOWER EXTREMITY VENOUS DOPPLER CLINICAL HISTORY: Pulmonary emboli. COMPARISON STUDY: No previous studies for comparison. TECHNIQUE: Sonography of the deep venous system of the bilateral lower extremities was performed. Compression and augmentation were evaluated. FINDINGS: There is no deep venous thrombus within the right lower extremity. Note is made of extensive superficial thrombus within the left greater saphenous vein. This extends the near entirety of the greater saphenous vein to within 1 cm of the confluent within the common femoral vein. There is deep venous thro mbus within the left gastrocnemius veins which begins 1.7 cm from the confluence with the popliteal vein. A 5.6 x 1.2 x 3.3 cm left popliteal fluid collection is noted. This contains a 1.3 cm oval-shaped hypoechoic focus without color flow. This favors a complex popliteal cyst. IMPRESSION: 1. Deep venous thrombus within the left gastrocnemius veins and extensive superficial thrombus within the left greater saphenous vein. 2. No deep venous thrombus within the right lower extremity. ACT 112: Negative or not required by law. Electronically signed by: Cheikh Lopez M.D. 04/14/2021 6:56 AM Hospital Course (1) Acute respiratory failure with hypoxia: (2) Atrial fibrillation with rapid ventricular response: New onset atrial fibrillation likely from acute PE. Heart rate control overnight with diltiazem intravenous drip with transition to metoprolol succinate 100mg PO BID per cardiology. With acute PE in setting of known malignancy, will need long-term anticoagulation. Transitioned to apixaban. No chest pain or shortness of breath during his stay. Required oxygen and was cleared with a two step test at time of discharge to show no supplemental oxygen was needed on discharge. Close cardiology followup recommended. (3) Pulmonary embolism: Extensive bilateral pulmonary emboli with evidence of right heart strain on CT scan. Likely provoked either from malignancy underlying or recent infection with covid-19. Cont heparin with oral AC transition as above. Currently hypoxic at rest, 95% on 3LPM NC. Cont to wean as tolerated. Echocardiogram: EF 55 to 60%, moderate concentric LVH, no significant aortic valve stenosis, pulmonary pressure 54 mmHg mild aortic dilatation Continue heparin drip--> transition to PO Eliquis tomorrow Pulmonary service consulted, appreciate the recommendations Telemetry reviewed and Patient remains in A. fib (4) Elevated troponin: unrelated to ACS, per #5 (5) CAD (coronary artery disease): chronic, stable. Elevated troponin not likely reflective of ACS on admission per cardiology. Cont Lipitor and ASA per home regimen. (6) HTN (hypertension): chronic, stable. Cont Toprol per home regimen. Norvasc held and will cont to hold as BP low normal and want to reduce polypharmacy. (7) Prostate cancer metastatic to bone: History metastatic prostate cancer to bone S/p brachy therapy, prostatectomy currently on Lupron and enzalutamide following with urology-Dr. Alford and [place] oncology-Dr. Leal Reports just had PET scan at [place] recently-record unavailable CT chest with subtle upper abdominal omental nodules, suspicious for omental carcinomatosis, mild mediastinal adenopathy PSA doubled in last month-patient is aware of this. As PSA is APR, may be related to recent covid infection, also. Will need further follow-up with oncology, scheduled to see [facility] oncologist April 20 Cont Xtandi and Vesicare per home regimen (8) Pulmonary hypertension: Likely related to acute PE. Wtih 30 pack year history of smoking, outpatient PFTs likely would be helpful. (9) Left leg DVT: Cont anticoagulation as above. Total Time Total Time Spent Total Time Spent (In Minutes): 60 Discharge Plan Discharge Items Patient Disposition: Home - Self-Care Reason For Visit: Heart racing Discharge Diagnosis: Acute respiratory failure with hypoxia-resolved. Acute pulmonary embolism Atrial flutter Atrial fibrillation with rapid ventricular response Elevated troponin Prostate cancer Condition on Discharge: Good Activity: Resume your previous activity Non-emergency contact: Primary Care Provider Call non-emergency contact if: you have any medication questions and your symptoms worsen Follow-up/Referrals: Jimmy Allen [Primary Care Provider] - Diet: Carb Consistent or DM2 Addtl Attending Provider Instructions: Please take all medications as instructed on discharge list below. You are being placed on Apixaban, which is a blood thinner. You may need to continue taking this long-term, but at least 3 months to start. You are only being given the first month on discharge, and will need refills from your primary care provider. The first week, you will take 10mg twice daily, followed by 5mg twice daily after that. Please do not combine this with other NSAIDs (non-steroidal anti-inflammatory drugs) such as Ibuprofen or Aleve as this may cause bleeding. You are also being given metoprolol succinate (Toprol XL) to take twice daily. This is to help control your heart rate and should not be stopped without weaning off of it first. Please follow-up closely with your Oncology team regarding your recently elevated PSA level. Please follow-up with Cardiology as instructed. It was a pleasure taking care of you! Please call if you have any questions or problems. You can reach a [facility] hospitalist on duty at [facility] 24 hours a day by calling [phone]. Take care of yourself. Salena Amezquita, DO [facility] Hospitalist Pending Studies at Discharge: No Stand-Alone Forms: My [facility] Medications and DC Order Prescriptions: New apixaban 5 mg (74 tabs) tablets,dose pack 5 mg PO Q12H Qty: 74 RF: 0 metoprolol succinate [Toprol XL] 100 mg tablet extended release 24 hr 100 mg PO BID Qty: 60 RF: 0 Continued metformin 500 mg tablet 500 mg PO DAILY RF: 0 Xtandi 40 mg capsule 160 mg PO DAILY RF: 0 alendronate 70 mg tablet 70 mg PO WK RF: 0 triamcinolone acetonide 0.1 % cream 1 applic topical BID Qty: 15 RF: 2 nystatin 100,000 unit/gram cream 1 applic topical BID Qty: 15 RF: 2 hydrocodone-acetaminophen 10-325 mg tablet 1 tab PO DAILY PRN (Reason: Pain) RF: 0 aspirin 81 mg Capsule 81 mg PO HS RF: 0 atorvastatin [Lipitor] 10 mg tablet 40 mg PO HS RF: 0 solifenacin [Vesicare] 10 mg tablet 10 mg PO HS RF: 0 Discontinued metoprolol succinate 25 mg Tablet Extended Release 24 Hr 25 mg PO DAILY RF: 0 amlodipine 5 mg tablet 5 mg PO DAILY Qty: 30 RF: 6 metoprolol succinate 25 mg tablet extended release 24 hr 12.5 mg PO HS RF: 0 Krames/Other Patient Handouts: Managing Type 2 Diabetes Admission Data Admit Date/Time: 04/12/21 14:43 Attending Provider: Salena Amezquita Admit Provider: Kwesi Sow Primary Care Provider: Jimmy Allen Other Providers: Kwesi Sow ; Eduard Allan ; Ainsley Humphries
[2021-04-17 16:01] VITALS: PULSE 102; TEMP 97.5; O2SAT 96
[2021-04-17 16:10] VITALS: BP 109/56
[2021-04-18 16:47] LABS: Testosterone Free 2.5 pg/mL (30.0-135.0)
== END 2021-04-17 16:53 | disposition home or self-care (01) | DRG 175 ==
LOC: ED 12:06 → EDINP 14:43 → SUATTDRO 14:43 → 2S 19:04

== ENCOUNTER 2021-04-27 17:04 | Inpatient (IN) ==
[2021-04-27 17:35] LABS: Basophils # (auto) 0.04 K/uL (0-0.2); Basophils % (auto) 0.6 %; Eosinophils # (auto) 0.12 K/uL (0-0.5); Eosinophils % (auto) 1.9 %; Hematocrit (blood only) 39.4 % (42-52); Hemoglobin 13.3 g/dL (14.0-18.0); Immature Granulocytes # (auto) 0.04 K/uL (0.00-0.02); Immature Granulocytes % (auto) 0.6 %; Lymphocytes # (auto) 0.83 K/uL (1.2-3.4); Lymphocytes % (auto) 13.4 %; Mean Corpuscular Hemoglobin 29.6 pg (25-34); Mean Corpuscular Hgb Conc 33.8 g/dL (32-36); Mean Corpuscular Volume 87.8 fL (80-100); Mean Platelet Volume 8.9 fL (7.4-10.4); Monocytes # (auto) 0.86 K/uL (0.11-0.59); Monocytes % (auto) 13.9 %; Neutrophils # (auto) 4.29 K/uL (1.4-6.5); Neutrophils % (auto) 69.6 %; Platelet Count 190 K/uL (130-400); RDW Coefficient of Variation 13.5 % (11.5-14.5); RDW Standard Deviation 43.9 fL (36.4-46.3); Red Blood Count 4.49 M/uL (4.7-6.1); White Blood Count 6.18 K/uL (4.8-10.8)
--- NOTE | 2021-04-27 18:20 | XRay Report ---
XR chest 1V portable HISTORY: 75 years-old Male Chest Pain . Atypical chest pain COMPARISON: Chest radiograph and CTA chest 04/12/2021 TECHNIQUE: Portable AP view of the chest FINDINGS: Cardiac silhouette is enlarged. No pneumothorax. Probable trace pleural effusions. Calcified plaque o f the thoracic aorta. Ill-defined opacities of the left lung base and left midlung progressed from pr ior. Degenerative changes of the shoulders and spine. IMPRESSION: 1. Ill-defined opacities of the left midlung and left lung base are suspicious for an infectious or i nflammatory pneumonitis. 2. Cardiomegaly. ACT 112: Negative or not required by law. The above report was generated using voice recognition software. It may contain grammatical, syntax o r spelling errors. Electronically signed by: Cuate Farmer M.D. 04/27/2021 6:18 PM
[2021-04-27 18:52] LABS: Alanine Aminotransferase 6 U/L (7-52); Albumin Globulin Ratio 0.9 (0.9-2); Albumin Level 3.7 gm/dl (3.4-5.0); Alkaline Phosphatase 96 U/L (34-104); Anion Gap 7 (3-11); Aspartate Aminotransferase 15 U/L (13-39); BUN Creatinine Ratio 18.4 (10-20); Bilirubin,Total 0.3 mg/dl (0.2-1.0); Blood Urea Nitrogen 21 mg/dl (6-23); Calcium 8.5 mg/dl (8.5-10.1); Carbon Dioxide 24 mmol/L (21-32); Chloride 107 mmol/L (98-107); Est GFR (Non-African American) 62.1 ml/min; Globulin 3.9 gm/dl (2.5-4.0); Glucose 93 mg/dl (70-99(Fasting)); Lipase 24 U/L (11-82); Magnesium 1.7 mg/dl (1.7-2.4); Phosphorus 3.9 mg/dl (2.5-4.9); Sodium 138 mmol/L (136-145); Total Protein 7.6 gm/dl (6.0-8.3)
[2021-04-27 18:53] LABS: Troponin I 0.15 ng/ml (0-0.04)
[2021-04-27] MEDS ORDERED: FUROSEMIDE 40 MG/4 ML VIAL IV ONE (18:55)
--- NOTE | 2021-04-27 19:17 | Emergency Department Note ---
Impression & Plan Hypervolemia, Dyspnea on minimal exertion, Elevated troponin ED Provider Note NAME: REMI COLE JR AGE: 75 SEX: M ARRIVES VIA: Walk-In INFORMANT: Patient ED PROVIDER(S): Ulysses Sharma MD CHIEF COMPLAINT: SOB, edema PLAN: Disposition: Admit MEDICAL DECISION MAKING: The patient is a pleasant 75-year-old gentleman with a past medical history of atrial fibrillation, pulmonary htn per 04/13/2021 echo, recent COVID-19 infection in March 2021 and recent diagnosis of DVT and PE with admission from 04/12-04/17 who presents to the emergency department for evaluation and admission for concern for decompensated heart failure after the patient was seen in clinic today as a follow-up. The patient had been reporting increased shortness of breath with exertion and increased fluid retention which occurs in the setting of apparently being confused and poorly managing his home medications. The patient denies any fevers, chills, cough, congestion, GI or symptoms. He denies feeling short of breath when sitting or lying flat. He denies chest pain. On arrival the patient is no acute distress, afebrile stable vital signs. He does appear hypervolemic with 1+ bilateral lower extremity edema. EKG is without overt acute ischemia. Chest x-ray with question of left-sided mid and basilar opacity which are nonspecific. WBC and platelets normal limits. H/H similar to prior range of values. Ch emistry without metabolic acidosis. Troponin 0.15, proximate to prior elevations. BNP 600s without prior values for comparison but consistent with the patient's known CHF. Lipase not elevated. Patient agrees with plan for admission. Treatment initiated with IV Lasix. Case was discussed with Dr. Antoine, [facility] hospitalist, who will evaluate the patient for admission. Triage Nursing notes reviewed and agree them. Prior medical records reviewed Vital Signs: reviewed and remarkable for no significant abnormalities Differential diagnosis: Reactive airway disease, pneumonia, pneumothorax, COPD, CHF, infections, cardiac ischemia, pulmonary embolism, musculoskeletal, gastrointestinal, as well as other pathologies. ER treatment provided: See below. Diagnostics interpreted by me: ECG: Atrial flutter, variable AV block, 108 BPM, no ectopy, nonspecific ST abnormality, no overt ST elevation or depression, QTC 466, QRS 88. Cardiac Monitoring: An order for continuous cardiac monitoring was placed and demonstrated Atrial flutter, variable AV block, 108 BPM, no ectopy. Laboratory studies: See below Imaging studies: See below Consultation(s): Case was discussed with Dr. Antoine, [facility] hospitalist, who will evaluate the patient for admission. HPI: The patient is a pleasant 75-year-old gentleman with a past medical history of atrial fibrillation, pulmonary htn per 04/13/2021 echo, recent COVID-19 infe ction in March 2021 and recent diagnosis of DVT and PE with admission from 04/12-04/17 who presents to the emergency department for evaluation and admission for concern for decompensated heart failure after the patient was seen in clinic today as a follow-up. The patient had been reporting increased shortness of breath with exertion and increased fluid retention which occurs in the setting of apparently being confused and poorly managing his home medications. The patient denies any fevers, chills, cough, congestion, GI or symptoms. He denies feeling short of breath when sitting or lying flat. He denies chest pain. ROS: See above HPI for pertinent positives & negatives. A total of 10 systems reviewed and were otherwise negative. VITALS:See Below PHYSICAL EXAMINATION: GENERAL: Awake, alert, chronically ill-appearing, in no distress HENT: Normocephalic, atraumatic. Oropharynx unremarkable. EYES: Normal conjunctiva. Sclera non-icteric. NECK: Supple. No nuchal rigidity. FROM. No JVD. RESPIRATORY: Clear to auscultation. CARDIAC: Regular rate, normal rhythm. Extremities warm and well perfused. Pulses equal. ABDOMEN: Soft, non-distended. No tenderness to palpation. No rebound or guarding. No masses. RECTAL: Deferred. MUSCULOSKELETAL: Chest examination reveals no tenderness. The back is s ymmetrical on inspection without obvious abnormality. There is no CVA tenderness to palpation. No joint edema. LOWER EXTREMITIES: Calves are equal size bilaterally and non-tender. 1+ BLE edema. No discoloration. NEURO: Normal sensorium. No sensory or motor deficits noted. SKIN: No rash or jaundice noted. Ulysses Sharma MD Past Med/Surg History Medical History CAD (coronary artery disease) Diabetes mellitus, type II Dyslipidemia HTN (hypertension) Hx of brachytherapy Prostate cancer metastatic to bone Surgical History H/O heart surgery History of cardiac catheterization History of carpal tunnel surgery History of prostatectomy Hx of cholecystectomy Family History Mother Lung cancer Father Lung cancer Social History Smoking Status: Never smoker Second Hand Exposure: No; Hx Alcohol Use: No Hx Substance Use: No Preferred Language: Moroccan Communication Ability: Effective Canvas Cutter Hand Required: No Beliefs That Will Affect Care: Nondenominational Current Living Situation: Spouse Other Information That Helps Us Care for You: No Feels Safe at Home: Yes Safety Concerns: Feels Safe At This Time Assistive Devices: None Allergies Allergies Allergy/AdvReac Type Severity Reaction Status Date / Time adhesive AdvReac Intermediate REDNESS Verified 04/27/21 17:19 WITH EKG ELECTRODES Home Meds Home Medications Medication Instructions Recorded Confirmed alendronate 70 mg tablet 70 mg PO WK tab 10/10/18 04/27/21 enzalutamide 40 mg capsule (Xtandi) 160 mg PO DAILY 10/12/19 04/27/21 metformin 500 mg tablet 500 mg PO DAILY 10/12/19 04/27/21 aspirin 81 mg capsule 81 mg PO HS 04/12/21 04/27/21 atorvastatin 10 mg tablet (Lipitor) 40 mg PO HS 04/12/21 04/27/21 hydrocodone 10 mg-acetaminophen 1 tab PO DAILY PRN 04/12/21 04/27/21 325 mg tablet solifenacin 10 mg tablet (Vesicare) 10 mg PO DAILY 04/12/21 04/27/21 diltiazem HCl 120 mg 120 mg PO QAM 04/27/21 04/27/21 capsule,extended release 24 hr metoprolol succinate 100 mg 100 mg PO AMHS 04/27/21 04/27/21 tablet,extended release 24 hr (Toprol XL) omeprazole 20 mg capsule,delayed 20 mg PO QAM 04/27/21 04/27/21 release Previous Rx's Medication Instructions Recorded apixaban 5 mg (74 tabs) tablets in 5 mg PO Q12H #74 ea 04/17/21 a dose pack Results & Data (ED) Vital Signs Vital Signs - 24 hr 04/27/21 17:08 03/07/22 17:28 Temperature 36.7 C Temperature Source Temporal Artery Scan Pulse Rate 115 H Pulse Rate [Apical] 114 H Pulse Rhythm [Apical] Irregular Respiratory Rate 20 18 Respiratory Effort / Characteristics Non-Labored Spontaneous Non-Labored Respiratory Depth Normal Normal Respiratory Pattern Regular Blood Pressure 129/82 Blood Pressure [Left Arm] 144/92 H Blood Pressure Mean 97 Blood Pressure Mean [Left Arm] 109 Pulse Oximetry 92 96 Oxygen Delivery Method Room Air Room Air Sepsis Recent Fever Within 48 Hours No Sepsis New/Unexplained Change in Mental Status No Sepsis Action Taken by Nursing No Action Required Laboratory Data Attestation: I reviewed the patient's lab results. Result diagrams: 04/27/21 17:24 04/27/21 17:24 Lab Results 04/27/21 04/27/21 04/27/21 Range/Units 17:24 17:24 17:24 WBC 6.18 (4.8-10.8) K/uL RBC 4.49 L (4.7-6.1) M/uL Hgb 13.3 L (14.0-18.0) g/dL Hct 39.4 L (42-52) % MCV 87.8 (80-100) fL MCH 29.6 (25-34) pg MCHC 33.8 (32-36) g/dL RDW Std Deviation 43.9 (36.4-46.3) fL RDW Coeff of Lisa 13.5 (11.5-14.5) % Plt Count 190 (130-400) K/uL MPV 8.9 (7.4-10.4) fL Immature Gran % (Auto) 0.6 % Neut % (Auto) 69.6 % Lymph % (Auto) 13.4 % [place] % (Auto) 13.9 % Eos % (Auto) 1.9 % Baso % (Auto) 0.6 % Neut # (Auto) 4.29 (1.4-6.5) K/uL Lymph # (Auto) 0.83 L (1.2-3.4) K/uL [place] # (Auto) 0.86 H (0.11-0.59) K/uL Eos # (Auto) 0.12 (0-0.5) K/uL Baso # (Auto) 0.04 (0-0.2) K/uL Immature Gran # (Auto) 0.04 H (0.00-0.02) K/uL Sodium 138 (136-145) mmol/L Potassium 4.0 (3.5-5.1) mmol/L Chloride 107 (98-107) mmol/L Carbon Dioxide 24 (21-32) mmol/L Anion Gap 7 (3-11) BUN 21 (6-23) mg/dl Creatinine 1.14 (0.6-1.4) mg/dl Est Cr Clr Drug Dosing Not Reportable Est GFR ( Amer) 72.0 ml/min Est GFR (Non-Af Amer) 62.1 ml/min BUN/Creatinine Ratio 18.4 (10-20) Glucose 93 (70-99(Fasting)) mg/dl Calcium 8.5 (8.5-10.1) mg/dl Phosphorus 3.9 (2.5-4.9) mg/dl Magnesium 1.7 (1.7-2.4) mg/dl Total Bilirubin 0.3 (0.2-1.0) mg/dl AST 15 (13-39) U/L ALT 6 L (7-52) U/L Alkaline Phosphatase 96 (34-104) U/L Troponin I 0.15 H* (0-0.04) ng/ml B-Natriuretic Peptide 635 H (0-100) pg/ml Total Protein 7.6 (6.0-8.3) gm/dl Albumin 3.7 (3.4-5.0) gm/dl Globulin 3.9 (2.5-4.0) gm/dl Albumin/Globulin Ratio 0.9 (0.9-2) Lipase 24 (11-82) U/L Administered Medications Aspirin (Aspirin 81 Mg Ectab) 81 mg PO HS GUY Stop: 05/27/21 20:59 Last Admin: 04/27/21 21:39 Dose: 81 mg Documented by: [id number] Atorvastatin Calcium (Atorvastatin 40 Mg Tab) 40 mg PO HS [facility] Stop: 05/27/21 20:59 Last Admin: 04/27/21 21:38 Dose: 40 mg Documented by: [id number] Heparin Sodium/Dextrose (Heparin Sodium/Dextrose) 25,000 units in 500 mls @ 29 mls/hr IV .[id number] GUY; Protocol Stop: 05/27/21 21:29 Last Admin: 03/07/22 22:04 Dose: 1,450 units/hr, 29 mls/hr Documented by: [id number] Cosigned by: [id number] Insulin Aspart (Insulin Aspart Per Unit) 0 units SC ACHS [facility] Stop: 05/27/21 20:59 Last Admin: 04/27/21 21:22 Dose: Not Given Documented by: [id number] Metoprolol Succinate (Metoprolol Succ 50mg Ext Rel Tab) 100 mg PO [facility] Stop: 05/27/21 20:59 Last Admin: 04/27/21 21:39 Dose: 100 mg Documented by: [id number] Miscellaneous (Xtandi: Order Awaiting Action) 1 ea N/A QS [facility] Stop: 05/28/21 00:00 Last Admin: 04/27/21 22:12 Dose: Not Given Documented by: [id number] Miscellaneous (Vesicare: Order Awaiting Action) 1 ea N/A QS [facility] Stop: 05/28/21 00:00 Last Admin: 04/27/21 22:12 Dose: Not Given Documented by: [id number] Discontinued Medications Furosemide (Furosemide 40 Mg/4 Ml Vial) 40 mg IV ONE ONE Stop: 04/27/21 18:56 Last Admin: 04/27/21 19:10 Dose: 40 mg Documented by: [id number] Heparin Sodium/Dextrose (Heparin Iv Adult Wt-Based Standard *No* Bolus Protocol) 1 ea IV ONE ONE; Protocol Stop: 04/27/21 20:54 Last Admin: 04/27/21 22:11 Dose: Not Given Documented by: [id number] Imaging Data Radiologist's Impression: Chest X-Ray 04/27/21 17:18 XR chest 1V portable HISTORY: 75 years-old Male Chest Pain . Atypical chest pain COMPARISON: Chest radiograph and CTA chest 04/12/2021 TECHNIQUE: Portable AP view of the chest FINDINGS: Cardiac silhouette is enlarged. No pneumothorax. Probable trace pleural effusions. Calcified plaque of the thoracic aorta. Ill-defined opacities of the left lung base and left midlung progressed from prior. Degenerative changes of the shoulders and spine. IMPRESSION: 1. Ill-defined opacities of the left midlung and left lung base are suspicious for an infectious or inflammatory pneumonitis. 2. Cardiomegaly. ACT 112: Negative or not required by law. The above report was generated using voice recognition software. It may contain grammatical, syntax or spelling errors. Electronically signed by: Cuate Farmer M.D. 04/27/2021 6:18 PM Discharge Plan Visit Data Chief Complaint: Abnormal Labs/Diagnostic Testing Stated Complaint: FLUID IN LEGS, MED ISSUES, DR REFERRED ED Provider: Ulysses Sharma Discharge Problem: Hypervolemia, Dyspnea on minimal exertion, Elevated troponin Patient Disposition: Admitted As Inpatient Discharge Instructions Interventions: ED Discharge Assessment Last Done: 04/27/21 20:31 Discharge Problem: Hypervolemia Qualifiers: Hypervolemia type: unspecified Qualified Code(s): E87.70 - Fluid overload, unspecified
[2021-04-27] MEDS ORDERED: NITROGLYCERIN SL 0.4 MG/TAB TAB SL PRN (20:53)
[2021-04-27] MEDS ORDERED: HYDROcodone/ACETAMINOPHEN 10/325 TAB PO PRN (20:53)
[2021-04-27] MEDS ORDERED: Heparin IV Adult Wt-Based Standard *NO* Bolus Protocol IV ONE (20:53)
[2021-04-27] MEDS ORDERED: POLYETHYLENE (MIRALAX) 17 GM PACK PO PRN (20:53)
[2021-04-27] MEDS ORDERED: ACETAMINOPHEN 325 MG TAB PO PRN (20:53)
[2021-04-27] MEDS ORDERED: METOPROLOL TARTRATE 1 MG/ML VIAL IV PRN (20:53)
[2021-04-27] MEDS ORDERED: GLUCOSE 10 TABS/TUBE PO PRN (21:15)
[2021-04-27] MEDS ORDERED: GLUCOSE 40% GEL 15 GM TUBE PO PRN (21:15)
[2021-04-27] MEDS ORDERED: DEXTROSE 50% 50 ML SYRINGE IV PRN (21:15)
[2021-04-27] MEDS ORDERED: CARBOHYDRATES FOR HYPOGLYCEMIA PO PRN (21:15)
[2021-04-27] MEDS ORDERED: GLUCAGON FOR INJ 1 MG VIAL IM PRN (21:15)
[2021-04-27] MEDS: INSULIN ASPART PER UNIT SC SCH (21:22)
[2021-04-27] MEDS ORDERED: HEPARIN SODIUM/DEXTROSE 25,000 UNITS/500 ML BAG IV SCH (21:30)
[2021-04-27] MEDS: ATORVASTATIN 40 MG TAB PO SCH (21:38)
[2021-04-27] MEDS: METOPROLOL SUCC 50MG EXT REL TAB PO SCH (21:39)
[2021-04-27] MEDS: ASPIRIN 81 MG ECTAB PO SCH (21:39)
[2021-04-27 21:50] LABS: INR 1.1 (0.9-1.1); Partial Thromboplastin Ratio 0.9; Partial Thromboplastin Time 25.3 Seconds (21.0-31.0); Prothrombin Time 11.9 Seconds (9.0-12.0)
[2021-04-27] MEDS: XTANDI: ORDER AWAITING ACTION SCH (22:12)
[2021-04-27] MEDS: VESICARE: ORDER AWAITING ACTION SCH (22:12)
--- NOTE | 2021-04-27 23:35 | History and Physical Report ---
DATE OF ADMISSION: 04/27/2021. CHIEF COMPLAINT: Shortness of breath, messing medications. HISTORY OF PRESENT ILLNESS: A 75-year-old male with past medical history significant for type 2 diabetes, hypertension, metastatic prostate cancer, status post brachytherapy and prostatectomy, currently on Lupron and enzalutamide following with urology, Dr. Alford and [facility], Dr. Leal, history of CAD, medically managed, hyperlipidemia, diastolic CHF, presents with shortness of breath. Patient had Covid few weeks back. The patient was recently in the hospital from 04/12 to 04/17 with complaints of shortness of breath and tachycardic, but the patient's workup revealed left lower extremity DVT and extensive bilateral pulmonary emboli and telemetry revealed atrial fibrillation with rapid ventricular response, mild elevation of troponin, initially started on IV heparin and transitioned to Eliquis. Initially was treated with IV Cardizem, later he was discharged on metoprolol 100 mg b.i.d. and there is a plan for cardioversion after adequate time on Eliquis. He did not require oxygen at the time of discharge. His amlodipine was discontinued because of polypharmacy and hypotension and he followed outpatient. On 04/22/2021, he was found to be still in symptomatic atrial fibrillation and Cardizem CD 120 mg was added and also omeprazole 20 mg was added for GI prophylaxis as he is on anticoagulation and the patient again returned to Cardiology office today feeling poorly, fatigue, worsening shortness of breath, walking 1/2 block making him short of breath and seemed to be he messed up his medications . He was taking reduced dose of metoprolol, seemed to be taking only 25 mg in the morning and 12.5 mg in the evening as opposed to 100 mg b.i.d. and he was taking the Lasix in the recent past, but he stopped by himself and the patient says he also did not take Eliquis for the last 1-1/2 days and because of his symptoms and taking reduced dose of medications, Cardiology sent him to the hospital. Currently, somewhat tachycardic, blood pressure is somewhat elevated. Labs look okay, except for mild troponin of 0.15 and BNP of 635 and has mild lower extremity edema. The patient denies any dizziness, usually gets headache once in a while. No blurred visions, no earache, no runny nose, no sore throat. No cough. Appetite is okay. No difficulty swallowing. Currently, denies any chest pain, no nausea, no vomiting, no abdominal pain. No diarrhea or constipation. No blood in stools or black stools. Normal bladder movements. Currently, saturating okay on room air, received a dose of IV Lasix in the ER. ALLERGIES: ADHESIVES. PAST MEDICAL HISTORY: As mentioned above. PAST SURGICAL HISTORY: Status post cholecystectomy, status post prostatectomy, status post carpal tunnel surgery. MEDICATIONS: The patient is on alendronate 70 mg p.o. weekly, Eliquis 5 mg p.o. b.i.d., aspirin 81 mg p.o. at bedtime, Lipitor 40 mg p.o. at bedtime, diltiazem 120 mg p.o. a.m., enzalutamide 160 mg p.o. daily, hydrocodone/acetaminophen 10 mg/325 mg one tablet p.o. daily p.r.n., metformin 500 mg p.o. daily, metoprolol succinate 100 mg p.o. b.i.d., omeprazole 20 mg p.o. daily, VESIcare 10 mg p.o. daily. FAMILY HISTORY: Significant for lung cancer both mother and father. SOCIAL HISTORY: , former smoker, quit in 1984. No alcohol use. No drug use. REVIEW OF SYSTEMS: As per HPI. Rest of review of systems is negative. PHYSICAL EXAMINATION: GENERAL: The patient is of moderate build, not in acute distress. VITAL SIGNS: Temperature 36.7, pulse 114, respiratory rate 18, blood pressure 144/92, oxygen 96% on room air. HEENT: Pupils equal, round and reactive to light. Oral mucosa moist. NECK: No JVD, no neck masses. CARDIOVASCULAR: S1 and S2 heard. Irregular rhythm, tachycardia. No murmur. RESPIRATORY SYSTEM: Normal AP diameter. No accessory muscle use. No wheezing, no crackles. ABDOMEN: Soft, bowel sounds present, nontender, no distention. CENTRAL NERVOUS SYSTEM: Alert and oriented. Speech is clear. No facial droop. Insight is good. Obeys simple commands. Moves extremities. EXTREMITIES: Mild bilateral pedal edema present. No erythema seen. LABORATORY DATA: WBC 6.1, hemoglobin 13.3, hematocrit 39.4, platelets 190. Sodium 138, potassium 4, chloride 107, bicarbonate 24, BUN 21, creatinine 1.1, serum glucose 93, calcium 8.5, phosphorus 3.9, magnesium 1.7, total bilirubin 0.3, AST 15, ALT 6, alkaline phosphatase 96. Troponin I 0.15. BNP 635. Lipase 24. SARS-CoV-2 RNA rapid test negative. IMAGING DATA: Chest x-ray, ill-defined opacity of the left mid lung and left lung base, suspicious for infectious and inflammatory pneumonitis. Cardiomegaly. EKG: Atrial flutter with variable AV block at a rate of 108, nonspecific ST abnormalities. ASSESSMENT AND PLAN: This is a 75-year-old male who presents with shortness of breath and also not taking medication as supposed to be taken. 1. Shortness of breath, most likely acute on chronic diastolic congestive heart failure. Received a dose of IV Lasix in the ER. We will continue his home metoprolol, follow the labs, follow the echocardiogram, follow strict I's and O's, daily weights. Monitor in the tele floor. Consult Cardiology for further recommendation. Further diuretics as per Cardiology. 2. History of atrial fibrillation, Rapid atrial fibrillation, discharged on 100 mg of metoprolol b.i.d. and also an outpatient on 04/22, diltiazem was added, but the patient was taking reduced dose of metoprolol. Now having tachycardia. We will place him back on his home doses of metoprolol 100 mg b.i.d. and diltiazem [address] and also place him on IV Lopressor p.r.n. as the patient missed his Eliquis ,we will start him on IV heparin and maybe we can restart Eliquis tomorrow. 3. History of bilateral pulmonary embolism and deep venous thrombosis prophylaxis. IV heparin as above. 4. Diabetes, controlled with metformin. Place on insulin sliding scale. Follow the blood sugars. 5. Hypertension, on metoprolol and Cardizem. We will monitor the blood pressure. 6. Gastroesophageal reflux disease, on omeprazole. 7. Prostate cancer, follow up with hematology/oncology. Continue current medications of enzalutamide and VESIcare. 8. Deep venous thrombosis prophylaxis, on IV heparin. DISPOSITION: Closely monitor in the tele floor. Level 1 full code. PT, OT prior to discharge. Social service to help with discharge planning. Job ID: [id number]
[2021-04-28 03:57] LABS: Basophils # (auto) 0.04 K/uL (0-0.2); Basophils % (auto) 0.8 %; Eosinophils # (auto) 0.15 K/uL (0-0.5); Eosinophils % (auto) 2.9 %; Hematocrit (blood only) 37.5 % (42-52); Hemoglobin 12.7 g/dL (14.0-18.0); Immature Granulocytes # (auto) 0.03 K/uL (0.00-0.02); Immature Granulocytes % (auto) 0.6 %; Lymphocytes # (auto) 0.77 K/uL (1.2-3.4); Lymphocytes % (auto) 14.9 %; Mean Corpuscular Hemoglobin 29.3 pg (25-34); Mean Corpuscular Hgb Conc 33.9 g/dL (32-36); Mean Corpuscular Volume 86.4 fL (80-100); Mean Platelet Volume 8.8 fL (7.4-10.4); Monocytes % (auto) 13.5 %; Neutrophils # (auto) 3.49 K/uL (1.4-6.5); Neutrophils % (auto) 67.3 %; Nucleated RBC % (auto) 1.9 %; Platelet Count 166 K/uL (130-400); RDW Coefficient of Variation 13.3 % (11.5-14.5); RDW Standard Deviation 42.3 fL (36.4-46.3); Red Blood Count 4.34 M/uL (4.7-6.1); White Blood Count 5.18 K/uL (4.8-10.8)
[2021-04-28 04:18] LABS: BUN Creatinine Ratio 18.3 (10-20); Calcium 9.1 mg/dl (8.5-10.1); Creatinine Clr Calc Pharmacy 68.9 ml/min; Est GFR (African American) 80.5 ml/min; Est GFR (Non-African American) 69.4 ml/min; Magnesium 1.6 mg/dl (1.7-2.4); Potassium 3.4 mmol/L (3.5-5.1)
[2021-04-28 04:20] LABS: Partial Thromboplastin Ratio 1.8
[2021-04-28 04:38] LABS: Partial Thromboplastin Time 50.1 Seconds (21.0-31.0)
[2021-04-28] MEDS ORDERED: POTASSIUM CHLORIDE CRTAB 20 MEQ TABCR PO STA (05:47)
[2021-04-28] MEDS: MAGNESIUM SULFATE / D5W 1 GM/100 ML BAG IV SCH ×2 (06:21→07:33)
[2021-04-28] MEDS: INSULIN ASPART PER UNIT SC SCH ×4 (07:28→21:20)
[2021-04-28] MEDS: dilTIAZem HCL 120 MG CAPCR PO SCH (07:33)
[2021-04-28] MEDS: METOPROLOL SUCC 50MG EXT REL TAB PO SCH ×2 (07:33→21:20)
[2021-04-28] MEDS: PANTOprazole 40 MG TAB PO SCH (07:33)
[2021-04-28 07:57] LABS: Estimated Average Glucose 126 mg/dl
--- NOTE | 2021-04-28 08:35 | Cardiology Consultation ---
Date of Consultation April 28, 2021 Assessment & Plan (1) Atrial fibrillation with rapid ventricular response: (2) Acute on chronic diastolic HF (heart failure): (3) Pulmonary embolism: (4) Hypomagnesemia: Patient admitted for acute on chronic diastolic HF exacerbation in the setting of atrial flutter RVR and non compliance with medications at home. Volume status improved with one dose IV Lasix in the ER. Appears euvolemic currently. HR's improving with resumption of oral metoprolol succinate 100 mg BID and diltiazem 120 mg. IV heparin initiated on arrival to ER due to non compliance with Eliquis. Transition to oral Eliquis this morning to limit IV fluids. Stop heparin at time of first dose of Eliquis. He had extensive DVT/Pulm Emboli last month at time of hospitalization for COVID. He has not been anticoagulated for the full 4 weeks and missed several doses of Eliquis at home. The initial plan was to allow 4 weeks of anticoagulation then proceed with cardioversion. However given his difficult to control rates and development of CHF exacerbation, recommend proceeding with KHANG and possible Cardioversion this admission for further treatment of afib/atrial flutter. Will discuss with Dr. Jones and likely make NPO after midnight if procedures can be arranged for tomorrow.. Supervising Physician Co-Signing Physician Notes Patient seen and examined with Susannah Gonzalez PA-C. Agree with findings and assessment as above. Patient sent to the emergency department from our office on 04/27/2021 for significant volume overload and A. fib with rapid ventricular response. Unfortunately, the patient has been having difficulty following his medication regimen since discharge. Has not been anticoagulated the full weeks. Will consider KHANG guided cardioversion to establish normal sinus rhythm. Eliquis restarted this a.m. History of Present Illness Reason for Consultation: Afib RVR; CHF Requesting Physician: Dr. Antoine Attending Physician: Dr. Jones History of Present Illness Patient is a 75 year old male who is known to [facility] (Bon Prather PA-C) for complex history including moderate CAD per cath in July 2020, hypertension, diastolic HF, metastatic prostate CA for which he is currently undergoing treatment, and recent COVID infection requiring hospitalization in Mar 2021 with complications and diagnosis of extensive DVT and b/l pulmonary emboli and development of afib RVR in Mar 2021. He was evaluated by cardiology during admission (Dr. Allan and Bon Prather PA-C). IV heparin utilized initially then transitioned to apixaban (Eliquis). Heart rates were elevated, not unexpected, relatively asymptomatic. IV diltiazem was gradually weaned and metoprolol succinate was increased, discharged on 100 mg twice per day. Plan on discharge was for rate control initially, allowing time to recover from b/l PE's as well as allowing time for proper anticoagulation prior to consideration for direct current cardioversion. Lifelong anticoagulation discussed. Resting echocardiography obtained on April 13, 2021 revealed preserved LV systolic function with moderate pulm hypertension, normal sized RV structure and function. Amlodipine discontinued during hospitalization due to hypotension and polypharmacy per documentation. As outpatient, following hospitalization, diltiazem was initiated due to persistently elevated rates at 120 mg daily. Most recently patient presented to cardiology office yesterday to see Bon Prather PA-C and felt poorly with increased malaise, worsening fatigue, worsening shortness of breath. For reasons that are unclear, about 2 or 3 days ago, he self reduced metoprolol dosing, possibly currently taking 25 mg in the morning and 12.5 mg in the evening. He apparently stopped his Eliquis as well. He had brought in 3 different med lists and was unsure what he was taking. Due to worsening symptoms, afib RVR and peripheral edema, consistent with CHF exacerbation, he was sent to the ID ER for evaluation/treatment and admission. On admission his chest xray was consistent with mild inflammatory process vs mild CHF on my review. He was treated with one dose IV lasix. His prior dose of metoprolol succinate 100 mg BID was resumed. Diltiazem 120 mg daily was also resumed. Due to non compliance with Eliquis, he was started on IV heparin for anticoagulation therapy on admission and overnight. BNP not significantly elevated on arrival. Troponin minimally elevated, consistent with afib RVR and strain pattern. At time of consult, patient resting in bed comfortably. Feeling better. SOB i mproved. Ambulating in room without exertional dyspnea. No chest pain. Edema resolved overnight. respiratory status back to baseline. Not requiring supplemental O2. HR's ranging 100-110 and persistent atrial flutter. He remains asymptomatic. Tolerating meds. Hospitalist ordered Eliquis this morning and will turn off heparin at first dose. Past Medical and Surgical History 1. The patient describes having a tumor behind the heart, undergoing surgical intervention as an , benign. 2. Atherosclerotic heart disease of [place] coronary artery 1. Diagnostic cardiac catheterization on August 20, 2020 revealed right-dominant coronary anatomy with moderate coronary atherosclerosis (60% narrowing of the LAD at the juncture of the mid and apical portions, thin caliber vessel, 30% narrowing at the origin of the high diagonal branch, luminal irregularities of the left circumflex, moderate irregularities of the ramus intermedius, and mild luminal irregularities of the RCA), normal left ventricular end-diastolic pressure. 3. Hypertension 4. Diastolic dysfunction 5. Dyslipidemia 6. Type 2 diabetes mellitus 7. Prostate cancer, metastatic (bone). Status post brachytherapy. On Lupron and Xtandi. Followed by Dr. Ventura Alford 8. Obesity 9. Status post cholecystectomy 10. Status post prostatectomy 11. Status post carpal tunnel surgery 12. Hospitalization at [facility] April 12, 2021 to April 17, 2021 with complaints of significant shortness of breath, dull chest pressure, and tachypalpitations. Workup revealing left lower extremity DVT (left gastrocnemius veins along with extensive superficial thrombus within the left greater saphenous vein) and extensive bilateral pulmonary emboli. Telemetry with atrial flutter/fibrillation. Troponin was elevated (0.10, 0.09, 0.07 ng/mL). IV heparin utilized initially then transitioned to apixaban (Eliquis). Heart rates were elevated, not unexpected, asymptomatic. IV diltiazem gradually weaned, transitioned to increasing dosages of metoprolol succinate, discharged on 100 mg twice per day. Plan on discharge was for rate control initially, allowing time to recover from the above insults as well as allowing time for proper anticoagulation prior to consideration for direct current cardioversion. Allergies Allergy/AdvReac Type Severity Reaction Status Date / Time adhesive AdvReac Intermediate REDNESS Verified 04/27/21 17:19 WITH EKG ELECTRODES Home Medications Medication Instructions Recorded Confirmed Type alendronate 70 mg tablet 70 mg PO WK tab 10/10/18 04/27/21 History enzalutamide 40 mg capsule (Xtandi) 160 mg PO DAILY 10/12/19 04/27/21 History metformin 500 mg tablet 500 mg PO DAILY 10/12/19 04/27/21 History aspirin 81 mg capsule 81 mg PO HS 04/12/21 04/27/21 History atorvastatin 10 mg tablet (Lipitor) 40 mg PO HS 04/12/21 04/27/21 History hydrocodone 10 mg-acetaminophen 1 tab PO DAILY PRN 04/12/21 04/27/21 History 325 mg tablet solifenacin 10 mg tablet (Vesicare) 10 mg PO DAILY 04/12/21 04/27/21 History apixaban 5 mg (74 tabs) tablets in 5 mg PO Q12H #74 ea 04/17/21 04/27/21 Rx a dose pack diltiazem HCl 120 mg 120 mg PO QAM 04/27/21 04/27/21 History capsule,extended release 24 hr metoprolol succinate 100 mg 100 mg PO AMHS 04/27/21 04/27/21 History tablet,extended release 24 hr (Toprol XL) omeprazole 20 mg capsule,delayed 20 mg PO QAM 04/27/21 04/27/21 History release Patient History Medical History CAD (coronary artery disease) Diabetes mellitus, type II Dyslipidemia HTN (hypertension) Hx of brachytherapy Prostate cancer metastatic to bone Surgical History H/O heart surgery History of cardiac catheterization History of carpal tunnel surgery History of prostatectomy Hx of cholecystectomy Family History Mother Lung cancer Father Lung cancer Social History Smoking Status: Never smoker Second Hand Exposure: No; Hx Alcohol Use: No Hx Substance Use: No Preferred Language: Fijian Communication Ability: Effective Fish Salter Required: No Beliefs That Will Affect Care: Judaism Current Living Situation: Spouse Other Information That Helps Us Care for You: No Feels Safe at Home: Yes Safety Concerns: Feels Safe At This Time Assistive Devices: None Review of Systems Review of Systems: All systems reviewed & are unremarkable except as noted in HPI & below Physical Exam Constitutional: WD/WN, vitals as above well developed; no acute distress Eyes: PERRL, conjunctivae normal, anicteric sclerae ENMT: external ear and nose normal, oropharynx normal Neck: trachea midline, no thyromegaly Respiratory: normal respiratory effort, lungs clear to auscultation Cardiovascular: Rate/Rhythm: + tachycardic Heart Sounds: normal S1 and normal S2; no murmur Vessels: no JVD Extremities: no edema Gastrointestinal (Abdomen): normal bowel sounds, soft, nontender, no hepatosplenomegaly Skin: no rashes, warm and dry Neurologic: PERRL, EOMI, accommodation nl, no face palsy, no dysarthria Psychiatric: A+Ox3, euthymic affect Results & Data ([facility]) Vital Signs (Past 12 Hours) Vital Signs Temp Pulse Resp BP Pulse Ox 04/28/21 07:00 36.7 C 110 H 18 123/85 92 04/28/21 03:00 36.8 C 108 H 20 119/80 97 04/27/21 23:21 36.8 C 115 H 20 101/74 93 04/27/21 20:55 36.8 C 117 H 25 H 132/95 93 Laboratory Results 04/28/21 04/28/21 04/28/21 Range/Units 07:18 03:48 03:48 WBC (4.8-10.8) K/uL RBC (4.7-6.1) M/uL Hgb (14.0-18.0) g/dL Hct (42-52) % MCV (80-100) fL MCH (25-34) pg MCHC (32-36) g/dL RDW Std Deviation (36.4-46.3) fL RDW Coeff of Lisa (11.5-14.5) % Plt Count (130-400) K/uL MPV (7.4-10.4) fL Immature Gran % (Auto) % Neut % (Auto) % Lymph % (Auto) % Stokes % (Auto) % Eos % (Auto) % Baso % (Auto) % Neut # (Auto) (1.4-6.5) K/uL Lymph # (Auto) (1.2-3.4) K/uL Stokes # (Auto) (0.11-0.59) K/uL Eos # (Auto) (0-0.5) K/uL Baso # (Auto) (0-0.2) K/uL Immature Gran # (Auto) (0.00-0.02) K/uL Absolute Nucleated RBC (0-0) K/uL Nucleated RBC % (auto) % PT (9.0-12.0) Seconds INR (0.9-1.1) APTT (21.0-31.0) Seconds PTT Ratio Sodium 139 (136-145) mmol/L Potassium 3.4 L (3.5-5.1) mmol/L Chloride 106 (98-107) mmol/L Carbon Dioxide 25 (21-32) mmol/L Anion Gap 8 (3-11) BUN 19 (6-23) mg/dl Creatinine 1.04 (0.6-1.4) mg/dl Est Cr Clr Drug Dosing 68.9 Est GFR ( Amer) 80.5 ml/min Est GFR (Non-Af Amer) 69.4 ml/min BUN/Creatinine Ratio 18.3 (10-20) Glucose 103 H (70-99(Fasting)) mg/dl POC Glucose 115 H (70-99) mg/dl Estimat Average Glucose 126 mg/dl Hemoglobin A1c 6.0 H (4.5-5.6) % Calcium 9.1 (8.5-10.1) mg/dl Phosphorus (2.5-4.9) mg/dl Magnesium 1.6 L (1.7-2.4) mg/dl Total Bilirubin (0.2-1.0) mg/dl AST (13-39) U/L ALT (7-52) U/L Alkaline Phosphatase (34-104) U/L Troponin I (0-0.04) ng/ml B-Natriuretic Peptide (0-100) pg/ml Total Protein (6.0-8.3) gm/dl Albumin (3.4-5.0) gm/dl Globulin (2.5-4.0) gm/dl Albumin/Globulin Ratio (0.9-2) Lipase (11-82) U/L SARS-CoV-2, RNA, NAAT (NEGATIVE) 04/28/21 04/28/21 04/28/21 Range/Units 03:48 03:48 03:48 WBC 5.18 (4.8-10.8) K/uL RBC 4.34 L (4.7-6.1) M/uL Hgb 12.7 L (14.0-18.0) g/dL Hct 37.5 L (42-52) % MCV 86.4 (80-100) fL MCH 29.3 (25-34) pg MCHC 33.9 (32-36) g/dL RDW Std Deviation 42.3 (36.4-46.3) fL RDW Coeff of Lisa 13.3 (11.5-14.5) % Plt Count 166 (130-400) K/uL MPV 8.8 (7.4-10.4) fL Immature Gran % (Auto) 0.6 % Neut % (Auto) 67.3 % Lymph % (Auto) 14.9 % Stokes % (Auto) 13.5 % Eos % (Auto) 2.9 % Baso % (Auto) 0.8 % Neut # (Auto) 3.49 (1.4-6.5) K/uL Lymph # (Auto) 0.77 L (1.2-3.4) K/uL Stokes # (Auto) 0.70 H (0.11-0.59) K/uL Eos # (Auto) 0.15 (0-0.5) K/uL Baso # (Auto) 0.04 (0-0.2) K/uL Immature Gran # (Auto) 0.03 H (0.00-0.02) K/uL Absolute Nucleated RBC 0.10 H (0-0) K/uL Nucleated RBC % (auto) 1.9 % PT (9.0-12.0) Seconds INR (0.9-1.1) APTT 50.1 H* (21.0-31.0) Seconds PTT Ratio 1.8 Sodium (136-145) mmol/L Potassium (3.5-5.1) mmol/L Chloride (98-107) mmol/L Carbon Dioxide (21-32) mmol/L Anion Gap (3-11) BUN (6-23) mg/dl Creatinine (0.6-1.4) mg/dl Est Cr Clr Drug Dosing Est GFR ( Amer) ml/min Est GFR (Non-Af Amer) ml/min BUN/Creatinine Ratio (10-20) Glucose (70-99(Fasting)) mg/dl POC Glucose (70-99) mg/dl Estimat Average Glucose mg/dl Hemoglobin A1c (4.5-5.6) % Calcium (8.5-10.1) mg/dl Phosphorus (2.5-4.9) mg/dl Magnesium (1.7-2.4) mg/dl Total Bilirubin (0.2-1.0) mg/dl AST (13-39) U/L ALT (7-52) U/L Alkaline Phosphatase (34-104) U/L Troponin I 0.12 H* (0-0.04) ng/ml B-Natriuretic Peptide (0-100) pg/ml Total Protein (6.0-8.3) gm/dl Albumin (3.4-5.0) gm/dl Globulin (2.5-4.0) gm/dl Albumin/Globulin Ratio (0.9-2) Lipase (11-82) U/L SARS-CoV-2, RNA, NAAT (NEGATIVE) 04/27/21 04/27/21 04/27/21 Range/Units Unknown 21:29 21:19 WBC (4.8-10.8) K/uL RBC (4.7-6.1) M/uL Hgb (14.0-18.0) g/dL Hct (42-52) % MCV (80-100) fL MCH (25-34) pg MCHC (32-36) g/dL RDW Std Deviation (36.4-46.3) fL RDW Coeff of Lisa (11.5-14.5) % Plt Count (130-400) K/uL MPV (7.4-10.4) fL Immature Gran % (Auto) % Neut % (Auto) % Lymph % (Auto) % Stokes % (Auto) % Eos % (Auto) % Baso % (Auto) % Neut # (Auto) (1.4-6.5) K/uL Lymph # (Auto) (1.2-3.4) K/uL Stokes # (Auto) (0.11-0.59) K/uL Eos # (Auto) (0-0.5) K/uL Baso # (Auto) (0-0.2) K/uL Immature Gran # (Auto) (0.00-0.02) K/uL Absolute Nucleated RBC (0-0) K/uL Nucleated RBC % (auto) % PT 11.9 (9.0-12.0) Seconds INR 1.1 (0.9-1.1) APTT 25.3 (21.0-31.0) Seconds PTT Ratio 0.9 Sodium (136-145) mmol/L Potassium (3.5-5.1) mmol/L Chloride (98-107) mmol/L Carbon Dioxide (21-32) mmol/L Anion Gap (3-11) BUN (6-23) mg/dl Creatinine (0.6-1.4) mg/dl Est Cr Clr Drug Dosing Est GFR ( Amer) ml/min Est GFR (Non-Af Amer) ml/min BUN/Creatinine Ratio (10-20) Glucose (70-99(Fasting)) mg/dl POC Glucose 122 H (70-99) mg/dl Estimat Average Glucose mg/dl Hemoglobin A1c (4.5-5.6) % Calcium (8.5-10.1) mg/dl Phosphorus (2.5-4.9) mg/dl Magnesium (1.7-2.4) mg/dl Total Bilirubin (0.2-1.0) mg/dl AST (13-39) U/L ALT (7-52) U/L Alkaline Phosphatase (34-104) U/L Troponin I (0-0.04) ng/ml B-Natriuretic Peptide (0-100) pg/ml Total Protein (6.0-8.3) gm/dl Albumin (3.4-5.0) gm/dl Globulin (2.5-4.0) gm/dl Albumin/Globulin Ratio (0.9-2) Lipase (11-82) U/L SARS-CoV-2, RNA, NAAT NEGATIVE (NEGATIVE) 04/27/21 04/27/21 04/27/21 Range/Units 17:24 17:24 17:24 WBC 6.18 (4.8-10.8) K/uL RBC 4.49 L (4.7-6.1) M/uL Hgb 13.3 L (14.0-18.0) g/dL Hct 39.4 L (42-52) % MCV 87.8 (80-100) fL MCH 29.6 (25-34) pg MCHC 33.8 (32-36) g/dL RDW Std Deviation 43.9 (36.4-46.3) fL RDW Coeff of Lisa 13.5 (11.5-14.5) % Plt Count 190 (130-400) K/uL MPV 8.9 (7.4-10.4) fL Immature Gran % (Auto) 0.6 % Neut % (Auto) 69.6 % Lymph % (Auto) 13.4 % Stokes % (Auto) 13.9 % Eos % (Auto) 1.9 % Baso % (Auto) 0.6 % Neut # (Auto) 4.29 (1.4-6.5) K/uL Lymph # (Auto) 0.83 L (1.2-3.4) K/uL Stokes # (Auto) 0.86 H (0.11-0.59) K/uL Eos # (Auto) 0.12 (0-0.5) K/uL Baso # (Auto) 0.04 (0-0.2) K/uL Immature Gran # (Auto) 0.04 H (0.00-0.02) K/uL Absolute Nucleated RBC (0-0) K/uL Nucleated RBC % (auto) % PT (9.0-12.0) Seconds INR (0.9-1.1) APTT (21.0-31.0) Seconds PTT Ratio Sodium 138 (136-145) mmol/L Potassium 4.0 (3.5-5.1) mmol/L Chloride 107 (98-107) mmol/L Carbon Dioxide 24 (21-32) mmol/L Anion Gap 7 (3-11) BUN 21 (6-23) mg/dl Creatinine 1.14 (0.6-1.4) mg/dl Est Cr Clr Drug Dosing Not Reportable Est GFR ( Amer) 72.0 ml/min Est GFR (Non-Af Amer) 62.1 ml/min BUN/Creatinine Ratio 18.4 (10-20) Glucose 93 (70-99(Fasting)) mg/dl POC Glucose (70-99) mg/dl Estimat Average Glucose mg/dl Hemoglobin A1c (4.5-5.6) % Calcium 8.5 (8.5-10.1) mg/dl Phosphorus 3.9 (2.5-4.9) mg/dl Magnesium 1.7 (1.7-2.4) mg/dl Total Bilirubin 0.3 (0.2-1.0) mg/dl AST 15 (13-39) U/L ALT 6 L (7-52) U/L Alkaline Phosphatase 96 (34-104) U/L Troponin I 0.15 H* (0-0.04) ng/ml B-Natriuretic Peptide 635 H (0-100) pg/ml Total Protein 7.6 (6.0-8.3) gm/dl Albumin 3.7 (3.4-5.0) gm/dl Globulin 3.9 (2.5-4.0) gm/dl Albumin/Globulin Ratio 0.9 (0.9-2) Lipase 24 (11-82) U/L SARS-CoV-2, RNA, NAAT (NEGATIVE) Diagnostic Findings Telemetry reviewed - Persistent atrial flutter with variable AV block, HR's ranging 100-110 predominantly EKG this morning reviewed: Atrial flutter with variable AV block Ventricular rate [address]/T wave abnormality EKG on admission reveals: Atrial flutter with variable A-V block Left axis deviation Nonspecific ST abnormality Chest xray on admission reviewed: IMPRESSION: 1. Ill-defined opacities of the left midlung and left lung base are suspicious for an infectious or inflammatory pneumonitis. 2. Cardiomegaly. April 13, 2021 TTE interpretation summary ([facility], Dr. Allan): Compared to the echocardiogram dated July 2020 in the [employer] system, there is now evidence of moderate pulmonary hypertension. The rhythm is atrial fibrillation with a rapid ventricular response. Ejection fraction 55 to 60%. Moderate concentric LVH. Normal RV size and systolic function. Moderately dilated left atrium. Moderate aortic valve sclerosis, without significant stenosis. Mild tricuspid regurgitation. Mild aortic root dilatation. Estimated pulmonary artery systolic pressure 54 mmHg. Prior cardiac Cath report reviewed from July 2020: August 20, 2020 Coronary Angiography ([facility], Dr. Grant): Left main: Normal length and caliber with mild calcification and 20% ostial and distal narrowing Left anterior descending: Type III in distribution gives rise to a high diagonal branch and a large septal branch in its proximal portion. Then courses to the apex. At the juncture of the mid and apical portions there is a 60 % narrowing in a thin caliber vessel. The origin of the high diagonal branch is narrowed by 30% Left circumflex: Nondominant moderately large. It gives rise to a small marginal branch then large obtuse marginal branch with only a trivial vessel along the AV groove. There are moderate luminal irregularities in the left circumflex distribution. Ramus intermedius: Large bifurcating vessel with moderate irregularities of less than 30% in its proximal Right coronary artery: Large dominant vessel giving rise to a sinoatrial and conus branch at its origin, a large right ventricular branch in its midportion a nd a small acute marginal branch. At the AV groove it gives rise to a long posterior descending artery and along the AV groove a bifurcating posterior ventricular branch. There are mild luminal irregularities in right coronary distribution LV angiography: Not performed Hemodynamics left ventricular pressure 130/1 LVEDP is 6 Medications Administered Current Inpatient Medications Acetaminophen (Acetaminophen 325 Mg Tab) 650 mg PO Q4H PRN PRN Reason: Pain or Fever Stop: 05/27/21 20:52 Hydrocodone Bitart/Acetaminophen (Hydrocodone/Acetaminophen 10/325 Tab) 1 tab PO DAILY PRN PRN Reason: Pain Stop: 05/11/21 20:52 Apixaban (Apixaban 5 Mg Tablet) 5 mg PO BID GUY Stop: 05/28/21 09:14 Aspirin (Aspirin 81 Mg Ectab) 81 mg PO HS GUY Stop: 05/27/21 20:59 Last Admin: 04/27/21 21:39 Dose: 81 mg Documented by: Atorvastatin Calcium (Atorvastatin 40 Mg Tab) 40 mg PO HS GUY Stop: 05/27/21 20:59 Last Admin: 04/27/21 21:38 Dose: 40 mg Documented by: Dextrose (Dextrose 50% 50 Ml Syringe) 25 - 50 ml IV UD PRN; Protocol PRN Reason: Hypoglycemia Protocol Stop: 05/27/21 21:14 Diltiazem HCl (Diltiazem Hcl 120 Mg Capcr) 120 mg PO QAM GUY Stop: 05/28/21 08:59 Last Admin: 04/28/21 07:33 Dose: 120 mg Documented by: Glucagon (Glucagon For Inj 1 Mg Vial) 1 mg IM UD PRN; Protocol PRN Reason: Hypoglycemia Protocol Stop: 05/27/21 21:14 Glucose (Glucose 40% Gel 15 Gm Tube) 15 - 30 gm PO UD PRN; Protocol PRN Reason: Hypoglycemia Protocol Stop: 05/27/21 21:14 Glucose (Glucose 10 Tabs/Tube) 4 - 8 tabs PO UD PRN; Protocol PRN Reason: Hypoglycemia Protocol Stop: 05/27/21 21:14 Magnesium Sulfate/Dextrose (Magnesium Sulfate / D5w) 1 gm in 100 mls @ 50 mls/hr IV Q2H [facility] Stop: 04/28/21 09:59 Last Admin: 04/28/21 07:33 Dose: 50 mls/hr Documented by: Insulin Aspart (Insulin Aspart Per Unit) 0 units SC ACHS [facility] Stop: 05/27/21 20:59 Last Admin: 04/28/21 07:28 Dose: Not Given Documented by: Metoprolol Succinate (Metoprolol Succ 50mg Ext Rel Tab) 100 mg PO AMHS [facility] Stop: 05/27/21 20:59 Last Admin: 04/28/21 07:33 Dose: 100 mg Documented by: Metoprolol Tartrate (Metoprolol Tartrate 1 Mg/Ml Vial) 5 mg IV Q6 PRN; Protocol PRN Reason: HR>120 Stop: 05/27/21 20:52 Miscellaneous (Xtandi: Order Awaiting Action) 1 ea N/A QS [facility] Stop: 05/28/21 00:00 Last Admin: 04/27/21 22:12 Dose: Not Given Documented by: Miscellaneous (Vesicare: Order Awaiting Action) 1 ea N/A QS [facility] Stop: 05/28/21 00:00 Last Admin: 04/27/21 22:12 Dose: Not Given Documented by: Miscellaneous (Carbohydrates For Hypoglycemia ) 15 - 30 gm PO UD PRN PRN Reason: Hypoglycemia Treatment Stop: 05/27/21 21:14 Nitroglycerin (Nitroglycerin Sl 0.4 Mg/Tab Tab) 0.4 mg SL UD PRN PRN Reason: Chest Pain Stop: 05/27/21 20:52 Pantoprazole Sodium (Pantoprazole 40 Mg Tab) 40 mg PO QAM [facility] Stop: 05/28/21 08:59 Last Admin: 04/28/21 07:33 Dose: 40 mg Documented by: Polyethylene Glycol (Polyethylene (Miralax) 17 Gm Pack) 17 gm PO DAILY PRN PRN Reason: Constipation Stop: 05/27/21 20:52
--- NOTE | 2021-04-28 09:05 | Hospitalist Progress Note ---
Date of Service April 28, 2021 Assessment & Plan (1) Atrial flutter: Plan: ASSESSMENT AND PLAN: This is a 75-year-old male who presents with shortness of breath and also not taking medication as supposed to be taken. 1. Shortness of breath, most likely acute on chronic diastolic congestive heart failure. Received a dose of IV Lasix in the ER. Continue his home metoprolol, monitor daily labs, echocardiogram, strict I's and O's, daily weights. Tele floor. Cardiology to see 2. Atrial fibrillation c a rapid ventricular response, recently discharged on 100 mg of metoprolol b.i.d. as an outpatient on 04/22, diltiazem was added, but the patient was taking reduced dose of metoprolol.Now having tachycardia. Back on his home doses of metoprolol 100 mg b.i.d. and diltiazem 120 p.o. a.m, also on IV Lopressor p.r.n. IV heparin, restart Eliquis today. 3. History of bilateral pulmonary embolism and deep venous thrombosis prophylaxis. Eliquis 4. Diabetes, insulin sliding scale. 5. Hypertension, on metoprolol and Cardizem. Controlled. 6. Gastroesophageal reflux disease, on omeprazole. 7. Prostate cancer, follow up with hematology/oncology. Continue current medications of enzalutamide and VESIcare. 8. Deep venous thrombosis prophylaxis, on IV heparin. Labs Checked Full code Home on DC ROS-No Headache, No Visual Changes, No Nausea, No Vomiting, No Fever, No Chills, No Neck Pain or Stiffness, No Chest Pain, No Palpitations, +SOB, +SMITH, No Cough, No Sputum, No Wheezing, No Abdominal Pain, No Diarrhea, No Hematemesis, No Hemoptysis, No Unexpected Weight Loss, No Flank pain, No Melena, No Hematochezia, No Frequency, No Urgency, No Burning, No Hematuria, No Rashes, No Diaphoresis. Appetite is Normal Physical Exam Gen-AAO x 3, NAD, Afebrile Head-NCAT, EOMI, PERRLA, Anicteric Sclera, No Posterior Pharyngeal Erythema Neck-Supple, No JVD, No Thyromegaly, No Masses, No LAD, No Bruits Lungs-Clear to Auscultation Bilaterally, No Rales, No Rhonchi, No Wheezing, No Crepitus Chest-Tachy/Irreg/Irreg, No S4, +S1, +S2, No S3, No Murmurs, No Rubs, No Gallops, +Ectopy Abdomen-Soft, Bowel Sounds Present, Non Tender, Non Distended, No Hepatomegaly, No Splenomegaly, No Palpable Masses, No Rebound, No Rigidity, No Guarding Musculoskeletal-Full Range of Motion Bilaterally, No CVAT Extremities-No Cyanosis, No Clubbing, No Edema Nuero-Cranial Nerves II-XII grossly intact, Motor WNL, DTRs WNL, Strength WNL, Non Focal Psych-Normal Mood Admission and Anticipated Discharge Date Admission Date: April 27, 2021 Subjective Patient seen, feeling better. Still in AFIB Results & Data Results & Data ([facility]) Vital Signs (Past 12 Hours) Vital Signs Temp Pulse Resp BP Pulse Ox 04/28/21 07:00 36.7 C 110 H 18 123/85 92 04/28/21 03:00 36.8 C 108 H 20 119/80 97 04/27/21 23:21 36.8 C 115 H 20 101/74 93
[2021-04-28] MEDS: APIXABAN 5 MG TABLET PO SCH ×2 (10:03→21:20)
[2021-04-28] MEDS: VESICARE: ORDER AWAITING ACTION SCH (10:06)
[2021-04-28] MEDS: XTANDI: ORDER AWAITING ACTION SCH (10:06)
--- NOTE | 2021-04-28 15:15 | Electrocardiogram Report ---
Test Reason : Blood Pressure : / mmHG Vent. Rate : 108 BPM Atrial Rate : 271 BPM P-R Int : 000 ms QRS Dur : 088 ms QT Int : 348 ms P-R-T Axes : 000 -39 027 degrees QTc Int : 466 ms Atrial flutter with variable A-V block Left axis deviation Nonspecific ST abnormality Abnormal ECG When compared with ECG of 12-APR-2021 14:36, HR has decreased by 16 bpm Otherwise no significant change Confirmed by Hebert Butt ([id number]) on 04/28/2021 3:14:35 PM Referred By: Forrest Prather Confirmed By:Hebert Butt
--- NOTE | 2021-04-28 15:15 | Electrocardiogram Report ---
Test Reason : Blood Pressure : / mmHG Vent. Rate : 111 BPM Atrial Rate : 271 BPM P-R Int : 000 ms QRS Dur : 088 ms QT Int : 362 ms P-R-T Axes : 000 -52 036 degrees QTc Int : 492 ms Atrial flutter with variable A-V block Left axis deviation Nonspecific ST abnormality Abnormal ECG When compared with ECG of 27-APR-2021 17:41, No significant change was found Confirmed by Hebert Butt ([id number]) on 04/28/2021 3:14:43 PM Referred By: Forrest Prather Confirmed By:Hebert Butt
[2021-04-28] MEDS: ENZALUTAMIDE 40 MG PO SCH (16:23)
[2021-04-28] MEDS: ASPIRIN 81 MG ECTAB PO SCH (21:20)
[2021-04-28] MEDS: SOLIFENACIN SUCCINATE PO SCH (21:20)
[2021-04-28] MEDS: ATORVASTATIN 40 MG TAB PO SCH (21:20)
[2021-04-29 06:56] LABS: Hematocrit (blood only) 37.8 % (42-52); Hemoglobin 12.7 g/dL (14.0-18.0); Mean Corpuscular Hemoglobin 29.1 pg (25-34); Mean Corpuscular Hgb Conc 33.6 g/dL (32-36); Mean Corpuscular Volume 86.5 fL (80-100); Mean Platelet Volume 9.2 fL (7.4-10.4); Platelet Count 172 K/uL (130-400); RDW Coefficient of Variation 13.3 % (11.5-14.5); RDW Standard Deviation 42.6 fL (36.4-46.3); Red Blood Count 4.37 M/uL (4.7-6.1); White Blood Count 4.78 K/uL (4.8-10.8)
[2021-04-29 07:24] LABS: BUN Creatinine Ratio 20.7 (10-20); Calcium 8.1 mg/dl (8.5-10.1); Creatinine Clr Calc Pharmacy 78.1 ml/min; Est GFR (African American) 93.3 ml/min; Est GFR (Non-African American) 80.5 ml/min; Potassium 3.9 mmol/L (3.5-5.1)
[2021-04-29 07:26] LABS: Partial Thromboplastin Ratio 0.9; Partial Thromboplastin Time 24.8 Seconds (21.0-31.0)
[2021-04-29] MEDS: INSULIN ASPART PER UNIT SC SCH ×4 (07:34→21:28)
--- NOTE | 2021-04-29 08:41 | Electrocardiogram Report ---
Test Reason : Blood Pressure : / mmHG Vent. Rate : 104 BPM Atrial Rate : 264 BPM P-R Int : 000 ms QRS Dur : 090 ms QT Int : 364 ms P-R-T Axes : 000 -41 041 degrees QTc Int : 478 ms Atrial flutter with variable A-V block Left axis deviation Nonspecific ST abnormality Abnormal ECG When compared with ECG of 28-APR-2021 04:57, No significant change was found Confirmed by Hebert Butt ([id number]) on 04/29/2021 8:40:36 AM Referred By: Forrest Prather Confirmed By:Hebert Butt
[2021-04-29] MEDS: APIXABAN 5 MG TABLET PO SCH ×2 (09:02→21:28)
[2021-04-29] MEDS: dilTIAZem HCL 120 MG CAPCR PO SCH (09:02)
[2021-04-29] MEDS: PANTOprazole 40 MG TAB PO SCH (09:02)
[2021-04-29] MEDS: ENZALUTAMIDE 40 MG PO SCH (09:03)
[2021-04-29] MEDS: METOPROLOL SUCC 50MG EXT REL TAB PO SCH ×2 (09:03→21:29)
--- NOTE | 2021-04-29 10:20 | Hospitalist Progress Note ---
Date of Service April 29, 2021 Assessment & Plan (1) Atrial flutter: Plan: Atrial fibrillation with RVR Pt was sent from cardio for Afib with symptoms of SOB and fatigue SOB possible related to Acute on chronic diastolic HF (heart failure) in the setting of Atrial flutter with RVR BNOP on admission 635 EKG on admission showed Atrial flutter with HR above 100's received IV lasix on admission cardiology on board Continue Cardizem 120mg daily and metoprolol 100mg BID he was starting on Heparin IV drip due to noncompliant with PO anticoagulant, then transition to PO Eliquis Case discussed with cardio that plan for KHANG and cardiovertion in AM Will make NPO after midnight Continue monitor closely in tele History of bilateral pulmonary embolism Continue Eliquis Diabetes Most recent Hba1c 6 on 04/28/21 Continue insulin sliding scale Continue monitor BS Hypertension Continue on metoprolol and Cardizem. Continue monitor BP Gastroesophageal reflux disease Continue omeprazole. Prostate cancer Continue current medications of enzalutamide and VESIcare. Follow up with hematology/oncology. Deep venous thrombosis prophylaxis on Eliquis Code status Full code Admission and Anticipated Discharge Date Admission Date: April 27, 2021 Subjective Pt was seen and examined for follow up of Afib Sitting in chair by the window with no acute distress Pt said that he feels much better He said that his breathing improves Denies any chest pain, palpitation, dizziness and SOB Review of Systems Review of Systems: All systems reviewed & are unremarkable except as noted in Subjective Physical Exam Physical Exam: General- No acute distress Head- atraumatic Eyes- PERRL, EOMI, ENT- oropharynx clear Neck- supple, no JVD Lungs- clear to auscultation Heart- +tachycardia, no murmur Abdomen- normal bowel sounds, soft, nontender Extremities- no calf tenderness Neuro- alert, oriented x 3; PERRL, EOMI; no facial palsy; no dysarthria Skin- warm & dry Results & Data Results & Data ([facility]) Vital Signs (Past 12 Hours) Vital Signs Temp Pulse Pulse Resp BP Pulse Ox 04/29/21 07:00 36.9 C 110 H 113 H 18 119/88 97 04/29/21 03:45 36.7 C 105 H 18 105/62 95 04/28/21 23:00 107 H 04/28/21 22:44 36.7 C 113 H 18 120/61 98
--- NOTE | 2021-04-29 11:56 | Cardiology Progress Note ---
Date of Service April 29, 2021 Assessment & Plan (1) Atrial fibrillation with rapid ventricular response: (2) Acute on chronic diastolic HF (heart failure): (3) Pulmonary embolism: (4) Hypomagnesemia: Plan: Patient admitted for acute on chronic diastolic HF exacerbation in the setting of atrial flutter RVR and non compliance with medications at home. Volume status improved with one dose IV Lasix in the ER. Appears euvolemic currently. HR's improving with resumption of oral metoprolol succinate 100 mg BID and diltiazem 120 mg. IV heparin transitioned to Eliquis yesterday. He had extensive DVT/Pulm Emboli last month at time of hospitalization for COVID . Symptoms improved. He has not been anticoagulated for the full 4 weeks and missed several doses of Eliquis at home. The initial plan was to allow 4 weeks of anticoagulation then proceed with cardioversion. However given his difficult to control rates and development of CHF exacerbation, recommend proceeding with KHANG and possible Cardioversion this admission for further treatment of afib/atrial flutter. Will discuss with Dr. Tolentino. Plan for KHANG/CV tomorrow. NPO after midnight, except meds/water. Admission and Anticipated Discharge Date Admission Date: April 27, 2021 Supervising Physician Co-Signing Physician Notes I have seen and examined the patient. I discussed the case with Ms. Gonzalez and reviewed the medical record. The plan will be for a KHANG cardioversion tomorrow. I explained the risk, benefit and intent of the procedure to the patient and he is willing to proceed. Subjective Patient resting in bed comfortably. SOB improved. Ambulating in room/hallways without issues. No chest pain. Remains persistent afib on monitor. No symptoms at rest. HR's ranging 90-110 bpm. Edema resolved. No fever, cough, chills. Review of Systems Review of Systems: All systems reviewed & are unremarkable except as noted in HPI & below Physical Exam Constitutional: WD/WN, vitals as above well developed; no acute distress Eyes: PERRL, conjunctivae normal, anicteric sclerae ENMT: external ear and nose normal, oropharynx normal Neck: trachea midline, no thyromegaly Respiratory: normal respiratory effort, lungs clear to auscultation Cardiovascular: Rate/Rhythm: + tachycardic Heart Sounds: normal S1 and normal S2; no murmur Vessels: no JVD Extremities: no edema Gastrointestinal (Abdomen): normal bowel sounds, soft, nontender, no hepatosplenomegaly Skin: no rashes, warm and dry Neurologic: PERRL, EOMI, accommodation nl, no face palsy, no dysarthria Psychiatric: A+Ox3, euthymic affect Results & Data ([facility]) Vital Signs (Past 12 Hours) Vital Signs Temp Pulse Pulse Resp BP Pulse Ox 04/29/21 07:00 36.9 C 110 H 113 H 18 119/88 97 04/29/21 03:45 36.7 C 105 H 18 105/62 95 Laboratory Results 04/29/21 04/29/21 04/29/21 Range/Units 11:11 07:17 06:19 WBC (4.8-10.8) K/uL RBC (4.7-6.1) M/uL Hgb (14.0-18.0) g/dL Hct (42-52) % MCV (80-100) fL MCH (25-34) pg MCHC (32-36) g/dL RDW Std Deviation (36.4-46.3) fL RDW Coeff of Lisa (11.5-14.5) % Plt Count (130-400) K/uL MPV (7.4-10.4) fL APTT (21.0-31.0) Seconds PTT Ratio Sodium 136 (136-145) mmol/L Potassium 3.9 (3.5-5.1) mmol/L Chloride 106 (98-107) mmol/L Carbon Dioxide 24 (21-32) mmol/L Anion Gap 6 (3-11) BUN 19 (6-23) mg/dl Creatinine 0.92 (0.6-1.4) mg/dl Est Cr Clr Drug Dosing 78.1 ml/min Est GFR ( Amer) 93.3 ml/min Est GFR (Non-Af Amer) 80.5 ml/min BUN/Creatinine Ratio 20.7 H (10-20) Glucose 100 H (70-99(Fasting)) mg/dl POC Glucose 111 H 105 H (70-99) mg/dl Calcium 8.1 L (8.5-10.1) mg/dl 04/29/21 04/29/21 04/28/21 Range/Units 06:19 06:19 20:14 WBC 4.78 L (4.8-10.8) K/uL RBC 4.37 L (4.7-6.1) M/uL Hgb 12.7 L (14.0-18.0) g/dL Hct 37.8 L (42-52) % MCV 86.5 (80-100) fL MCH 29.1 (25-34) pg MCHC 33.6 (32-36) g/dL RDW Std Deviation 42.6 (36.4-46.3) fL RDW Coeff of Ilsa 13.3 (11.5-14.5) % Plt Count 172 (130-400) K/uL MPV 9.2 (7.4-10.4) fL APTT 24.8 (21.0-31.0) Seconds PTT Ratio 0.9 Sodium (136-145) mmol/L Potassium (3.5-5.1) mmol/L Chloride (98-107) mmol/L Carbon Dioxide (21-32) mmol/L Anion Gap (3-11) BUN (6-23) mg/dl Creatinine (0.6-1.4) mg/dl Est Cr Clr Drug Dosing ml/min Est GFR ( Amer) ml/min Est GFR (Non-Af Amer) ml/min BUN/Creatinine Ratio (10-20) Glucose (70-99(Fasting)) mg/dl POC Glucose 103 H (70-99) mg/dl Calcium (8.5-10.1) mg/dl 04/28/21 Range/Units 16:08 WBC (4.8-10.8) K/uL RBC (4.7-6.1) M/uL Hgb (14.0-18.0) g/dL Hct (42-52) % MCV (80-100) fL MCH (25-34) pg MCHC (32-36) g/dL RDW Std Deviation (36.4-46.3) fL RDW Coeff of Lisa (11.5-14.5) % Plt Count (130-400) K/uL MPV (7.4-10.4) fL APTT (21.0-31.0) Seconds PTT Ratio Sodium (136-145) mmol/L Potassium (3.5-5.1) mmol/L Chloride (98-107) mmol/L Carbon Dioxide (21-32) mmol/L Anion Gap (3-11) BUN (6-23) mg/dl Creatinine (0.6-1.4) mg/dl Est Cr Clr Drug Dosing ml/min Est GFR ( Amer) ml/min Est GFR (Non-Af Amer) ml/min BUN/Creatinine Ratio (10-20) Glucose (70-99(Fasting)) mg/dl POC Glucose 103 H (70-99) mg/dl Calcium (8.5-10.1) mg/dl Diagnostic Findings telemetry reviewed - Atrial fibrillation with elevated ventricular rates, but improved from admission. Medications Administered Current Inpatient Medications Acetaminophen (Acetaminophen 325 Mg Tab) 650 mg PO Q4H PRN PRN Reason: Pain or Fever Stop: 05/27/21 20:52 Hydrocodone Bitart/Acetaminophen (Hydrocodone/Acetaminophen 10/325 Tab) 1 tab PO DAILY PRN PRN Reason: Pain Stop: 05/11/21 20:52 Apixaban (Apixaban 5 Mg Tablet) 5 mg PO BID GUY Stop: 05/28/21 09:14 Last Admin: 04/29/21 09:02 Dose: 5 mg Documented by: Aspirin (Aspirin 81 Mg Ectab) 81 mg PO HS GUY Stop: 05/27/21 20:59 Last Admin: 04/28/21 21:20 Dose: 81 mg Documented by: Atorvastatin Calcium (Atorvastatin 40 Mg Tab) 40 mg PO HS GUY Stop: 05/27/21 20:59 Last Admin: 04/28/21 21:20 Dose: 40 mg Documented by: Dextrose (Dextrose 50% 50 Ml Syringe) 25 - 50 ml IV UD PRN; Protocol PRN Reason: Hypoglycemia Protocol Stop: 05/27/21 21:14 Diltiazem HCl (Diltiazem Hcl 120 Mg Capcr) 120 mg PO QAM GUY Stop: 05/28/21 08:59 Last Admin: 04/29/21 09:02 Dose: 120 mg Documented by: Enzalutamide (Pt Own Med - Enzalutamide 40 Mg Tablet) 4 ea PO DAILY GUY Stop: 05/28/21 15:59 Last Admin: 04/29/21 09:03 Dose: 4 ea Documented by: Glucagon (Glucagon For Inj 1 Mg Vial) 1 mg IM UD PRN; Protocol PRN Reason: Hypoglycemia Protocol Stop: 05/27/21 21:14 Glucose (Glucose 40% Gel 15 Gm Tube) 15 - 30 gm PO UD PRN; Protocol PRN Reason: Hypoglycemia Protocol Stop: 05/27/21 21:14 Glucose (Glucose 10 Tabs/Tube) 4 - 8 tabs PO UD PRN; Protocol PRN Reason: Hypoglycemia Protocol Stop: 05/27/21 21:14 Insulin Aspart (Insulin Aspart Per Unit) 0 units SC ACHS [facility] Stop: 05/27/21 20:59 Last Admin: 04/29/21 11:27 Dose: Not Given Documented by: Metoprolol Succinate (Metoprolol Succ 50mg Ext Rel Tab) 100 mg PO AMHS [facility] Stop: 05/27/21 20:59 Last Admin: 04/29/21 09:03 Dose: 100 mg Documented by: Metoprolol Tartrate (Metoprolol Tartrate 1 Mg/Ml Vial) 5 mg IV Q6 PRN; Protocol PRN Reason: HR>120 Stop: 05/27/21 20:52 Miscellaneous (Carbohydrates For Hypoglycemia ) 15 - 30 gm PO UD PRN PRN Reason: Hypoglycemia Treatment Stop: 05/27/21 21:14 Nitroglycerin (Nitroglycerin Sl 0.4 Mg/Tab Tab) 0.4 mg SL UD PRN PRN Reason: Chest Pain Stop: 05/27/21 20:52 Pantoprazole Sodium (Pantoprazole 40 Mg Tab) 40 mg PO QAM [facility] Stop: 05/28/21 08:59 Last Admin: 04/29/21 09:02 Dose: 40 mg Documented by: Polyethylene Glycol (Polyethylene (Miralax) 17 Gm Pack) 17 gm PO DAILY PRN PRN Reason: Constipation Stop: 05/27/21 20:52 Solifenacin (Pt Own Med - Solifenacin Succinate) 1 ea PO HS [facility] Stop: 05/28/21 20:59 Last Admin: 04/28/21 21:20 Dose: 1 ea Documented by:
--- NOTE | 2021-04-29 15:57 | Anesthesiology Consultation ---
Date of Service April 29, 2021 Assessment & Plan (1) Encounter for pre-operative examination: Chart Review Chart Review: Acceptable Risk for Surgery and Patient NOT seen in Pre Admission Testing Consults Requested none History Surgery Operation Date: 04/30/21 07:30 Proposed Procedures p Cardioversion [employer] w/Anesthesia - Nikos Tolentino DO Operation Date: 04/30/21 07:30 Proposed Procedures p Cardioversion [employer] w/Anesthesia - Nikos Tolentino DO s Transesophageal Echo w/Anesthesia - Nikos Tolentino DO Height/Weight Height: 5 ft 8 in Weight: 99.5 kg Allergies Allergy/AdvReac Type Severity Reaction Status Date / Time adhesive AdvReac Intermediate REDNESS Verified 04/27/21 17:19 WITH EKG ELECTRODES Medications Home Medications Medication Instructions Recorded Confirmed Last Taken alendronate 70 mg tablet 70 mg PO WK tab 10/10/18 04/27/21 04/12/21 enzalutamide 40 mg capsule (Xtandi) 160 mg PO DAILY 10/12/19 04/27/21 Unknown metformin 500 mg tablet 500 mg PO DAILY 10/12/19 04/27/21 04/12/21 aspirin 81 mg capsule 81 mg PO HS 04/12/21 04/27/21 04/11/21 atorvastatin 10 mg tablet (Lipitor) 40 mg PO HS 04/12/21 04/27/21 04/11/21 hydrocodone 10 mg-acetaminophen 1 tab PO DAILY PRN 04/12/21 04/27/21 Unknown 325 mg tablet solifenacin 10 mg tablet (Vesicare) 10 mg PO DAILY 04/12/21 04/27/21 04/11/21 apixaban 5 mg (74 tabs) tablets in 5 mg PO Q12H #74 ea 04/17/21 04/27/21 Unknown a dose pack diltiazem HCl 120 mg 120 mg PO QAM 04/27/21 04/27/21 Unknown capsule,extended release 24 hr metoprolol succinate 100 mg 100 mg PO AMHS 04/27/21 04/27/21 Unknown tablet,extended release 24 hr (Toprol XL) omeprazole 20 mg capsule,delayed 20 mg PO QAM 04/27/21 04/27/21 Unknown release Active Medications Generic Name Dose Route Start Last Admin Trade Name Freq PRN Reason Stop Dose Admin Apixaban 5 mg 04/28/21 09:15 04/29/21 09:02 Apixaban 5 Mg Tablet PO 05/28/21 09:14 5 mg BID GUY Administration Aspirin 81 mg 04/27/21 21:00 04/28/21 21:20 Aspirin 81 Mg Ectab PO 05/27/21 20:59 81 mg HS GUY Administration Atorvastatin Calcium 40 mg 04/27/21 21:00 04/28/21 21:20 Atorvastatin 40 Mg Tab PO 05/27/21 20:59 40 mg HS GUY Administration Diltiazem HCl 120 mg 04/28/21 09:00 04/29/21 09:02 Diltiazem Hcl 120 Mg Capcr PO 05/28/21 08:59 120 mg QAM GUY Administration Enzalutamide 4 ea 04/28/21 16:00 04/29/21 09:03 Pt Own Med - Enzalutamide 40 Mg Tablet PO 05/28/21 15:59 4 ea DAILY GUY Administration Insulin Aspart 0 units 04/27/21 21:00 04/29/21 11:27 Insulin Aspart Per Unit SC 05/27/21 20:59 Not Given ACHS GUY Metoprolol Succinate 100 mg 04/27/21 21:00 04/29/21 09:03 Metoprolol Succ 50mg Ext Rel Tab PO 05/27/21 20:59 100 mg AMHS GUY Administration Pantoprazole Sodium 40 mg 04/28/21 09:00 04/29/21 09:02 Pantoprazole 40 Mg Tab PO 05/28/21 08:59 40 mg QAM GUY Administration Solifenacin 1 ea 04/28/21 21:00 04/28/21 21:20 Pt Own Med - Solifenacin Succinate PO 05/28/21 20:59 1 ea HS GUY Administration Past Medical History Medical History CAD (coronary artery disease) Diabetes mellitus, type II Dyslipidemia HTN (hypertension) Hx of brachytherapy Prostate cancer metastatic to bone Recent large bilateral pulmonary embolism in setting of COVID pneumonia Past Family History Family History Mother Lung cancer Father Lung cancer Past Surgical History Surgical History H/O heart surgery History of cardiac catheterization History of carpal tunnel surgery History of prostatectomy Hx of cholecystectomy Social History Smoking Status: Never smoker Hx Alcohol Use: No Hx Substance Use: No Physical Exam Vital Signs Last Vital Signs Temp 36.8 C 04/29/21 12:28 Pulse 113 H 04/29/21 12:28 Resp 18 04/29/21 12:28 BP 106/74 04/29/21 12:28 Pulse Ox 94 04/29/21 12:28 Testing Laboratory Results 04/29/21 06:19 04/29/21 06:19 PT 11.9 Seconds (9.0-12.0) 04/27/21 21:29 INR 1.1 (0.9-1.1) 04/27/21 21:29 APTT 24.8 Seconds (21.0-31.0) 04/29/21 06:19 Hemoglobin A1c 6.0 % (4.5-5.6) H 04/28/21 03:48 04/29/21 04/29/21 11:11 07:17 POC Glucose 111 H 105 H Electrocardiogram Date: 04/29/21 Atrial flutter (104) with variable A-V block Left axis deviation Nonspecific ST abnormality Abnormal ECG When compared with ECG of 28-APR-2021 04:57, No significant change was found Chest X-Ray Date: 04/27/21 IMPRESSION: 1. Ill-defined opacities of the left midlung and left lung base are suspicious for an infectious or inflammatory pneumonitis. 2. Cardiomegaly. Echocardiogram Date: 04/13/21 EF: 55-60% Afib RVR, moderate pulmonary hypertension (estimated systolic pulmonary pressure = 54mmHg), Nl RV function, mod concentric LVH, left atrium moderately dilated, mild TR
[2021-04-29] MEDS: ATORVASTATIN 40 MG TAB PO SCH (21:28)
[2021-04-29] MEDS: ASPIRIN 81 MG ECTAB PO SCH (21:28)
[2021-04-29] MEDS: SOLIFENACIN SUCCINATE PO SCH (21:29)
[2021-04-30] MEDS ORDERED: BENZOCAINE/TETRACAIN/BUTAM 50 APPLN/5 GM CAN EXT ONE (07:12)
--- NOTE | 2021-04-30 07:55 | Cardioversion ---
Date of Service April 30, 2021 Electrical Cardioversion Rpt Electrical Cardioversion Report After informed consent was obtained the patient underwent a transesophageal echocardiogram to exclude contraindications to cardioversion. Once the KHANG was complete the patient was given additional sedation by anesthesia and cardioverted with 300 J of synchronized energy to sinus rhythm. Patient tolerated the procedure well and was returned to his room in stable condition.
[2021-04-30] MEDS ORDERED: PROPOFOL IV EMULSION 10 MG/ML 20 ML VIAL IV ONE (08:20)
[2021-04-30] MEDS ORDERED: LIDOCAINE 2% 2 ML VIAL/AMP(20MG/ML) INFIL ONE (08:20)
[2021-04-30] MEDS: INSULIN ASPART PER UNIT SC SCH ×2 (08:45→11:49)
[2021-04-30] MEDS: APIXABAN 5 MG TABLET PO SCH (09:42)
[2021-04-30] MEDS: dilTIAZem HCL 120 MG CAPCR PO SCH (09:43)
[2021-04-30] MEDS: ENZALUTAMIDE 40 MG PO SCH (09:43)
[2021-04-30] MEDS: PANTOprazole 40 MG TAB PO SCH (09:43)
[2021-04-30] MEDS: METOPROLOL SUCC 50MG EXT REL TAB PO SCH (09:43)
--- NOTE | 2021-04-30 11:21 | Cardiology Progress Note ---
Date of Service April 30, 2021 Assessment & Plan (1) Atrial fibrillation with rapid ventricular response: (2) Acute on chronic diastolic HF (heart failure): (3) Pulmonary embolism: (4) Hypomagnesemia: Plan: The patient is maintaining sinus rhythm following his cardioversion. At this point I believe he can be discharged home on his current medications. I will arrange follow-up. Admission and Anticipated Discharge Date Admission Date: April 27, 2021 Subjective The patient had a successful cardioversion this morning. He is maintaining sinus rhythm and is currently up and ambulating. Review of Systems Review of Systems: Review of Systems: See HPI for pertinent positives. All other 10 point review of systems are negative. Physical Exam Physical Exam: General: no acute distress and stated age Head: normocephalic, no masses, lesions, tenderness or abnormalities Eyes: conjunctiva are pink and non-injected, sclera clear Neck: supple, no adenopathy, no bruits, normal jugular venous pulse, no hepatojugular reflux Chest: normal shape and normal respiratory effort Lungs: clear to auscultation and percussion Cardiac Exam: - regular rate & rhythm, no murmurs gallops or rubs - normal S1, normal S2 Pulses: 2(+) throughout Abdomen: abdomen soft, non-tender, no abnormal masses and no hepatosplenomegaly Musculoskeletal: no gait disturbance, no joint inflammation, no deforming arthritis Extremities: no edema and no cyanosis Neuro: grossly normal exam Results & Data ([facility]) Vital Signs (Past 12 Hours) Vital Signs Temp Pulse Pulse Resp BP Pulse Ox 04/30/21 09:34 73 18 121/79 93 04/30/21 09:00 36.7 C 69 18 124/93 93 04/30/21 08:30 36.4 C L 66 69 18 106/69 94 04/30/21 08:05 68 16 107/76 94 04/30/21 07:50 65 16 90/65 L 95 04/30/21 07:00 120 H 04/30/21 03:38 36.7 C 102 H 17 115/94 97 Laboratory Results Laboratory Results - last 24 hr 04/29/21 04/29/21 04/30/21 16:04 20:33 08:34 POC Glucose 114 H 137 H 119 H Medications Administered Current Inpatient Medications Acetaminophen (Acetaminophen 325 Mg Tab) 650 mg PO Q4H PRN PRN Reason: Pain or Fever Stop: 05/27/21 20:52 Hydrocodone Bitart/Acetaminophen (Hydrocodone/Acetaminophen 10/325 Tab) 1 tab PO DAILY PRN PRN Reason: Pain Stop: 05/11/21 20:52 Apixaban (Apixaban 5 Mg Tablet) 5 mg PO BID GUY Stop: 05/28/21 09:14 Last Admin: 04/30/21 09:42 Dose: 5 mg Documented by: Aspirin (Aspirin 81 Mg Ectab) 81 mg PO HS GUY Stop: 05/27/21 20:59 Last Admin: 04/29/21 21:28 Dose: 81 mg Documented by: Atorvastatin Calcium (Atorvastatin 40 Mg Tab) 40 mg PO HS COUNTS INCLUDE 234 BEDS AT THE [facility] Stop: 05/27/21 20:59 Last Admin: 04/29/21 21:28 Dose: 40 mg Documented by: Dextrose (Dextrose 50% 50 Ml Syringe) 25 - 50 ml IV UD PRN; Protocol PRN Reason: Hypoglycemia Protocol Stop: 05/27/21 21:14 Diltiazem HCl (Diltiazem Hcl 120 Mg Capcr) 120 mg PO QAM GUY Stop: 05/28/21 08:59 Last Admin: 04/30/21 09:43 Dose: 120 mg Documented by: Enzalutamide (Pt Own Med - Enzalutamide 40 Mg Tablet) 4 ea PO DAILY COUNTS INCLUDE 234 BEDS AT THE [facility] Stop: 05/28/21 15:59 Last Admin: 04/30/21 09:43 Dose: 4 ea Documented by: Glucagon (Glucagon For Inj 1 Mg Vial) 1 mg IM UD PRN; Protocol PRN Reason: Hypoglycemia Protocol Stop: 05/27/21 21:14 Glucose (Glucose 40% Gel 15 Gm Tube) 15 - 30 gm PO UD PRN; Protocol PRN Reason: Hypoglycemia Protocol Stop: 05/27/21 21:14 Glucose (Glucose 10 Tabs/Tube) 4 - 8 tabs PO UD PRN; Protocol PRN Reason: Hypoglycemia Protocol Stop: 05/27/21 21:14 Insulin Aspart (Insulin Aspart Per Unit) 0 units SC ACHS COUNTS INCLUDE 234 BEDS AT THE [facility] Stop: 05/27/21 20:59 Last Admin: 04/30/21 08:45 Dose: Not Given Documented by: Metoprolol Succinate (Metoprolol Succ 50mg Ext Rel Tab) 100 mg PO AMHS COUNTS INCLUDE 234 BEDS AT THE [facility] Stop: 05/27/21 20:59 Last Admin: 04/30/21 09:43 Dose: 100 mg Documented by: Metoprolol Tartrate (Metoprolol Tartrate 1 Mg/Ml Vial) 5 mg IV Q6 PRN; Protocol PRN Reason: HR>120 Stop: 05/27/21 20:52 Miscellaneous (Carbohydrates For Hypoglycemia ) 15 - 30 gm PO UD PRN PRN Reason: Hypoglycemia Treatment Stop: 05/27/21 21:14 Nitroglycerin (Nitroglycerin Sl 0.4 Mg/Tab Tab) 0.4 mg SL UD PRN PRN Reason: Chest Pain Stop: 05/27/21 20:52 Pantoprazole Sodium (Pantoprazole 40 Mg Tab) 40 mg PO QAM COUNTS INCLUDE 234 BEDS AT THE [facility] Stop: 05/28/21 08:59 Last Admin: 04/30/21 09:43 Dose: 40 mg Documented by: Polyethylene Glycol (Polyethylene (Miralax) 17 Gm Pack) 17 gm PO DAILY PRN PRN Reason: Constipation Stop: 05/27/21 20:52 Solifenacin (Pt Own Med - Solifenacin Succinate) 1 ea PO HS COUNTS INCLUDE 234 BEDS AT THE [facility] Stop: 05/28/21 20:59 Last Admin: 04/29/21 21:29 Dose: 1 ea Documented by:
[2021-04-30 11:45] VITALS: BP 98/56; PULSE 82; TEMP 98.2; O2SAT 97
--- NOTE | 2021-04-30 13:21 | Electrocardiogram Report ---
Test Reason : Blood Pressure : / mmHG Vent. Rate : 062 BPM Atrial Rate : 062 BPM P-R Int : 202 ms QRS Dur : 096 ms QT Int : 436 ms P-R-T Axes : 028 -18 019 degrees QTc Int : 442 ms Normal sinus rhythm Left atrial enlargement Minor Nonspecific ST abnormality Anterolateral leads Borderline ECG When compared with ECG of 29-APR-2021 06:25, Sinus rhythm has replaced Atrial flutter Vent. rate has decreased BY 42 BPM Confirmed by Hebert Butt ([id number]) on 04/30/2021 1:21:15 PM Referred By: Forrest Prather Confirmed By:Hebert Butt
--- NOTE | 2021-04-30 14:06 | Discharge Summary ---
Date of Service April 30, 2021 Admission HPI Per Admitting Provider CHIEF COMPLAINT: Shortness of breath, messing medications. HISTORY OF PRESENT ILLNESS: A 75-year-old male with past medical history significant for type 2 diabetes, hypertension, metastatic prostate cancer, status post brachytherapy and prostatectomy, currently on Lupron and enzalutamide following with urology, Dr. Alford and [facility], Dr. Leal, history of CAD, medically managed, hyperlipidemia, diastolic CHF, presents with shortness of breath. Patient had Covid few weeks back. The patient was recently in the hospital from 04/12 to 04/17 with complaints of shortness of breath and tachycardic, but the patient's workup revealed left lower extremity DVT and extensive bilateral pulmonary emboli and telemetry revealed atrial fibrillation with rapid ventricular response, mild elevation of troponin, initially started on IV heparin and transitioned to Eliquis. Initially was treated with IV Cardizem, later he was discharged on metoprolol 100 mg b.i.d. and there is a plan for cardioversion after adequate time on Eliquis. He did not require oxygen at the time of discharge. His amlodipine was discontinued because of polypharmacy and hypotension and he followed outpatient. On 04/22/2021, he was found to be still in symptomatic atrial fibrillation and Cardizem CD 120 mg was added and also omeprazole 20 mg was added for GI prophylaxis as he is on anticoagulation and the patient again returned to Cardiology office today feeling poorly, fatigue, worsening shortness of breath, walking 1/2 block making him short of breath and seemed to be he messed up his medications . He was taking reduced dose of metoprolol, seemed to be taking only 25 mg in the morning and 12.5 mg in the evening as opposed to 100 mg b.i.d. and he was taking the Lasix in the recent past, but he stopped by himself and the patient says he also did not take Eliquis for the last 1-1/2 days and because of his symptoms and taking reduced dose of medications, Cardiology sent him to the hospital. Currently, somewhat tachycardic, blood pressure is somewhat elevated. Labs look okay, except for mild troponin of 0.15 and BNP of 635 and has mild lower extremity edema. The patient denies any dizziness, usually gets headache once in a while. No blurred visions, no earache, no runny nose, no sore throat. No cough. Appetite is okay. No difficulty swallowing. Currently, denies any chest pain, no nausea, no vomiting, no abdominal pain. No diarrhea or constipation. No blood in stools or black stools. Normal bladder movements. Currently, saturating okay on room air, received a dose of IV Lasix in the ER. Admission Exam Per Admitting Provider GENERAL: The patient is of moderate build, not in acute distress. VITAL SIGNS: Temperature 36.7, pulse 114, respiratory rate 18, blood pressure 144/92, oxygen 96% on room air. HEENT: Pupils equal, round and reactive to light. Oral mucosa moist. NECK: No JVD, no neck masses. CARDIOVASCULAR: S1 and S2 heard. Irregular rhythm, tachycardia. No murmur. RESPIRATORY SYSTEM: Normal AP diameter. No accessory muscle use. No wheezing, no crackles. ABDOMEN: Soft, bowel sounds present, nontender, no distention. CENTRAL NERVOUS SYSTEM: Alert and oriented. Speech is clear. No facial droop. Insight is good. Obeys simple commands. Moves extremities. EXTREMITIES: Mild bilateral pedal edema present. No erythema seen. Principal Diagnosis Atrial flutter: Atrial fibrillation with RVR History of bilateral pulmonary embolism Diabetes Type 2 Hypertension Gastroesophageal reflux disease Prostate cancer Discharge Exam General- No acute distress Head- atraumatic Eyes- PERRL, EOMI, ENT- oropharynx clear Neck- supple, no JVD Lungs- clear to auscultation Heart- +tachycardia, no murmur Abdomen- normal bowel sounds, soft, nontender Extremities- no calf tenderness Neuro- alert, oriented x 3; PERRL, EOMI; no facial palsy; no dysarthria Skin- warm & dry Discharge Data Allergies Allergy/AdvReac Type Severity Reaction Status Date / Time adhesive AdvReac Intermediate REDNESS Verified 04/27/21 17:19 WITH EKG ELECTRODES Consultations 04/27/21 18:54 ED Decision to Admit Stat 04/28/21 08:00 Consult Cardiology Routine 04/29/21 12:05 Consult Anesthesiology Routine 04/29/21 12:13 Consult Anesthesiology Routine Procedures Performed Operation Date: 04/30/21 07:30 Actual Procedures p Echo Transesophageal - Nikos Tolentino DO s Cardioversion - Nikos Tolentino DO s Echo Color Flow - Nikos Tolentino DO s Doppler Echo Limited/Follow Up - Nikos Tolentino DO Operation Date: 04/30/21 07:30 <No data on this case meets the specified criteria> Ordered Studies XR chest 1V portable HISTORY: 75 years-old Male Chest Pain . Atypical chest pain COMPARISON: Chest radiograph and CTA chest 04/12/2021 TECHNIQUE: Portable AP view of the chest FINDINGS: Cardiac silhouette is enlarged. No pneumothorax. Probable trace pleural effusions. Calcified plaque of the thoracic aorta. Ill-defined opacities of the left lung base and left midlung progressed from prior. Degenerative changes of the shoulders and spine. IMPRESSION: 1. Ill-defined opacities of the left midlung and left lung base are suspicious for an infectious or inflammatory pneumonitis. 2. Cardiomegaly. ACT 112: Negative or not required by law. The above report was generated using voice recognition software. It may contain grammatical, syntax or spelling errors. Electronically signed by: Cuate Farmer M.D. 04/27/2021 6:18 PM Dictated:04/27/211815 Transcribed: 04/27/211815 Hospital Course (1) Atrial flutter: Atrial fibrillation with RVR Pt was sent from cardio for Afib with symptoms of SOB and fatigue SOB possible related to Acute on chronic diastolic HF (heart failure) in the setting of Atrial flutter with RVR BNOP on admission 635 EKG on admission showed Atrial flutter with HR above 100's received IV lasix on admission cardiology on board Continue Cardizem 120mg daily and metoprolol 100mg BID he was starting on Heparin IV drip due to noncompliant with PO anticoagulant, then transition to PO Eliquis Case discussed with cardio KHANG was done this morning to exclude contraindications to cardioversion. Successful cardioversion this morning, currently back to normal sinus rhythm Ok from cardiology standpoint to discharge home Follow up with cardiology in 2-3 weeks History of bilateral pulmonary embolism Continue Eliquis Diabetes type 2 Most recent Hba1c 6 on 04/28/21 Will resume metformin on discharge Continue insulin sliding scale while inpatient Continue monitor BS Hypertension Continue on metoprolol and Cardizem. Continue monitor BP Gastroesophageal reflux disease Continue omeprazole. Prostate cancer Continue current medications of enzalutamide and VESIcare. Follow up with hematology/oncology. Deep venous thrombosis prophylaxis on Eliquis Code status Full code Total Time Total Time Spent Total Time Spent (In Minutes): 35 minutes Discharge Plan Discharge Items Patient Disposition: Home - Home Health Services Reason For Visit: SOB Discharge Diagnosis: Atrial flutter: Atrial fibrillation with RVR History of bilateral pulmonary embolism Diabetes Type 2 Hypertension Gastroesophageal reflux disease Prostate cancer Activity: Resume your previous activity Non-emergency contact: Primary Care Provider, Fundraising Manager and Oncologist Call non-emergency contact if: you have any medication questions Follow-up/Referrals: Forrest Prather [Physician Fitting Room Operator] - (Date & Time 05/18/2021 1:00 PM Provider Forrest Prather PA-C Department Cardiology, [facility] ) Goyo Thornton MD [Surgeon] - (Date & Time 05/07/2021 9:45 AM Provider Goyo Thornton MD Department Hematology/Oncology [facility] ) Jimmy Allen [Primary Care Provider] - 05/08/21 9:30 am Diet: Heart Healthy Addtl Attending Provider Instructions: Follow up with your primary care provider Dr. Allen on 05/08/21 @ 9:30 AM Follow up with cardiology Yamilka MARTIN on 05/18/2021 @1:00 PM Provider at the Cardiology, [facility] Follow up with your Oncology Dr. Nance on 05/07/2021 @ 9:45 AM at the Hematology/Oncology [facility] Seek medical attention if your symptoms reoccur Pending Studies at Discharge: No Stand-Alone Forms: My [facility] [employer], Smoking Cessation Medications and DC Order Prescriptions: Continued metformin 500 mg tablet 500 mg PO DAILY RF: 0 Xtandi 40 mg capsule 160 mg PO DAILY RF: 0 alendronate 70 mg tablet 70 mg PO WK RF: 0 hydrocodone-acetaminophen 10-325 mg tablet 1 tab PO DAILY PRN (Reason: Pain) RF: 0 aspirin 81 mg Capsule 81 mg PO HS RF: 0 atorvastatin [Lipitor] 10 mg tablet 40 mg PO HS RF: 0 solifenacin [Vesicare] 10 mg tablet 10 mg PO DAILY RF: 0 apixaban 5 mg (74 tabs) tablets,dose pack 5 mg PO Q12H Qty: 74 RF: 0 omeprazole 20 mg capsule,delayed release(DR/EC) 20 mg PO QAM RF: 0 diltiazem HCl 120 mg capsule,extended release 24hr 120 mg PO QAM RF: 0 metoprolol succinate [Toprol XL] 100 mg tablet extended release 24 hr 100 mg PO AMHS RF: 0 Discharge Orders: Discharge Order (Routine); Ordered 04/30/21 Ordered By: Adalgisa Turcios/Other Patient Handouts: Managing Type 2 Diabetes Admission Data Admit Date/Time: 04/27/21 20:17 Attending Provider: Adalgisa Franco Admit Provider: Placido Antoine Primary Care Provider: Jimmy Allen Other Providers: Placido Antoine ; Stephen Jones ; Jesse Toth ; Rupesh Grant ; Eduard Allan ; Nikos Tolentino ; Forrest Prather ; Susannah Gonzalez ; Esha Smith ; Qi Mijares ; Twan Willis ; Yemi Tubbs ; Pao Morris
--- NOTE | 2021-04-30 16:25 | Anesthesiology Progress Note ---
Date of Service April 30, 2021 Anesthesia Post Procedure Vital Signs Vital Signs: Temp Pulse Pulse Resp BP Pulse Ox 04/30/21 14:16 36.8 C 82 18 98/56 L 97 04/30/21 11:44 36.8 C 82 18 98/56 L 97 04/30/21 09:34 73 18 121/79 93 04/30/21 09:00 36.7 C 69 18 124/93 93 04/30/21 08:30 36.4 C L 66 69 18 106/69 94 04/30/21 08:05 68 16 107/76 94 04/30/21 07:50 65 16 90/65 L 95 04/30/21 07:00 120 H 04/30/21 03:38 36.7 C 102 H 17 115/94 97 04/29/21 23:00 106 H 04/29/21 22:35 36.8 C 105 H 14 107/76 93 04/29/21 19:30 36.6 C 114 H 20 111/68 93 Transfer of Care Handoff Completed per policy Notes Mental Status: alert / awake / arousable and participated in evaluation Patient Amnestic to Procedure: Yes Nausea / Vomiting: adequately controlled Pain: adequately controlled Airway Patency, RR, SpO2: stable & adequate BP & HR: stable & adequate Hydration State: stable & adequate Anesthetic Complications: no major complications apparent and Pt Satisfied with anesthetic care
== END 2021-04-30 16:29 | disposition home health service (06) | DRG 308 ==
LOC: ED 17:04 → SUATTDRO 20:17 → 2E 20:17

== ENCOUNTER 2021-06-25 09:19 | Inpatient (IN) ==
--- NOTE | 2021-06-25 10:02 | Emergency Department Note ---
Impression & Plan Pneumonia, SOB (shortness of breath), Elevated troponin I level, Anemia ED Provider Note NAME: REMI COLE JR AGE: 75 SEX: M : 1945 ARRIVES VIA: Walk-In INFORMANT: Patient, ED PROVIDER(S): Bebeto Chang DO CHIEF COMPLAINT: Shortness of breath HPI: The patient is a 75-year-old male who presented to the emergency department with his family member for an evaluation of difficulty breathing and cough. The patient's been noticing symptoms over the course the last few days. He does have a nonproductive cough. He said shortness of breath with exertion. He denies having any lower extremity swelling. He denies having any hemoptysis. He is up-to-date with immunizations. He was not seen by his family doctor. They called his doctor today to be seen but they were referred to the emergency department because they were unable to get an appointment. He denies having any trauma. He is been compliant with his outpatient medications otherwise. He does take blood thinners. He has a history of venous thromboembolic disease. ROS: See above HPI for pertinent positives & negatives. A total of 10 systems reviewed and were otherwise negative. PAST MEDICAL HISTORY: See Below PAST SURGICAL HISTORY: See Below FAMILY HISTORY: See Below SOCIAL HISTORY: See Below HOME MEDICATIONS: See Below ALLERGIES: See Below VITALS: See Below PHYSICAL EXAMINATION: GENERAL: Patient is awake alert in no acute distress patient is resting comfortably and showing no signs of anxiety EYES: The conjunctivae are clear. The pupils are round and reactive. EARS, NOSE, MOUTH AND THROAT: The nose is without any evidence of any deformity. Mucous membranes are moist. Tongue is midline. NECK: The neck is nontender and supple. RESPIRATORY: There were rales noted in the right base. There are diminished br eath sounds noted in the left lung field. There was mild conversational dyspnea. CARDIOVASCULAR: Regular rate and rhythm noted there no murmurs rubs or gallops normal S1 normal S2. GASTROINTESTINAL: The abdomen is soft. Abdomen is nontender. MUSCULOSKELETAL/EXTREMITIES: There is no evidence of gross deformity full range of motion is noted in the hips and shoulders. SKIN: There is no obvious evidence of any rash. There are no petechiae, pallor or cyanosis noted. NEUROLOGIC: Patient is awake alert and oriented x3. MEDICAL DECISION MAKING: The patient is a 75-year-old male who presented to the emergency department for an evaluation of difficulty breathing. The patient had a cough. Initially I felt his presentation was consistent with a pneumonia. I discussed patient's laboratory and radiographic studies with him. Ultimately he was found to have an elevated troponin in the emergency department. He was also found to have progressive anemia especially compared to his laboratory studies since the beginning of the year. Rectal exam did not reveal significant bleeding. I discussed patient's laboratory and radiographic studies with him. He was treated with IV antibiotics as well as aspirin in the emergency department. I discussed the case with the [facility] hospitalist group. Triage Nursing notes reviewed. Prior medical records reviewed Vital Signs: reviewed and remarkable for elevated blood pressure. Differential diagnosis: Reactive airway disease, pneumonia, pneumothorax, COPD, CHF, infections, cardiac ischemia, pulmonary embolism, musculoskeletal, gastrointestinal, as well as other pathologies. ER treatment provided: See below Diagnostics interpreted by me: ECG: EKG was obtained in the emergency department. My interpretation is normal sinus rhythm at 83 bpm. There is no ectopy. There is no acute ST segment abnormalities noted. This was compared to a tracing from April 30, 2021. No changes were noted. Cardiac Monitoring: An order was placed for continuous cardiac monitoring. The monitor shows a rate of 95 bpm with sinus rhythm. Laboratory studies: As stated above and show below. Imaging studies: See below Consultation(s): I discussed this case with Davina pathak who is on-call for the [facility] hospitalist group. 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 Beliefs That Will Affect Care: [facility] marital status: Current Living Situation: Spouse Feels Safe at Home: Yes Assistive Devices: Cane Allergies Allergies Allergy/AdvReac Type Severity Reaction Status Date / Time adhesive AdvReac Intermediate REDNESS Verified 06/25/21 11:29 WITH EKG ELECTRODES Home Meds Home Medications Medication Instructions Recorded Confirmed alendronate 70 mg tablet 70 mg PO WK tab 10/10/18 06/25/21 enzalutamide 40 mg capsule (Xtandi) 160 mg PO DAILY@1200 10/12/19 06/25/21 metformin 500 mg tablet 500 mg PO QAM 10/12/19 06/25/21 aspirin 81 mg capsule 81 mg PO HS 04/12/21 06/25/21 atorvastatin 10 mg tablet (Lipitor) 40 mg PO HS 04/12/21 06/25/21 hydrocodone 10 mg-acetaminophen 1 tab PO DAILY PRN 04/12/21 06/25/21 325 mg tablet solifenacin 10 mg tablet (Vesicare) 10 mg PO HS 04/12/21 06/25/21 diltiazem HCl 120 mg 120 mg PO QAM 04/27/21 06/25/21 capsule,extended release 24 hr metoprolol succinate 100 mg 100 mg PO AMHS 04/27/21 06/25/21 tablet,extended release 24 hr (Toprol XL) omeprazole 20 mg capsule,delayed 20 mg PO QAM 04/27/21 06/25/21 release Previous Rx's Medication Instructions Recorded apixaban 5 mg (74 tabs) tablets in 5 mg PO Q12H #74 ea 04/17/21 a dose pack Results & Data (ED) Vital Signs Vital Signs - 24 hr 06/25/21 09:30 06/25/21 10:05 06/25/21 10:07 Temperature 36.4 C L Temperature Source Temporal Artery Scan Pulse Rate 87 86 Pulse Rate [Apical] 84 Pulse Rate from SpO2 Sensor 87 Pulse Rhythm Regular Pulse Strength Normal Respiratory Rate 20 20 27 H Respiratory Effort / Characteristics Non-Labored Spontaneous Non-Labored Spontaneous Respiratory Depth Normal Normal Respiratory Pattern Regular Blood Pressure 121/72 Blood Pressure [Right Arm] 147/87 H Blood Pressure Mean 88 Blood Pressure Mean [Right Arm] 107 Blood Pressure Position Sitting Blood Pressure Position [Right Arm] Sitting Pulse Oximetry 92 94 93 Oxygen Delivery Method Room Air Room Air Sepsis Recent Fever Within 48 Hours No Sepsis New/Unexplained Change in Mental Status N/A Sepsis Action Taken by Nursing No Action Required 06/25/21 10:30 06/25/21 10:48 06/25/21 11:00 Temperature Temperature Source Pulse Rate 83 90 Pulse Rate [Apical] 85 Pulse Rate from SpO2 Sensor 84 90 Pulse Rhythm Pulse Strength Respiratory Rate 30 H 18 26 H Respiratory Effort / Characteristics Non-Labored Spontaneous Respiratory Depth Normal Respiratory Pattern Regular Blood Pressure Blood Pressure [Right Arm] 147/87 H Blood Pressure Mean Blood Pressure Mean [Right Arm] 107 Blood Pressure Position Blood Pressure Position [Right Arm] Sitting Pulse Oximetry 93 93 92 Oxygen Delivery Method Room Air Sepsis Recent Fever Within 48 Hours Sepsis New/Unexplained Change in Mental Status Sepsis Action Taken by Nursing 06/25/21 11:30 06/25/21 12:00 06/25/21 12:05 Temperature Temperature Source Pulse Rate 88 Pulse Rate [Apical] 94 H Pulse Rate from SpO2 Sensor 87 104 H Pulse Rhythm Pulse Strength Respiratory Rate 26 H 20 Respiratory Effort / Characteristics Non-Labored Spontaneous Respiratory Depth Normal Respiratory Pattern Regular Blood Pressure Blood Pressure [Right Arm] 137/75 Blood Pressure Mean Blood Pressure Mean [Right Arm] 95 Blood Pressure Position Blood Pressure Position [Right Arm] Sitting Pulse Oximetry 94 95 89 L Oxygen Delivery Method Room Air Sepsis Recent Fever Within 48 Hours Sepsis New/Unexplained Change in Mental Status Sepsis Action Taken by Nursing 06/25/21 12:07 06/25/21 12:30 06/25/21 13:00 Temperature Temperature Source Pulse Rate 94 H 86 88 Pulse Rate [Apical] Pulse Rate from SpO2 Sensor 94 H 90 Pulse Rhythm Pulse Strength Respiratory Rate 28 H 27 H 22 Respiratory Effort / Characteristics Respiratory Depth Respiratory Pattern Blood Pressure 137/75 118/67 137/76 Blood Pressure [Right Arm] Blood Pressure Mean 95 84 96 Blood Pressure Mean [Right Arm] Blood Pressure Position Blood Pressure Position [Right Arm] Pulse Oximetry 95 93 Oxygen Delivery Method Sepsis Recent Fever Within 48 Hours Sepsis New/Unexplained Change in Mental Status Sepsis Action Taken by Nursing 06/25/21 14:00 06/25/21 14:30 06/25/21 15:00 Temperature Temperature Source Pulse Rate 93 H 88 95 H Pulse Rate [Apical] Pulse Rate from SpO2 Sensor 95 H 89 96 H Pulse Rhythm Pulse Strength Respiratory Rate 22 29 H 21 Respiratory Effort / Characteristics Respiratory Depth Respiratory Pattern Blood Pressure 134/75 159/95 H Blood Pressure [Right Arm] Blood Pressure Mean 94 116 Blood Pressure Mean [Right Arm] Blood Pressure Position Blood Pressure Position [Right Arm] Pulse Oximetry 94 93 93 Oxygen Delivery Method Sepsis Recent Fever Within 48 Hours Sepsis New/Unexplained Change in Mental Status Sepsis Action Taken by Nursing 06/25/21 15:30 Temperature Temperature Source Pulse Rate 93 H Pulse Rate [Apical] Pulse Rate from SpO2 Sensor 90 Pulse Rhythm Pulse Strength Respiratory Rate 22 Respiratory Effort / Characteristics Respiratory Depth Respiratory Pattern Blood Pressure 145/76 H Blood Pressure [Right Arm] Blood Pressure Mean 99 Blood Pressure Mean [Right Arm] Blood Pressure Position Blood Pressure Position [Right Arm] Pulse Oximetry 94 Oxygen Delivery Method Sepsis Recent Fever Within 48 Hours Sepsis New/Unexplained Change in Mental Status Sepsis Action Taken by Usp Medications Current Medication List: was personally reviewed by me Laboratory Data Attestation: I reviewed the patient's lab results. Result diagrams: 06/25/21 09:55 06/25/21 09:55 Lab Results 06/25/21 06/25/21 06/25/21 Range/Units 09:55 09:55 09:55 WBC 5.67 (4.8-10.8) K/uL RBC 3.79 L (4.7-6.1) M/uL Hgb 9.7 L (14.0-18.0) g/dL Hct 30.9 L (42-52) % MCV 81.5 (80-100) fL MCH 25.6 (25-34) pg MCHC 31.4 L (32-36) g/dL RDW Std Deviation 40.9 (36.4-46.3) fL RDW Coeff of Lisa 13.6 (11.5-14.5) % Plt Count 180 (130-400) K/uL MPV 9.6 (7.4-10.4) fL Immature Gran % (Auto) 0.4 % Neut % (Auto) 75.3 % Lymph % (Auto) 10.4 % [place] % (Auto) 11.5 % Eos % (Auto) 1.9 % Baso % (Auto) 0.5 % Neut # (Auto) 4.27 (1.4-6.5) K/uL Lymph # (Auto) 0.59 L (1.2-3.4) K/uL [place] # (Auto) 0.65 H (0.11-0.59) K/uL Eos # (Auto) 0.11 (0-0.5) K/uL Baso # (Auto) 0.03 (0-0.2) K/uL Immature Gran # (Auto) 0.02 (0.00-0.02) K/uL PT 11.2 (9.0-12.0) Seconds INR 1.1 (0.9-1.1) APTT 23.7 (21.0-31.0) Seconds PTT Ratio 0.9 Sodium (136-145) mmol/L Potassium (3.5-5.1) mmol/L Chloride (98-107) mmol/L Carbon Dioxide (21-32) mmol/L Anion Gap (3-11) BUN (6-23) mg/dl Creatinine (0.6-1.4) mg/dl Est Cr Clr Drug Dosing Est GFR ( Amer) ml/min Est GFR (Non-Af Amer) ml/min BUN/Creatinine Ratio (10-20) Glucose (70-99(Fasting)) mg/dl Calcium (8.5-10.1) mg/dl Magnesium (1.7-2.4) mg/dl Total Bilirubin (0.2-1.0) mg/dl AST (13-39) U/L ALT (7-52) U/L Alkaline Phosphatase (34-104) U/L Troponin I High Sens 54.0 H* (0-20) pg/ml Total Protein (6.0-8.3) gm/dl Albumin (3.4-5.0) gm/dl Globulin (2.5-4.0) gm/dl Albumin/Globulin Ratio (0.9-2) Urine Color Urine Appearance (Clear) Urine pH (4.5-7.5) Ur Specific [place] (1.000-1.030) Urine Protein (Negative) Urine Glucose (UA) (Negative) Urine Ketones (Negative) Urine Blood (Negative) Urine Nitrite (Negative) Urine Bilirubin (Negative) Urine Urobilinogen (Negative) Ur Leukocyte Esterase (Negative) Urine WBC (Auto) (0-5) /hpf Urine RBC (Auto) (0-4) /hpf U Hyaline Cast (Auto) (0-5) /lpf U Epithel Cells (Auto) (0-5) /lpf Urine Bacteria (Auto) (Negative) SARS-CoV-2 (PCR) (Negative) Influenza Type A (PCR) (Neg) Influenza Type B (PCR) (Neg) RSV (RT-PCR) (Neg) 06/25/21 06/25/21 06/25/21 Range/Units 09:55 10:13 14:37 WBC (4.8-10.8) K/uL RBC (4.7-6.1) M/uL Hgb (14.0-18.0) g/dL Hct (42-52) % MCV (80-100) fL MCH (25-34) pg MCHC (32-36) g/dL RDW Std Deviation (36.4-46.3) fL RDW Coeff of Lisa (11.5-14.5) % Plt Count (130-400) K/uL MPV (7.4-10.4) fL Immature Gran % (Auto) % Neut % (Auto) % Lymph % (Auto) % [place] % (Auto) % Eos % (Auto) % Baso % (Auto) % Neut # (Auto) (1.4-6.5) K/uL Lymph # (Auto) (1.2-3.4) K/uL [place] # (Auto) (0.11-0.59) K/uL Eos # (Auto) (0-0.5) K/uL Baso # (Auto) (0-0.2) K/uL Immature Gran # (Auto) (0.00-0.02) K/uL PT (9.0-12.0) Seconds INR (0.9-1.1) APTT (21.0-31.0) Seconds PTT Ratio Sodium 140 (136-145) mmol/L Potassium 3.7 (3.5-5.1) mmol/L Chloride 109 H (98-107) mmol/L Carbon Dioxide 23 (21-32) mmol/L Anion Gap 8 (3-11) BUN 15 (6-23) mg/dl Creatinine 0.90 (0.6-1.4) mg/dl Est Cr Clr Drug Dosing Not Reportable Est GFR ( Amer) 95.8 ml/min Est GFR (Non-Af Amer) 82.7 ml/min BUN/Creatinine Ratio 16.7 (10-20) Glucose 101 H (70-99(Fasting)) mg/dl Calcium 8.6 (8.5-10.1) mg/dl Magnesium 1.5 L (1.7-2.4) mg/dl Total Bilirubin 0.7 (0.2-1.0) mg/dl AST 13 (13-39) U/L ALT 5 L (7-52) U/L Alkaline Phosphatase 116 H (34-104) U/L Troponin I High Sens 85.7 H* D (0-20) pg/ml Total Protein 6.6 (6.0-8.3) gm/dl Albumin 3.3 L (3.4-5.0) gm/dl Globulin 3.3 (2.5-4.0) gm/dl Albumin/Globulin Ratio 1.0 (0.9-2) Urine Color Urine Appearance (Clear) Urine pH (4.5-7.5) Ur Specific [place] (1.000-1.030) Urine Protein (Negative) Urine Glucose (UA) (Negative) Urine Ketones (Negative) Urine Blood (Negative) Urine Nitrite (Negative) Urine Bilirubin (Negative) Urine Urobilinogen (Negative) Ur Leukocyte Esterase (Negative) Urine WBC (Auto) (0-5) /hpf Urine RBC (Auto) (0-4) /hpf U Hyaline Cast (Auto) (0-5) /lpf U Epithel Cells (Auto) (0-5) /lpf Urine Bacteria (Auto) (Negative) SARS-CoV-2 (PCR) NEGATIVE (Negative) Influenza Type A (PCR) Negative (Neg) Influenza Type B (PCR) Negative (Neg) RSV (RT-PCR) Negative (Neg) 06/25/21 Range/Units 15:24 WBC (4.8-10.8) K/uL RBC (4.7-6.1) M/uL Hgb (14.0-18.0) g/dL Hct (42-52) % MCV (80-100) fL MCH (25-34) pg MCHC (32-36) g/dL RDW Std Deviation (36.4-46.3) fL RDW Coeff of Lisa (11.5-14.5) % Plt Count (130-400) K/uL MPV (7.4-10.4) fL Immature Gran % (Auto) % Neut % (Auto) % Lymph % (Auto) % [place] % (Auto) % Eos % (Auto) % Baso % (Auto) % Neut # (Auto) (1.4-6.5) K/uL Lymph # (Auto) (1.2-3.4) K/uL [place] # (Auto) (0.11-0.59) K/uL Eos # (Auto) (0-0.5) K/uL Baso # (Auto) (0-0.2) K/uL Immature Gran # (Auto) (0.00-0.02) K/uL PT (9.0-12.0) Seconds INR (0.9-1.1) APTT (21.0-31.0) Seconds PTT Ratio Sodium (136-145) mmol/L Potassium (3.5-5.1) mmol/L Chloride (98-107) mmol/L Carbon Dioxide (21-32) mmol/L Anion Gap (3-11) BUN (6-23) mg/dl Creatinine (0.6-1.4) mg/dl Est Cr Clr Drug Dosing Est GFR ( Amer) ml/min Est GFR (Non-Af Amer) ml/min BUN/Creatinine Ratio (10-20) Glucose (70-99(Fasting)) mg/dl Calcium (8.5-10.1) mg/dl Magnesium (1.7-2.4) mg/dl Total Bilirubin (0.2-1.0) mg/dl AST (13-39) U/L ALT (7-52) U/L Alkaline Phosphatase (34-104) U/L Troponin I High Sens (0-20) pg/ml Total Protein (6.0-8.3) gm/dl Albumin (3.4-5.0) gm/dl Globulin (2.5-4.0) gm/dl Albumin/Globulin Ratio (0.9-2) Urine Color Yellow Urine Appearance Clear (Clear) Urine pH 5.0 (4.5-7.5) Ur Specific [place] 1.026 (1.000-1.030) Urine Protein Trace H (Negative) Urine Glucose (UA) Negative (Negative) Urine Ketones Trace H (Negative) Urine Blood 1+ H (Negative) Urine Nitrite Negative (Negative) Urine Bilirubin Negative (Negative) Urine Urobilinogen Negative (Negative) Ur Leukocyte Esterase Trace H (Negative) Urine WBC (Auto) 10-30 H (0-5) /hpf Urine RBC (Auto) 10-30 H (0-4) /hpf U Hyaline Cast (Auto) 5-10 H (0-5) /lpf U Epithel Cells (Auto) >30 H (0-5) /lpf Urine Bacteria (Auto) Negative (Negative) SARS-CoV-2 (PCR) (Negative) Influenza Type A (PCR) (Neg) Influenza Type B (PCR) (Neg) RSV (RT-PCR) (Neg) Administered Medications Discontinued Medications Aspirin (Aspirin Chew 324 Mg) 324 mg PO NOW STA Stop: 06/25/21 15:34 Last Admin: 06/25/21 15:46 Dose: 324 mg Documented by: [id number] Ceftriaxone Sodium (Rocephin) 2,000 mg in 70 mls @ 140 mls/hr IV NOW STA Stop: 06/25/21 13:26 Last Infusion: 06/25/21 14:30 Dose: 0 mls/hr Documented by: [id number] Admin: 06/25/21 13:46 Dose: 140 mls/hr Documented by: [id number] Imaging Data Radiologist's Impression: Chest X-Ray 06/25/21 09:44 XR chest 1V portable HISTORY: Dyspnea COMPARISON: Chest 04/27/2021. FINDINGS: No pneumothorax. No pleural effusions. The cardiac silhouette is top normal in size. There are patchy bibasilar densities which have progressed in the interval. No evidence for pulmonary edema. Old, healed left-sided rib fractures. IMPRESSION: Patchy bibasilar densities likely representing a bibasilar pneumonia. This could be due to a viral process or aspiration. ACT 112: Negative or not required by law. Electronically signed by: Gerry Vee M.D. 06/25/2021 10:20 AM Discharge Plan Visit Data Chief Complaint: Shortness of Breath/Dyspnea Stated Complaint: SOB ED Provider: Bebeto Chang Discharge Problem: Pneumonia, SOB (shortness of breath), Elevated troponin I level, Anemia Patient Disposition: Being Evaluated by Hospitalist Forms Stand Alone Forms: My [facility] Prescriptions Prescriptions: No Action metformin 500 mg tablet 500 mg PO QAM RF: 0 Xtandi 40 mg capsule 160 mg PO DAILY@1200 RF: 0 alendronate 70 mg tablet 70 mg PO WK RF: 0 hydrocodone-acetaminophen 10-325 mg tablet 1 tab PO DAILY PRN (Reason: Pain) RF: 0 aspirin 81 mg Capsule 81 mg PO HS RF: 0 atorvastatin [Lipitor] 10 mg tablet 40 mg PO HS RF: 0 solifenacin [Vesicare] 10 mg tablet 10 mg PO HS RF: 0 apixaban 5 mg (74 tabs) tablets,dose pack 5 mg PO Q12H Qty: 74 RF: 0 omeprazole 20 mg capsule,delayed release(DR/EC) 20 mg PO QAM RF: 0 diltiazem HCl 120 mg capsule,extended release 24hr 120 mg PO QAM RF: 0 metoprolol succinate [Toprol XL] 100 mg tablet extended release 24 hr 100 mg PO AMHS RF: 0 Referrals Referrals: Jimmy Allen [Primary Care Provider] - Discharge Problem: Pneumonia Qualifiers: Pneumonia type: due to unspecified organism Laterality: unspecified laterality Lung location: unspecified part of lung Qualified Code(s): J18.9 - Pneumonia, unspecified organism Anemia Qualifiers: Anemia type: unspecified type Qualified Code(s): D64.9 - Anemia, unspecified
[2021-06-25 10:14] LABS: Basophils # (auto) 0.03 K/uL (0-0.2); Basophils % (auto) 0.5 %; Eosinophils # (auto) 0.11 K/uL (0-0.5); Eosinophils % (auto) 1.9 %; Hematocrit (blood only) 30.9 % (42-52); Hemoglobin 9.7 g/dL (14.0-18.0); Immature Granulocytes # (auto) 0.02 K/uL (0.00-0.02); Immature Granulocytes % (auto) 0.4 %; Lymphocytes # (auto) 0.59 K/uL (1.2-3.4); Lymphocytes % (auto) 10.4 %; Mean Corpuscular Hemoglobin 25.6 pg (25-34); Mean Corpuscular Hgb Conc 31.4 g/dL (32-36); Mean Corpuscular Volume 81.5 fL (80-100); Mean Platelet Volume 9.6 fL (7.4-10.4); Monocytes # (auto) 0.65 K/uL (0.11-0.59); Monocytes % (auto) 11.5 %; Neutrophils # (auto) 4.27 K/uL (1.4-6.5); Neutrophils % (auto) 75.3 %; Platelet Count 180 K/uL (130-400); RDW Coefficient of Variation 13.6 % (11.5-14.5); RDW Standard Deviation 40.9 fL (36.4-46.3); Red Blood Count 3.79 M/uL (4.7-6.1); White Blood Count 5.67 K/uL (4.8-10.8)
--- NOTE | 2021-06-25 10:23 | XRay Report ---
XR chest 1V portable HISTORY: Dyspnea COMPARISON: Chest 04/27/2021. FINDINGS: No pneumothorax. No pleural effusions. The cardiac silhouette is top normal in size. There are patchy bibasilar densities which have progressed in the interval. No evidence for pulmonary edema . Old, healed left-sided rib fractures. IMPRESSION: Patchy bibasilar densities likely representing a bibasilar pneumonia. This could be due to a viral pr ocess or aspiration. ACT 112: Negative or not required by law. Electronically signed by: Gerry Vee M.D. 06/25/2021 10:20 AM
[2021-06-25 10:41] LABS: Alanine Aminotransferase 5 U/L (7-52); Albumin Level 3.3 gm/dl (3.4-5.0); Alkaline Phosphatase 116 U/L (34-104); Anion Gap 8 (3-11); Aspartate Aminotransferase 13 U/L (13-39); BUN Creatinine Ratio 16.7 (10-20); Bilirubin,Total 0.7 mg/dl (0.2-1.0); Blood Urea Nitrogen 15 mg/dl (6-23); Calcium 8.6 mg/dl (8.5-10.1); Carbon Dioxide 23 mmol/L (21-32); Chloride 109 mmol/L (98-107); Est GFR (African American) 95.8 ml/min; Est GFR (Non-African American) 82.7 ml/min; Globulin 3.3 gm/dl (2.5-4.0); Glucose 101 mg/dl (70-99(Fasting)); Magnesium 1.5 mg/dl (1.7-2.4); Potassium 3.7 mmol/L (3.5-5.1); Sodium 140 mmol/L (136-145); Total Protein 6.6 gm/dl (6.0-8.3)
[2021-06-25 11:01] LABS: INR 1.1 (0.9-1.1); Partial Thromboplastin Ratio 0.9; Partial Thromboplastin Time 23.7 Seconds (21.0-31.0); Prothrombin Time 11.2 Seconds (9.0-12.0)
[2021-06-25 12:10] LABS: Influenza A virus by PCR Negative (Neg); Influenza B virus by PCR Negative (Neg); RSV by PCR Negative (Neg); SARS CoV2 RNA(COVID-19) InHosp NEGATIVE (Negative)
[2021-06-25] MEDS ORDERED: cefTRIAXone SODIUM 2,000 MG/70 ML BAG IV STA (12:57)
--- NOTE | 2021-06-25 14:35 | Electrocardiogram Report ---
Test Reason : Blood Pressure : / mmHG Vent. Rate : 083 BPM Atrial Rate : 083 BPM P-R Int : 160 ms QRS Dur : 088 ms QT Int : 384 ms P-R-T Axes : 027 -26 061 degrees QTc Int : 451 ms Normal sinus rhythm Normal ECG When compared with ECG of 30-APR-2021 07:36, No significant change was found Confirmed by Jourdan Lawler ([id number]) on 06/25/2021 2:35:19 PM Referred By: Confirmed By:Jourdan Lawler
[2021-06-25] MEDS ORDERED: ASPIRIN CHEW 324 MG PO STA (15:33)
[2021-06-25 15:42] LABS: Appearance Urine Clear (Clear); Bacteria Urine Automated Negative (Negative); Bilirubin Urine Negative (Negative); Blood Urine 1+ (Negative); Color Urine Yellow; Epithelial Cell Urine Auto >30 /lpf (0-5); Glucose Urine UA Negative (Negative); Ketones Urine Trace (Negative); Leukocyte Esterase Urine Trace (Negative); Nitrite Urine Negative (Negative); Protein Urine Trace (Negative); Specific Gravity Urine 1.026 (1.000-1.030); Urobilinogen Urine Negative (Negative)
[2021-06-25] MEDS ORDERED: AZITHROMYCIN 500 MG in DEXTROSE 5% 250 ML IV ONE (16:51)
[2021-06-25 17:12] LABS: Reticulocyte % 2.6 % (0.5-2.0); Reticulocytes # 0.1 10^6/uL (0.02-0.10)
--- NOTE | 2021-06-25 17:53 | History & Physical Report ---
Date of Service June 25, 2021 Assessment & Plan (1) Pneumonia: Plan: Admit to telemetry Patient presenting from home with reports of worsening shortness of breath and cough In the ED, CXR showing bibasilar opacities consistent with pneumonia Saturating well on room air, afebrile, no leukocytosis S/p ceftriaxone in the ED. Continue with and add azithromycin Check procalcitonin COVID, influenza, RSV swab negative (2) Elevated troponin I level: Plan: History of nonobstructive CAD on cardiac cath July 2020 High-sensitivity troponin 54 --> 85.7 No reports of chest pain, EKG shows NSR Likely demand ischemia in the setting of pneumonia Continue to trend troponin, check resting echo Cardiology consult (3) Anemia: Plan: Hgb 9.7, noted to be slowly decreasing over the past several months No obvious signs of bleeding at this time Check iron profile Underlying prostate cancer may be contributing Follows with oncology as an outpatient (4) Paroxysmal atrial fibrillation: Plan: S/p cardioversion on 04/30/2021 Rate controlled on metoprolol and diltiazem Anticoagulated on Eliquis (5) History of DVT (deep vein thrombosis): (6) History of pulmonary embolism: Plan: Continue Eliquis (7) Diabetes mellitus: Plan: Recent Hgb A1c 6.0 Hold oral agents and utilize NovoLog per protocol while hospitalized (8) Cancer of prostate: Plan: Follows with urology, Dr. Alford. Has a medical oncologist at [facility], patient is also to establish with Dr. Goyo Thornton locally in the near future. (9) DVT prophylaxis: Plan: On Eliquis History of Present Illness Chief Complaint: Shortness of breath Primary Care Provider: Jimmy Allen 75-year-old male with PMH nonobstructive CAD, history of DVT and PE anticoagulated on Eliquis, paroxysmal atrial fibrillation s/p recent cardioversion, prostate cancer, diastolic dysfunction, DM type II, and other problems listed below who presents to the ED for evaluation of shortness of breath. Patient notes that his symptoms began about 1 week ago. He reports worsening exertional shortness of breath. He has also had a moist, nonproductive cough. Last night while trying to sleep shortness of breath worsened while lying flat as well as coughing. Patient denies any sick contacts. No fevers or chills. Denies chest pain and palpitations. No lightheadedness, dizziness, diaphoresis, syncopal events. Denies abdominal pain, nausea, vomiting, diarrhea. Has chronic urinary incontinence which is unchanged from baseline. In the ED, patient is hemodynamically stable. CXR is showing bibasilar opacities consistent with pneumonia. Labs show Hgb 9.7, high- sensitivity troponin 54 --> 85.7. EKG demonstrates NSR. Patient was given IV ceftriaxone. Allergies Allergy/AdvReac Type Severity Reaction Status Date / Time adhesive AdvReac Intermediate REDNESS Verified 06/25/21 11:29 WITH EKG ELECTRODES Home Medications Medication Instructions Recorded Confirmed Type alendronate 70 mg tablet 70 mg PO WK tab 10/10/18 06/25/21 History enzalutamide 40 mg capsule (Xtandi) 160 mg PO DAILY@1200 10/12/19 06/25/21 History metformin 500 mg tablet 500 mg PO QAM 10/12/19 06/25/21 History aspirin 81 mg capsule 81 mg PO HS 04/12/21 06/25/21 History atorvastatin 10 mg tablet (Lipitor) 40 mg PO HS 04/12/21 06/25/21 History hydrocodone 10 mg-acetaminophen 1 tab PO DAILY PRN 04/12/21 06/25/21 History 325 mg tablet solifenacin 10 mg tablet (Vesicare) 10 mg PO HS 04/12/21 06/25/21 History apixaban 5 mg (74 tabs) tablets in 5 mg PO Q12H #74 ea 04/17/21 06/25/21 Rx a dose pack diltiazem HCl 120 mg 120 mg PO QAM 04/27/21 06/25/21 History capsule,extended release 24 hr metoprolol succinate 100 mg 100 mg PO AMHS 04/27/21 06/25/21 History tablet,extended release 24 hr (Toprol XL) omeprazole 20 mg capsule,delayed 20 mg PO QAM 04/27/21 06/25/21 History release Past Med/Surg History Medical History Cancer of prostate Chronic anticoagulation Diabetes mellitus Dyslipidemia Elevated troponin History of DVT (deep vein thrombosis) History of pulmonary embolism Hx of brachytherapy Hypomagnesemia Paroxysmal atrial fibrillation Pneumonitis Prostate cancer (2009) Surgical History H/O heart surgery History of cardiac catheterization History of carpal tunnel surgery History of prostatectomy Hx of cholecystectomy Family History Mother Lung cancer Father Lung cancer Social History Smoking Status: Former smoker Second Hand Exposure: No; Hx Alcohol Use: No Hx Substance Use: No Preferred Language: [place] Communication Ability: Effective 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 Beliefs That Will Affect Care: Adventist marital status: Current Living Situation: Spouse Feels Safe at Home: Yes Assistive Devices: Cane Review of Systems Review of Systems: ROS per HPI, all other systems reviewed and negative Physical Exam Constitutional: WD/WN, vitals as above Eyes: PERRL, conjunctivae normal, anicteric sclerae ENMT: external ear and nose normal, oropharynx normal Respiratory: normal respiratory effort; no respiratory distress Auscultation: + crackles (Bilateral bases) Cardiovascular: Rate/Rhythm: regular rate and regular rhythm Vessels: normal peripheral pulses Extremities: no edema Gastrointestinal (Abdomen): normal bowel sounds, soft, nontender, no hepatosplenomegaly Musculoskeletal: no cyanosis or clubbing, extremities motor strength 5/5 Skin: no rashes, warm and dry Neurologic: PERRL, EOMI, accommodation nl, no face palsy, no dysarthria Psychiatric: A+Ox3, euthymic affect Results & Data Results & Data ([facility]) Vital Signs (Past 12 Hours) Vital Signs Temp Pulse Pulse Resp BP BP Pulse Ox 06/25/21 16:30 95 H 24 150/88 H 92 06/25/21 16:00 97 H 24 153/76 H 93 06/25/21 15:30 93 H 22 145/76 H 94 06/25/21 15:00 95 H 21 159/95 H 93 06/25/21 14:30 88 29 H 134/75 93 06/25/21 14:00 93 H 22 94 06/25/21 13:00 88 22 137/76 93 06/25/21 12:30 86 27 H 118/67 06/25/21 12:07 94 H 28 H 137/75 95 06/25/21 12:05 89 L 06/25/21 12:00 94 H 20 137/75 95 06/25/21 11:30 88 26 H 94 06/25/21 11:00 90 26 H 92 06/25/21 10:48 85 18 147/87 H 93 06/25/21 10:30 83 30 H 93 06/25/21 10:07 86 27 H 93 06/25/21 10:05 84 20 147/87 H 94 06/25/21 09:30 36.4 C L 87 20 121/72 92 Laboratory Results Short CBC 06/25/21 06/25/21 06/25/21 Range/Units 09:55 09:55 14:37 WBC 5.67 (4.8-10.8) K/uL Hgb 9.7 L (14.0-18.0) g/dL Hct 30.9 L (42-52) % Plt Count 180 (130-400) K/uL Troponin I High Sens 54.0 H* 85.7 H* D (0-20) pg/ml BMP 06/25/21 09:55 Sodium 140 Potassium 3.7 Chloride 109 H Carbon Dioxide 23 BUN 15 Creatinine 0.90 Glucose 101 H Calcium 8.6 Liver Function 06/25/21 Range/Units 09:55 Total Bilirubin 0.7 (0.2-1.0) mg/dl AST 13 (13-39) U/L ALT 5 L (7-52) U/L Alkaline Phosphatase 116 H (34-104) U/L Albumin 3.3 L (3.4-5.0) gm/dl Urine 06/25/21 Range/Units 15:24 Urine Color Yellow Urine Appearance Clear (Clear) Urine pH 5.0 (4.5-7.5) Ur Specific Commodore 1.026 (1.000-1.030) Urine Protein Trace H (Negative) Urine Glucose (UA) Negative (Negative) Diagnostic Findings Chest X-Ray 06/25/21 09:44 XR chest 1V portable HISTORY: Dyspnea COMPARISON: Chest 04/27/2021. FINDINGS: No pneumothorax. No pleural effusions. The cardiac silhouette is top normal in size. There are patchy bibasilar densities which have progressed in the interval. No evidence for pulmonary edema. Old, healed left-sided rib fractures. IMPRESSION: Patchy bibasilar densities likely representing a bibasilar pneumonia. This could be due to a viral process or aspiration. ACT 112: Negative or not required by law. Electronically signed by: Gerry Vee M.D. 06/25/2021 10:20 AM Code Status & VTE Plan VTE Prophylaxis Plan VTE Prophylaxis will be ordered: Yes Supervising Physician Co-Signing Physician Notes 75-year-old male with PMH of nonobstructive CAD, DVT/PE on Eliquis, PAF s/p recent cardioversion, prostate cancer, diastolic dysfunction, T2DM presented to our ED 06/25 with complaint of shortness of breath with exertion on and off for the last 2 weeks worsening yesterday night even at rest, no chest pain, dry cough for few weeks associated with runny nose since last week. Patient denies any headache or dizziness or palpitation or chest pain or belly pain or fever or acute changes in bowel or bladder habit. Patient denies any blood in the stool or black stool or any blood loss from anywhere in the body. At presentation, patient found to have bibasilar pneumonia, elevated troponin, acute on chronic anemia. Labs reviewed, troponins elevated, likely demand ischemia, continue to trend troponin, cardiology consult, admitting EKG with NSR. Iron panel suggestive of low iron level and ferritin level, ferrous sulfate. Follow-up vitamin B12 and folate level. Rocephin and azithromycin for pneumonia. MOnitor and replete electrolytes. Upon examination GENERAL: Alert and oriented x3. NAD, on RA. Obese. HEENT: No pallor, no icterus. Pupils equal, round and reactive to light. Oral mucosa moist. NECK: No JVD, no neck masses. HEART: S1 and S2 heard. tachycardic. Systolic murmur at aortic area, no gallop. RESPIRATORY SYSTEM: Normal AP diameter. No accessory muscle use. No wheezing, no crackles. Decreased breath sounds LLL. ABDOMEN: Soft, bowel sounds present, nontender, no distention. CENTRAL NERVOUS SYSTEM: No facial droop. Speech is clear. Obeys simple comm ands. Moves extremities. EXTREMITIES: No edema, no erythema seen. I have seen and examined the patient and have discussed the case with the provider above. I agree with the assessment and plan as stated. (1) Anemia Anemia type: unspecified type Qualified Code(s): D64.9 - Anemia, unspecified (2) Pneumonia Laterality: unspecified laterality Lung location: unspecified part of lung Pneumonia type: due to unspecified organism Qualified Code(s): J18.9 - Pneumonia, unspecified organism
[2021-06-25] MEDS ORDERED: ACETAMINOPHEN 325 MG TAB PO PRN (19:09)
[2021-06-25] MEDS ORDERED: GLUCOSE 40% GEL 15 GM TUBE PO PRN (19:09)
[2021-06-25] MEDS ORDERED: CARBOHYDRATES FOR HYPOGLYCEMIA PO PRN (19:09)
[2021-06-25] MEDS ORDERED: GLUCOSE 10 TABS/TUBE PO PRN (19:09)
[2021-06-25] MEDS ORDERED: DEXTROSE 50% 50 ML SYRINGE IV PRN (19:09)
[2021-06-25] MEDS ORDERED: GLUCAGON FOR INJ 1 MG VIAL SQ PRN (19:09)
[2021-06-25] MEDS ORDERED: ENOXAPARIN INJ 40 MG/0.4 ML SYR SQ SCH (20:00)
[2021-06-25] MEDS: INSULIN ASPART PER UNIT SC SCH (21:24)
[2021-06-25] MEDS: MAGNESIUM SULFATE / D5W 1 GM/100 ML BAG IV SCH ×2 (21:36→22:40)
[2021-06-25] MEDS: ASPIRIN 81 MG ECTAB PO SCH (21:38)
[2021-06-25] MEDS: APIXABAN 5 MG TABLET PO SCH (21:39)
[2021-06-25] MEDS: METOPROLOL SUCC 50MG EXT REL TAB PO SCH (21:39)
[2021-06-25] MEDS: ATORVASTATIN 40 MG TAB PO SCH (21:39)
[2021-06-26 06:25] LABS: Hematocrit (blood only) 28.2 % (42-52); Hemoglobin 8.9 g/dL (14.0-18.0); Mean Corpuscular Hemoglobin 25.8 pg (25-34); Mean Corpuscular Hgb Conc 31.6 g/dL (32-36); Mean Corpuscular Volume 81.7 fL (80-100); Mean Platelet Volume 9.2 fL (7.4-10.4); Platelet Count 167 K/uL (130-400); RDW Coefficient of Variation 13.7 % (11.5-14.5); RDW Standard Deviation 40.9 fL (36.4-46.3); Red Blood Count 3.45 M/uL (4.7-6.1); White Blood Count 5.15 K/uL (4.8-10.8)
[2021-06-26 06:45] LABS: BUN Creatinine Ratio 15.9 (10-20); Calcium 8.2 mg/dl (8.5-10.1); Creatinine Clr Calc Pharmacy 80.5 ml/min; Est GFR (African American) 96.7 ml/min; Est GFR (Non-African American) 83.4 ml/min; Magnesium 1.8 mg/dl (1.7-2.4); Potassium 3.6 mmol/L (3.5-5.1)
[2021-06-26] MEDS: FERROUS GLUCONATE 324 MG TAB PO SCH ×2 (07:33→17:32)
[2021-06-26] MEDS: PANTOprazole 40 MG TAB PO SCH (07:34)
[2021-06-26] MEDS: CYANOCOBALAMIN (B-12) 100 MCG TABLET PO SCH (07:34)
[2021-06-26] MEDS: APIXABAN 5 MG TABLET PO SCH ×2 (07:35→20:47)
[2021-06-26] MEDS: METOPROLOL SUCC 50MG EXT REL TAB PO SCH ×2 (07:35→20:47)
[2021-06-26] MEDS: dilTIAZem HCL 120 MG CAPCR PO SCH (07:35)
[2021-06-26] MEDS: INSULIN ASPART PER UNIT SC SCH ×4 (07:42→20:48)
[2021-06-26] MEDS: cefTRIAXone SODIUM 2,000 MG in DEXTROSE 5% 50 ML IV SCH (12:09)
[2021-06-26 12:23] LABS: Adenovirus PCR Not Detected (NotDetected); Bordetella parapertussis PCR Not Detected (NotDetected); Bordetella pertussis PCR Not Detected (NotDetected); Chlamydia pneumoniae PCR Not Detected (NotDetected); Coronavirus 229E PCR Not Detected (NotDetected); Coronavirus CoV-2 (COVID19)PCR Not Detected (NotDetected); Coronavirus HKU1 PCR Not Detected (NotDetected); Coronavirus NL63 PCR Not Detected (NotDetected); Coronavirus OC43PCR Not Detected (NotDetected); Human Metapneumovirus PCR Not Detected (NotDetected); Influenza A PCR Not Detected (NotDetected); Influenza B PCR Not Detected (NotDetected); Mycoplasma pneumoniae PCR Not Detected (NotDetected); Parainfluenza Virus 1 PCR Not Detected (NotDetected); Parainfluenza Virus 2 PCR Not Detected (NotDetected); Parainfluenza Virus 3 PCR Not Detected (NotDetected); Parainfluenza Virus 4 PCR Not Detected (NotDetected); Respiratory Syncytial VirusPCR Not Detected (NotDetected); Rhinovirus/Enterovirus PCR Not Detected (NotDetected)
--- NOTE | 2021-06-26 13:07 | Cardiology Consultation ---
Date of Consultation June 26, 2021 Assessment & Plan (1) Bilateral pneumonia: (2) Elevated troponin: (3) Mitral regurgitation: (4) Heart failure, diastolic, with acute decompensation: (5) ASCVD (arteriosclerotic cardiovascular disease): (6) Atrial fibrillation status post cardioversion: Hospitalization with bilateral pneumonia. As per hospitalist. Diastolic congestive heart failure. Mitral regurgitation. Volume status appears mildly decompensated. Recommend supplementing potassium orally then administering a single dose of IV furosemide, assessing for ongoing need for diuretic therapy in the morning. Elevated troponin. Mild, stable. EKG's without acute change. Resting echo without wall motion abnormality, preserved LV function. Patient without overt symptoms to suggest cardiac injury/infarct. Cardiac catheterization on August 20, 2020 with moderate nonobstructive coronary artery disease. Continue appropriate medical management. Hospitalization in March 2021 with COVID-19 complicated by left lower extremity DVT, extensive bilateral PE, and atrial fibrillation/flutter with a rapid ventricular response complicated by acute decompensated heart failure, status post April 30, 2021 KHANG guided cardioversion. Patient maintaining sinus rhythm since cardioversion. Continue metoprolol and diltiazem. Continue apixaban anticoagulation. Hypertension. Controlled. Dyslipidemia. Continue moderate intensity statin therapy. Acute on chronic anemia. As per hospitalist. Supervising Physician Co-Signing Physician Notes Patient seen examined the bedside. Reports nonproductive cough and shortness of breath for several days prior to admission. Denies chest pain or palpitations. Currently resting comfortably with supplemental oxygen. PE: VSS. Gen: NAD, AAO x3. Heart: Regular rhythm. Normal S1-S2. No murmur. Lungs: Clear bilateral with scant crackles at the left base. No rhonchi or wheeze. Extremities: No edema. Neuro: No focal deficit. A/P: Agree with above PA-C history, physical exam, assessment and plan. Patient received dose of IV Lasix this morning. Reevaluate volume status in a.m. Continue supportive care/treatment of pneumonia as per hospitalist. Mildly elev ated troponin secondary to demand ischemia in the setting of pneumonia. Continue metoprolol, diltiazem, and apixaban as previously ordered. Monitor daily hemoglobin with evidence of acute on chronic anemia. History of Present Illness Reason for Consultation: Elevated troponin, history of nonobstructive coronary artery disease Requesting Physician: Sherly Attending Physician: Eze History of Present Illness Patient is a 75-year-old male with past history detailed below who, for the past week or so, has developed progressive dyspnea with associated hacking barking nonproductive cough. Notes coughing so much that his ribs hurt. Cough and dyspnea seem to be worse when lying flat. No pleuritic chest pain. No palpitations. Chest x-ray on presentation was read by the radiologist as revealing patchy bibasilar densities likely representing a bibasilar pneumonia. Oxygen saturations were normal on room air. Patient afebrile. CBC without leukocytosis. Ceftriaxone and azithromycin prescribed with patient noting improvement when evaluated this morning. Laboratory work revealed an elevated high-sensitivity troponin I as follows: 54.0 -> 85.7 -> 115.8 pg/mL. EKG on presentation revealed normal sinus rhythm at 83 bpm. EKG this morning revealed normal sinus rhythm at 88 bpm. Continuous telemetry monitoring has demonstrated sinus throughout. No recurrent atrial fibrillation observed. Resting echocardiography this morning revealed preserved LV systolic function, without wall motion abnormalities. Moderate concentric LVH noted along with moderate mitral regurgitation. The aortic valve was moderately sclerotic, without significant stenosis. Past Medical and Surgical History Atherosclerotic heart disease of zuni coronary artery Diagnostic cardiac catheterization on August 20, 2020 revealed right-dominant coronary anatomy with moderate coronary atherosclerosis (60% narrowing of the LAD at the juncture of the mid and apical portions, thin caliber vessel, 30% narrowing at the origin of the high diagonal branch, luminal irregularities of the left circumflex, moderate irregularities of the ramus intermedius, and mild luminal irregularities of the RCA), normal left ventricular end-diastolic pressure. 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 On Xtandi GERD Hiatal hernia Obesity Status post cholecystectomy Status post prostatectomy Status post carpal tunnel surgery Hospitalization at [facility] in March 2021, following COVID-19 infection , with significant dyspnea, chest pressure, palpitations - left lower extremity DVT (left gastrocnemius veins along with extensive superficial thrombus within the left greater saphenous vein) and extensive bilateral pulmonary emboli. Course complicated by atrial flutter/fibrillation with rates difficult to control Hospitalization at [facility] April 27, 2021 to April 30, 2021 with acute decompensated diastolic congestive heart failure in the setting of atrial fibrillation with a rapid ventricular response and noncompliance with medications. Volume status improved considerably following one dose of IV furosemide in the ER Transesophageal echocardiography on April 30, 2021 revealed no contraindications to cardioversion, undergoing direct current cardioversion without difficulty. Family History: Positive for lung cancer in both mother and father Social History: Reformed smoker. Social alcohol. No illegal drug use. . Retired. Complete Review of Systems is as stated above, negative, or noncontributory. Allergies Allergy/AdvReac Type Severity Reaction Status Date / Time adhesive AdvReac Intermediate REDNESS Verified 06/25/21 11:29 WITH EKG ELECTRODES Home Medications Medication Instructions Recorded Confirmed Type alendronate 70 mg tablet 70 mg PO WK tab 10/10/18 06/25/21 History enzalutamide 40 mg capsule (Xtandi) 160 mg PO DAILY@1200 10/12/19 06/25/21 History metformin 500 mg tablet 500 mg PO QAM 10/12/19 06/25/21 History aspirin 81 mg capsule 81 mg PO HS 04/12/21 06/25/21 History atorvastatin 10 mg tablet (Lipitor) 40 mg PO HS 04/12/21 06/25/21 History hydrocodone 10 mg-acetaminophen 1 tab PO DAILY PRN 04/12/21 06/25/21 History 325 mg tablet solifenacin 10 mg tablet (Vesicare) 10 mg PO HS 04/12/21 06/25/21 History apixaban 5 mg (74 tabs) tablets in 5 mg PO Q12H #74 ea 04/17/21 06/25/21 Rx a dose pack diltiazem HCl 120 mg 120 mg PO QAM 04/27/21 06/25/21 History capsule,extended release 24 hr metoprolol succinate 100 mg 100 mg PO AMHS 04/27/21 06/25/21 History tablet,extended release 24 hr (Toprol XL) omeprazole 20 mg capsule,delayed 20 mg PO QAM 04/27/21 06/25/21 History release Patient History Medical History Cancer of prostate Chronic anticoagulation Diabetes mellitus Dyslipidemia Elevated troponin History of DVT (deep vein thrombosis) History of pulmonary embolism Hx of brachytherapy Hypomagnesemia Paroxysmal atrial fibrillation Pneumonitis Prostate cancer (2009) Surgical History H/O heart surgery History of cardiac catheterization History of carpal tunnel surgery History of prostatectomy Hx of cholecystectomy Family History Mother Lung cancer Father Lung cancer Social History Smoking Status: Never smoker Second Hand Exposure: No; Do You Dip or Chew Tobacco: No; Tobacco Cessation Education Requested by Patient: No Hx Alcohol Use: No Hx Substance Use: No Preferred Language: French Communication Ability: Effective Adult Literacy Teacher Required: No Beliefs That Will Affect Care: None marital status: Current Living Situation: Spouse How many Children do You have: 2 Other Information That Helps Us Care for You: No Feels Safe at Home: Yes Safety Concerns: Feels Safe At This Time Assistive Devices: Cane and Walker Review of Systems Review of Systems: All systems reviewed & are unremarkable except as noted in Subjective Physical Exam Physical Exam: General: alert, comfortable and cooperative Skin: Skin color is pale. No rash Eyes: PER. Conjunctiva pink, sclera pale. . HENT: Normocephalic. Atraumatic. Neck: No carotid bruits. No JVD. No HJR. Heart: Regular at 60 bpm. Soft systolic murmur at the LLSB. No rub. Lungs: Bibasilar rales. Abdomen: +BS. Soft. Nontender. No masses. No organomegaly. Extremities: Mild left greater than right lower extremity pretibial edema. No clubbing. No cyanosis Pulses: radial=2/4, posterior tibial=1/4. Limited neurological examination: No focal deficit. Results & Data ([facility]) Vital Signs (Past 12 Hours) Vital Signs Temp Pulse Pulse Resp BP BP Pulse Ox 06/26/21 11:01 37.1 C 76 23 136/76 95 06/26/21 08:23 92 H 06/26/21 07:30 36.9 C 88 21 138/79 94 06/26/21 02:56 36.9 C 84 18 125/73 94 Laboratory Results Laboratory Results - last 48 hr 06/25/21 06/25/21 06/25/21 09:55 09:55 09:55 WBC 5.67 RBC 3.79 L Hgb 9.7 L Hct 30.9 L MCV 81.5 MCH 25.6 MCHC 31.4 L RDW Std Deviation 40.9 RDW Coeff of Lisa 13.6 Plt Count 180 MPV 9.6 Immature Gran % (Auto) 0.4 Neut % (Auto) 75.3 Lymph % (Auto) 10.4 Blanco % (Auto) 11.5 Eos % (Auto) 1.9 Baso % (Auto) 0.5 Reticulocyte % (Auto) Neut # (Auto) 4.27 Lymph # (Auto) 0.59 L [place] # (Auto) 0.65 H Eos # (Auto) 0.11 Baso # (Auto) 0.03 Reticulocyte # Immature Gran # (Auto) 0.02 PT 11.2 INR 1.1 APTT 23.7 PTT Ratio 0.9 Sodium Potassium Chloride Carbon Dioxide Anion Gap BUN Creatinine Est Cr Clr Drug Dosing Est GFR ( Amer) Est GFR (Non-Af Amer) BUN/Creatinine Ratio Glucose POC Glucose Calcium Magnesium Iron Transferrin Ferritin Total Bilirubin AST ALT Alkaline Phosphatase Troponin I High Sens 54.0 H* Total Protein Albumin Globulin Albumin/Globulin Ratio Vitamin B12 Folate Procalcitonin Urine Color Urine Appearance Urine pH Ur Specific [place] Urine Protein Urine Glucose (UA) Urine Ketones Urine Blood Urine Nitrite Urine Bilirubin Urine Urobilinogen Ur Leukocyte Esterase Urine WBC (Auto) Urine RBC (Auto) U Hyaline Cast (Auto) U Epithel Cells (Auto) Urine Bacteria (Auto) Adenovirus (PCR) B. pertussis DNA (PCR) B.parapertussis DNA PCR C. pneumoniae DNA (PCR) Coronavirus OC43 (PCR) Coronavirus HKU1 (PCR) Coronavirus 229E (PCR) SARS-CoV-2 (PCR) Coronavirus NL63 (PCR) Human Metapneumovir PCR Influenza Type A (PCR) Influenza Type B (PCR) M. pneumoniae (PCR) Parainfluenza 1 (PCR) Parainfluenza 2 (PCR) Parainfluenza 3 (PCR) Parainfluenza 4 (PCR) RSV (RT-PCR) RSV (PCR) Entero/Rhino (PCR) 06/25/21 06/25/21 06/25/21 09:55 09:55 10:13 WBC RBC Hgb Hct MCV MCH MCHC RDW Std Deviation RDW Coeff of Lisa Plt Count MPV Immature Gran % (Auto) Neut % (Auto) Lymph % (Auto) [place] % (Auto) Eos % (Auto) Baso % (Auto) Reticulocyte % (Auto) 2.6 H Neut # (Auto) Lymph # (Auto) [place] # (Auto) Eos # (Auto) Baso # (Auto) Reticulocyte # 0.10 Immature Gran # (Auto) PT INR APTT PTT Ratio Sodium 140 Potassium 3.7 Chloride 109 H Carbon Dioxide 23 Anion Gap 8 BUN 15 Creatinine 0.90 Est Cr Clr Drug Dosing Not Reportable Est GFR ( Amer) 95.8 Est GFR (Non-Af Amer) 82.7 BUN/Creatinine Ratio 16.7 Glucose 101 H POC Glucose Calcium 8.6 Magnesium 1.5 L Iron Transferrin Ferritin Total Bilirubin 0.7 AST 13 ALT 5 L Alkaline Phosphatase 116 H Troponin I High Sens Total Protein 6.6 Albumin 3.3 L Globulin 3.3 Albumin/Globulin Ratio 1.0 Vitamin B12 Folate Procalcitonin Urine Color Urine Appearance Urine pH Ur Specific [place] Urine Protein Urine Glucose (UA) Urine Ketones Urine Blood Urine Nitrite Urine Bilirubin Urine Urobilinogen Ur Leukocyte Esterase Urine WBC (Auto) Urine RBC (Auto) U Hyaline Cast (Auto) U Epithel Cells (Auto) Urine Bacteria (Auto) Adenovirus (PCR) B. pertussis DNA (PCR) B.parapertussis DNA PCR C. pneumoniae DNA (PCR) Coronavirus OC43 (PCR) Coronavirus HKU1 (PCR) Coronavirus 229E (PCR) SARS-CoV-2 (PCR) NEGATIVE Coronavirus NL63 (PCR) Human Metapneumovir PCR Influenza Type A (PCR) Negative Influenza Type B (PCR) Negative M. pneumoniae (PCR) Parainfluenza 1 (PCR) Parainfluenza 2 (PCR) Parainfluenza 3 (PCR) Parainfluenza 4 (PCR) RSV (RT-PCR) Negative RSV (PCR) Entero/Rhino (PCR) 06/25/21 06/25/21 06/25/21 14:37 15:24 17:12 WBC RBC Hgb Hct MCV MCH MCHC RDW Std Deviation RDW Coeff of Lisa Plt Count MPV Immature Gran % (Auto) Neut % (Auto) Lymph % (Auto) [place] % (Auto) Eos % (Auto) Baso % (Auto) Reticulocyte % (Auto) Neut # (Auto) Lymph # (Auto) [place] # (Auto) Eos # (Auto) Baso # (Auto) Reticulocyte # Immature Gran # (Auto) PT INR APTT PTT Ratio Sodium Potassium Chloride Carbon Dioxide Anion Gap BUN Creatinine Est Cr Clr Drug Dosing Est GFR ( Amer) Est GFR (Non-Af Amer) BUN/Creatinine Ratio Glucose POC Glucose Calcium Magnesium Iron Transferrin Ferritin Total Bilirubin AST ALT Alkaline Phosphatase Troponin I High Sens 85.7 H* D Total Protein Albumin Globulin Albumin/Globulin Ratio Vitamin B12 Folate 10.25 Procalcitonin Urine Color Yellow Urine Appearance Clear Urine pH 5.0 Ur Specific [place] 1.026 Urine Protein Trace H Urine Glucose (UA) Negative Urine Ketones Trace H Urine Blood 1+ H Urine Nitrite Negative Urine Bilirubin Negative Urine Urobilinogen Negative Ur Leukocyte Esterase Trace H Urine WBC (Auto) 10-30 H Urine RBC (Auto) 10-30 H U Hyaline Cast (Auto) 5-10 H U Epithel Cells (Auto) >30 H Urine Bacteria (Auto) Negative Adenovirus (PCR) B. pertussis DNA (PCR) B.parapertussis DNA PCR C. pneumoniae DNA (PCR) Coronavirus OC43 (PCR) Coronavirus HKU1 (PCR) Coronavirus 229E (PCR) SARS-CoV-2 (PCR) Coronavirus NL63 (PCR) Human Metapneumovir PCR Influenza Type A (PCR) Influenza Type B (PCR) M. pneumoniae (PCR) Parainfluenza 1 (PCR) Parainfluenza 2 (PCR) Parainfluenza 3 (PCR) Parainfluenza 4 (PCR) RSV (RT-PCR) RSV (PCR) Entero/Rhino (PCR) 06/25/21 06/25/21 06/25/21 17:12 17:12 17:12 WBC RBC Hgb Hct MCV MCH MCHC RDW Std Deviation RDW Coeff of Lisa Plt Count MPV Immature Gran % (Auto) Neut % (Auto) Lymph % (Auto) [place] % (Auto) Eos % (Auto) Baso % (Auto) Reticulocyte % (Auto) Neut # (Auto) Lymph # (Auto) [place] # (Auto) Eos # (Auto) Baso # (Auto) Reticulocyte # Immature Gran # (Auto) PT INR APTT PTT Ratio Sodium Potassium Chloride Carbon Dioxide Anion Gap BUN Creatinine Est Cr Clr Drug Dosing Est GFR ( Amer) Est GFR (Non-Af Amer) BUN/Creatinine Ratio Glucose POC Glucose Calcium Magnesium Iron 27 L Transferrin 289 Ferritin 23.0 Total Bilirubin AST ALT Alkaline Phosphatase Troponin I High Sens Total Protein Albumin Globulin Albumin/Globulin Ratio Vitamin B12 232 Folate Procalcitonin < 0.05 Urine Color Urine Appearance Urine pH Ur Specific [place] Urine Protein Urine Glucose (UA) Urine Ketones Urine Blood Urine Nitrite Urine Bilirubin Urine Urobilinogen Ur Leukocyte Esterase Urine WBC (Auto) Urine RBC (Auto) U Hyaline Cast (Auto) U Epithel Cells (Auto) Urine Bacteria (Auto) Adenovirus (PCR) B. pertussis DNA (PCR) B.parapertussis DNA PCR C. pneumoniae DNA (PCR) Coronavirus OC43 (PCR) Coronavirus HKU1 (PCR) Coronavirus 229E (PCR) SARS-CoV-2 (PCR) Coronavirus NL63 (PCR) Human Metapneumovir PCR Influenza Type A (PCR) Influenza Type B (PCR) M. pneumoniae (PCR) Parainfluenza 1 (PCR) Parainfluenza 2 (PCR) Parainfluenza 3 (PCR) Parainfluenza 4 (PCR) RSV (RT-PCR) RSV (PCR) Entero/Rhino (PCR) 06/25/21 06/25/21 06/26/21 19:53 20:10 05:53 WBC 5.15 RBC 3.45 L Hgb 8.9 L Hct 28.2 L MCV 81.7 MCH 25.8 MCHC 31.6 L RDW Std Deviation 40.9 RDW Coeff of Lisa 13.7 Plt Count 167 MPV 9.2 Immature Gran % (Auto) Neut % (Auto) Lymph % (Auto) [place] % (Auto) Eos % (Auto) Baso % (Auto) Reticulocyte % (Auto) Neut # (Auto) Lymph # (Auto) [place] # (Auto) Eos # (Auto) Baso # (Auto) Reticulocyte # Immature Gran # (Auto) PT INR APTT PTT Ratio Sodium Potassium Chloride Carbon Dioxide Anion Gap BUN Creatinine Est Cr Clr Drug Dosing Est GFR ( Amer) Est GFR (Non-Af Amer) BUN/Creatinine Ratio Glucose POC Glucose 125 H Calcium Magnesium Iron Transferrin Ferritin Total Bilirubin AST ALT Alkaline Phosphatase Troponin I High Sens 115.8 H* D Total Protein Albumin Globulin Albumin/Globulin Ratio Vitamin B12 Folate Procalcitonin Urine Color Urine Appearance Urine pH Ur Specific [place] Urine Protein Urine Glucose (UA) Urine Ketones Urine Blood Urine Nitrite Urine Bilirubin Urine Urobilinogen Ur Leukocyte Esterase Urine WBC (Auto) Urine RBC (Auto) U Hyaline Cast (Auto) U Epithel Cells (Auto) Urine Bacteria (Auto) Adenovirus (PCR) B. pertussis DNA (PCR) B.parapertussis DNA PCR C. pneumoniae DNA (PCR) Coronavirus OC43 (PCR) Coronavirus HKU1 (PCR) Coronavirus 229E (PCR) SARS-CoV-2 (PCR) Coronavirus NL63 (PCR) Human Metapneumovir PCR Influenza Type A (PCR) Influenza Type B (PCR) M. pneumoniae (PCR) Parainfluenza 1 (PCR) Parainfluenza 2 (PCR) Parainfluenza 3 (PCR) Parainfluenza 4 (PCR) RSV (RT-PCR) RSV (PCR) Entero/Rhino (PCR) 06/26/21 06/26/21 06/26/21 05:53 07:30 11:09 WBC RBC Hgb Hct MCV MCH MCHC RDW Std Deviation RDW Coeff of Lisa Plt Count MPV Immature Gran % (Auto) Neut % (Auto) Lymph % (Auto) [place] % (Auto) Eos % (Auto) Baso % (Auto) Reticulocyte % (Auto) Neut # (Auto) Lymph # (Auto) [place] # (Auto) Eos # (Auto) Baso # (Auto) Reticulocyte # Immature Gran # (Auto) PT INR APTT PTT Ratio Sodium 138 Potassium 3.6 Chloride 107 Carbon Dioxide 25 Anion Gap 6 BUN 14 Creatinine 0.88 Est Cr Clr Drug Dosing 80.5 Est GFR ( Amer) 96.7 Est GFR (Non-Af Amer) 83.4 BUN/Creatinine Ratio 15.9 Glucose 99 POC Glucose 114 H 115 H Calcium 8.2 L Magnesium 1.8 Iron Transferrin Ferritin Total Bilirubin AST ALT Alkaline Phosphatase Troponin I High Sens Total Protein Albumin Globulin Albumin/Globulin Ratio Vitamin B12 Folate Procalcitonin Urine Color Urine Appearance Urine pH Ur Specific [place] Urine Protein Urine Glucose (UA) Urine Ketones Urine Blood Urine Nitrite Urine Bilirubin Urine Urobilinogen Ur Leukocyte Esterase Urine WBC (Auto) Urine RBC (Auto) U Hyaline Cast (Auto) U Epithel Cells (Auto) Urine Bacteria (Auto) Adenovirus (PCR) B. pertussis DNA (PCR) B.parapertussis DNA PCR C. pneumoniae DNA (PCR) Coronavirus OC43 (PCR) Coronavirus HKU1 (PCR) Coronavirus 229E (PCR) SARS-CoV-2 (PCR) Coronavirus NL63 (PCR) Human Metapneumovir PCR Influenza Type A (PCR) Influenza Type B (PCR) M. pneumoniae (PCR) Parainfluenza 1 (PCR) Parainfluenza 2 (PCR) Parainfluenza 3 (PCR) Parainfluenza 4 (PCR) RSV (RT-PCR) RSV (PCR) Entero/Rhino (PCR) 06/26/21 11:15 WBC RBC Hgb Hct MCV MCH MCHC RDW Std Deviation RDW Coeff of Lisa Plt Count MPV Immature Gran % (Auto) Neut % (Auto) Lymph % (Auto) [place] % (Auto) Eos % (Auto) Baso % (Auto) Reticulocyte % (Auto) Neut # (Auto) Lymph # (Auto) [place] # (Auto) Eos # (Auto) Baso # (Auto) Reticulocyte # Immature Gran # (Auto) PT INR APTT PTT Ratio Sodium Potassium Chloride Carbon Dioxide Anion Gap BUN Creatinine Est Cr Clr Drug Dosing Est GFR ( Amer) Est GFR (Non-Af Amer) BUN/Creatinine Ratio Glucose POC Glucose Calcium Magnesium Iron Transferrin Ferritin Total Bilirubin AST ALT Alkaline Phosphatase Troponin I High Sens Total Protein Albumin Globulin Albumin/Globulin Ratio Vitamin B12 Folate Procalcitonin Urine Color Urine Appearance Urine pH Ur Specific [place] Urine Protein Urine Glucose (UA) Urine Ketones Urine Blood Urine Nitrite Urine Bilirubin Urine Urobilinogen Ur Leukocyte Esterase Urine WBC (Auto) Urine RBC (Auto) U Hyaline Cast (Auto) U Epithel Cells (Auto) Urine Bacteria (Auto) Adenovirus (PCR) Not Detected B. pertussis DNA (PCR) Not Detected B.parapertussis DNA PCR Not Detected C. pneumoniae DNA (PCR) Not Detected Coronavirus OC43 (PCR) Not Detected Coronavirus HKU1 (PCR) Not Detected Coronavirus 229E (PCR) Not Detected SARS-CoV-2 (PCR) Not Detected Coronavirus NL63 (PCR) Not Detected Human Metapneumovir PCR Not Detected Influenza Type A (PCR) Not Detected Influenza Type B (PCR) Not Detected M. pneumoniae (PCR) Not Detected Parainfluenza 1 (PCR) Not Detected Parainfluenza 2 (PCR) Not Detected Parainfluenza 3 (PCR) Not Detected Parainfluenza 4 (PCR) Not Detected RSV (RT-PCR) RSV (PCR) Not Detected Entero/Rhino (PCR) Not Detected
[2021-06-26] MEDS ORDERED: FUROSEMIDE INJ 20 MG/2 ML VIAL IV ONE (13:25)
[2021-06-26] MEDS ORDERED: POTASSIUM CHLORIDE 10 MEQ TABCR PO ONE (13:25)
--- NOTE | 2021-06-26 16:00 | Hospitalist Progress Note ---
Date of Service June 26, 2021 Assessment & Plan (1) Pneumonia: Plan: Pneumonia CXR:Patchy bibasilar densities likely representing a bibasilar pneumonia. This could be due to a viral process or aspiration. Negative Biofire Normal Procalcitonin Blood Culture: No growth to date Continue Azithromycin, Rocephin Acute diastolic heart failure Mitral Regurgitation Received IV Lasix Monitor volume status, electrolytes Appreciate Cardiology Input (2) Elevated troponin I level: Plan: H/O nonobstructive CAD on cardiac cath July 2020 Likely demand ischemia ECHO showed no wall motion abnormality Continue home meds (3) Anemia: Plan: Anemia of chronic disease No obvious signs of bleeding Low Serum Iron level Underlying prostate cancer may be contributing Follows with oncology as an outpatient Started on Iron supplements (4) Paroxysmal atrial fibrillation: Plan: S/p cardioversion on 04/30/2021 Rate controlled Continue metoprolol and diltiazem Anticoagulated with Eliquis (5) History of DVT (deep vein thrombosis): Plan: on Eliquis (6) History of pulmonary embolism: Plan: Continue Eliquis (7) Diabetes mellitus: Plan: Recent Hgb A1c 6.0 Hold oral agents Utilize NovoLog per protocol while hospitalized (8) Cancer of prostate: Plan: Follows with urology, Dr. Alford and medical oncologist at [facility] Plans to establish with Dr. Goyo Thornton locally (9) DVT prophylaxis: Plan: On Eliquis Admission and Anticipated Discharge Date Admission Date: June 25, 2021 Subjective Patient is seen and examined at bedside States feeling better today Dyspnea better Reports minimal cough Denies chest pain, nausea, dizziness, abd pain Review of Systems Review of Systems: All systems reviewed & are unremarkable except as noted in Subjective Physical Exam Physical Exam: Physical Exam: Vitals signs as noted above General Appearance:Moderately built and nourished, no apparent distress Head: normocephalic, Atraumatic Eyes: normal inspection, EOMI Neck: supple, Trachea midline Respiratory/Chest: Normal breath sounds, minimal basal rales Cardiovascular: S1, S2, + murmur Abdomen/GI:Soft, Non tender, Bowel sounds present Extremities/Musculoskeletal:normal inspection, Trace edema Neurologic/Psych:AAOX3, grossly no focal neurological deficits Skin: normal color, warm Results & Data Results & Data ([facility]) Vital Signs (Past 12 Hours) Vital Signs Temp Pulse Pulse Resp BP BP Pulse Ox 06/26/21 15:13 36.4 C L 77 17 105/68 93 06/26/21 15:01 92 H 06/26/21 11:01 37.1 C 76 23 136/76 95 06/26/21 08:23 92 H 06/26/21 07:30 36.9 C 88 21 138/79 94 Laboratory Results Short CBC 06/26/21 Range/Units 05:53 WBC 5.15 (4.8-10.8) K/uL Hgb 8.9 L (14.0-18.0) g/dL Hct 28.2 L (42-52) % Plt Count 167 (130-400) K/uL BMP 06/26/21 05:53 Sodium 138 Potassium 3.6 Chloride 107 Carbon Dioxide 25 BUN 14 Creatinine 0.88 Glucose 99 Calcium 8.2 L (1) Pneumonia Laterality: unspecified laterality Lung location: unspecified part of lung Pneumonia type: due to unspecified organism Qualified Code(s): J18.9 - Pneumonia, unspecified organism (2) Anemia Anemia type: unspecified type Qualified Code(s): D64.9 - Anemia, unspecified
[2021-06-26] MEDS: AZITHROMYCIN 500 MG in DEXTROSE 5% 250 ML IV SCH (19:16)
[2021-06-26] MEDS: ASPIRIN 81 MG ECTAB PO SCH (20:47)
[2021-06-26] MEDS: SOLIFENACIN SUCCINATE PO SCH (20:48)
[2021-06-26] MEDS: ATORVASTATIN 40 MG TAB PO SCH (20:48)
[2021-06-27 06:50] LABS: Hematocrit (blood only) 28.8 % (42-52); Hemoglobin 9.1 g/dL (14.0-18.0); Mean Corpuscular Hemoglobin 25.8 pg (25-34); Mean Corpuscular Hgb Conc 31.6 g/dL (32-36); Mean Corpuscular Volume 81.6 fL (80-100); Mean Platelet Volume 9.4 fL (7.4-10.4); Platelet Count 187 K/uL (130-400); RDW Coefficient of Variation 13.9 % (11.5-14.5); RDW Standard Deviation 41.9 fL (36.4-46.3); Red Blood Count 3.53 M/uL (4.7-6.1); White Blood Count 5.41 K/uL (4.8-10.8)
[2021-06-27 07:31] LABS: BUN Creatinine Ratio 17.3 (10-20); Calcium 8.6 mg/dl (8.5-10.1); Creatinine Clr Calc Pharmacy 71.8 ml/min; Est GFR (African American) 86.5 ml/min; Est GFR (Non-African American) 74.6 ml/min; Magnesium 1.7 mg/dl (1.7-2.4); Potassium 3.9 mmol/L (3.5-5.1)
--- NOTE | 2021-06-27 07:38 | Electrocardiogram Report ---
Test Reason : Blood Pressure : / mmHG Vent. Rate : 088 BPM Atrial Rate : 088 BPM P-R Int : 164 ms QRS Dur : 088 ms QT Int : 390 ms P-R-T Axes : 035 -26 059 degrees QTc Int : 471 ms Normal sinus rhythm Normal ECG When compared with ECG of 25-JUN-2021 10:04, No significant change was found Confirmed by Jourdan Lawler ([id number]) on 06/27/2021 7:37:59 AM Referred By: REFERRED SELF Confirmed By:Jourdan Lawler
[2021-06-27] MEDS: APIXABAN 5 MG TABLET PO SCH ×2 (07:57→20:12)
[2021-06-27] MEDS: PANTOprazole 40 MG TAB PO SCH (07:57)
[2021-06-27] MEDS: FERROUS GLUCONATE 324 MG TAB PO SCH ×2 (07:57→17:09)
[2021-06-27] MEDS: CYANOCOBALAMIN (B-12) 100 MCG TABLET PO SCH (07:57)
[2021-06-27] MEDS: METOPROLOL SUCC 50MG EXT REL TAB PO SCH ×2 (07:57→20:14)
[2021-06-27] MEDS: dilTIAZem HCL 120 MG CAPCR PO SCH (07:57)
[2021-06-27] MEDS: ENZALUTAMIDE 40 MG PO SCH (07:58)
[2021-06-27] MEDS: INSULIN ASPART PER UNIT SC SCH ×4 (08:00→20:15)
[2021-06-27] MEDS: cefTRIAXone SODIUM 2,000 MG in DEXTROSE 5% 50 ML IV SCH (12:27)
--- NOTE | 2021-06-27 13:51 | Cardiology Progress Note ---
Date of Service June 27, 2021 Assessment & Plan (1) Bilateral pneumonia: (2) Chronic diastolic heart failure: (3) Elevated troponin: (4) Mitral regurgitation: (5) ASCVD (arteriosclerotic cardiovascular disease): (6) Atrial fibrillation status post cardioversion: Plan: 75-year-old patient hospitalized with bilateral pneumonia. Received 1 dose of IV furosemide yesterday to optimize volume status. He appears euvolemic today however remains mildly hypoxic. Recommend continued treatment of pneumonia as per internal medicine. Monitor fluid balance, daily weight. Reevaluate volume status daily determine need for IV diuretics, however, the setting of severe sepsis prefer to keep her euvolemic to slightly hypervolemic. Admission and Anticipated Discharge Date Admission Date: June 25, 2021 Subjective Patient seen and examined at the bedside. Feeling better from a respiratory perspective. Denies chest pain or palpitations. Telemetry reveals sinus rhythm at 60 bpm. Offers no new concerns/complaints. Review of Systems Review of Systems: All systems reviewed & are unremarkable except as noted in Subjective Physical Exam Constitutional: well developed and well nourished; no acute distress Respiratory: normal respiratory effort; no respiratory distress and no labored breathing Auscultation: + crackles (Bases bilateral); no rhonchi and no wheezes Cardiovascular: Rate/Rhythm: regular rate and regular rhythm Heart Sounds: normal S1, normal S2 and + murmur (1/6 systolic left sternal border) Vessels: radial pulses present; no JVD and no carotid bruit Extremities: no edema Gastrointestinal (Abdomen): Inspection/Auscultation: abdomen normal to inspection and normal bowel sounds; abdomen not distended Percuss ion/Palpation: abdomen soft; abdomen nontender, no guarding and abdomen not rigid Neurologic: CN's II-XI intact bilaterally and moves all extremities; no focal motor deficits Psychiatric: A+Ox3, euthymic affect Results & Data ([facility]) Vital Signs (Past 12 Hours) Vital Signs Temp Pulse Pulse Resp BP Pulse Ox 06/27/21 11:41 36.5 C 64 19 110/69 97 06/27/21 07:24 37.0 C 63 17 108/67 95 06/27/21 06:14 86 06/27/21 04:20 36.7 C 78 20 122/77 97
--- NOTE | 2021-06-27 14:31 | Hospitalist Progress Note ---
Date of Service June 27, 2021 Assessment & Plan (1) Pneumonia: Plan: Pneumonia CXR:Patchy bibasilar densities likely representing a bibasilar pneumonia. This could be due to a viral process or aspiration. Negative Biofire Normal Procalcitonin Blood Culture: No growth to date Continue Azithromycin, Rocephin Continue supplemental oxygen as needed May need 2 step prior to discharge Acute diastolic heart failure Mitral Regurgitation Received IV Lasix Monitor volume status, electrolytes Appreciate Cardiology Input Euvolemic currently (2) Elevated troponin I level: Plan: H/O nonobstructive CAD on cardiac cath July 2020 Likely demand ischemia ECHO showed no wall motion abnormality Continue home meds (3) Anemia: Plan: Anemia of chronic disease No obvious signs of bleeding Low Serum Iron level Underlying prostate cancer may be contributing Follows with oncology as an outpatient Continue Iron supplements (4) Paroxysmal atrial fibrillation: Plan: S/p cardioversion on 04/30/2021 Rate controlled Continue metoprolol and diltiazem Anticoagulated with Eliquis (5) History of DVT (deep vein thrombosis): Plan: on Eliquis (6) History of pulmonary embolism: Plan: Continue Eliquis (7) Diabetes mellitus: Plan: Recent Hgb A1c 6.0 Hold oral agents Utilize NovoLog per protocol while hospitalized (8) Cancer of prostate: Plan: Follows with urology, Dr. Alford and medical oncologist at [facility] Plans to establish with Dr. Goyo Thornton locally (9) DVT prophylaxis: Plan: On Eliquis Admission and Anticipated Discharge Date Admission Date: June 25, 2021 Subjective Patient is seen and examined at bedside Continues to improve clinically Less Dyspnea today No new complaints cough improving Denies chest pain, nausea, dizziness, abd pain Review of Systems Review of Systems: All systems reviewed & are unremarkable except as noted in Subjective Physical Exam Physical Exam: Physical Exam: Vitals signs as noted above General Appearance:Moderately built and nourished, no apparent distress Head: normocephalic, Atraumatic Eyes: normal inspection, EOMI Neck: supple, Trachea midline Respiratory/Chest: Normal breath sounds, CTA Cardiovascular: S1, S2, + murmur Abdomen/GI:Soft, Non tender, Bowel sounds present Extremities/Musculoskeletal:normal inspection, Trace edema--Improved Neurologic/Psych:AAOX3, grossly no focal neurological deficits Skin: normal color, warm Results & Data Results & Data ([facility]) Vital Signs (Past 12 Hours) Vital Signs Temp Pulse Pulse Resp BP Pulse Ox 06/27/21 11:41 36.5 C 64 19 110/69 97 06/27/21 07:24 37.0 C 63 17 108/67 95 06/27/21 06:14 86 06/27/21 04:20 36.7 C 78 20 122/77 97 Laboratory Results Short CBC 06/27/21 Range/Units 06:08 WBC 5.41 (4.8-10.8) K/uL Hgb 9.1 L (14.0-18.0) g/dL Hct 28.8 L (42-52) % Plt Count 187 (130-400) K/uL BMP 06/27/21 06:08 Sodium 137 Potassium 3.9 Chloride 105 Carbon Dioxide 25 BUN 17 Creatinine 0.98 Glucose 108 H Calcium 8.6 (1) Pneumonia Laterality: unspecified laterality Lung location: unspecified part of lung Pneumonia type: due to unspecified organism Qualified Code(s): J18.9 - Pneumonia, unspecified organism (2) Anemia Anemia type: unspecified type Qualified Code(s): D64.9 - Anemia, unspecified
[2021-06-27] MEDS: ASPIRIN 81 MG ECTAB PO SCH (20:12)
[2021-06-27] MEDS: AZITHROMYCIN 500 MG in DEXTROSE 5% 250 ML IV SCH (20:12)
[2021-06-27] MEDS: ATORVASTATIN 40 MG TAB PO SCH (20:13)
[2021-06-27] MEDS: SOLIFENACIN SUCCINATE PO SCH (20:14)
[2021-06-28 06:47] LABS: Calcium 8.5 mg/dl (8.5-10.1); Creatinine Clr Calc Pharmacy 70.3 ml/min; Est GFR (African American) 84.4 ml/min; Est GFR (Non-African American) 72.8 ml/min; Potassium 3.8 mmol/L (3.5-5.1)
[2021-06-28] MEDS: INSULIN ASPART PER UNIT SC SCH ×2 (09:00→11:41)
[2021-06-28] MEDS: CYANOCOBALAMIN (B-12) 100 MCG TABLET PO SCH (09:02)
[2021-06-28] MEDS: PANTOprazole 40 MG TAB PO SCH (09:02)
[2021-06-28] MEDS: ENZALUTAMIDE 40 MG PO SCH (09:02)
[2021-06-28] MEDS: dilTIAZem HCL 120 MG CAPCR PO SCH (09:03)
[2021-06-28] MEDS: METOPROLOL SUCC 50MG EXT REL TAB PO SCH (09:03)
[2021-06-28] MEDS: FERROUS GLUCONATE 324 MG TAB PO SCH (09:03)
[2021-06-28] MEDS: APIXABAN 5 MG TABLET PO SCH (09:03)
[2021-06-28 11:55] VITALS: TEMP 98.1; O2SAT 90
--- NOTE | 2021-06-28 12:15 | Hospitalist Progress Note ---
Date of Service June 28, 2021 Assessment & Plan (1) Pneumonia: Plan: Pneumonia CXR:Patchy bibasilar densities likely representing a bibasilar pneumonia. This could be due to a viral process or aspiration. Negative Biofire Normal Procalcitonin Blood Culture: No growth to date Continue Azithromycin, Rocephin Continue supplemental oxygen as needed Clinically Improving 2 step: Did not qualify for Oxygen Acute diastolic heart failure Mitral Regurgitation Received IV Lasix Monitor volume status, electrolytes Appreciate Cardiology Input Euvolemic currently Plan to discharge on 20 mg Lasix as needed for edema or weight gain (2) Elevated troponin I level: Plan: H/O nonobstructive CAD on cardiac cath July 2020 Likely demand ischemia ECHO showed no wall motion abnormality Continue home meds (3) Anemia: Plan: Anemia of chronic disease No obvious signs of bleeding Low Serum Iron level Underlying prostate cancer may be contributing Follows with oncology as an outpatient Continue Iron supplements (4) Paroxysmal atrial fibrillation: Plan: S/p cardioversion on 04/30/2021 Rate controlled Continue metoprolol and diltiazem Anticoagulated with Eliquis (5) History of DVT (deep vein thrombosis): Plan: on Eliquis (6) History of pulmonary embolism: Plan: Continue Eliquis (7) Diabetes mellitus: Plan: Recent Hgb A1c 6.0 Hold oral agents Utilize NovoLog per protocol while hospitalized (8) Cancer of prostate: Plan: Follows with urology, Dr. Alford and medical oncologist at [facility] Plans to establish with Dr. Goyo Thornton locally (9) DVT prophylaxis: Plan: On Eliquis Admission and Anticipated Discharge Date Admission Date: June 25, 2021 Subjective Patient is seen and examined at bedside Feels well No new complaints Only minimal cough Denies chest pain, dyspnea, nausea, dizziness, abd pain Review of Systems Review of Systems: All systems reviewed & are unremarkable except as noted in Subjective Physical Exam Physical Exam: Physical Exam: Vitals signs as noted above General Appearance:Moderately built and nourished, no apparent distress Head: normocephalic, Atraumatic Eyes: normal inspection, EOMI Neck: supple, Trachea midline Respiratory/Chest: Normal breath sounds, Minimal R basal rales Cardiovascular: S1, S2, + murmur Abdomen/GI:Soft, Non tender, Bowel sounds present Extremities/Musculoskeletal:normal inspection, Trace edema--Improved Neurologic/Psych:AAOX3, grossly no focal neurological deficits Skin: normal color, warm Results & Data Results & Data ([facility]) Vital Signs (Past 12 Hours) Vital Signs Temp Pulse Pulse Pulse Pulse Pulse Resp 06/28/21 11:54 36.7 C 81 20 06/28/21 10:05 106 H 95 H 70 06/28/21 07:13 36.9 C 59 L 20 06/28/21 07:08 63 06/28/21 03:05 36.5 C 76 18 Resp Resp Resp BP BP Pulse Ox Pulse Ox 06/28/21 11:54 110/66 90 06/28/21 10:05 22 20 16 95 06/28/21 07:13 111/64 95 06/28/21 07:08 06/28/21 03:05 103/59 L 96 Pulse Ox Pulse Ox 06/28/21 11:54 06/28/21 10:05 95 93 06/28/21 07:13 06/28/21 07:08 06/28/21 03:05 Laboratory Results [facility] 06/28/21 05:12 Sodium 136 Potassium 3.8 Chloride 104 Carbon Dioxide 27 BUN 17 Creatinine 1.00 Glucose 91 Calcium 8.5 (1) Anemia Anemia type: unspecified type Qualified Code(s): D64.9 - Anemia, unspecified (2) Pneumonia Laterality: unspecified laterality Lung location: unspecified part of lung Pneumonia type: due to unspecified organism Qualified Code(s): J18.9 - Pneumonia, unspecified organism
--- NOTE | 2021-06-28 12:42 | Discharge Summary ---
Date of Service June 28, 2021 Admission HPI Per Admitting Provider 75-year-old male with PMH nonobstructive CAD, history of DVT and PE anticoagulated on Eliquis, paroxysmal atrial fibrillation s/p recent cardioversion, prostate cancer, diastolic dysfunction, DM type II, and other problems listed below who presents to the ED for evaluation of shortness of breath. Patient notes that his symptoms began about 1 week ago. He reports worsening exertional shortness of breath. He has also had a moist, nonproductive cough. Last night while trying to sleep shortness of breath worsened while lying flat as well as coughing. Patient denies any sick contacts. No fevers or chills. Denies chest pain and palpitations. No lightheadedness, dizziness, diaphoresis, syncopal events. Denies abdominal pain, nausea, vomiting, diarrhea. Has chronic urinary incontinence which is unchanged from baseline. In the ED, patient is hemodynamically stable. CXR is showing bibasilar opacities consistent with pneumonia. Labs show Hgb 9.7, high- sensitivity troponin 54 --> 85.7. EKG demonstrates NSR. Patient was given IV ceftriaxone. Admission Exam Per Admitting Provider Physical Exam Constitutional: WD/WN, vitals as above Eyes: PERRL, conjunctivae normal, anicteric sclerae ENMT: external ear and nose normal, oropharynx normal Respiratory: normal respiratory effort; no respiratory distress Auscultation: + crackles (Bilateral bases) Cardiovascular: Rate/Rhythm: regular rate and regular rhythm Vessels: normal peripheral pulses Extremities: no edema Gastrointestinal (Abdomen): normal bowel sounds, soft, nontender, no hepatosplenomegaly Musculoskeletal: no cyanosis or clubbing, extremities motor strength 5/5 Skin: no rashes, warm and dry Neurologic: PERRL, EOMI, accommodation nl, no face palsy, no dysarthria Psychiatric: A+Ox3, euthymic affect Principal Diagnosis Pneumonia Acute diastolic heart failure Discharge Data Allergies Allergy/AdvReac Type Severity Reaction Status Date / Time adhesive AdvReac Intermediate REDNESS Verified 06/25/21 11:29 WITH EKG ELECTRODES Consultations 06/25/21 16:00 ED Decision to Admit Stat 06/25/21 19:09 Consult Cardiology Routine Hospital Course (1) Pneumonia: Pneumonia CXR:Patchy bibasilar densities likely representing a bibasilar pneumonia. This could be due to a viral process or aspiration. Negative Biofire Normal Procalcitonin Blood Culture: No growth to date Continue Azithromycin, Rocephin Continue supplemental oxygen as needed Clinically Improving 2 step: Did not qualify for Oxygen Acute diastolic heart failure Mitral Regurgitation Received IV Lasix Monitor volume status, electrolytes Appreciate Cardiology Input Euvolemic currently Plan to discharge on 20 mg Lasix as needed for edema or weight gain (2) Elevated troponin I level: H/O nonobstructive CAD on cardiac cath July 2020 Likely demand ischemia ECHO showed no wall motion abnormality Continue home meds (3) Anemia: Anemia of chronic disease No obvious signs of bleeding Low Serum Iron level Underlying prostate cancer may be contributing Follows with oncology as an outpatient Continue Iron supplements (4) Paroxysmal atrial fibrillation: S/p cardioversion on 04/30/2021 Rate controlled Continue metoprolol and diltiazem Anticoagulated with Eliquis (5) History of DVT (deep vein thrombosis): on Eliquis (6) History of pulmonary embolism: Continue Eliquis (7) Diabetes mellitus: Recent Hgb A1c 6.0 Hold oral agents Utilize NovoLog per protocol while hospitalized (8) Cancer of prostate: Follows with urology, Dr. Alford and medical oncologist at [facility] Plans to establish with Dr. Goyo Thornton locally (9) DVT prophylaxis: On Eliquis Total Time Total Time Spent Total Time Spent (In Minutes): 48 minutes Discharge Plan Discharge Items Patient Disposition: Home - Self-Care Reason For Visit: PNEUMONIA, ELEVATED TROP Discharge Diagnosis: Pneumonia Acute diastolic heart failure Activity: Per Instructions section Exercise/Sports: Gradually increase as tolerated Non-emergency contact: Primary Care Provider and Dental Professional Call non-emergency contact if: you have any medication questions, your symptoms worsen, your pain is concerning for you and you have a fever Follow-up/Referrals: Jimmy Allen [Primary Care Provider] - Diet: Carb Consistent or DM2 and Heart Healthy Addtl Attending Provider Instructions: Follow-up with your primary care physician Dr.Victor Allen in 1 week Follow-up with your home health clinical liaison in 2-4 weeks -- Complete antibiotic course as prescribed for pneumonia. --Your blood cultures are pending at the time of discharge. Follow-up with your physician for results. -- Take furosemide 20 mg every other day as needed only for edema or weight gain. Further instructions as recommended by your home health clinical liaison. Seek immediate medical attention if your symptoms reoccur or worsen Please take all medications as instructed on discharge list below. Please call if you have any questions or problems. You can reach a [facility] hospitalist on duty at [facility] 24 hours a day by calling [phone] Call your Primary Care doctor if any of the following symptoms or problems start or get worse: * Shortness of breath or difficulty breathing * Wake up at night short of breath * Chest pain * Cough * Swelling of your hands, feet, or legs * More fatigued or tired with your normal activity * Palpitations - sudden fast heart beats WEIGHT * Weigh yourself every morning after using the bathroom. * Use the same scale. * Wear the same amount of clothing. * Write your weight down on a chart. * Call your Primary Care doctor if you gain more than 2-3 pounds in 1-2 days. MEDICATIONS * Use this discharge instruction sheet for medication instructions. * Take your medications at the time your doctor ordered. * Do not skip a dose of your medicines. * If you miss a dose of medicine, take it as soon as possible, but DO NOT DOUBLE A DOSE. * Read your medicine information when you get home. * Know all of the side effects of your medicine. If in doubt, ask your pharmacist * Call your Primary Care doctor's office if you have any side effects. * Be sure all of your doctors know what medicine and herbs you take (including cold, flu, and herbal medicine). Take the following with you to your follow-up doctor appointments: * Weight Chart * Medication List * List of questions Do not drink excessive alcohol, beer or wine. Pending Studies at Discharge: Yes Studies:: Blood Cultures Stand-Alone Forms: My [facility], Smoking Cessation Medications and DC Order Prescriptions: New ferrous gluconate 324 mg (38 mg iron) Tablet 324 mg PO DAILY Qty: 30 RF: 0 cefuroxime axetil 500 mg tablet 500 mg PO BID Qty: 8 RF: 0 azithromycin 250 mg tablet 250 mg PO DAILY Qty: 2 RF: 0 furosemide [Lasix] 20 mg tablet 20 mg PO Q2D Qty: 15 RF: 0 Continued metformin 500 mg tablet 500 mg PO QAM RF: 0 Xtandi 40 mg capsule 160 mg PO DAILY@1200 RF: 0 alendronate 70 mg tablet 70 mg PO WK RF: 0 hydrocodone-acetaminophen 10-325 mg tablet 1 tab PO DAILY PRN (Reason: Pain) RF: 0 aspirin 81 mg Capsule 81 mg PO HS RF: 0 atorvastatin [Lipitor] 10 mg tablet 40 mg PO HS RF: 0 solifenacin [Vesicare] 10 mg tablet 10 mg PO HS RF: 0 apixaban 5 mg (74 tabs) tablets,dose pack 5 mg PO Q12H Qty: 74 RF: 0 omeprazole 20 mg capsule,delayed release(DR/EC) 20 mg PO QAM RF: 0 diltiazem HCl 120 mg capsule,extended release 24hr 120 mg PO QAM RF: 0 metoprolol succinate [Toprol XL] 100 mg tablet extended release 24 hr 100 mg PO AMHS RF: 0 Discharge Orders: Discharge Order (Routine); Ordered 06/28/21 Ordered By: Joseph Loo Admission Data Admit Date/Time: 06/25/21 16:06 Attending Provider: Joseph Loo Admit Provider: Shavonne Yates Primary Care Provider: Jimmy Allen Other Providers: Shavonne Yates ; Eduard Allan
[2021-06-28 13:04] VITALS: BP 103/59; PULSE 64
[2021-06-28] MEDS: cefTRIAXone SODIUM 2,000 MG in DEXTROSE 5% 50 ML IV SCH (15:05)
--- NOTE | 2021-06-28 21:59 | Electrocardiogram Report ---
Test Reason : Blood Pressure : / mmHG Vent. Rate : 064 BPM Atrial Rate : 064 BPM P-R Int : 180 ms QRS Dur : 086 ms QT Int : 436 ms P-R-T Axes : 022 -19 031 degrees QTc Int : 449 ms Normal sinus rhythm Normal ECG When compared with ECG of 26-JUN-2021 05:04, No significant change was found Confirmed by John Long ([id number]) on 06/28/2021 9:59:18 PM Referred By: REFERRED SELF Confirmed By:John Long
== END 2021-06-28 15:06 | disposition home or self-care (01) | DRG 193 ==
LOC: ED 09:19 → SUATTDRO 16:06 → 2S 16:06 → 2W 06-27 16:09

== ENCOUNTER 2021-07-08 10:54 | Inpatient (IN) ==
[2021-07-08 12:05] LABS: Influenza A virus by PCR Negative (Neg); Influenza B virus by PCR Negative (Neg); RSV by PCR Negative (Neg); SARS CoV2 RNA(COVID-19) InHosp NEGATIVE (Negative)
[2021-07-08 12:09] LABS: Basophils # (auto) 0.04 K/uL (0-0.2); Basophils % (auto) 0.5 %; Eosinophils # (auto) 0.12 K/uL (0-0.5); Eosinophils % (auto) 1.6 %; Hematocrit (blood only) 30.9 % (42-52); Hemoglobin 9.5 g/dL (14.0-18.0); Immature Granulocytes # (auto) 0.04 K/uL (0.00-0.02); Immature Granulocytes % (auto) 0.5 %; Lymphocytes # (auto) 0.88 K/uL (1.2-3.4); Mean Corpuscular Hemoglobin 24.9 pg (25-34); Mean Corpuscular Hgb Conc 30.7 g/dL (32-36); Mean Corpuscular Volume 81.1 fL (80-100); Mean Platelet Volume 9.8 fL (7.4-10.4); Monocytes # (auto) 0.78 K/uL (0.11-0.59); Monocytes % (auto) 10.6 %; Neutrophils % (auto) 74.8 %; Platelet Count 156 K/uL (130-400); RDW Standard Deviation 41.5 fL (36.4-46.3); Red Blood Count 3.81 M/uL (4.7-6.1); White Blood Count 7.36 K/uL (4.8-10.8)
[2021-07-08 12:14] LABS: INR 1.1 (0.9-1.1); Partial Thromboplastin Ratio 0.9; Partial Thromboplastin Time 24.9 Seconds (21.0-31.0); Prothrombin Time 11.9 Seconds (9.0-12.0)
[2021-07-08 12:30] LABS: Albumin Level 3.6 gm/dl (3.4-5.0); BUN Creatinine Ratio 15.6 (10-20); Bilirubin,Total 0.9 mg/dl (0.2-1.0); Calcium 8.8 mg/dl (8.5-10.1); Creatinine Clr Calc Pharmacy 64.7 ml/min; Est GFR (Non-African American) 65.6 ml/min; Globulin 3.7 gm/dl (2.5-4.0); Magnesium 1.6 mg/dl (1.7-2.4); Total Protein 7.3 gm/dl (6.0-8.3)
--- NOTE | 2021-07-08 12:40 | XRay Report ---
XR chest 1V portable HISTORY: 75 years-old Male SOB acute shortness breath COMPARISON: Chest radiograph 06/25/2021 TECHNIQUE: Portable AP view of the chest FINDINGS: The cardiac silhouette is enlarged. Small pleural effusions with mild bibasilar opacities, similar to prior. Pulmonary vascular congestion. No pneumothorax. Degenerative changes of the shoulders and spi ne. IMPRESSION: 1. Cardiomegaly with pulmonary vascular congestion. 2. Small pleural effusions with mild bibasilar opacities suggestive of atelectasis versus pneumonitis . ACT 112: Negative or not required by law. The above report was generated using voice recognition software. It may contain grammatical, syntax o r spelling errors. Electronically signed by: Cuate Farmer M.D. 07/08/2021 12:39 PM
[2021-07-08] MEDS ORDERED: MAGNESIUM SULFATE / D5W 1 GM/100 ML BAG IV STA (13:06)
[2021-07-08] MEDS ORDERED: FUROSEMIDE 40 MG/4 ML VIAL IV ONE (13:06)
[2021-07-08 13:43] LABS: Troponin I High Sensitivity 83.2 pg/ml (0-20)
[2021-07-08 13:57] LABS: Phosphorus 3.8 mg/dl (2.5-4.9)
--- NOTE | 2021-07-08 15:00 | Electrocardiogram Report ---
Test Reason : Blood Pressure : / mmHG Vent. Rate : 083 BPM Atrial Rate : 083 BPM P-R Int : 156 ms QRS Dur : 086 ms QT Int : 382 ms P-R-T Axes : 022 -18 050 degrees QTc Int : 448 ms Normal sinus rhythm Possible Left atrial enlargement Borderline ECG When compared with ECG of 27-JUN-2021 05:18, No significant change was found Confirmed by Ventura Villa ([id number] on 07/08/2021 3:00:05 PM Referred By: REFERRED SELF Confirmed By:Anil Villa
--- NOTE | 2021-07-08 18:39 | History & Physical Report ---
Date of Service July 08, 2021 Assessment & Plan (1) Heart failure, diastolic, with acute decompensation: Plan: Acute diastolic heart failure Mitral Regurgitation Present on admission with worsening SOB . Recently discharge on Lasix 20mg every other day. CXR showed cardiomegaly with pulmonary vascular congestion. Small pleural effusions with mild bibasilar opacities suggestive of atelectasis versus pneumonitis. BNP elevated at 672 and troponin increase to 280 on admission Received IV Lasix 40mg IV in the ER ECHO from last admission showed moderate mitral regurgitation. Moderate concentric LVH. EF 60-65% Will consult cardiology for diuretic management Will reassess in am for additional lasix in the morning Will repeat CXR in am Monitor electrolytes while on IV lasix Elevated troponin I level:: H/O nonobstructive CAD on cardiac cath July 2020 Likely demand ischemia Denies any chest pain Troponin on admission peak to 280 Will trend troponin Continue aspirin/statin/metoprolol Hypomagnesemia Mg 1.6 on admission Mg replaced Continue monitor mg level Recent Pneumonia Pt was treated for pneumonia on last admission CXR on admission showed small pleural effusions with mild bibasilar opacities chow ggestive of atelectasis versus pneumonitis. He just completed a course of abx with Cefuroxime and azithromycin Will hold on abx for now since no leukocytosis and afebrile Will check Procalcitonin Anemia: Anemia of chronic disease No obvious signs of bleeding Low Serum Iron level Underlying prostate cancer may be contributing Follows with oncology as an outpatient Continue Iron supplements Paroxysmal atrial fibrillation: S/p cardioversion on 04/30/2021 Rate controlled Continue metoprolol and diltiazem Anticoagulated with Eliquis History of DVT (deep vein thrombosis)/ pulmonary embolism Continue Eliquis Diabetes mellitus: Recent Hgb A1c 6.0 on 04/28/21 Hold oral agents Utilize NovoLog per protocol while hospitalized Cancer of prostate: Follows with urology, Dr. Alford and medical oncologist at [facility] Plans to establish with Dr. Goyo Thornton locally DVT prophylaxis:: On Eliquis Code status DNR as per conversation with patient and History of Present Illness Chief Complaint: SOB Primary Care Provider: Jimmy Allen 75-year-old male with PMH nonobstructive CAD, history of DVT and PE anticoagulated on Eliquis, paroxysmal atrial fibrillation s/p recent cardioversi on, prostate cancer, diastolic dysfunction, DM type II, and other problems listed below who presents to the ED for evaluation of shortness of breath.He was recently admitted and discharge on 06/30 for SOB due to pneumonia and CHF. Pt said about few days ago he started to SOB that worsening with activity. He said that he developed edema in his lower extremities. He said that he has been using 2 pillows to sleep due to orthopnea. Denies any chest pain, palpitation, dizziness and fever. Allergies Allergy/AdvReac Type Severity Reaction Status Date / Time adhesive AdvReac Intermediate REDNESS Verified 07/08/21 18:04 WITH EKG ELECTRODES Home Medications Medication Instructions Recorded Confirmed Type alendronate 70 mg tablet 70 mg PO WK tab 10/10/18 07/08/21 History enzalutamide 40 mg capsule (Xtandi) 160 mg PO DAILY@1200 10/12/19 07/08/21 Hi story metformin 500 mg tablet 500 mg PO QAM 10/12/19 07/08/21 History aspirin 81 mg capsule 81 mg PO HS 04/12/21 07/08/21 History hydrocodone 10 mg-acetaminophen 1 tab PO DAILY PRN 04/12/21 07/08/21 History 325 mg tablet solifenacin 10 mg tablet (Vesicare) 10 mg PO HS 04/12/21 07/08/21 History apixaban 5 mg (74 tabs) tablets in 5 mg PO Q12H #74 ea 04/17/21 07/08/21 Rx a dose pack diltiazem HCl 120 mg 120 mg PO QAM 04/27/21 07/08/21 History capsule,extended release 24 hr metoprolol succinate 100 mg 100 mg PO AMHS 04/27/21 07/08/21 History tablet,extended release 24 hr (Toprol XL) omeprazole 20 mg capsule,delayed 20 mg PO QAM 04/27/21 07/08/21 History release ferrous gluconate 324 mg (38 mg 324 mg PO DAILY #30 tab 06/28/21 07/08/21 Rx iron) tablet furosemide 20 mg tablet (Lasix) 20 mg PO Q2D #15 tab 06/28/21 07/08/21 Rx atorvastatin 40 mg tablet 40 mg PO HS 07/08/21 07/08/21 History Past Med/Surg History Medical History Cancer of prostate Chronic anticoagulation Diabetes mellitus Dyslipidemia Elevated troponin History of DVT (deep vein thrombosis) History of pulmonary embolism Hx of brachytherapy Hypomagnesemia Paroxysmal atrial fibrillation Pneumonitis Prostate cancer (2009) Surgical History H/O heart surgery History of cardiac catheterization History of carpal tunnel surgery History of prostatectomy Hx of cholecystectomy Family History Mother Lung cancer Father Lung cancer Social History Smoking Status: Former smoker Second Hand Exposure: No; Do You Dip or Chew Tobacco: No; Tobacco Cessation Education Requested by Patient: No Hx Alcohol Use: No Hx Substance Use: No Preferred Language: [place] Communication Ability: Effective Analytical Statistician Required: No Beliefs That Will Affect Care: None marital status: Current Living Situation: Spouse How many Children do You have: 2 Other Information That Helps Us Care for You: No Feels Safe at Home: Yes Safety Concerns: Feels Safe At This Time Assistive Devices: Cane and Glasses Review of Systems Review of Systems: All systems reviewed & are unremarkable except as noted in HPI & below Physical Exam Physical Exam: General- No acute distress Head- atraumatic Eyes- PERRL, EOMI, ENT- oropharynx clear Neck- supple, no JVD Lungs- clear to auscultation Heart- regular rhythm; no murmur Abdomen- normal bowel sounds, soft, nontender Extremities- no calf tenderness, +edema Neuro- alert, oriented x 3; PERRL, EOMI; no facial palsy; no dysarthria Skin- warm & dry Results & Data Results & Data ([facility]) Vital Signs (Past 12 Hours) Vital Signs Temp Pulse Resp BP Pulse Ox 07/08/21 15:04 74 23 110/76 93 07/08/21 15:00 78 27 H 93 07/08/21 14:31 82 17 128/56 L 07/08/21 14:30 94 H 31 H 07/08/21 14:00 88 28 H 07/08/21 13:46 65 21 92 07/08/21 12:50 94 07/08/21 11:01 36.5 C 85 20 110/83 94 Diagnostic Findings XR chest 1V portable HISTORY: 75 years-old Male SOB acute shortness breath COMPARISON: Chest radiograph 06/25/2021 TECHNIQUE: Portable AP view of the chest FINDINGS: The cardiac silhouette is enlarged. Small pleural effusions with mild bibasilar opacities, similar to prior. Pulmonary vascular congestion. No pneumothorax. Degenerative changes of the shoulders and spine. IMPRESSION: 1. Cardiomegaly with pulmonary vascular congestion. 2. Small pleural effusions with mild bibasilar opacities suggestive of atelectasis versus pneumonitis. ACT 112: Negative or not required by law. The above report was generated using voice recognition software. It may contain grammatical, syntax or spelling errors. Electronically signed by: Cuate Farmer M.D. 07/08/2021 12:39 PM Dictated:07/08/21 1238 Transcribed: 07/08/21 1238 Code Status & VTE Plan VTE Prophylaxis Plan VTE Prophylaxis will be ordered: Yes
[2021-07-08] MEDS: ASPIRIN 81 MG ECTAB PO SCH (22:22)
[2021-07-08] MEDS: ATORVASTATIN 40 MG TAB PO SCH (22:22)
[2021-07-08] MEDS: APIXABAN 5 MG TABLET PO SCH (22:22)
[2021-07-08] MEDS: METOPROLOL SUCC 50MG EXT REL TAB PO SCH (22:22)
--- NOTE | 2021-07-09 01:31 | Emergency Department Note ---
Impression & Plan Heart failure, diastolic, with acute decompensation, Elevated troponin, Mitral regurgitation, Elevated brain natriuretic peptide (BNP) level, Dyspnea on minimal exertion ED Provider Note NAME: REMI COLE JR AGE: 75 SEX: M ARRIVES VIA: Walk-In INFORMANT: Patient ED PROVIDER(S): Ulysses Sharma MD CHIEF COMPLAINT: SOB PLAN: Disposition: Admit MEDICAL DECISION MAKING: The patient is a pleasant 75-year-old gentleman with a past medical history of hypertension, hyperlipidemia, atrial fibrillation on eliquis, moderate pulmonary htn per 04/13/2021 echo, Moderate mitral regurgitation and Grade II diastolic dysfunction per 06/26/2021 echo, recent COVID-19 infection in March 2021 and recent diagnosis of DVT and PE who presents to the emergency department accompanied by his for evaluation of recurrent so shortness of breath and congestion after being admitted to this facility recently for the same and managed for pneumonia. The patient denies any fevers, chills, nausea, vomiting, diarrhea or urinary symptoms. He initially denies any history of leg swelling however records do document this previously. On arrival the patient is fatigued appearing but no distress, afebrile stable vital signs. He has diminished breath sounds at the bases. Lungs are otherwise clear. He has 1+ bilateral lower extremity pitting edema. EKG without overt acute ischemia. Chest x-ray with vascular congestion and bibasilar opacities that are nonspecific. WBC was within normal limits. H/H similar to prior. Platelets wnl. Chemistry without metabolic acidosis. Magnesium 1.6 with repletion provided. Electrolytes otherwise unremarkable. LFTs unremarkable. BNP 672 similar to prior. Initial high-sensitivity troponin was elevated at 83, nonspecific and similar to recent. However delta 2-hour troponin was performed and did rise to 280. Upon reev aluation the patient denied any new symptoms. He did report diuresing significantly after initial dose of IV Lasix. He reports he was unable to assess if this improved his respiratory symptoms as he did not exert himself significantly. However, given the patient's elevated troponin he did agree with plan for admission. He denies any acute episode today or recently and rather he just reports progressive return of his previous shortness of breath and so ACS is considered to be less likely. Case was reviewed Dr. Franco who will evaluate the patient for admission. Triage Nursing notes reviewed and agree them. Prior medical records reviewed Vital Signs: reviewed and remarkable for no significant abnormalities Differential diagnosis: Reactive airway disease, pneumonia, pneumothorax, COPD, CHF, infections, cardiac ischemia, pulmonary embolism, musculoskeletal, gastrointestinal, as well as other pathologies. ER treatment provided: See below. Diagnostics interpreted by me: ECG: NSR, 83 bpm, no ectopy, no overt ST elevation or depression. Cardiac Monitoring: An order for continuous cardiac monitoring was placed and demonstrated NSR, 83 bpm, no ectopy. Laboratory studies: See below Imaging studies: See below Consultation(s): Case was discussed with Dr. Franco, [facility] [address] hospitalist who will evaluate the patient for admission. HPI: The patient is a pleasant 75-year-old gentleman with a past medical history of hypertension, hyperlipidemia, atrial fibrillation on eliquis, moderate pulmonary htn per 04/13/2021 echo, Moderate mitral regurgitation and Grade II diastolic dysfunction per 06/26/2021 echo, recent COVID-19 infection in March 2021 and recent diagnosis of DVT and PE who presents to the emergency department accompanied by his for evaluation of recurrent so shortness of breath and congestion after being admitted to this facility recently for the same and managed for pneumonia. The patient denies any fevers, chills, nausea, vomiting, diarrhea or urinary symptoms. He initially denies any history of leg swelling however records do document this previously. ROS: See above HPI for pertinent positives & negatives. A total of 10 systems reviewed and were otherwise negative. VITALS:See Below PHYSICAL EXAMINATION: GENERAL: Awake, alert, fatigued-appearing, in no distress HENT: Normocephalic, atraumatic. Oropharynx unremarkable. EYES: Normal conjunctiva. Sclera non-icteric. NECK: Supple. No nuchal rigidity. FROM. No JVD. RESPIRATORY: Diminished at bases, otherwise clear to auscultation. CARDIAC: Regular rate, normal rhythm. Extremities warm and well perfused. Pulses equal. ABDOMEN: Soft, non-distended. No tenderness to palpation. No rebound or guarding. No masses. RECTAL: Deferred. MUSCULOSKELETAL: Chest examination reveals no tenderness. The back is symmetrical on inspection without obvious abnormality. There is no CVA tenderness to palpation. No joint edema. LOWER EXTREMITIES: Calves are equal size bilaterally and non-tender. 1+ BLE edema. No discoloration. NEURO: Normal sensorium. No sensory or motor deficits noted. SKIN: No rash or jaundice noted. ED COURSE: Critical Care: I have personally spent greater than 35 minutes of critical care time in the d irect management of this patient. This includes bedside care, interpretation of diagnostic studies, and testing, discussion with consultants, patient, and family members, and other required patient management activities. This 35 minutes is in excess of all separately billable procedures. Ulysses Sharma MD Past Med/Surg History Medical History Cancer of prostate Chronic anticoagulation Diabetes mellitus Dyslipidemia Elevated troponin History of DVT (deep vein thrombosis) History of pulmonary embolism Hx of brachytherapy Hypomagnesemia Paroxysmal atrial fibrillation Pneumonitis Prostate cancer (2009) Surgical History H/O heart surgery History of cardiac catheterization History of carpal tunnel surgery History of prostatectomy Hx of cholecystectomy Family History Mother Lung cancer Father Lung cancer Social History Smoking Status: Former smoker Second Hand Exposure: No; Do You Dip or Chew Tobacco: No; Tobacco Cessation Education Requested by Patient: No Hx Alcohol Use: No Hx Substance Use: No Preferred Language: Indonesian Communication Ability: Effective Qa Automation Architect Required: No Beliefs That Will Affect Care: None marital status: Current Living Situation: Spouse How many Children do You have: 2 Other Information That Helps Us Care for You: No Feels Safe at Home: Yes Safety Concerns: Feels Safe At This Time Assistive Devices: Cane and Walker Allergies Allergies Allergy/AdvReac Type Severity Reaction Status Date / Time adhesive AdvReac Intermediate REDNESS Verified 07/08/21 18:04 WITH EKG ELECTRODES Home Meds Home Medications Medication Instructions Recorded Confirmed alendronate 70 mg tablet 70 mg PO WK tab 10/10/18 07/08/21 enzalutamide 40 mg capsule (Xtandi) 160 mg PO DAILY@1200 10/12/19 07/08/21 metformin 500 mg tablet 500 mg PO QAM 10/12/19 07/08/21 aspirin 81 mg capsule 81 mg PO HS 04/12/21 07/08/21 hydrocodone 10 mg-acetaminophen 1 tab PO DAILY PRN 04/12/21 07/08/21 325 mg tablet solifenacin 10 mg tablet (Vesicare) 10 mg PO HS 04/12/21 07/08/21 diltiazem HCl 120 mg 120 mg PO QAM 04/27/21 07/08/21 capsule,extended release 24 hr metoprolol succinate 100 mg 100 mg PO AMHS 04/27/21 07/08/21 tablet,extended release 24 hr (Toprol XL) omeprazole 20 mg capsule,delayed 20 mg PO QAM 04/27/21 07/08/21 release atorvastatin 40 mg tablet 40 mg PO HS 07/08/21 07/08/21 Previous Rx's Medication Instructions Recorded apixaban 5 mg (74 tabs) tablets in 5 mg PO Q12H #74 ea 04/17/21 a dose pack ferrous gluconate 324 mg (38 mg 324 mg PO DAILY #30 tab 06/28/21 iron) tablet furosemide 20 mg tablet (Lasix) 20 mg PO Q2D #15 tab 06/28/21 Results & Data (ED) Vital Signs Vital Signs - 24 hr 07/08/21 17:00 07/08/21 17:30 07/08/21 18:00 Pulse Rate 82 80 80 Pulse Rate from SpO2 Sensor 86 80 81 Respiratory Rate 19 21 22 Blood Pressure 104/67 130/68 120/64 Blood Pressure Mean 79 88 82 Pulse Oximetry 90 92 94 07/08/21 18:30 Pulse Rate 86 Pulse Rate from SpO2 Sensor 84 Respiratory Rate 28 H Blood Pressure Blood Pressure Mean Pulse Oximetry 93 Laboratory Data Attestation: I reviewed the patient's lab results. Result diagrams: 07/09/21 05:46 07/09/21 05:46 Lab Results 07/08/21 07/08/21 07/08/21 Range/Units 11:07 11:46 11:46 WBC 7.36 (4.8-10.8) K/uL RBC 3.81 L (4.7-6.1) M/uL Hgb 9.5 L (14.0-18.0) g/dL Hct 30.9 L (42-52) % MCV 81.1 (80-100) fL MCH 24.9 L (25-34) pg MCHC 30.7 L (32-36) g/dL RDW Std Deviation 41.5 (36.4-46.3) fL RDW Coeff of Lisa 14.0 (11.5-14.5) % Plt Count 156 (130-400) K/uL MPV 9.8 (7.4-10.4) fL Immature Gran % (Auto) 0.5 % Neut % (Auto) 74.8 % Lymph % (Auto) 12.0 % Haralson % (Auto) 10.6 % Eos % (Auto) 1.6 % Baso % (Auto) 0.5 % Neut # (Auto) 5.50 (1.4-6.5) K/uL Lymph # (Auto) 0.88 L (1.2-3.4) K/uL Haralson # (Auto) 0.78 H (0.11-0.59) K/uL Eos # (Auto) 0.12 (0-0.5) K/uL Baso # (Auto) 0.04 (0-0.2) K/uL Immature Gran # (Auto) 0.04 H (0.00-0.02) K/uL PT 11.9 (9.0-12.0) Seconds INR 1.1 (0.9-1.1) APTT 24.9 (21.0-31.0) Seconds PTT Ratio 0.9 Sodium (136-145) mmol/L Potassium (3.5-5.1) mmol/L Chloride (98-107) mmol/L Carbon Dioxide (21-32) mmol/L Anion Gap (3-11) BUN (6-23) mg/dl Creatinine (0.6-1.4) mg/dl Est Cr Clr Drug Dosing ml/min Est GFR ( Amer) ml/min Est GFR (Non-Af Amer) ml/min BUN/Creatinine Ratio (10-20) Glucose (70-99(Fasting)) mg/dl Calcium (8.5-10.1) mg/dl Phosphorus (2.5-4.9) mg/dl Magnesium (1.7-2.4) mg/dl Total Bilirubin (0.2-1.0) mg/dl AST (13-39) U/L ALT (7-52) U/L Alkaline Phosphatase (34-104) U/L Troponin I High Sens (0-20) pg/ml B-Natriuretic Peptide (0-100) pg/ml Total Protein (6.0-8.3) gm/dl Albumin (3.4-5.0) gm/dl Globulin (2.5-4.0) gm/dl Albumin/Globulin Ratio (0.9-2) SARS-CoV-2 (PCR) NEGATIVE (Negative) Influenza Type A (PCR) Negative (Neg) Influenza Type B (PCR) Negative (Neg) RSV (RT-PCR) Negative (Neg) 07/08/21 07/08/21 07/08/21 Range/Units 11:46 12:45 12:45 WBC (4.8-10.8) K/uL RBC (4.7-6.1) M/uL Hgb (14.0-18.0) g/dL Hct (42-52) % MCV (80-100) fL MCH (25-34) pg MCHC (32-36) g/dL RDW Std Deviation (36.4-46.3) fL RDW Coeff of Lisa (11.5-14.5) % Plt Count (130-400) K/uL MPV (7.4-10.4) fL Immature Gran % (Auto) % Neut % (Auto) % Lymph % (Auto) % Har[place]on % (Auto) % Eos % (Auto) % Baso % (Auto) % Neut # (Auto) (1.4-6.5) K/uL Lymph # (Auto) (1.2-3.4) K/uL Har[place]on # (Auto) (0.11-0.59) K/uL Eos # (Auto) (0-0.5) K/uL Baso # (Auto) (0-0.2) K/uL Immature Gran # (Auto) (0.00-0.02) K/uL PT (9.0-12.0) Seconds INR (0.9-1.1) APTT (21.0-31.0) Seconds PTT Ratio Sodium 137 (136-145) mmol/L Potassium 4.0 (3.5-5.1) mmol/L Chloride 106 (98-107) mmol/L Carbon Dioxide 25 (21-32) mmol/L Anion Gap 6 (3-11) BUN 17 (6-23) mg/dl Creatinine 1.09 (0.6-1.4) mg/dl Est Cr Clr Drug Dosing 64.7 ml/min Est GFR ( Amer) 76.0 ml/min Est GFR (Non-Af Amer) 65.6 ml/min BUN/Creatinine Ratio 15.6 (10-20) Glucose 104 H (70-99(Fasting)) mg/dl Calcium 8.8 (8.5-10.1) mg/dl Phosphorus 3.8 (2.5-4.9) mg/dl Magnesium 1.6 L (1.7-2.4) mg/dl Total Bilirubin 0.9 (0.2-1.0) mg/dl AST 14 (13-39) U/L ALT 6 L (7-52) U/L Alkaline Phosphatase 132 H (34-104) U/L Troponin I High Sens 83.2 H* (0-20) pg/ml B-Natriuretic Peptide 672 H (0-100) pg/ml Total Protein 7.3 (6.0-8.3) gm/dl Albumin 3.6 (3.4-5.0) gm/dl Globulin 3.7 (2.5-4.0) gm/dl Albumin/Globulin Ratio 1.0 (0.9-2) SARS-CoV-2 (PCR) (Negative) Influenza Type A (PCR) (Neg) Influenza Type B (PCR) (Neg) RSV (RT-PCR) (Neg) 07/08/21 Range/Units 15:02 WBC (4.8-10.8) K/uL RBC (4.7-6.1) M/uL Hgb (14.0-18.0) g/dL Hct (42-52) % MCV (80-100) fL MCH (25-34) pg MCHC (32-36) g/dL RDW Std Deviation (36.4-46.3) fL RDW Coeff of Lisa (11.5-14.5) % Plt Count (130-400) K/uL MPV (7.4-10.4) fL Immature Gran % (Auto) % Neut % (Auto) % Lymph % (Auto) % [place]on % (Auto) % Eos % (Auto) % Baso % (Auto) % Neut # (Auto) (1.4-6.5) K/uL Lymph # (Auto) (1.2-3.4) K/uL [place]on # (Auto) (0.11-0.59) K/uL Eos # (Auto) (0-0.5) K/uL Baso # (Auto) (0-0.2) K/uL Immature Gran # (Auto) (0.00-0.02) K/uL PT (9.0-12.0) Seconds INR (0.9-1.1) APTT (21.0-31.0) Seconds PTT Ratio Sodium (136-145) mmol/L Potassium (3.5-5.1) mmol/L Chloride (98-107) mmol/L Carbon Dioxide (21-32) mmol/L Anion Gap (3-11) BUN (6-23) mg/dl Creatinine (0.6-1.4) mg/dl Est Cr Clr Drug Dosing ml/min Est GFR ( Amer) ml/min Est GFR (Non-Af Amer) ml/min BUN/Creatinine Ratio (10-20) Glucose (70-99(Fasting)) mg/dl Calcium (8.5-10.1) mg/dl Phosphorus (2.5-4.9) mg/dl Magnesium (1.7-2.4) mg/dl Total Bilirubin (0.2-1.0) mg/dl AST (13-39) U/L ALT (7-52) U/L Alkaline Phosphatase (34-104) U/L Troponin I High Sens 280.0 H* D (0-20) pg/ml B-Natriuretic Peptide (0-100) pg/ml Total Protein (6.0-8.3) gm/dl Albumin (3.4-5.0) gm/dl Globulin (2.5-4.0) gm/dl Albumin/Globulin Ratio (0.9-2) SARS-CoV-2 (PCR) (Negative) Influenza Type A (PCR) (Neg) Influenza Type B (PCR) (Neg) RSV (RT-PCR) (Neg) Administered Medications Apixaban (Apixaban 5 Mg Tablet) 5 mg PO BID GUY Stop: 08/07/21 21:29 Last Admin: 07/09/21 08:57 Dose: 5 mg Documented by: [id number] Admin: 07/08/21 22:22 Dose: 5 mg Documented by: [id number] Aspirin (Aspirin 81 Mg Ectab) 81 mg PO HS GUY Stop: 08/07/21 21:29 Last Admin: 07/08/21 22:22 Dose: 81 mg Documented by: [id number] Atorvastatin Calcium (Atorvastatin 40 Mg Tab) 40 mg PO [facility] Stop: 08/07/21 21:29 Last Admin: 07/08/21 22:22 Dose: 40 mg Documented by: [id number] Diltiazem HCl (Diltiazem Hcl 120 Mg Capcr) 120 [facility] Stop: 08/08/21 08:59 Last Admin: 07/09/21 08:57 Dose: 120 mg Documented by: [id number] Ferrous Gluconate (Ferrous Gluconate 324 Mg Tab) 324 mg PO DAILY [facility] Stop: 08/08/21 08:59 Last Admin: 07/09/21 08:58 Dose: 324 mg Documented by: [id number] Metoprolol Succinate (Metoprolol Succ 50mg Ext Rel Tab) 100 mg PO [facility] Stop: 08/07/21 21:29 Last Admin: 07/09/21 08:57 Dose: 100 mg Documented by: [id number] Admin: 07/08/21 22:22 Dose: 100 mg Documented by: [id number] Miscellaneous (*Xtandi*Order Awaiting Action) 1 ea N/A QS [facility] Stop: 08/08/21 00:00 Last Admin: 07/09/21 15:39 Dose: Not Given Documented by: [id number] Admin: 07/09/21 08:58 Dose: Not Given Documented by: [id number] Admin: 07/09/21 00:00 Dose: Not Given Documented by: [id number] Miscellaneous (*Vesicare*Order Awaiting Action) 1 ea N/A [facility] Stop: 08/08/21 00:00 Last Admin: 07/09/21 15:39 Dose: Not Given Documented by: [id number] Admin: 07/09/21 08:58 Dose: Not Given Documented by: [id number] Admin: 07/09/21 00:00 Dose: Not Given Documented by: [id number] Pantoprazole Sodium (Pantoprazole 40 Mg Tab) 40 mg [facility]; Protocol Stop: 08/08/21 08:59 Last Admin: 07/09/21 08:58 Dose: 40 mg Documented by: [id number] Discontinued Medications Furosemide (Furosemide 40 Mg/4 Ml Vial) 40 mg IV ONE ONE Stop: 07/08/21 13:07 Last Admin: 07/08/21 13:38 Dose: 40 mg Documented by: [id number] Furosemide (Furosemide Inj 20 Mg/2 Ml Vial) 20 mg IV ONE ONE Stop: 07/09/21 07:50 Last Admin: 07/09/21 08:57 Dose: 20 mg Documented by: [id number] Furosemide (Furosemide 40 Mg/4 Ml Vial) 40 mg IV ONE ONE Stop: 07/09/21 16:01 Last Admin: 07/09/21 15:39 Dose: 40 mg Documented by: [id number] Magnesium Sulfate/Dextrose (Magnesium Sulfate / D5w) 1 gm in 100 mls @ 100 mls/hr IV NOW STA Stop: 07/08/21 14:05 Last Infusion: 07/08/21 15:04 Dose: 0 mls/hr Documented by: [id number] Admin: 07/08/21 13:38 Dose: 100 mls/hr Documented by: [id number] Potassium Chloride (Potassium Chloride Crtab 20 Meq Tabcr) 20 meq PO NOW ONE Stop: 07/09/21 16:01 Last Admin: 07/09/21 15:39 Dose: 20 meq Documented by: [id number] Imaging Data Radiologist's Impression: Chest X-Ray 07/08/21 11:04 XR chest 1V portable HISTORY: 75 years-old Male SOB acute shortness breath COMPARISON: Chest radiograph 06/25/2021 TECHNIQUE: Portable AP view of the chest FINDINGS: The cardiac silhouette is enlarged. Small pleural effusions with mild bibasilar opacities, similar to prior. Pulmonary vascular congestion. No pneumothorax. Degenerative changes of the shoulders and spine. IMPRESSION: 1. Cardiomegaly with pulmonary vascular congestion. 2. Small pleural effusions with mild bibasilar opacities suggestive of atelectasis versus pneumonitis. ACT 112: Negative or not required by law. The above report was generated using voice recognition software. It may contain grammatical, syntax or spelling errors. Electronically signed by: Cuate Farmer M.D. 07/08/2021 12:39 PM Discharge Plan Visit Data Chief Complaint: Shortness of Breath/Dyspnea Stated Complaint: SOB, ED Provider: Ulysses Sharma Discharge Problem: Heart failure, diastolic, with acute decompensation, Elevated troponin, Mitral regurgitation, Elevated brain natriuretic peptide (BNP) level, Dyspnea on minimal exertion Patient Disposition: Admitted As Inpatient Discharge Instructions Interventions: ED Discharge Assessment Last Done: 07/08/21 20:39 Discharge Problem: Mitral regurgitation Qualifiers: Cardiac valve disease etiology: etiology unspecified Qualified Code(s): I34.0 - Nonrheumatic mitral (valve) insufficiency
[2021-07-09 06:49] LABS: Hematocrit (blood only) 27.9 % (42-52); Hemoglobin 8.7 g/dL (14.0-18.0); Mean Corpuscular Hemoglobin 24.9 pg (25-34); Mean Corpuscular Hgb Conc 31.2 g/dL (32-36); Mean Corpuscular Volume 79.9 fL (80-100); Platelet Count 145 K/uL (130-400); RDW Coefficient of Variation 14.3 % (11.5-14.5); RDW Standard Deviation 41.4 fL (36.4-46.3); Red Blood Count 3.49 M/uL (4.7-6.1); White Blood Count 5.25 K/uL (4.8-10.8)
[2021-07-09 07:14] LABS: BUN Creatinine Ratio 18.1 (10-20); Calcium 8.6 mg/dl (8.5-10.1); Creatinine Clr Calc Pharmacy 66.8 ml/min; Est GFR (African American) 79.5 ml/min; Est GFR (Non-African American) 68.6 ml/min; Magnesium 1.8 mg/dl (1.7-2.4); Potassium 3.9 mmol/L (3.5-5.1)
[2021-07-09 07:18] LABS: Troponin I High Sensitivity 76.7 pg/ml (0-20)
[2021-07-09] MEDS ORDERED: FUROSEMIDE INJ 20 MG/2 ML VIAL IV ONE (07:49)
[2021-07-09] MEDS: METOPROLOL SUCC 50MG EXT REL TAB PO SCH ×2 (08:57→20:40)
[2021-07-09] MEDS: dilTIAZem HCL 120 MG CAPCR PO SCH (08:57)
[2021-07-09] MEDS: APIXABAN 5 MG TABLET PO SCH ×2 (08:57→20:40)
[2021-07-09] MEDS: PANTOprazole 40 MG TAB PO SCH (08:58)
[2021-07-09] MEDS: FERROUS GLUCONATE 324 MG TAB PO SCH (08:58)
--- NOTE | 2021-07-09 09:32 | XRay Report ---
XR chest 1V portable HISTORY: 75 years-old Male f/u acute shortness of breath COMPARISON: Chest radiograph 07/08/2021 TECHNIQUE: Portable AP view of the chest FINDINGS: The cardiac silhouette is enlarged. Atherosclerosis of the thoracic aorta. No pneumothorax. Trace ple ural effusions. Pulmonary vascular congestion with interstitial coarsening and mildly progressed biba silar opacities. Degenerative changes of the shoulders and spine. IMPRESSION: 1. Cardiomegaly with pulmonary edema. 2. Trace pleural effusions with mildly progressed bibasilar opacities. ACT 112: Negative or not required by law. The above report was generated using voice recognition software. It may contain grammatical, syntax o r spelling errors. Electronically signed by: Cuate Farmer M.D. 07/09/2021 9:31 AM
--- NOTE | 2021-07-09 11:00 | Cardiology Consultation ---
Date of Consultation July 09, 2021 Assessment & Plan (1) Heart failure, diastolic, with acute decompensation: (2) ASCVD (arteriosclerotic cardiovascular disease): (3) Mitral regurgitation: (4) Elevated troponin: (5) History of pulmonary embolism: (6) History of DVT (deep vein thrombosis): (7) Cancer of prostate: (8) Atrial fibrillation status post cardioversion: (9) SOB (shortness of breath): Complex 75-year-old male with multiple recent hospitalizations. Patient hospitalized in March 2021 with left lower extremity DVT and extensive bilateral pulmonary emboli shortly following COVID-19 infection. Course complicated by atrial flutter/fibrillation with difficult to control rates and acute decompensated diastolic congestive heart failure leading to repeat hospitalization, KHANG guided direct current cardioversion. Most recently, patient hospitalized with pneumonia and acute decompensated heart failure. Patient returns now with recurrent acute decompensated heart failure. Troponin is minimally elevated, without acute ST segment changes, and without symptoms suggestive of an acute coronary syndrome. Patient maintaining sinus rhythm by history, examination, EKG, and continuous telemetry monitoring. Continue IV diuresis. Maintain electrolytes. Continue outpatient medication regimen including metoprolol, diltiazem, moderate intensity statin therapy (atorvastatin 40 mg/day), low-dose aspirin, and lifelong anticoagulation - apixaban 5 mg twice per day. Patient will likely require 20-40 mg of oral furosemide daily on discharge with close follow-up in an attempt to prevent/reduce recurrent hospitalizations. Supervising Physician Co-Signing Physician Notes Patient seen and examined with Forrest Prather PA-C. Agree with findings and assessment as above. Medically complex 75-year-old male presents with acute decompensated diastolic heart failure. Continue diuresis as above. Continue all other outpatient cardiac medications. Strict I's and O's and daily weights on the same scale. History of Present Illness Reason for Consultation: CHF Requesting Physician: Salvador Attending Physician: Salvador History of Present Illness Mr. Reagan Carbajal Jr is a 75-year-old male who was most recently hospitalized at [facility] June 25, 2021 to June 27, 2021 with pneumonia and acute decompensated diastolic congestive heart failure. Unfortunately, fol lowing discharge, the patient began to experience worsening shortness of breath initially with exertion and then at rest, with increased cough, orthopnea without PND, lower extremity peripheral edema, and weight gain. Patient returned to the ER where chest x-ray revealed cardiomegaly with pulmonary vascular congestion and small bilateral pleural effusions with mild bibasilar opacities suggestive of atelectasis versus pneumonitis. Patient received 40 mg IV Lasix in the ER and a dose of 20 mg IV Lasix this morning with some improvement. Hemoglobin on admission was 9.5 g/dL. Creatinine was 1.09. Potassium was normal at 4.0. Magnesium was low at 1.6 and has been replaced. BNP was minimally elevated at 672. High-sensitivity troponin I elevated 83.2 then 280 then 86.5 and finally 76.7. No overt angina. No pleuritic chest pain. No palpitations. Past Medical and Surgical History Atherosclerotic heart disease of [place] coronary artery Diagnostic cardiac catheterization on August 20, 2020 revealed right-dominant coronary anatomy with moderate coronary atherosclerosis (60% narrowing of the LAD at the juncture of the mid and apical portions, thin caliber vessel, 30% narrowing at the origin of the high diagonal branch, luminal irregularities of the left circumflex, moderate irregularities of the ramus intermedius, and mild luminal irregularities of the RCA), normal left ventricular end-diastolic pressure. 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 On Xtandi GERD Hiatal hernia Obesity Status post cholecystectomy Status post prostatectomy Status post carpal tunnel surgery Hospitalization at [facility] in March 2021, following COVID-19 infection , with significant dyspnea, chest pressure, palpitations - left lower extremity DVT (left gastrocnemius veins along with extensive superficial thrombus within the left greater saphenous vein) and extensive bilateral pulmonary emboli. Course complicated by atrial flutter/fibrillation with rates difficult to control Hospitalization at [facility] April 27, 2021 to April 30, 2021 with acute decompensated diastolic congestive heart failure in the setting of atrial fibrillation with a rapid ventricular response and noncompliance with medications. Volume status improved considerably following one dose of IV furosemide in the ER Transesophageal echocardiography on April 30, 2021 revealed no contraindications to cardioversion, undergoing direct current cardioversion without difficulty. Hospitalization at [facility] in June 2021 with pneumonia and acute decompensated diastolic congestive heart failure. Family History: Positive for lung cancer in both mother and father Social History: Reformed smoker. Social alcohol. No illegal drug use. . Retired. Complete Review of Systems is as stated above, negative, or noncontributory. Allergies Allergy/AdvReac Type Severity Reaction Status Date / Time adhesive AdvReac Intermediate REDNESS Verified 07/08/21 18:04 WITH EKG ELECTRODES Home Medications Medication Instructions Recorded Confirmed Type alendronate 70 mg tablet 70 mg PO WK tab 10/10/18 07/08/21 History enzalutamide 40 mg capsule (Xtandi) 160 mg PO DAILY@1200 10/12/19 07/08/21 History metformin 500 mg tablet 500 mg PO QAM 10/12/19 07/08/21 History aspirin 81 mg capsule 81 mg PO HS 04/12/21 07/08/21 History hydrocodone 10 mg-acetaminophen 1 tab PO DAILY PRN 04/12/21 07/08/21 History 325 mg tablet solifenacin 10 mg tablet (Vesicare) 10 mg PO HS 04/12/21 07/08/21 History apixaban 5 mg (74 tabs) tablets in 5 mg PO Q12H #74 ea 04/17/21 07/08/21 Rx a dose pack diltiazem HCl 120 mg 120 mg PO QAM 04/27/21 07/08/21 History capsule,extended release 24 hr metoprolol succinate 100 mg 100 mg PO AMHS 04/27/21 07/08/21 History tablet,extended release 24 hr (Toprol XL) omeprazole 20 mg capsule,delayed 20 mg PO QAM 04/27/21 07/08/21 History release ferrous gluconate 324 mg (38 mg 324 mg PO DAILY #30 tab 06/28/21 07/08/21 Rx iron) tablet furosemide 20 mg tablet (Lasix) 20 mg PO Q2D #15 tab 06/28/21 07/08/21 Rx atorvastatin 40 mg tablet 40 mg PO HS 07/08/21 07/08/21 History Patient History Medical History Cancer of prostate Chronic anticoagulation Diabetes mellitus Dyslipidemia Elevated troponin History of DVT (deep vein thrombosis) History of pulmonary embolism Hx of brachytherapy Hypomagnesemia Paroxysmal atrial fibrillation Pneumonitis Prostate cancer (2009) Surgical History H/O heart surgery History of cardiac catheterization History of carpal tunnel surgery History of prostatectomy Hx of cholecystectomy Family History Mother Lung cancer Father Lung cancer Social History Smoking Status: Former smoker Second Hand Exposure: No; Do You Dip or Chew Tobacco: No; Tobacco Cessation Education Requested by Patient: No Hx Alcohol Use: No Hx Substance Use: No Preferred Language: [place]ar[place] Communication Ability: Effective Manager Of Recruiting Required: No Beliefs That Will Affect Care: None marital status: Current Living Situation: Spouse How many Children do You have: 2 Other Information That Helps Us Care for You: No Feels Safe at Home: Yes Safety Concerns: Feels Safe At This Time Assistive Devices: Cane and Walker Review of Systems Review of Systems: Complete Review of Systems is as stated above, negative, or noncontributory Physical Exam Physical Exam: General: alert, comfortable and cooperative Skin: Skin color is pale. No rash Eyes: PER. Conjunctiva pink, sclera pale. HENT: Normocephalic. Atraumatic. Neck: No carotid bruits. No JVD. No HJR. Heart: Regular at 70 bpm. Soft systolic murmur at the LLSB. No rub. Lungs: Bibasilar rales. Abdomen: +BS. Soft. Nontender. No masses. No organomegaly. Extremities: Minimal pretibial edema. No clubbing. No cyanosis Pulses: radial=2/4, posterior tibial=1/4. Limited neurological examination: No focal deficit. Results & Data ([facility]) Vital Signs (Past 12 Hours) Vital Signs Temp Pulse Resp BP Pulse Ox 07/09/21 07:44 36.9 C 63 18 109/65 93 07/09/21 05:00 37 C 69 15 122/70 95 07/08/21 23:24 36.8 C 81 20 99/50 L 91 Laboratory Results Laboratory Results - last 24 hr 07/08/21 07/08/21 07/08/21 11:07 11:46 11:46 WBC 7.36 RBC 3.81 L Hgb 9.5 L Hct 30.9 L MCV 81.1 MCH 24.9 L MCHC 30.7 L RDW Std Deviation 41.5 RDW Coeff of Lisa 14.0 Plt Count 156 MPV 9.8 Immature Gran % (Auto) 0.5 Neut % (Auto) 74.8 Lymph % (Auto) 12.0 [place] % (Auto) 10.6 Eos % (Auto) 1.6 Baso % (Auto) 0.5 Neut # (Auto) 5.50 Lymph # (Auto) 0.88 L [place] # (Auto) 0.78 H Eos # (Auto) 0.12 Baso # (Auto) 0.04 Immature Gran # (Auto) 0.04 H PT 11.9 INR 1.1 APTT 24.9 PTT Ratio 0.9 Sodium Potassium Chloride Carbon Dioxide Anion Gap BUN Creatinine Est Cr Clr Drug Dosing Est GFR ( Amer) Est GFR (Non-Af Amer) BUN/Creatinine Ratio Glucose Calcium Phosphorus Magnesium Total Bilirubin AST ALT Alkaline Phosphatase Troponin I High Sens B-Natriuretic Peptide Total Protein Albumin Globulin Albumin/Globulin Ratio Procalcitonin SARS-CoV-2 (PCR) NEGATIVE Influenza Type A (PCR) Negative Influenza Type B (PCR) Negative RSV (RT-PCR) Negative 07/08/21 07/08/21 07/08/21 11:46 12:45 12:45 WBC RBC Hgb Hct MCV MCH MCHC RDW Std Deviation RDW Coeff of Lisa Plt Count MPV Immature Gran % (Auto) Neut % (Auto) Lymph % (Auto) [place] % (Auto) Eos % (Auto) Baso % (Auto) Neut # (Auto) Lymph # (Auto) [place] # (Auto) Eos # (Auto) Baso # (Auto) Immature Gran # (Auto) PT INR APTT PTT Ratio Sodium 137 Potassium 4.0 Chloride 106 Carbon Dioxide 25 Anion Gap 6 BUN 17 Creatinine 1.09 Est Cr Clr Drug Dosing 64.7 Est GFR ( Amer) 76.0 Est GFR (Non-Af Amer) 65.6 BUN/Creatinine Ratio 15.6 Glucose 104 H Calcium 8.8 Phosphorus 3.8 Magnesium 1.6 L Total Bilirubin 0.9 AST 14 ALT 6 L Alkaline Phosphatase 132 H Troponin I High Sens 83.2 H* B-Natriuretic Peptide 672 H Total Protein 7.3 Albumin 3.6 Globulin 3.7 Albumin/Globulin Ratio 1.0 Procalcitonin SARS-CoV-2 (PCR) Influenza Type A (PCR) Influenza Type B (PCR) RSV (RT-PCR) 05/07/08/21 07/09/21 15:02 21:19 05:46 WBC 5.25 RBC 3.49 L Hgb 8.7 L Hct 27.9 L MCV 79.9 L MCH 24.9 L MCHC 31.2 L RDW Std Deviation 41.4 RDW Coeff of Lisa 14.3 Plt Count 145 MPV 10.0 Immature Gran % (Auto) Neut % (Auto) Lymph % (Auto) [place] % (Auto) Eos % (Auto) Baso % (Auto) Neut # (Auto) Lymph # (Auto) [place] # (Auto) Eos # (Auto) Baso # (Auto) Immature Gran # (Auto) PT INR APTT PTT Ratio Sodium Potassium Chloride Carbon Dioxide Anion Gap BUN Creatinine Est Cr Clr Drug Dosing Est GFR ( Amer) Est GFR (Non-Af Amer) BUN/Creatinine Ratio Glucose Calcium Phosphorus Magnesium Total Bilirubin AST ALT Alkaline Phosphatase Troponin I High Sens 280.0 H* D 86.5 H* D B-Natriuretic Peptide Total Protein Albumin Globulin Albumin/Globulin Ratio Procalcitonin SARS-CoV-2 (PCR) Influenza Type A (PCR) Influenza Type B (PCR) RSV (RT-PCR) 07/09/21 07/09/21 05:46 05:46 WBC RBC Hgb Hct MCV MCH MCHC RDW Std Deviation RDW Coeff of Lisa Plt Count MPV Immature Gran % (Auto) Neut % (Auto) Lymph % (Auto) [place] % (Auto) Eos % (Auto) Baso % (Auto) Neut # (Auto) Lymph # (Auto) [place] # (Auto) Eos # (Auto) Baso # (Auto) Immature Gran # (Auto) PT INR APTT PTT Ratio Sodium 138 Potassium 3.9 Chloride 106 Carbon Dioxide 26 Anion Gap 6 BUN 19 Creatinine 1.05 Est Cr Clr Drug Dosing 66.8 Est GFR ( Amer) 79.5 Est GFR (Non-Af Amer) 68.6 BUN/Creatinine Ratio 18.1 Glucose 98 Calcium 8.6 Phosphorus Magnesium 1.8 Total Bilirubin AST ALT Alkaline Phosphatase Troponin I High Sens 76.7 H* B-Natriuretic Peptide Total Protein Albumin Globulin Albumin/Globulin Ratio Procalcitonin < 0.05 SARS-CoV-2 (PCR) Influenza Type A (PCR) Influenza Type B (PCR) RSV (RT-PCR) Diagnostic Findings August 20, 2020 Coronary Angiography ([facility], Dr. Grant): Left main: Normal length and caliber with mild calcification and 20% ostial and distal narrowing Left anterior descending: Type III in distribution gives rise to a high diagonal branch and a large septal branch in its proximal portion. Then courses to the a pex. At the juncture of the mid and apical portions there is a 60 % narrowing in a thin caliber vessel. The origin of the high diagonal branch is narrowed by 30% Left circumflex: Nondominant moderately large. It gives rise to a small marginal branch then large obtuse marginal branch with only a trivial vessel along the AV groove. There are moderate luminal irregularities in the left circumflex distribution. Ramus intermedius: Large bifurcating vessel with moderate irregularities of less than 30% in its proximal Right coronary artery: Large dominant vessel giving rise to a sinoatrial and co nus branch at its origin, a large right ventricular branch in its midportion and a small acute marginal branch. At the AV groove it gives rise to a long posterior descending artery and along the AV groove a bifurcating posterior ventricular branch. There are mild luminal irregularities in right coronary distribution LV angiography: Not performed Hemodynamics left ventricular pressure 130/1 LVEDP is 6 EKG on presentation revealed normal sinus rhythm at 83 bpm with possible left atrial enlargement, unchanged compared to prior EKG dated June 27, 2021. June 26, 2021 TTE Interpretation Summary ([facility], Dr. Allan): Technically adequate. Compared to prior echocardiogram dated April 13, 2021, moderate mitral regurgitation present. Ejection fraction 60 to 65%. Moderate concentric LVH. Moderate aortic valve sclerosis, without significant stenosis. Moderate mitral regurgitation. Continuous telemetry monitoring reveals sinus with rates predominantly in the 70s and 80s.
[2021-07-09] MEDS ORDERED: FUROSEMIDE 40 MG/4 ML VIAL IV ONE (16:00)
[2021-07-09] MEDS ORDERED: POTASSIUM CHLORIDE CRTAB 20 MEQ TABCR PO ONE (16:00)
[2021-07-09] MEDS: ENZALUTAMIDE 40 MG PO SCH (18:09)
[2021-07-09] MEDS: ATORVASTATIN 40 MG TAB PO SCH (20:40)
[2021-07-09] MEDS: ASPIRIN 81 MG ECTAB PO SCH (20:40)
--- NOTE | 2021-07-09 21:06 | Hospitalist Progress Note ---
Date of Service July 09, 2021 Assessment & Plan (1) Heart failure, diastolic, with acute decompensation: Plan: Acute diastolic heart failure Mitral Regurgitation Present on admission with worsening SOB . Recently discharge on Lasix 20mg every other day. CXR showed cardiomegaly with pulmonary vascular congestion. Small pleural effusions with mild bibasilar opacities suggestive of atelectasis versus pneumonitis. BNP elevated at 672 and troponin increase to 280 on admission. troponin trending down 76 Received IV Lasix 40mg IV in the ER ECHO from last admission showed moderate mitral regurgitation. Moderate concentric LVH. EF 60-65% Cardiology on board Repeat cxr showed cardiomegaly with pulmonary edema. Trace pleural effusions with mildly progressed bibasilar opacities. Lasix 20mg gave this morning, will give and additional 40mg later Cardiology plan to transition to PO lasix Continue Monitor electrolytes while on IV lasix Elevated troponin I level:: H/O nonobstructive CAD on cardiac cath July 2020 Likely demand ischemia Denies any chest pain Troponin on admission peak to 280, trending down to 76 Continue aspirin/statin/metoprolol Hypomagnesemia Mg 1.6 on admission, mg 1.8 today Continue monitor mg level Recent Pneumonia Pt was treated for pneumonia on last admission CXR on admission showed small pleural effusions with mild bibasilar opacities suggestive of atelectasis versus pneumonitis. He just completed a course of abx with Cefuroxime and azithromycin Continue to hold on abx for now since no leukocytosis and afebrile Procalcitonin negative Anemia: Anemia of chronic disease No obvious signs of bleeding Low Serum Iron level Underlying prostate cancer may be contributing Follows with oncology as an outpatient Continue Iron supplements Paroxysmal atrial fibrillation: S/p cardioversion on 04/30/2021 Rate controlled Continue metoprolol and diltiazem Anticoagulated with Eliquis History of DVT (deep vein thrombosis)/ pulmonary embolism Continue Eliquis Diabetes mellitus: Recent Hgb A1c 6.0 on 04/28/21 Hold oral agents Utilize NovoLog per protocol while hospitalized Cancer of prostate: Follows with urology, Dr. Alford and medical oncologist at [facility] Plans to establish with Dr. Goyo Thornton locally DVT prophylaxis:: On Eliquis Code status DNR as per conversation with patient and Admission and Anticipated Discharge Date Admission Date: July 08, 2021 Subjective Pt was seen and examined for follow up of SOB Lying in bed with no acute distress Pt said that he is breathing is much better Denies any chest pain, palpitation, dizziness and SOB Review of Systems Review of Systems: All systems reviewed & are unremarkable except as noted in Subjective Physical Exam Physical Exam: General- No acute distress Head- atraumatic Eyes- PERRL, EOMI, ENT- oropharynx clear Neck- supple, no JVD Lungs- clear to auscultation Heart- regular rhythm; no murmur Abdomen- normal bowel sounds, soft, nontender Extremities- no calf tenderness,+trace edema Neuro- alert, oriented x 3; PERRL, EOMI; no facial palsy; no dysarthria Skin- warm & dry Results & Data Results & Data ([facility]) Vital Signs (Past 12 Hours) Vital Signs Temp Pulse Pulse Resp BP Pulse Ox 07/09/21 20:07 36.5 C 87 16 122/69 92 07/09/21 16:04 60 07/09/21 15:00 36.6 C 68 19 112/61 93 07/09/21 11:56 36.5 C 65 18 107/54 L 96 07/09/21 11:26 69
[2021-07-10 06:45] LABS: BUN Creatinine Ratio 17.7 (10-20); Calcium 8.5 mg/dl (8.5-10.1); Est GFR (Non-African American) 56.1 ml/min; Potassium 3.7 mmol/L (3.5-5.1)
[2021-07-10] MEDS: FERROUS GLUCONATE 324 MG TAB PO SCH (08:13)
[2021-07-10] MEDS: APIXABAN 5 MG TABLET PO SCH ×2 (08:13→21:06)
[2021-07-10] MEDS: dilTIAZem HCL 120 MG CAPCR PO SCH (08:13)
[2021-07-10] MEDS: METOPROLOL SUCC 50MG EXT REL TAB PO SCH ×2 (08:13→21:05)
[2021-07-10] MEDS: PANTOprazole 40 MG TAB PO SCH (08:13)
[2021-07-10 08:17] LABS: Hematocrit (blood only) 28.3 % (42-52); Hemoglobin 8.9 g/dL (14.0-18.0)
[2021-07-10] MEDS ORDERED: POTASSIUM CHLORIDE 10 MEQ TABCR PO ONE (11:39)
--- NOTE | 2021-07-10 11:43 | Cardiology Progress Note ---
Date of Service July 10, 2021 Assessment & Plan (1) Heart failure, diastolic, with acute decompensation: (2) ASCVD (arteriosclerotic cardiovascular disease): (3) Mitral regurgitation: (4) Elevated troponin: (5) History of pulmonary embolism: (6) History of DVT (deep vein thrombosis): (7) Cancer of prostate: (8) Atrial fibrillation status post cardioversion: (9) SOB (shortness of breath): Plan: Complex 75-year-old male with multiple recent hospitalizations. Patient hospitalized in March 2021 with left lower extremity DVT and extensive bilateral pulmonary emboli shortly following COVID-19 infection. Course complicated by atrial flutter/fibrillation with difficult to control rates and acute decompensated diastolic congestive heart failure leading to repeat hospitalization, KHANG guided direct current cardioversion. Most recently, patient hospitalized with pneumonia and acute decompensated heart failure. Patient returns now with recurrent acute decompensated heart failure. Troponin is minimally elevated, without acute ST segment changes, and without symptoms suggestive of an acute coronary syndrome. Patient maintaining sinus rhythm by history, examination, EKG, and continuous telemetry monitoring. Continue IV diuresis. Maintain electrolytes. Continue outpatient medication regimen including metoprolol, diltiazem, moderate intensity statin therapy (atorvastatin 40 mg/day), low-dose aspirin, and lifelong anticoagulation - apixaban 5 mg twice per day. Recommend furosemide 40 mg/day on discharge, along with close follow-up in an attempt to prevent/reduce recurrent hospitalizations. Admission and Anticipated Discharge Date Admission Date: July 08, 2021 Supervising Physician Co-Signing Physician Notes Patient seen and examined with Forrest Prather PA-C. Agree with findings and assessment as above. Medically complex 75-year-old male presents with acute decompensated diastolic heart failure. Continue diuresis as above. Continue all other outpatient cardiac medications. Subjective Patient seen and examined. Chart, medications, and telemetry reviewed. Telemetry over the last 24 hours revealed sinus in the 60's and 70's; no atrial fibrillation Feels better after IV furosemide. Cough and breathing have improved No chest pain, palpitations, PND, dizziness, near syncope, subjective fever/chills. Review of Systems Review of Systems: Complete Review of Systems is as stated above, negative, or noncontributory Physical Exam Physical Exam: General: alert, comfortable and cooperative Skin: Skin color is pale. No rash Eyes: PER. Conjunctiva pink, sclera pale. HENT: Normocephalic. Atraumatic. Neck: No carotid bruits. No JVD. No HJR. Heart: Regular at 70 bpm. Soft systolic murmur at the LLSB. No rub. Lungs: Bibasilar rales. Abdomen: +BS. Soft. Nontender. No masses. No organomegaly. Extremities: Minimal pretibial edema. No clubbing. No cyanosis Pulses: radial=2/4, posterior tibial=1/4. Limited neurological examination: No focal deficit. Results & Data ([facility]) Vital Signs (Past 12 Hours) Vital Signs Temp Pulse Pulse Resp BP Pulse Ox 07/10/21 09:00 65 07/10/21 08:15 64 110/57 L 07/10/21 03:37 36.9 C 66 18 106/58 L 93 07/10/21 00:23 36.5 C 75 18 101/60 91 Laboratory Results Laboratory Results - last 24 hr 07/10/21 07/10/21 05:43 07:55 Hgb 8.9 L Hct 28.3 L Sodium 137 Potassium 3.7 Chloride 104 Carbon Dioxide 27 Anion Gap 6 BUN 22 Creatinine 1.24 Est Cr Clr Drug Dosing 57.0 Est GFR ( Amer) 65.0 Est GFR (Non-Af Amer) 56.1 BUN/Creatinine Ratio 17.7 Glucose 95 Calcium 8.5 (1) Mitral regurgitation Cardiac valve disease etiology: etiology unspecified Qualified Code(s): I34.0 - Nonrheumatic mitral (valve) insufficiency
[2021-07-10] MEDS: ENZALUTAMIDE 40 MG PO SCH (11:53)
[2021-07-10] MEDS ORDERED: FUROSEMIDE 40 MG/4 ML VIAL IV ONE (12:00)
--- NOTE | 2021-07-10 20:46 | Hospitalist Progress Note ---
Date of Service July 10, 2021 Assessment & Plan (1) Heart failure, diastolic, with acute decompensation: Plan: Acute diastolic heart failure Mitral Regurgitation Present on admission with worsening SOB . Recently discharge on Lasix 20mg every other day. CXR showed cardiomegaly with pulmonary vascular congestion. Small pleural effusions with mild bibasilar opacities suggestive of atelectasis versus pneumonitis. BNP elevated at 672 and troponin increase to 280 on admission. troponin trending down 76 Received IV Lasix 40mg IV in the ER ECHO from last admission showed moderate mitral regurgitation. Moderate concentric LVH. EF 60-65% Cardiology on board Repeat cxr showed cardiomegaly with pulmonary edema. Trace pleural effusions with mildly progressed bibasilar opacities. Case discussed with cardiology that recommended additional lasix 40mg IV today Cardiology plan to transition to PO lasix tomorrow Continue Monitor electrolytes Elevated troponin I level:: H/O nonobstructive CAD on cardiac cath July 2020 Likely demand ischemia Denies any chest pain Troponin on admission peak to 280, trending down to 76 Continue aspirin/statin/metoprolol Hypomagnesemia Mg 1.6 on admission, mg 1.8 Continue monitor mg level Recent Pneumonia Pt was treated for pneumonia on last admission CXR on admission showed small pleural effusions with mild bibasilar opacities suggestive of atelectasis versus pneumonitis. He just completed a course of abx with Cefuroxime and azithromycin Continue to hold on abx for now since no leukocytosis and afebrile Procalcitonin negative Anemia: Anemia of chronic disease No obvious signs of bleeding Hgb 8.9 today Low Serum Iron level Underlying prostate cancer may be contributing Follows with oncology as an outpatient Continue Iron supplements Paroxysmal atrial fibrillation: S/p cardioversion on 04/30/2021 Rate controlled Continue metoprolol and diltiazem Anticoagulated with Eliquis History of DVT (deep vein thrombosis)/ pulmonary embolism Continue Eliquis Diabetes mellitus: Recent Hgb A1c 6.0 on 04/28/21 Hold oral agents Utilize NovoLog per protocol while hospitalized Cancer of prostate: Follows with urology, Dr. Alford and medical oncologist at [facility] Plans to establish with Dr. Goyo Thornton locally DVT prophylaxis:: On Eliquis Code status DNR as per conversation with patient and Admission and Anticipated Discharge Date Admission Date: July 08, 2021 Subjective Pt was seen and examined for follow up of SOB Sitting in chair with no acute distress Pt said that his breathing is much better Denies any chest pain, palpitation, dizziness and SOB Review of Systems Review of Systems: All systems reviewed & are unremarkable except as noted in Subjective Physical Exam Physical Exam: General- No acute distress Head- atraumatic Eyes- PERRL, EOMI, ENT- oropharynx clear Neck- supple, no JVD Lungs- clear to auscultation Heart- regular rhythm; no murmur Abdomen- normal bowel sounds, soft, nontender Extremities- no calf tenderness,+trace edema Neuro- alert, oriented x 3; PERRL, EOMI; no facial palsy; no dysarthria Skin- warm & dry Results & Data Results & Data ([facility]) Vital Signs (Past 12 Hours) Vital Signs Temp Pulse Pulse Resp BP Pulse Ox 07/10/21 19:00 36.7 C 69 18 112/58 L 95 07/10/21 16:00 66 07/10/21 15:26 36.6 C 72 18 114/62 94 07/10/21 12:06 36.7 C 60 18 97/48 L 96 07/10/21 09:00 65
[2021-07-10] MEDS: ATORVASTATIN 40 MG TAB PO SCH (21:05)
[2021-07-10] MEDS: ASPIRIN 81 MG ECTAB PO SCH (21:06)
[2021-07-11 08:13] LABS: BUN Creatinine Ratio 20.7 (10-20); Creatinine Clr Calc Pharmacy 62.7 ml/min; Est GFR (African American) 74.4 ml/min; Est GFR (Non-African American) 64.2 ml/min; Potassium 4.4 mmol/L (3.5-5.1)
[2021-07-11] MEDS: APIXABAN 5 MG TABLET PO SCH (09:17)
[2021-07-11] MEDS: dilTIAZem HCL 120 MG CAPCR PO SCH (09:18)
[2021-07-11] MEDS: FERROUS GLUCONATE 324 MG TAB PO SCH (09:18)
[2021-07-11] MEDS: METOPROLOL SUCC 50MG EXT REL TAB PO SCH (09:18)
[2021-07-11] MEDS: PANTOprazole 40 MG TAB PO SCH (09:18)
--- NOTE | 2021-07-11 09:28 | Cardiology Progress Note ---
Date of Service July 11, 2021 Assessment & Plan (1) Heart failure, diastolic, with acute decompensation: (2) ASCVD (arteriosclerotic cardiovascular disease): (3) Mitral regurgitation: (4) Elevated troponin: (5) History of pulmonary embolism: (6) History of DVT (deep vein thrombosis): (7) Cancer of prostate: (8) Atrial fibrillation status post cardioversion: (9) SOB (shortness of breath): Plan: The patient is doing well. I believe he may be discharged home per the hospitalist service. Admission and Anticipated Discharge Date Admission Date: July 08, 2021 Subjective The patient had an uneventful night. No new cardiac complaints. He feels well and would like to go home. Review of Systems Review of Systems: Review of Systems: See HPI for pertinent positives. All other 10 point review of systems are negative. Physical Exam Physical Exam: General: no acute distress and stated age Head: normocephalic, no masses, lesions, tenderness or abnormalities Eyes: conjunctiva are pink and non-injected, sclera clear Neck: supple, no adenopathy, no bruits, normal jugular venous pulse, no hepatojugular reflux Chest: normal shape and normal respiratory effort Lungs: clear to auscultation and percussion Cardiac Exam: - regular rate & rhythm, no murmurs gallops or rubs - normal S1, normal S2 Pulses: 2(+) throughout Abdomen: abdomen soft, non-tender, no abnormal masses and no hepatosplenomegaly Musculoskeletal: no gait disturbance, no joint inflammation, no deforming arthritis Extremities: no edema and no cyanosis Neuro: grossly normal exam Results & Data ([facility]) Vital Signs (Past 12 Hours) Vital Signs Temp Pulse Pulse Pulse Resp BP Pulse Ox 07/11/21 09:15 76 101/55 L 07/11/21 08:20 36.8 C 61 17 99/56 L 95 07/11/21 04:17 36.6 C 69 18 113/65 94 07/10/21 23:00 36.8 C 74 18 98/52 L 92 07/10/21 22:25 72 Laboratory Results Laboratory Results - last 24 hr 07/11/21 06:14 Sodium 135 L Potassium 4.4 Chloride 103 Carbon Dioxide 26 Anion Gap 6 BUN 23 Creatinine 1.11 Est Cr Clr Drug Dosing 62.7 Est GFR ( Amer) 74.4 Est GFR (Non-Af Amer) 64.2 BUN/Creatinine Ratio 20.7 H Glucose 109 H Calcium 9.0 Medications Administered Current Inpatient Medications Apixaban (Apixaban 5 Mg Tablet) 5 mg PO BID [facility] Stop: 08/07/21 21:29 Last Admin: 07/11/21 09:17 Dose: 5 mg Documented by: Aspirin (Aspirin 81 Mg Ectab) 81 mg PO [facility] Stop: 08/07/21 21:29 Last Admin: 07/10/21 21:06 Dose: 81 mg Documented by: Atorvastatin Calcium (Atorvastatin 40 Mg Tab) 40 mg PO [facility] Stop: 08/07/21 21:29 Last Admin: 07/10/21 21:05 Dose: 40 mg Documented by: Diltiazem HCl (Diltiazem Hcl 120 Mg Capcr) 120 mg PO M [facility] Stop: 08/08/21 08:59 Last Admin: 07/11/21 09:18 Dose: 120 mg Documented by: Enzalutamide (Enzalutamide 40 Mg) 4 ea PO DAILY@1200 [facility] Stop: 08/08/21 17:59 Last Admin: 07/10/21 11:53 Dose: 4 ea Documented by: Ferrous Gluconate (Ferrous Gluconate 324 Mg Tab) 324 mg PO DAILY [facility] Stop: 08/08/21 08:59 Last Admin: 07/11/21 09:18 Dose: 324 mg Documented by: Metoprolol Succinate (Metoprolol Succ 50mg Ext Rel Tab) 100 mg PO [facility] Stop: 08/07/21 21:29 Last Admin: 07/11/21 09:18 Dose: 100 mg Documented by: Miscellaneous (*Vesicare*Order Awaiting Action) 1 ea N/A QS [facility] Stop: 08/08/21 00:00 Last Admin: 07/10/21 23:38 Dose: Not Given Documented by: Pantoprazole Sodium (Pantoprazole 40 Mg Tab) 40 mg PO [facility]; Protocol Stop: 08/08/21 08:59 Last Admin: 07/11/21 09:18 Dose: 40 mg Documented by: (1) Mitral regurgitation Cardiac valve disease etiology: etiology unspecified Qualified Code(s): I34.0 - Nonrheumatic mitral (valve) insufficiency
[2021-07-11] MEDS ORDERED: FUROSEMIDE 40 MG TAB PO SCH (11:45)
[2021-07-11 11:49] VITALS: TEMP 97.7; O2SAT 94
[2021-07-11] MEDS: ENZALUTAMIDE 40 MG PO SCH (12:29)
[2021-07-11 15:01] VITALS: BP 101/55; PULSE 69
--- NOTE | 2021-07-22 09:40 | Discharge Summary ---
Date of Service July 11, 2021 Admission HPI Per Admitting Provider 75-year-old male with PMH nonobstructive CAD, history of DVT and PE anticoagulated on Eliquis, paroxysmal atrial fibrillation s/p recent cardioversion, prostate cancer, diastolic dysfunction, DM type II, and other problems listed below who presents to the ED for evaluation of shortness of breath.He was recently admitted and discharge on 06/30 for SOB due to pneumonia and CHF. Pt said about few days ago he started to SOB that worsening with activity. He said that he developed edema in his lower extremities. He said that he has been using 2 pillows to sleep due to orthopnea. Denies any chest pain, palpitation, dizziness and fever. Admission Exam Per Admitting Provider General- No acute distress Head- atraumatic Eyes- PERRL, EOMI, ENT- oropharynx clear Neck- supple, no JVD Lungs- clear to auscultation Heart- regular rhythm; no murmur Abdomen- normal bowel sounds, soft, nontender Extremities- no calf tenderness, +edema Neuro- alert, oriented x 3; PERRL, EOMI; no facial palsy; no dysarthria Skin- warm & dry Principal Diagnosis Acute diastolic heart failure Elevated troponin I level:: H/O nonobstructive CAD on cardiac cath July 2020 Hypomagnesemia Anemia: Anemia of chronic disease Paroxysmal atrial fibrillation: S/p cardioversion on 04/30/2021 History of DVT (deep vein thrombosis)/ pulmonary embolism Diabetes mellitus: Cancer of prostate: Discharge Exam General- No acute distress Head- atraumatic Eyes- PERRL, EOMI, ENT- oropharynx clear Neck- supple, no JVD Lungs- clear to auscultation Heart- regular rhythm; no murmur Abdomen- normal bowel sounds, soft, nontender Extremities- no calf tenderness,+trace edema Neuro- alert, oriented x 3; PERRL, EOMI; no facial palsy; no dysarthria Skin- warm & dry Discharge Data Allergies Allergy/AdvReac Type Severity Reaction Status Date / Time adhesive AdvReac Intermediate REDNESS Verified 07/08/21 18:04 WITH EKG ELECTRODES Consultations 07/08/21 17:09 ED Decision to Admit Stat 07/08/21 21:12 Consult Cardiology Routine Ordered Studies XR chest 1V portable HISTORY: 75 years-old Male f/u acute shortness of breath COMPARISON: Chest radiograph 07/08/2021 TECHNIQUE: Portable AP view of the chest FINDINGS: The cardiac silhouette is enlarged. Atherosclerosis of the thoracic aorta. No pneumothorax. Trace pleural effusions. Pulmonary vascular congestion with interstitial coarsening and mildly progressed bibasilar opacities. Degenerative changes of the shoulders and spine. IMPRESSION: 1. Cardiomegaly with pulmonary edema. 2. Trace pleural effusions with mildly progressed bibasilar opacities. ACT 112: Negative or not required by law. The above report was generated using voice recognition software. It may contain grammatical, syntax or spelling errors. Electronically signed by: Cuate Farmer M.D. 07/09/2021 9:31 AM Dictated:07/09/21 09 Transcribed: 07/09/21922 XR chest 1V portable HISTORY: 75 years-old Male SOB acute shortness breath COMPARISON: Chest radiograph 06/25/2021 TECHNIQUE: Portable AP view of the chest FINDINGS: The cardiac silhouette is enlarged. Small pleural effusions with mild bibasilar opacities, similar to prior. Pulmonary vascular congestion. No pneumothorax. Degenerative changes of the shoulders and spine. IMPRESSION: 1. Cardiomegaly with pulmonary vascular congestion. 2. Small pleural effusions with mild bibasilar opacities suggestive of atelectasis versus pneumonitis. ACT 112: Negative or not required by law. The above report was generated using voice recognition software. It may contain grammatical, syntax or spelling errors. Electronically signed by: Cuate Farmer M.D. 07/08/2021 12:39 PM Dictated:07/08/21 1238 Transcribed: 07/08/21 1238 Hospital Course (1) Heart failure, diastolic, with acute decompensation: Acute diastolic heart failure Mitral Regurgitation Present on admission with worsening SOB . Recently discharge on Lasix 20mg every other day. CXR showed cardiomegaly with pulmonary vascular congestion. Small pleural effusions with mild bibasilar opacities suggestive of atelectasis versus pneumonitis. BNP elevated at 672 and troponin increase to 280 on admission. troponin trending down 76 Received IV Lasix 40mg IV in the ER ECHO from last admission showed moderate mitral regurgitation. Moderate concentric LVH. EF 60-65% Cardiology on board Repeat cxr showed cardiomegaly with pulmonary edema. Trace pleural effusions with mildly progressed bibasilar opacities. Case discussed with cardiology that recommended additional lasix 40mg IV today Cardiology plan to transition to PO lasix tomorrow Continue Monitor electrolytes Elevated troponin I level:: H/O nonobstructive CAD on cardiac cath July 2020 Likely demand ischemia Denies any chest pain Troponin on admission peak to 280, trending down to 76 Continue aspirin/statin/metoprolol Hypomagnesemia Mg 1.6 on admission, mg 1.8 Continue monitor mg level Recent Pneumonia Pt was treated for pneumonia on last admission CXR on admission showed small pleural effusions with mild bibasilar opacities suggestive of atelectasis versus pneumonitis. He just completed a course of abx with Cefuroxime and azithromycin Continue to hold on abx for now since no leukocytosis and afebrile Procalcitonin negative Anemia: Anemia of chronic disease No obvious signs of bleeding Hgb 8.9 today Low Serum Iron level Underlying prostate cancer may be contributing Follows with oncology as an outpatient Continue Iron supplements Paroxysmal atrial fibrillation: S/p cardioversion on 04/30/2021 Rate controlled Continue metoprolol and diltiazem Anticoagulated with Eliquis History of DVT (deep vein thrombosis)/ pulmonary embolism Continue Eliquis Diabetes mellitus: Recent Hgb A1c 6.0 on 04/28/21 Hold oral agents Utilize NovoLog per protocol while hospitalized Cancer of prostate: Follows with urology, Dr. Alford and medical oncologist at [facility] Plans to establish with Dr. Goyo Thornton locally DVT prophylaxis:: On Eliquis Code status DNR as per conversation with patient and Total Time Total Time Spent Total Time Spent (In Minutes): 35 minutes Discharge Plan Discharge Items Patient Disposition: Home - Home Health Services Reason For Visit: SOB Discharge Diagnosis: Acute diastolic heart failure Elevated troponin I level:: H/O nonobstructive CAD on cardiac cath July 2020 Hypomagnesemia Anemia: Anemia of chronic disease Paroxysmal atrial fibrillation: S/p cardioversion on 04/30/2021 History of DVT (deep vein thrombosis)/ pulmonary embolism Diabetes mellitus: Cancer of prostate: Activity: Resume your previous activity Non-emergency contact: Primary Care Provider Call non-emergency contact if: you have any medication questions Follow-up/Referrals: Forrest Prather [Physician [employer] Inspector] - (Please call the office to schedule a follow-up appointment) Jimmy Allen [Primary Care Provider] - (office will call you with appointment date/time) Diet: Heart Healthy Addtl Attending Provider Instructions: Follow up with your primary care provider within 1 week ( office will call you for the appointment) Follow up with your cardiology Check BMP within 1 week to monitor your electrolytes and renal function while on Lasix Seek medical attention if you develop any SOB Pending Studies at Discharge: No Stand-Alone Forms: [facility] [employer], Smoking Cessation Medications and DC Order Prescriptions: New furosemide 40 mg Tablet 40 mg PO QAM 30 Days Qty: 30 RF: 0 Continued metformin 500 mg tablet 500 mg PO QAM RF: 0 Xtandi 40 mg capsule 160 mg PO DAILY@1200 RF: 0 alendronate 70 mg tablet 70 mg PO WK RF: 0 hydrocodone-acetaminophen 10-325 mg tablet 1 tab PO DAILY PRN (Reason: Pain) RF: 0 aspirin 81 mg Capsule 81 mg PO HS RF: 0 solifenacin [Vesicare] 10 mg tablet 10 mg PO HS RF: 0 apixaban 5 mg (74 tabs) tablets,dose pack 5 mg PO Q12H Qty: 74 RF: 0 omeprazole 20 mg capsule,delayed release(DR/EC) 20 mg PO QAM RF: 0 diltiazem HCl 120 mg capsule,extended release 24hr 120 mg PO QAM RF: 0 metoprolol succinate [Toprol XL] 100 mg tablet extended release 24 hr 100 mg PO [facility] RF: 0 ferrous gluconate 324 mg (38 mg iron) Tablet 324 mg PO DAILY Qty: 30 RF: 0 atorvastatin 40 mg tablet 40 mg PO HS RF: 0 Discontinued furosemide [Lasix] 20 mg tablet 20 mg PO Q2D Qty: 15 RF: 0 Discharge Orders: Discharge Order (Routine); Ordered 07/11/21 Ordered By: Adalgisa Franco Admission Data Admit Date/Time: 07/08/21 18:36 Attending Provider: Adalgisa Franco Admit Provider: Adalgisa Franco Primary Care Provider: Jimmy Allen Other Providers: Adalgisa Franco ; Stephen Jones ; [facility] Other Interventions: Discharge Summary Assessment (RN) Last Done: 07/11/21 15:00
== END 2021-07-11 15:29 | disposition home health service (06) | DRG 291 ==
LOC: ED 10:54 → 2E 18:36

== ENCOUNTER 2021-07-25 09:26 | Inpatient (IN) ==
[2021-07-25 10:27] LABS: Basophils # (auto) 0.03 K/uL (0-0.2); Basophils % (auto) 0.4 %; Eosinophils # (auto) 0.08 K/uL (0-0.5); Eosinophils % (auto) 1.2 %; Hematocrit (blood only) 28.9 % (42-52); Hemoglobin 8.8 g/dL (14.0-18.0); Immature Granulocytes # (auto) 0.03 K/uL (0.00-0.02); Immature Granulocytes % (auto) 0.4 %; Lymphocytes % (auto) 10.4 %; Mean Corpuscular Hemoglobin 23.8 pg (25-34); Mean Corpuscular Hgb Conc 30.4 g/dL (32-36); Mean Corpuscular Volume 78.3 fL (80-100); Mean Platelet Volume 9.9 fL (7.4-10.4); Monocytes # (auto) 0.66 K/uL (0.11-0.59); Monocytes % (auto) 9.8 %; Neutrophils # (auto) 5.26 K/uL (1.4-6.5); Neutrophils % (auto) 77.8 %; Platelet Count 126 K/uL (130-400); RDW Coefficient of Variation 14.4 % (11.5-14.5); Red Blood Count 3.69 M/uL (4.7-6.1); White Blood Count 6.76 K/uL (4.8-10.8)
--- NOTE | 2021-07-25 10:39 | Emergency Department Note ---
Impression & Plan CHF (congestive heart failure), Anemia, Breath shortness, Hypomagnesemia, Hypotension ED Provider Note NAME: REMI COLE JR AGE: 75 SEX: M : 1945 ARRIVES VIA: Walk-In INFORMANT: Patient ED PROVIDER(S): Juve Galindo DO CHIEF COMPLAINT: Shortness of breath HPI: Patient is a 75-year-old male with past medical history of diabetes, dyslipidemia, paroxysmal A. fib on NOAC who presents the ER for shortness of breath. He notes he has had this off and on for the past several weeks. He was just admitted and discharged for heart failure. He was recently started on Lasix about a week to 2 weeks ago. He notes that since then his shortness of breath has been improving. The swelling in his legs has resolved. He notes that sometimes the shortness of breath does wax and wane. No shortness of breath with lying flat or sitting up. Shortness of breath is worse with up moving around. Denies any chest pain. No belly pain, nausea, vomiting, or diarrhea. No dysuria, urgency, or frequency. ROS: See above HPI for pertinent positives & negatives. A total of 10 systems reviewed and were otherwise negative. PAST MEDICAL HISTORY:See Below PAST SURGICAL HISTORY:See Below FAMILY HISTORY:See Below SOCIAL HISTORY:See Below HOME MEDICATIONS:See Below ALLERGIES:See Below VITALS:See Below PHYSICAL EXAMINATION: GENERAL: Sitting up in bed, alert, well appearing, well nourished, no distress, non-toxic EYE EXAM: normal conjunctiva. OROPHARYNX: no exudate, no erythema, lips, buccal mucosa, and tongue normal and mucous membranes are moist NECK: +JVD LUNGS: Clear to auscultation. Normal chest wall mechanics HEART: no murmurs, S1 normal and S2 normal ABDOMEN: abdomen soft, non-tender, normo-active bowel sounds, no masses, no rebound or guarding. UPPER EXTREMITIES: upper extremities are grossly normal. LOWER EXTREMITIES: Faint pitting edema bilaterally NEURO EXAM: Normal sensorium, cranial nerves II-XII grossly intact, normal speech, no gross weakness of arms, no gross weakness of legs. MEDICAL DECISION MAKING: Patient is a 75-year-old gentleman who presents ER with above-stated complaint. He notes he has become more short of breath of the past 3 days. IV was established blood work was obtained. Labs showed no significant leukocytosis. Anemia at 8.8 consistent with previous. INR unremarkable. BMP was unremarkable as well. Magnesium was slightly low at 1.5. Troponin was negative. COVID influenza and RSV were negative. Patient was given 60 mg of Lasix. He was slightly hypotensive with systolics in the 90s. PE was considered but he does take apixaban and consequently will not pursue any further. With the hypotension, shortness of breath and CHF and worsening BMP did elect to discussed with hospitalist for further evaluation. Chest x-ray did not show pleural effusion. Triage Nursing notes reviewed. Limited review of prior medical records performed Vital Signs: reviewed and remarkable for no significant abnormalities Differential diagnosis: Differential diagnoses includes but is not limited to pneumonia, bronchitis, COPD/Asthma exacerbation, pneumothorax, pulmonary embolism, congestive heart failure, acute coronary syndrome ER treatment provided: See below Diagnostics interpreted by me: ECG: EKG 1 Sinus rhythm rate of 75 Left axis Poor baseline QTC 446 Cardiac Monitoring: An order was placed for continuous cardiac monitoring. The monitor shows a rate of 80 with sinus rhythm. Laboratory studies: As stated above and show below. Imaging studies: Portable AP upright 1 view of the chest shows cephalization Consultation(s): Discussed with Salena Amezquita for further evaluation Procedures: none Critical Care: None Past Med/Surg History Medical History Cancer of prostate Chronic anticoagulation Diabetes mellitus Dyslipidemia Elevated troponin History of DVT (deep vein thrombosis) History of pulmonary embolism Hx of brachytherapy Hypomagnesemia Paroxysmal atrial fibrillation Pneumonitis Prostate cancer (2010) Surgical History H/O heart surgery History of cardiac catheterization History of carpal tunnel surgery History of prostatectomy Hx of cholecystectomy Family History Mother Lung cancer Father Lung cancer Social History Smoking Status: Former smoker Tobacco Type: Cigarettes Second Hand Exposure: No; Hx Alcohol Use: No Hx Substance Use: No Preferred Language: Montserratian Communication Ability: Effective Plastic Surgery Nurse Required: No Beliefs That Will Affect Care: None marital status: Current Living Situation: Spouse How many Children do You have: 2 Feels Safe at Home: Yes Assistive Devices: Cane and Walker Allergies Allergies Allergy/AdvReac Type Severity Reaction Status Date / Time adhesive AdvReac Intermediate REDNESS Verified 07/25/21 12:24 WITH EKG ELECTRODES Home Meds Home Medications Medication Instructions Recorded Confirmed alendronate 70 mg tablet 70 mg PO GONZALEZ@0900 tab 10/10/18 07/25/21 enzalutamide 40 mg capsule (Xtandi) 160 mg PO DAILY@1200 10/12/19 07/25/21 metformin 500 mg tablet 500 mg PO QAM 10/12/19 07/25/21 hydrocodone 10 mg-acetaminophen 1 tab PO DAILY PRN 04/12/21 07/25/21 325 mg tablet solifenacin 10 mg tablet (Vesicare) 10 mg PO HS 04/12/21 07/25/21 diltiazem HCl 120 mg 120 mg PO QAM 04/27/21 07/25/21 capsule,extended release 24 hr metoprolol succinate 100 mg 100 mg PO AMHS 04/27/21 07/25/21 tablet,extended release 24 hr (Toprol XL) omeprazole 20 mg capsule,delayed 20 mg PO QAM 04/27/21 07/25/21 release atorvastatin 40 mg tablet 40 mg PO HS 07/08/21 07/25/21 Previous Rx's Medication Instructions Recorded apixaban 5 mg (74 tabs) tablets in 5 mg PO Q12H #74 ea 04/17/21 a dose pack ferrous gluconate 324 mg (38 mg 324 mg PO DAILY #30 tab 06/28/21 iron) tablet furosemide 40 mg tablet 40 mg PO QAM 30 Days #30 tab 07/11/21 Results & Data (ED) Vital Signs Vital Signs - 24 hr 07/25/21 09:48 07/25/21 10:19 07/25/21 10:50 Temperature 36.6 C Temperature Source Oral Pulse Rate 90 82 Pulse Rate from SpO2 Sensor 82 Pulse Rhythm Regular Pulse Strength Normal Respiratory Rate 20 22 28 H Respiratory Effort / Characteristics Non-Labored Spontaneous Non-Labored Spontaneous Respiratory Depth Normal Blood Pressure 132/78 120/72 Blood Pressure Mean 96 88 Blood Pressure Position Lying Pulse Oximetry 98 98 92 Oxygen Delivery Method Room Air Room Air Sepsis Recent Fever Within 48 Hours No Sepsis New/Unexplained Change in Mental Status N/A Sepsis Action Taken by Nursing No Action Required 07/25/21 11:30 07/25/21 12:10 07/25/21 13:00 Temperature Temperature Source Pulse Rate 74 72 78 Pulse Rate from SpO2 Sensor 75 73 76 Pulse Rhythm Pulse Strength Respiratory Rate 24 23 24 Respiratory Effort / Characteristics Respiratory Depth Blood Pressure 115/76 93/49 L 100/72 Blood Pressure Mean 89 63 81 Blood Pressure Position Pulse Oximetry 92 93 93 Oxygen Delivery Method Sepsis Recent Fever Within 48 Hours Sepsis New/Unexplained Change in Mental Status Sepsis Action Taken by Nursing 07/25/21 13:30 07/25/21 14:20 07/25/21 15:20 Temperature Temperature Source Pulse Rate 78 79 81 Pulse Rate from SpO2 Sensor 74 77 81 Pulse Rhythm Pulse Strength Respiratory Rate 22 21 19 Respiratory Effort / Characteristics Respiratory Depth Blood Pressure 108/72 115/79 115/76 Blood Pressure Mean 84 91 89 Blood Pressure Position Pulse Oximetry 94 93 92 Oxygen Delivery Method Sepsis Recent Fever Within 48 Hours Sepsis New/Unexplained Change in Mental Status Sepsis Action Taken by Nursing Laboratory Data Result diagrams: 07/25/21 10:16 07/25/21 10:16 Lab Results 07/25/21 07/25/21 07/25/21 Range/Units 10:16 10:16 10:16 WBC 6.76 (4.8-10.8) K/uL RBC 3.69 L (4.7-6.1) M/uL Hgb 8.8 L (14.0-18.0) g/dL Hct 28.9 L (42-52) % MCV 78.3 L (80-100) fL MCH 23.8 L (25-34) pg MCHC 30.4 L (32-36) g/dL RDW Std Deviation 41.0 (36.4-46.3) fL RDW Coeff of Lisa 14.4 (11.5-14.5) % Plt Count 126 L (130-400) K/uL MPV 9.9 (7.4-10.4) fL Immature Gran % (Auto) 0.4 % Neut % (Auto) 77.8 % Lymph % (Auto) 10.4 % Beaver % (Auto) 9.8 % Eos % (Auto) 1.2 % Baso % (Auto) 0.4 % Neut # (Auto) 5.26 (1.4-6.5) K/uL Lymph # (Auto) 0.70 L (1.2-3.4) K/uL Beaver # (Auto) 0.66 H (0.11-0.59) K/uL Eos # (Auto) 0.08 (0-0.5) K/uL Baso # (Auto) 0.03 (0-0.2) K/uL Immature Gran # (Auto) 0.03 H (0.00-0.02) K/uL PT 11.7 (9.0-12.0) Seconds INR 1.1 (0.9-1.1) APTT 28.8 (21.0-31.0) Seconds PTT Ratio 1.0 Sodium 139 (136-145) mmol/L Potassium 4.0 (3.5-5.1) mmol/L Chloride 107 (98-107) mmol/L Carbon Dioxide 22 (21-32) mmol/L Anion Gap 10 (3-11) BUN 21 (6-23) mg/dl Creatinine 1.10 (0.6-1.4) mg/dl Est Cr Clr Drug Dosing 63.7 ml/min Est GFR ( Amer) 75.2 ml/min Est GFR (Non-Af Amer) 64.9 ml/min BUN/Creatinine Ratio 19.1 (10-20) Glucose 98 (70-99(Fasting)) mg/dl Calcium 9.1 (8.5-10.1) mg/dl Magnesium 1.5 L (1.7-2.4) mg/dl Total Bilirubin 0.8 (0.2-1.0) mg/dl AST 19 (13-39) U/L ALT 8 (7-52) U/L Alkaline Phosphatase 131 H (34-104) U/L Troponin I High Sens 31.2 H D (0-20) pg/ml B-Natriuretic Peptide (0-100) pg/ml Total Protein 7.1 (6.0-8.3) gm/dl Albumin 3.7 (3.4-5.0) gm/dl Globulin 3.4 (2.5-4.0) gm/dl Albumin/Globulin Ratio 1.1 (0.9-2) SARS-CoV-2 (PCR) (Negative) Influenza Type A (PCR) (Neg) Influenza Type B (PCR) (Neg) RSV (RT-PCR) (Neg) 07/25/21 07/25/21 Range/Units 10:16 12:43 WBC (4.8-10.8) K/uL RBC (4.7-6.1) M/uL Hgb (14.0-18.0) g/dL Hct (42-52) % MCV (80-100) fL MCH (25-34) pg MCHC (32-36) g/dL RDW Std Deviation (36.4-46.3) fL RDW Coeff of Lisa (11.5-14.5) % Plt Count (130-400) K/uL MPV (7.4-10.4) fL Immature Gran % (Auto) % Neut % (Auto) % Lymph % (Auto) % Beaver % (Auto) % Eos % (Auto) % Baso % (Auto) % Neut # (Auto) (1.4-6.5) K/uL Lymph # (Auto) (1.2-3.4) K/uL Beaver # (Auto) (0.11-0.59) K/uL Eos # (Auto) (0-0.5) K/uL Baso # (Auto) (0-0.2) K/uL Immature Gran # (Auto) (0.00-0.02) K/uL PT (9.0-12.0) Seconds INR (0.9-1.1) APTT (21.0-31.0) Seconds PTT Ratio Sodium (136-145) mmol/L Potassium (3.5-5.1) mmol/L Chloride (98-107) mmol/L Carbon Dioxide (21-32) mmol/L Anion Gap (3-11) BUN (6-23) mg/dl Creatinine (0.6-1.4) mg/dl Est Cr Clr Drug Dosing ml/min Est GFR ( Amer) ml/min Est GFR (Non-Af Amer) ml/min BUN/Creatinine Ratio (10-20) Glucose (70-99(Fasting)) mg/dl Calcium (8.5-10.1) mg/dl Magnesium (1.7-2.4) mg/dl Total Bilirubin (0.2-1.0) mg/dl AST (13-39) U/L ALT (7-52) U/L Alkaline Phosphatase (34-104) U/L Troponin I High Sens (0-20) pg/ml B-Natriuretic Peptide 874 H (0-100) pg/ml Total Protein (6.0-8.3) gm/dl Albumin (3.4-5.0) gm/dl Globulin (2.5-4.0) gm/dl Albumin/Globulin Ratio (0.9-2) SARS-CoV-2 (PCR) NEGATIVE (Negative) Influenza Type A (PCR) Negative (Neg) Influenza Type B (PCR) Negative (Neg) RSV (RT-PCR) Negative (Neg) Administered Medications Discontinued Medications Furosemide (Furosemide 40 Mg/4 Ml Vial) 60 mg IV NOW STA Stop: 07/25/21 12:00 Last Admin: 07/25/21 12:40 Dose: 60 mg Documented by: [id number] Imaging Data Radiologist's Impression: Chest X-Ray 07/25/21 10:14 XR chest 1V portable HISTORY: 75 years-old Male SOB acute shortness of breath COMPARISON: Chest radiograph 07/09/2021 TECHNIQUE: Portable AP view of the chest FINDINGS: The cardiac silhouette is enlarged. No pneumothorax. Trace pleural effusions with mild persistent bibasilar opacities. Pulmonary vascular congestion. No overt pulmonary edema. Degenerative changes of the shoulders and spine. IMPRESSION: 1. Cardiomegaly with pulmonary vascular congestion. 2. Trace pleural effusions with persistent mild bibasilar opacities. ACT 112: Negative or not required by law. The above report was generated using voice recognition software. It may contain grammatical, syntax or spelling errors. Electronically signed by: Cuate Farmer M.D. 07/25/2021 10:41 AM Discharge Plan Visit Data Chief Complaint: Shortness of Breath/Dyspnea Stated Complaint: SOB ED Provider: Juve Galindo Discharge Problem: CHF (congestive heart failure), Anemia, Breath shortness, Hypomagnesemia, Hypot ension Forms Stand Alone Forms: My [employer] Prescriptions Prescriptions: No Action metformin 500 mg tablet 500 mg PO QAM RF: 0 Xtandi 40 mg capsule 160 mg PO DAILY@1200 RF: 0 alendronate 70 mg tablet 70 mg PO GONZALEZ@0900 RF: 0 hydrocodone-acetaminophen 10-325 mg tablet 1 tab PO DAILY PRN (Reason: Pain) RF: 0 solifenacin [Vesicare] 10 mg tablet 10 mg PO HS RF: 0 apixaban 5 mg (74 tabs) tablets,dose pack 5 mg PO Q12H Qty: 74 RF: 0 omeprazole 20 mg capsule,delayed release(DR/EC) 20 mg PO QAM RF: 0 diltiazem HCl 120 mg capsule,extended release 24hr 120 mg PO QAM RF: 0 metoprolol succinate [Toprol XL] 100 mg tablet extended release 24 hr 100 mg PO AMHS RF: 0 ferrous gluconate 324 mg (38 mg iron) Tablet 324 mg PO DAILY Qty: 30 RF: 0 atorvastatin 40 mg tablet 40 mg PO HS RF: 0 furosemide 40 mg Tablet 40 mg PO QAM 30 Days Qty: 30 RF: 0 Referrals Referrals: Jimmy Allen [Primary Care Provider] - Discharge Problem: CHF (congestive heart failure) Qualifiers: Heart failure type: unspecified Heart failure chronicity: unspecified Qualified Code(s): I50.9 - Heart failure, unspecified Anemia Qualifiers: Anemia type: unspecified type Qualified Code(s): D64.9 - Anemia, unspecified Hypotension Qualifiers: Hypotension type: unspecified hypotension type Qualified Code(s): I95.9 - Hypot ension, unspecified
[2021-07-25 10:41] LABS: INR 1.1 (0.9-1.1); Partial Thromboplastin Time 28.8 Seconds (21.0-31.0); Prothrombin Time 11.7 Seconds (9.0-12.0)
--- NOTE | 2021-07-25 10:42 | XRay Report ---
XR chest 1V portable HISTORY: 75 years-old Male SOB acute shortness of breath COMPARISON: Chest radiograph 07/09/2021 TECHNIQUE: Portable AP view of the chest FINDINGS: The cardiac silhouette is enlarged. No pneumothorax. Trace pleural effusions with mild persistent bib asilar opacities. Pulmonary vascular congestion. No overt pulmonary edema. Degenerative changes of th e shoulders and spine. IMPRESSION: 1. Cardiomegaly with pulmonary vascular congestion. 2. Trace pleural effusions with persistent mild bibasilar opacities. ACT 112: Negative or not required by law. The above report was generated using voice recognition software. It may contain grammatical, syntax o r spelling errors. Electronically signed by: Cuate Farmer M.D. 07/25/2021 10:41 AM
[2021-07-25 10:58] LABS: Troponin I High Sensitivity 31.2 pg/ml (0-20)
[2021-07-25 11:37] LABS: Albumin Globulin Ratio 1.1 (0.9-2); Albumin Level 3.7 gm/dl (3.4-5.0); BUN Creatinine Ratio 19.1 (10-20); Bilirubin,Total 0.8 mg/dl (0.2-1.0); Calcium 9.1 mg/dl (8.5-10.1); Creatinine Clr Calc Pharmacy 63.7 ml/min; Est GFR (African American) 75.2 ml/min; Est GFR (Non-African American) 64.9 ml/min; Globulin 3.4 gm/dl (2.5-4.0); Magnesium 1.5 mg/dl (1.7-2.4); Total Protein 7.1 gm/dl (6.0-8.3)
[2021-07-25] MEDS ORDERED: FUROSEMIDE 40 MG/4 ML VIAL IV STA (11:59)
--- NOTE | 2021-07-25 12:34 | History & Physical Report ---
Date of Service July 25, 2021 Assessment & Plan (1) Heart failure, diastolic, with acute decompensation: Plan: SOB, decreased exercise tolerance due to heart failure exacerbation I suspect because of inadequate home diuretic. He eats a reasonable amount of sodium wih tout apparent dietary indiscretions, and has been compliant with diuretic given at last discharge. He reports a progressive worsening prompting his return. CXR with pulm vascular congestion and trace pleural effusions, and this was corroborated on exam, elevated BNP and clinical symptoms are consistent with worsening heart failure. His CXR today appears improved from that on 07/09. Patient and his were educated on the pathophysiology of heart failure today, and he was given Lasix 60mg IV in the ER. Will hold off on additional diuretic today and restart this in am. Low salt diet, strict I/Os, daily standing weights. Cardiology consulted. Recent echo performed so will not order at this time. Follow-up appointment with cardiology or PCP recommended within 3 days time at this hospital discharge. (2) Elevated troponin: Plan: Likely related to demand ischemia in setting of no chest pain and no evidence of acute ischemia on EKG today. (3) ASCVD (arteriosclerotic cardiovascular disease): Plan: chronic, stable. Last heart cath was in 2020 revealing nonobstructive disease. Cont current medical therapy. Notably patient's aspirin was stopped at recent discharge. (4) Mitral regurgitation: Plan: chronic, stable. seen on recent echo. (5) Diabetes mellitus: Plan: chronic, stable. Well controlled at baseline. Insulin as needed. Hold home metformin. (6) Cancer of prostate: Plan: has a h/o prostate cancer with mets to bone. Managed by Oncology at [facility] and sees a local oncologist. Remains on hormone therapy with Xtandi. Cont home medication. Continues on weekly fosamax. (7) History of pulmonary embolism: Plan: chronic, stable, cont home anticoagulation (8) Anemia: Plan: chronic, at baseline. No evidence of bleeding. Cont to trend. (9) DVT prophylaxis: Plan: apixaban Full Code-confirmed with patient and on admission Dispo- to PCU then home in 2-3 days or when cleared by cardiology DO Robert Carmona Hospitalist History of Present Illness Chief Complaint: SOB Primary Care Provider: Jimmy Allen 75 yo M presents with SOB. Recently admitted to [facility] from 07/08-07/11 for CHF exacerbation. At discharge his Lasix was changed from 20mg every other day to 40mg every day. Prior to that he was admitted 06/25-06/28 for pneumonia and completed a course of antibiotics. The Lasix 20mg every other day was a new medication at that hospital discharge on 06/28/21. He states that when he went home he was feeling well and breathing fine even when walking around [place] prior to leaving the hospital. He then progressively got more short of breath after several days and now has some PND (waking up and coughing) at night for the past few nights. His exercise tolerance has decreased and he cannot walk as far--now only to the mailbox and back. He went to the restroom during this interview and ambulated independently without much issue but was winded when he climbed back into the bed. He denies orthopnea, sleeping on 1 pillow or on his side. He reports at baseline, he used to play golf regularly, but hasn't since Feb 2021 because of SOB. This issue has been ongoing now for the past couple of months. Denies swelling or weight gain since discharge--he is at his base weight of 206-209lbs. Denies fevers, chills, chest pain, headache, abdominal discomfort, nausea, vomiting. He reports that he is eating well and denies any high salt intake. Reports cereal every morning with fruit. Soup and sandwich at lunch. Beef at dinner with p cesar or box mash potatoes with homemade gravy and spaghetti sauces used. The patient, his and I discussed the importance of a low salt diet and why this is important in him. They verbalized understanding with intent to comply. Allergies Allergy/AdvReac Type Severity Reaction Status Date / Time adhesive AdvReac Intermediate REDNESS Verified 07/25/21 12:24 WITH EKG ELECTRODES Home Medications Medication Instructions Recorded Confirmed Type alendronate 70 mg tablet 70 mg PO GONZALEZ@0900 tab 10/10/18 07/25/21 History enzalutamide 40 mg capsule (Xtandi) 160 mg PO DAILY@1200 10/12/19 07/25/21 History metformin 500 mg tablet 500 mg PO QAM 10/12/19 07/25/21 History aspirin 81 mg capsule 81 mg PO HS 04/12/21 07/25/21 History hydrocodone 10 mg-acetaminophen 1 tab PO DAILY PRN 04/12/21 07/25/21 History 325 mg tablet solifenacin 10 mg tablet (Vesicare) 10 mg PO HS 04/12/21 07/25/21 History apixaban 5 mg (74 tabs) tablets in 5 mg PO Q12H #74 ea 04/17/21 07/25/21 Rx a dose pack diltiazem HCl 120 mg 120 mg PO QAM 04/27/21 07/25/21 History capsule,extended release 24 hr metoprolol succinate 100 mg 100 mg PO AMHS 04/27/21 07/25/21 History tablet,extended release 24 hr (Toprol XL) omeprazole 20 mg capsule,delayed 20 mg PO QAM 04/27/21 07/25/21 History release ferrous gluconate 324 mg (38 mg 324 mg PO DAILY #30 tab 06/28/21 07/25/21 Rx iron) tablet atorvastatin 40 mg tablet 40 mg PO HS 07/08/21 07/25/21 History furosemide 40 mg tablet 40 mg PO QAM 30 Days #30 tab 07/11/21 07/25/21 Rx Past Med/Surg History Medical History Cancer of prostate Chronic anticoagulation Diabetes mellitus Dyslipidemia Elevated troponin History of DVT (deep vein thrombosis) History of pulmonary embolism Hx of brachytherapy Hypomagnesemia Paroxysmal atrial fibrillation Pneumonitis Prostate cancer (2009) Surgical History H/O heart surgery History of cardiac catheterization History of carpal tunnel surgery History of prostatectomy Hx of cholecystectomy Family History Mother Lung cancer Father Lung cancer Social History Smoking Status: Former smoker Tobacco Type: Cigarettes Second Hand Exposure: No; Hx Alcohol Use: No Hx Substance Use: No Preferred Language: German Communication Ability: Effective Prison Warden Required: No Beliefs That Will Affect Care: None marital status: Current Living Situation: Spouse How many Children do You have: 2 Feels Safe at Home: Yes Assistive Devices: Cane and Walker Review of Systems Review of Systems: All systems were reviewed and negative except as indicated above. Physical Exam Physical Exam: CONSTITUTIONAL: WNWD, vitals as above, generally well- appearing, NAD EYES: PERRL, normal conjunctivae, no scleral icterus ENT: external ear and nose normal, oropharynx clear, MMM NECK: trachea midline, no lymphadenopathy, RESPIRATORY: + crackles at right base to auscultation and some decreased breath sounds at left base but otherwise clear to auscultation throughout, no rales or wheezes, normal respiratory effort, not requiring supplemental oxygen. CARDIOVASCULAR: regular rate and rhythm, S1 and 2 heard without murmurs, ga llops or rubs, no JVD, no peripheral edema, no elevated JVP and no JVD present. CHEST: inspection of chest was normal GASTROINTESTINAL: soft, nontender, ND, no guarding MUSCULOSKELETAL: strength 5/5 throughout, head is normocephalic and atraumatic, ambulates independently without issues. SKIN: warm and dry, NEUROLOGIC: CN 2-12 grossly intact, no sensory deficit, normal cognition, normal speech, no tremor, no gross focal deficits. PSYCHIATRIC: alert cooperative and oriented to person, place and time. Euthymic mood, makes good eye contact, language grossly intact, recent and remote memory grossly intact. Results & Data Results & Data ([facility]) Vital Signs (Past 12 Hours) Vital Signs Temp Pulse Resp BP Pulse Ox 07/25/21 11:30 74 24 115/76 92 07/25/21 10:50 82 28 H 120/72 92 07/25/21 10:19 22 98 07/25/21 09:48 36.6 C 90 20 132/78 98 Laboratory Results Short CBC 07/25/21 Range/Units 10:16 WBC 6.76 (4.8-10.8) K/uL Hgb 8.8 L (14.0-18.0) g/dL Hct 28.9 L (42-52) % Plt Count 126 L (130-400) K/uL BMP 07/25/21 10:16 Sodium 139 Potassium 4.0 Chloride 107 Carbon Dioxide 22 BUN 21 Creatinine 1.10 Glucose 98 Calcium 9.1 Liver Function 07/25/21 Range/Units 10:16 Total Bilirubin 0.8 (0.2-1.0) mg/dl AST 19 (13-39) U/L ALT 8 (7-52) U/L Alkaline Phosphatase 131 H (34-104) U/L Albumin 3.7 (3.4-5.0) gm/dl Diagnostic Findings Chest X-Ray 07/25/21 10:14 XR chest 1V portable HISTORY: 75 years-old Male SOB acute shortness of breath COMPARISON: Chest radiograph 07/09/2021 TECHNIQUE: Portable AP view of the chest FINDINGS: The cardiac silhouette is enlarged. No pneumothorax. Trace pleural effusions with mild persistent bibasilar opacities. Pulmonary vascular congestion. No overt pulmonary edema. Degenerative changes of the shoulders and spine. IMPRESSION: 1. Cardiomegaly with pulmonary vascular congestion. 2. Trace pleural effusions with persistent mild bibasilar opacities. ACT 112: Negative or not required by law. The above report was generated using voice recognition software. It may contain grammatical, syntax or spelling errors. Electronically signed by: Cuate Faremr M.D. 07/25/2021 10:41 AM Medications Administered Lasix 60mg IV given in ER. (1) Anemia Anemia type: unspecified type Qualified Code(s): D64.9 - Anemia, unspecified (2) Mitral regurgitation Cardiac valve disease etiology: etiology unspecified Qualified Code(s): I34.0 - Nonrheumatic mitral (valve) insufficiency
[2021-07-25 13:53] LABS: Influenza A virus by PCR Negative (Neg); Influenza B virus by PCR Negative (Neg); RSV by PCR Negative (Neg); SARS CoV2 RNA(COVID-19) InHosp NEGATIVE (Negative)
[2021-07-25] MEDS ORDERED: POLYETHYLENE (MIRALAX) 17 GM PACK PO PRN (16:07)
[2021-07-25] MEDS ORDERED: ACETAMINOPHEN 325 MG TAB PO PRN (16:07)
[2021-07-25] MEDS ORDERED: GLUCAGON FOR INJ 1 MG VIAL SQ PRN (16:07)
[2021-07-25] MEDS ORDERED: GLUCOSE 40% GEL 15 GM TUBE PO PRN (16:07)
[2021-07-25] MEDS ORDERED: DEXTROSE 50% 50 ML SYRINGE IV PRN (16:07)
[2021-07-25] MEDS ORDERED: GLUCOSE 10 TABS/TUBE PO PRN (16:07)
[2021-07-25] MEDS ORDERED: HYDROCODONE/ACETAMOPHEN 5/325MG TAB PO PRN (16:07)
[2021-07-25] MEDS ORDERED: CARBOHYDRATES FOR HYPOGLYCEMIA PO PRN (16:07)
[2021-07-25] MEDS: dilTIAZem HCL 120 MG CAPCR PO SCH (17:00)
[2021-07-25] MEDS: INSULIN ASPART PER UNIT SC SCH ×2 (17:07→20:44)
[2021-07-25] MEDS: ENZALUTAMIDE 40 MG PO SCH (17:08)
[2021-07-25] MEDS: APIXABAN 5 MG TABLET PO SCH (20:31)
[2021-07-25] MEDS: MAGNESIUM OXIDE 400 MG TAB PO SCH (20:32)
[2021-07-25] MEDS: ATORVASTATIN 40 MG TAB PO SCH (20:32)
[2021-07-25] MEDS: METOPROLOL SUCC 50MG EXT REL TAB PO SCH (20:37)
[2021-07-26 05:46] LABS: Hematocrit (blood only) 26.2 % (42-52); Hemoglobin 8.1 g/dL (14.0-18.0); Mean Corpuscular Hemoglobin 24.2 pg (25-34); Mean Corpuscular Hgb Conc 30.9 g/dL (32-36); Mean Corpuscular Volume 78.2 fL (80-100); RDW Coefficient of Variation 14.6 % (11.5-14.5); RDW Standard Deviation 41.8 fL (36.4-46.3); Red Blood Count 3.35 M/uL (4.7-6.1); White Blood Count 4.51 K/uL (4.8-10.8)
[2021-07-26 06:06] LABS: Mean Platelet Volume 9.9 fL (7.4-10.4); Platelet Count 97 K/uL (130-400); Platelet Estimate Decreased (Normal)
[2021-07-26 06:10] LABS: BUN Creatinine Ratio 18.4 (10-20); Calcium 8.7 mg/dl (8.5-10.1); Creatinine Clr Calc Pharmacy 55.1 ml/min; Est GFR (African American) 64.4 ml/min; Est GFR (Non-African American) 55.6 ml/min; Magnesium 1.5 mg/dl (1.7-2.4); Potassium 3.5 mmol/L (3.5-5.1)
[2021-07-26] MEDS: INSULIN ASPART PER UNIT SC SCH ×4 (07:45→21:23)
[2021-07-26] MEDS: METOPROLOL SUCC 50MG EXT REL TAB PO SCH ×2 (07:49→20:10)
[2021-07-26] MEDS: FERROUS GLUCONATE 324 MG TAB PO SCH (07:49)
[2021-07-26] MEDS: PANTOprazole 40 MG TAB PO SCH (07:49)
[2021-07-26] MEDS: dilTIAZem HCL 120 MG CAPCR PO SCH (07:50)
[2021-07-26] MEDS: MAGNESIUM OXIDE 400 MG TAB PO SCH ×2 (07:50→20:09)
[2021-07-26] MEDS: APIXABAN 5 MG TABLET PO SCH ×2 (07:50→20:09)
[2021-07-26] MEDS: VESICARE - ORDER AWAITING ACTION SCH ×3 (08:39→23:47)
--- NOTE | 2021-07-26 08:41 | Electrocardiogram Report ---
Test Reason : Blood Pressure : / mmHG Vent. Rate : 075 BPM Atrial Rate : 075 BPM P-R Int : 152 ms QRS Dur : 088 ms QT Int : 400 ms P-R-T Axes : -06 -18 059 degrees QTc Int : 446 ms Poor data quality, interpretation may be adversely affected Normal sinus rhythm Nonspecific ST and T wave abnormality Abnormal ECG When compared with ECG of 08-JUL-2021 11:40, No significant change was found Confirmed by Jourdan Lawler ([id number]) on 07/26/2021 8:41:22 AM Referred By: REFERRED SELF Confirmed By:Jourdan Lawler
--- NOTE | 2021-07-26 08:56 | Electrocardiogram Report ---
Test Reason : Blood Pressure : / mmHG Vent. Rate : 085 BPM Atrial Rate : 085 BPM P-R Int : 178 ms QRS Dur : 090 ms QT Int : 406 ms P-R-T Axes : 027 -22 060 degrees QTc Int : 483 ms Normal sinus rhythm Prolonged QT Abnormal ECG When compared with ECG of 25-JUL-2021 10:02, (unconfirmed) No significant change was found Confirmed by Jourdan Lawler ([id number]) on 07/26/2021 8:56:14 AM Referred By: REFERRED SELF Confirmed By:Jourdan Lawler
[2021-07-26] MEDS ORDERED: ALENDRONATE SODIUM 70 MG TAB PO SCH (09:00)
[2021-07-26] MEDS ORDERED: MAGNESIUM SULFATE / D5W 1 GM/100 ML BAG IV ONE ×2 (09:01→10:26)
--- NOTE | 2021-07-26 10:37 | Cardiology Consultation ---
Date of Consultation July 26, 2021 Assessment & Plan (1) Acute on chronic heart failure with preserved ejection fraction (HFpEF): (2) Paroxysmal atrial fibrillation: (3) Anemia: (4) History of pulmonary embolism: 75-year-old patient with complex history including metastatic prostate cancer, prior pulmonary embolus, paroxysmal atrial fibrillation status post cardioversion, recent atypical pneumonia. Presents to the hospital with acute on chronic diastolic heart failure. Outpatient treatment with enzalutamide for prostate cancer contributing to peripheral edema. Recommend addition of IV Lasix 40 mg twice daily. Follow daily weight, fluid balance, electrolytes, and renal function. Continue apixaban, high-dose metoprolol (100 mg twice daily), and low-dose diltiazem as previously ordered. History of Present Illness Reason for Consultation: CHF Requesting Physician: Dr. Strickland Attending Physician: Adalgisa Franco MD History of Present Illness 75-year-old patient admitted with progressive dyspnea, orthopnea, and lower extremity edema. Diagnosed with acute decompensated diastolic heart failure. Treated with 1 dose of intravenous furosemide, 60 mg in the ER. Diuresed approximately 1.6 L overnight. Respiratory status improved this morning. Den ies chest pain or palpitations. Telemetry reveals sinus rhythm in the 80s. Recently hospitalized for both atypical pneumonia and chronic diastolic heart failure. During most recent admission, Lasix titrated from 40 mg every other day, to Lasix 40 mg daily. No weight gain per home scale. Denies any excessive sodium intake or dietary indiscretions. Allergies Allergy/AdvReac Type Severity Reaction Status Date / Time adhesive AdvReac Intermediate REDNESS Verified 07/25/21 12:24 WITH EKG ELECTRODES Home Medications Medication Instructions Recorded Confirmed Type alendronate 70 mg tablet 70 mg PO GONZALEZ@0900 tab 10/10/18 07/25/21 History enzalutamide 40 mg capsule (Xtandi) 160 mg PO DAILY@1200 10/12/19 07/25/21 History metformin 500 mg tablet 500 mg PO QAM 10/12/19 07/25/21 History hydrocodone 10 mg-acetaminophen 1 tab PO DAILY PRN 04/12/21 07/25/21 History 325 mg tablet solifenacin 10 mg tablet (Vesicare) 10 mg PO HS 04/12/21 07/25/21 History apixaban 5 mg (74 tabs) tablets in 5 mg PO Q12H #74 ea 04/17/21 07/25/21 Rx a dose pack diltiazem HCl 120 mg 120 mg PO QAM 04/27/21 07/25/21 History capsule,extended release 24 hr metoprolol succinate 100 mg 100 mg PO AMHS 04/27/21 07/25/21 History tablet,extended release 24 hr (Toprol XL) omeprazole 20 mg capsule,delayed 20 mg PO QAM 04/27/21 07/25/21 History release ferrous gluconate 324 mg (38 mg 324 mg PO DAILY #30 tab 06/28/21 07/25/21 Rx iron) tablet atorvastatin 40 mg tablet 40 mg PO HS 07/08/21 07/25/21 History furosemide 40 mg tablet 40 mg PO QAM 30 Days #30 tab 07/11/21 07/25/21 Rx Patient History Medical History Cancer of prostate Chronic anticoagulation Diabetes mellitus Dyslipidemia Elevated troponin History of DVT (deep vein thrombosis) History of pulmonary embolism Hx of brachytherapy Hypomagnesemia Paroxysmal atrial fibrillation Pneumonitis Prostate cancer (2009) Surgical History H/O heart surgery History of cardiac catheterization History of carpal tunnel surgery History of prostatectomy Hx of cholecystectomy Family History Mother Lung cancer Father Lung cancer Social History Smoking Status: Never smoker Tobacco Type: Cigarettes Second Hand Exposure: No; Hx Alcohol Use: No Hx Substance Use: No Preferred Language: Slovenian Communication Ability: Effective 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 Beliefs That Will Affect Care: None marital status: Current Living Situation: Spouse How many Children do You have: 2 Other Information That Helps Us Care for You: No Feels Safe at Home: Yes Safety Concerns: Feels Safe At This Time Assistive Devices: Cane and Walker Review of Systems Review of Systems: All systems reviewed & are unremarkable except as noted in Subjective Physical Exam Constitutional: well developed and well nourished; no acute distress Respiratory: normal respiratory effort; no respiratory distress, no labored breathing, no retractions and does not use accessory muscles Auscultation: + crackles (Right base); no rhonchi and no wheezes Cardiovascular: Rate/Rhythm: regular rate and regular rhythm Heart Sounds: normal S1 and normal S2; no murmur Vessels: + JVD and radial pulses present; no carotid bruit Extremities: + edema (Trace to mild bilateral pedal and ankle edema) Gastrointestinal (Abdomen): Inspection/Auscultation: normal bowel sounds; abdomen not distended Percussion/Palpation: abdomen nontender and no guarding Neurologic: CN's II-XI intact bilaterally and moves all extremities; no focal motor deficits Motor/Sensory: no tremor Psychiatric: A+Ox3, euthymic affect Results & Data ([facility]) Vital Signs (Past 12 Hours) Vital Signs Temp Pulse Resp BP Pulse Ox 07/26/21 08:00 36.7 C 97 H 18 122/65 95 07/26/21 04:31 36.9 C 91 H 16 120/68 92 07/26/21 00:11 36.7 C 86 16 105/52 L 92 (1) Anemia Anemia type: unspecified type Qualified Code(s): D64.9 - Anemia, unspecified
[2021-07-26] MEDS: FUROSEMIDE 40 MG/4 ML VIAL IV SCH ×2 (11:51→17:11)
[2021-07-26] MEDS: ENZALUTAMIDE 40 MG PO SCH (12:07)
--- NOTE | 2021-07-26 16:57 | Hospitalist Progress Note ---
Date of Service July 26, 2021 Assessment & Plan (1) Heart failure, diastolic, with acute decompensation: Plan: Present on admission with worsening SOB with exertion CXR showed cardiomegaly with pulmonary vascular congestion. Trace pleural effusions with persistent mild bibasilar opacities. BNP elevated at 874 and troponin 31.2on admission Received IV Lasix 60mg in the ER Last ECHO from last admission showed moderate mitral regurgitation. Moderate concentric LVH. EF 60-65% Cardiology on board Starting on Lasix 40mg IV BID Continue Repeat cxr showed cardiomegaly with pulmonary edema. Trace pleural effusions with mildly progressed bibasilar opacities. Case discussed with cardiology that recommended additional lasix 40mg IV today Cardiology plan to transition to PO lasix tomorrow Continue Monitor electrolytes Monitor I/O (2) Elevated troponin: Plan: Elevated troponin I level:: H/O nonobstructive CAD on cardiac cath July 2020 Likely demand ischemia Denies any chest pain Troponin on admission peak to 280, trending down to 76 Continue aspirin/statin/metoprolol (3) ASCVD (arteriosclerotic cardiovascular disease): Plan: Last heart cath was in 2020 revealing nonobstructive disease. Cont current medical therapy. (4) Mitral regurgitation: Plan: chronic, stable. (5) Hypomagnesemia: Plan: Mg 1.5 on admission, Mg 1.5today Continue monitor Mg level (6) Diabetes mellitus: Plan: Recent Hgb A1c 6.0 on 04/28/21 Hold oral agents Utilize NovoLog per protocol while hospitalized Will check Hba1c (7) Cancer of prostate: Plan: has a h/o prostate cancer with mets to bone. Remains on hormone therapy with Xtandi. Continues on weekly fosamax. Follows with urology, Dr. Alford and medical oncologist at [facility] Plans to establish with Dr. Goyo Thornton locally (8) History of pulmonary embolism: Plan: chronic, stable, cont home anticoagulation (9) Anemia: Plan: Anemia of chronic disease No obvious signs of bleeding Hgb 8.1 today Low Serum Iron level Underlying prostate cancer may be contributing Follows with oncology as an outpatient Continue Iron supplements (10) DVT prophylaxis: Plan: apixaban Full Code Admission and Anticipated Discharge Date Admission Date: July 25, 2021 Subjective Pt was seen and examined for follow up of SOB Sitting at the edge of the bed with no acute distress eating his lunch Pt said that his breathing is much better Denies any chest pain, palpitation, dizziness and SOB Review of Systems Review of Systems: All systems reviewed & are unremarkable except as noted in Subjective Physical Exam Physical Exam: General- No acute distress Head- atraumatic Eyes- PERRL, EOMI, ENT- oropharynx clear Neck- supple, no JVD Lungs- clear to auscultation Heart- regular rhythm; no murmur Abdomen- normal bowel sounds, soft, nontender Extremities- no calf tenderness, edema Neuro- alert, oriented x 3; PERRL, EOMI; no facial palsy; no dysarthria Skin- warm & dry Results & Data Results & Data ([facility]) Vital Signs (Past 12 Hours) Vital Signs Temp Pulse Resp BP BP Pulse Ox Pulse Ox 07/26/21 15:57 88 18 99/57 L 95 07/26/21 12:51 94 07/26/21 11:30 36.7 C 78 16 98/57 L 94 07/26/21 08:00 36.7 C 97 H 18 122/65 95 (1) Anemia Anemia type: unspecified type Qualified Code(s): D64.9 - Anemia, unspecified (2) Mitral regurgitation Cardiac valve disease etiology: etiology unspecified Qualified Code(s): I34.0 - Nonrheumatic mitral (valve) insufficiency
[2021-07-26] MEDS: ATORVASTATIN 40 MG TAB PO SCH (20:09)
[2021-07-27 07:41] LABS: BUN Creatinine Ratio 16.9 (10-20); Calcium 8.7 mg/dl (8.5-10.1); Est GFR (African American) 69.1 ml/min; Est GFR (Non-African American) 59.6 ml/min; Magnesium 1.4 mg/dl (1.7-2.4); Potassium 3.6 mmol/L (3.5-5.1)
[2021-07-27 07:57] LABS: Hemoglobin 7.9 g/dL (14.0-18.0); Mean Corpuscular Hemoglobin 23.6 pg (25-34); Mean Corpuscular Hgb Conc 30.4 g/dL (32-36); Mean Corpuscular Volume 77.6 fL (80-100); RDW Coefficient of Variation 14.8 % (11.5-14.5); RDW Standard Deviation 42.2 fL (36.4-46.3); Red Blood Count 3.35 M/uL (4.7-6.1); White Blood Count 5.09 K/uL (4.8-10.8)
[2021-07-27 08:00] LABS: Mean Platelet Volume 9.8 fL (7.4-10.4); Platelet Count 95 K/uL (130-400)
[2021-07-27] MEDS: INSULIN ASPART PER UNIT SC SCH ×4 (08:07→20:41)
[2021-07-27] MEDS: METOPROLOL SUCC 50MG EXT REL TAB PO SCH ×2 (08:19→19:34)
[2021-07-27] MEDS: MAGNESIUM OXIDE 400 MG TAB PO SCH ×2 (08:19→19:33)
[2021-07-27] MEDS: FUROSEMIDE 40 MG/4 ML VIAL IV SCH ×2 (08:19→17:18)
[2021-07-27] MEDS: PANTOprazole 40 MG TAB PO SCH (08:19)
[2021-07-27] MEDS: dilTIAZem HCL 120 MG CAPCR PO SCH (08:19)
[2021-07-27] MEDS: APIXABAN 5 MG TABLET PO SCH ×2 (08:19→19:32)
[2021-07-27] MEDS: MAGNESIUM SULFATE / D5W 1 GM/100 ML BAG IV SCH ×2 (08:26→10:11)
[2021-07-27] MEDS: VESICARE - ORDER AWAITING ACTION SCH ×3 (08:30→23:45)
[2021-07-27] MEDS: FERROUS GLUCONATE 324 MG TAB PO SCH (09:11)
[2021-07-27 09:36] LABS: Estimated Average Glucose 114 mg/dl; Hemoglobin A1C 5.6 % (4.5-5.6)
--- NOTE | 2021-07-27 09:49 | Cardiology Progress Note ---
Date of Service July 27, 2021 Assessment & Plan (1) Acute on chronic heart failure with preserved ejection fraction (HFpEF): (2) Paroxysmal atrial fibrillation: (3) Anemia: (4) History of pulmonary embolism: Plan: 75-year-old patient with complex history including metastatic prostate cancer, prior pulmonary embolus, paroxysmal atrial fibrillation status post cardioversion, recent atypical pneumonia. Presents to the hospital with acute on chronic diastolic heart failure. Outpatient treatment with enzalutamide for prostate cancer contributing to peripheral edema. Recommend addition of IV Lasix 40 mg twice daily. Follow daily weight, fluid balance, electrolytes, and renal function. Continue apixaban, high-dose metoprolol (100 mg twice daily), and low-dose diltiazem as previously ordered. 07/27/2021 Clinically improving with diuresis. We will continue IV diuretics through today , resume oral dose in a.m. Add spironolactone 12.5 mg p.o. daily to regimen diastolic heart failure Anemia contributing Admission and Anticipated Discharge Date Admission Date: July 25, 2021 Subjective Patient seen and examined, chart, medications, telemetry reviewed. Feels improved less dyspneic. Good diuresis weight down 3 kg from admission. No dizziness or lightheadedness no chest pains or discomfort. Physical Exam Constitutional: well developed and well nourished; no acute distress Respiratory: normal respiratory effort; no respiratory distress, no labored breathing, no retractions and does not use accessory muscles Auscultation: lungs clear to auscultation bilaterally (With mildly diminished breath sounds at the bases); no rhonchi and no wheezes Cardiovascular: Rate/Rhythm: regular rate and regular rhythm Heart Sounds: normal S1 and normal S2; no murmur Vessels: + JVD and radial pulses present; no carotid bruit Extremities: + edema (Trace bilateral pedal and ankle edema) Gastrointestinal (Abdomen): Inspection/Auscultation: normal bowel sounds; abdomen not distended Percussion/Palpation: abdomen nontender and no guarding Neurologic: CN's II-XI intact bilaterally and moves all extremities; no focal motor deficits Motor/Sensory: no tremor Psychiatric: A+Ox3, euthymic affect Results & Data ([facility]) Vital Signs (Past 12 Hours) Vital Signs Temp Pulse Pulse Resp BP BP Pulse Ox 07/27/21 07:56 37.0 C 82 16 106/64 91 07/27/21 04:23 36.8 C 81 16 104/54 L 91 07/26/21 23:30 93 H 07/26/21 23:12 36.8 C 85 16 98/58 L 93 Laboratory Results Laboratory Results - last 24 hr 07/26/21 07/26/21 07/26/21 11:14 16:13 20:31 WBC RBC Hgb Hct MCV MCH MCHC RDW Std Deviation RDW Coeff of Lisa Plt Count MPV Sodium Potassium Chloride Carbon Dioxide Anion Gap BUN Creatinine Est Cr Clr Drug Dosing Est GFR ( Amer) Est GFR (Non-Af Amer) BUN/Creatinine Ratio Glucose POC Glucose 119 H 108 H 125 H Estimat Average Glucose Hemoglobin A1c Calcium Magnesium 07/27/21 07/27/21 07/27/21 06:44 06:44 06:44 WBC 5.09 RBC 3.35 L Hgb 7.9 L Hct 26.0 L MCV 77.6 L MCH 23.6 L MCHC 30.4 L RDW Std Deviation 42.2 RDW Coeff of Lisa 14.8 H Plt Count 95 L MPV 9.8 Sodium 136 Potassium 3.6 Chloride 102 Carbon Dioxide 25 Anion Gap 9 BUN 20 Creatinine 1.18 Est Cr Clr Drug Dosing 58.0 Est GFR ( Amer) 69.1 Est GFR (Non-Af Amer) 59.6 BUN/Creatinine Ratio 16.9 Glucose 100 H POC Glucose Estimat Average Glucose 114 Hemoglobin A1c 5.6 Calcium 8.7 Magnesium 1.4 L 07/27/21 07:25 WBC RBC Hgb Hct MCV MCH MCHC RDW Std Deviation RDW Coeff of Lisa Plt Count MPV Sodium Potassium Chloride Carbon Dioxide Anion Gap BUN Creatinine Est Cr Clr Drug Dosing Est GFR ( Amer) Est GFR (Non-Af Amer) BUN/Creatinine Ratio Glucose POC Glucose 113 H Estimat Average Glucose Hemoglobin A1c Calcium Magnesium (1) Anemia Anemia type: unspecified type Qualified Code(s): D64.9 - Anemia, unspecified
[2021-07-27] MEDS: SPIRONOLACTONE 12.5 MG TAB PO SCH (11:02)
[2021-07-27] MEDS: ENZALUTAMIDE 40 MG PO SCH (11:48)
--- NOTE | 2021-07-27 15:25 | Hospitalist Progress Note ---
Date of Service July 27, 2021 Assessment & Plan (1) Heart failure, diastolic, with acute decompensation: Plan: Present on admission with worsening SOB with exertion CXR showed cardiomegaly with pulmonary vascular congestion. Trace pleural effusions with persistent mild bibasilar opacities. Repeat cxr showed cardiomegaly with pulmonary edema. Trace pleural effusions with mildly progressed bibasilar opacities. BNP elevated at 874 and troponin 31.2on admission Received IV Lasix 60mg in the ER Last ECHO from last admission showed moderate mitral regurgitation. Moderate concentric LVH. EF 60-65% Cardiology on board Continue Lasix 40mg IV BID for today, plan to transition to PO in am Spironolactone 12.5 mg daily added Continue Monitor electrolytes Monitor I/O Clinically improves significantly (2) Elevated troponin: Plan: Elevated troponin I level:: H/O nonobstructive CAD on cardiac cath July 2020 Likely demand ischemia Denies any chest pain Troponin on admission peak to 280, trending down to 76 Continue aspirin/statin/metoprolol (3) ASCVD (arteriosclerotic cardiovascular disease): Plan: Last heart cath was in 2020 revealing nonobstructive disease. Cont current medical therapy. (4) Mitral regurgitation: Plan: chronic, stable. (5) Hypomagnesemia: Plan: Mg 1.5 on admission, Mg 1.4 today Mg replaced Continue mag supplement Continue monitor Mg level (6) Diabetes mellitus: Plan: Recent Hgb A1c 5.6 on 07/27/21 Hold oral agents Utilize NovoLog per protocol while hospitalized Stable (7) Cancer of prostate: Plan: has a h/o prostate cancer with mets to bone. Remains on hormone therapy with Xtandi. Continues on weekly fosamax. Follows with urology, Dr. Alford and medical oncologist at [facility] Plans to establish with Dr. Goyo Thornton locally (8) History of pulmonary embolism: Plan: chronic, stable, cont home anticoagulation (9) Anemia: Plan: Anemia of chronic disease No obvious signs of bleeding Hgb 8.1 today Low Serum Iron level Underlying prostate cancer may be contributing Follows with oncology as an outpatient Continue Iron supplements (10) DVT prophylaxis: Plan: apixaban Full Code Admission and Anticipated Discharge Date Admission Date: July 25, 2021 Subjective Pt was seen and examined for follow up of SOB Lying in bed with no acute distress Pt said that his breathing is much better Denies any chest pain, palpitation, dizziness and SOB Review of Systems Review of Systems: All systems reviewed & are unremarkable except as noted in Subjective Physical Exam Physical Exam: General- No acute distress Head- atraumatic Eyes- PERRL, EOMI, ENT- oropharynx clear Neck- supple, no JVD Lungs- clear to auscultation Heart- regular rhythm; no murmur Abdomen- normal bowel sounds, soft, nontender Extremities- no calf tenderness, no edema Neuro- alert, oriented x 3; PERRL, EOMI; no facial palsy; no dysarthria Skin- warm & dry Results & Data Results & Data ([facility]) Vital Signs (Past 12 Hours) Vital Signs Temp Pulse Pulse Resp BP Pulse Ox 07/27/21 12:04 36.7 C 80 18 106/58 L 96 07/27/21 11:41 98 07/27/21 08:00 91 H 07/27/21 07:56 37.0 C 82 16 106/64 91 07/27/21 04:23 36.8 C 81 16 104/54 L 91 (1) Mitral regurgitation Cardiac valve disease etiology: etiology unspecified Qualified Code(s): I34.0 - Nonrheumatic mitral (valve) insufficiency (2) Anemia Anemia type: unspecified type Qualified Code(s): D64.9 - Anemia, unspecified
[2021-07-27] MEDS: ATORVASTATIN 40 MG TAB PO SCH (19:32)
[2021-07-28 07:03] LABS: Hematocrit (blood only) 25.7 % (42-52); Mean Corpuscular Hemoglobin 24.1 pg (25-34); Mean Corpuscular Hgb Conc 31.1 g/dL (32-36); Mean Corpuscular Volume 77.4 fL (80-100); RDW Coefficient of Variation 14.8 % (11.5-14.5); RDW Standard Deviation 42.3 fL (36.4-46.3); Red Blood Count 3.32 M/uL (4.7-6.1); White Blood Count 4.89 K/uL (4.8-10.8)
[2021-07-28 07:28] LABS: BUN Creatinine Ratio 16.8 (10-20); Calcium 8.5 mg/dl (8.5-10.1); Creatinine Clr Calc Pharmacy 54.7 ml/min; Est GFR (African American) 64.4 ml/min; Est GFR (Non-African American) 55.6 ml/min; Mean Platelet Volume 9.3 fL (7.4-10.4); Platelet Count 95 K/uL (130-400); Potassium 3.6 mmol/L (3.5-5.1)
[2021-07-28] MEDS ORDERED: FUROSEMIDE 20 MG TAB PO SCH (09:00)
[2021-07-28] MEDS: INSULIN ASPART PER UNIT SC SCH ×2 (10:19→12:59)
[2021-07-28] MEDS: FERROUS GLUCONATE 324 MG TAB PO SCH (10:22)
[2021-07-28] MEDS: APIXABAN 5 MG TABLET PO SCH (10:22)
[2021-07-28] MEDS: dilTIAZem HCL 120 MG CAPCR PO SCH (10:22)
[2021-07-28] MEDS: VESICARE - ORDER AWAITING ACTION SCH (10:22)
[2021-07-28] MEDS: METOPROLOL SUCC 50MG EXT REL TAB PO SCH (10:23)
[2021-07-28] MEDS: PANTOprazole 40 MG TAB PO SCH (10:23)
[2021-07-28] MEDS: MAGNESIUM OXIDE 400 MG TAB PO SCH (10:23)
[2021-07-28] MEDS: SPIRONOLACTONE 12.5 MG TAB PO SCH (10:23)
--- NOTE | 2021-07-28 10:59 | Cardiology Progress Note ---
Date of Service July 28, 2021 Assessment & Plan (1) Acute on chronic heart failure with preserved ejection fraction (HFpEF): (2) Paroxysmal atrial fibrillation: (3) Anemia: (4) History of pulmonary embolism: Plan: 75-year-old patient with complex history including metastatic prostate cancer, prior pulmonary embolus, paroxysmal atrial fibrillation status post cardioversion, recent atypical pneumonia. Presents to the hospital with acute on chronic diastolic heart failure. Outpatient treatment with enzalutamide for prostate cancer contributing to peripheral edema. IV Lasix discontinued. Oral Lasix titrated to 60 mg daily. Low-dose spironolactone added yesterday, 12.5 mg daily. Continue as outpatient with repeat BMP in 1 week. Other cardiovascular medications include apixaban, high-dose metoprolol (100 mg twice daily), and low-dose diltiazem will be continued as previously ordered. Close outpatient cardiology follow-up in 1 week. Admission and Anticipated Discharge Date Admission Date: July 25, 2021 Subjective Patient seen examined the bedside. Respiratory status improved. Fluid balance -205 cc. Spironolactone added yesterday. No orthopnea or PND. Telemetry feels sinus rhythm in the 70s. Review of Systems Review of Systems: All systems reviewed & are unremarkable except as noted in Subjective Physical Exam Constitutional: well developed and well nourished; no acute distress Respiratory: normal respiratory effort; no respiratory distress, no labored breathing, no retractions and does not use accessory muscles Auscultation: no crackles, no rhonchi and no wheezes Cardiovascular: Rate/Rhythm: regular rate and regular rhythm Heart Sounds: normal S1 and normal S2; no murmur Vessels: + JVD and radial pulses present; no carotid bruit Extremities: + edema (Trace to mild bilateral pedal and ankle edema) Gastrointestinal (Abdomen): Inspection/Auscultation: normal bowel sounds; abdomen not distended Percussion/Palpation: abdomen nontender and no guarding Neurologic: CN's II-XI intact bilaterally and moves all extremities; no focal motor deficits Motor/Sensory: no tremor Psychiatric: A+Ox3, euthymic affect Results & Data ([facility]) Vital Signs (Past 12 Hours) Vital Signs Temp Pulse Pulse Resp BP Pulse Ox 07/28/21 08:23 36.8 C 81 17 110/66 97 07/28/21 03:00 37.2 C 82 18 119/61 95 07/28/21 00:09 77 07/27/21 23:00 36.8 C 79 18 114/65 94 (1) Anemia Anemia type: unspecified type Qualified Code(s): D64.9 - Anemia, unspecified
[2021-07-28 11:48] VITALS: TEMP 98.1; O2SAT 96
[2021-07-28] MEDS: ENZALUTAMIDE 40 MG PO SCH (12:58)
[2021-07-28 14:49] VITALS: BP 98/58
[2021-07-28 14:59] VITALS: PULSE 67
--- NOTE | 2021-07-29 06:10 | Electrocardiogram Report ---
Test Reason : Blood Pressure : / mmHG Vent. Rate : 081 BPM Atrial Rate : 081 BPM P-R Int : 180 ms QRS Dur : 092 ms QT Int : 414 ms P-R-T Axes : 027 -28 059 degrees QTc Int : 480 ms Sinus rhythm with occasional Premature ventricular complexes Prolonged QT Abnormal ECG When compared with ECG of 26-JUL-2021 04:37, Premature ventricular complexes are now Present Confirmed by John Long ([id number]) on 07/29/2021 6:09:59 AM Referred By: REFERRED SELF Confirmed By:John Long
== END 2021-07-28 16:31 | disposition home health service (06) | DRG 292 ==
LOC: ED 09:26 → SUATTDRO 12:38 → 2E 12:38

== ENCOUNTER 2021-08-19 19:08 | Inpatient (IN) ==
[2021-08-19] MEDS ORDERED: SODIUM CHLORIDE 0.9% 250 ML IV PRN ×2 (19:34→22:13)
--- NOTE | 2021-08-19 20:08 | XRay Report ---
XR chest 1V portable HISTORY: 75 years-old Male Chest Pain . Atypical chest pain with shortness of breath COMPARISON: Chest radiograph 07/25/2021 TECHNIQUE: Portable AP view of the chest FINDINGS: The cardiac silhouette is mildly enlarged. Mild right hemidiaphragmatic elevation. Pulmonary vascular congestion. Mild bibasilar atelectasis. Calcified granulomata of the left midlung again noted. Degen erative changes of the shoulders and spine. IMPRESSION: Cardiomegaly without acute process. ACT 112: Negative or not required by law. The above report was generated using voice recognition software. It may contain grammatical, syntax o r spelling errors. Electronically signed by: Cuate Farmer M.D. 08/19/2021 8:07 PM
[2021-08-19 20:09] LABS: INR 1.2 (0.9-1.1); Partial Thromboplastin Ratio 0.9; Partial Thromboplastin Time 26.1 Seconds (21.0-31.0); Prothrombin Time 12.3 Seconds (9.0-12.0)
[2021-08-19 20:30] LABS: Hematocrit (blood only) 19.5 % (42-52); Hemoglobin 5.5 g/dL (14.0-18.0); Mean Corpuscular Hemoglobin 21.6 pg (25-34); Mean Corpuscular Hgb Conc 28.2 g/dL (32-36); Mean Corpuscular Volume 76.5 fL (80-100); Mean Platelet Volume 10.8 fL (7.4-10.4); Nucleated RBC # (auto) 0.23 K/uL (0-0); Nucleated RBC % (auto) 3.1 %; Platelet Count 103 K/uL (130-400); RDW Coefficient of Variation 15.8 % (11.5-14.5); Red Blood Count 2.55 M/uL (4.7-6.1); Troponin I High Sensitivity 29.3 pg/ml (0-20); White Blood Count 7.47 K/uL (4.8-10.8)
[2021-08-19 20:33] LABS: Anion Gap 13 (3-11); BUN Creatinine Ratio 17.7 (10-20); Blood Urea Nitrogen 33 mg/dl (6-23); Calcium 8.6 mg/dl (8.5-10.1); Carbon Dioxide 23 mmol/L (21-32); Chloride 98 mmol/L (98-107); Est GFR (African American) 39.8 ml/min; Est GFR (Non-African American) 34.4 ml/min; Glucose 133 mg/dl (70-99(Fasting)); Lipase 28 U/L (11-82); Potassium 3.8 mmol/L (3.5-5.1); Sodium 134 mmol/L (136-145)
[2021-08-19 20:46] LABS: Basophils # (auto) 0.02 K/uL (0-0.2); Basophils % (auto) 0.3 %; Eosinophils # (auto) 0.06 K/uL (0-0.5); Eosinophils % (auto) 0.8 %; Hypochromasia Present; Immature Granulocytes # (auto) 0.06 K/uL (0.00-0.02); Immature Granulocytes % (auto) 0.8 %; Lymphocytes % (auto) 6.7 %; Microcytosis Present; Monocytes # (auto) 0.95 K/uL (0.11-0.59); Monocytes % (auto) 12.7 %; Neutrophils # (auto) 5.88 K/uL (1.4-6.5); Neutrophils % (auto) 78.7 %; Poikilocytosis Present; Polychromasia 1+
[2021-08-19] MEDS ORDERED: POTASSIUM CHLORIDE CRTAB 20 MEQ TABCR PO STA (21:45)
[2021-08-19] MEDS ORDERED: LACTATED RINGER'S 1,000 ML IV STA (21:55)
--- NOTE | 2021-08-19 22:14 | History & Physical Report ---
Date of Service August 19, 2021 Assessment & Plan (1) Symptomatic anemia: Plan: Acute on chronic anemia, hemoglobin drop from baseline Secondary to painless L GIB Patient on Eliquis for history of PAF/PE/DVT ARF chronic diastolic heart failure (EF 60 to 65%, TTE 2021), patient on the dry side hx CAD as per records/moderate MR hypertension, BP on the lower side metastatic prostate cancer status post surgery, radiation, ongoing antiandrogen therapy, progression noted on outpatient scans DM2 on oral medications, well-controlled as of recent hemoglobin A1c of 5.6 in July 2021 past tobacco abuse Medical telemetry History PRBC to maintain hemoglobin greater than 8 given history of CAD Hold Eliquis for now GI consult Re: L GIB Baseline UA, monitor creatinine response to IVF, hold home diuretics for now until creatinine back to baseline Renal ultrasound, nephrology consultation if kidney function does not improve. ICS BG goal 1 10-1 40, carb count coverage DVT prophylaxis. SCDs Re: GI bleed Full code Text document was generated using [employer] voice recognition software. It may contain grammatical or spelling errors. Kindly contact undersigned for clarification of any documentation item in question. History of Present Illness Chief Complaint: Abnormal blood work Primary Care Provider: Jimmy Allen History obtained from patient and records. Medical history significant for chronic diastolic heart failure (EF 60 to 65%, TTE 2021), CAD as per records, moderate MR, PAF/PE/DVT on Eliquis, hypertension, chronic anemia (baseline hemoglobin of 8), metastatic prostate cancer status post surgery, radiation, ongoing antiandrogen therapy, DM2 on oral medications, past tobacco abuse. Last confinement 3 weeks ago for decompensated heart failure. Patient seen on follow-up [facility] [place] [facility] cardiology's office today. Patient with shortness of breath and fatigue symptoms as per documentation. Patient noted to be pale by provider. Appetite not too good as per patient. Intermittent bloody stools since last year as per patient without abdominal pain complaints. No diarrhea, no fever, no chills. Outpatient hemoglobin noted to be 5.6, serum creatinine 1.7. Patient directed to ER for evaluation. 1 unit PRBC transfused at the ER. 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 Allergies Allergy/AdvReac Type Severity Reaction Status Date / Time adhesive AdvReac Intermediate REDNESS Verified 08/19/21 20:11 WITH EKG ELECTRODES Home Medications Medication Instructions Recorded Confirmed Type alendronate 70 mg tablet 70 mg PO GONZALEZ@0900 tab 10/10/18 08/19/21 History enzalutamide 40 mg capsule (Xtandi) 160 mg PO DAILY@1200 10/12/19 08/19/21 History metformin 500 mg tablet 500 mg PO QAM 10/12/19 08/19/21 History hydrocodone 10 mg-acetaminophen 1 tab PO DAILY PRN 04/12/21 08/19/21 History 325 mg tablet solifenacin 10 mg tablet (Vesicare) 10 mg PO HS 04/12/21 08/19/21 History apixaban 5 mg (74 tabs) tablets in 5 mg PO Q12H #74 ea 04/17/21 08/19/21 Rx a dose pack diltiazem HCl 120 mg 120 mg PO QAM 04/27/21 08/19/21 History capsule,extended release 24 hr metoprolol succinate 100 mg 100 mg PO AMHS 04/27/21 08/19/21 History tablet,extended release 24 hr (Toprol XL) omeprazole 20 mg capsule,delayed 20 mg PO QAM 04/27/21 08/19/21 History release ferrous gluconate 324 mg (38 mg 324 mg PO DAILY #30 tab 06/28/21 08/19/21 Rx iron) tablet atorvastatin 40 mg tablet 40 mg PO HS 07/08/21 08/19/21 History magnesium oxide 400 mg (241.3 mg 400 mg PO BID 30 Days #60 tab 07/28/21 08/19/21 Rx magnesium) tablet spironolactone 25 mg tablet 12.5 mg PO DAILY #30 tab 07/28/21 08/19/21 Rx furosemide 40 mg tablet 40 mg PO QAM 08/19/21 08/19/21 History Past Med/Surg History Medical History Cancer of prostate Chronic anticoagulation Diabetes mellitus Dyslipidemia Dyspnea on minimal exertion Elevated brain natriuretic peptide (BNP) level Elevated troponin Elevated troponin Heart failure, diastolic, with acute decompensation History of pulmonary embolism Hx of brachytherapy Hypomagnesemia Mitral regurgitation Paroxysmal atrial fibrillation Pneumonitis Prostate cancer (2009) SOB (shortness of breath) Surgical History H/O heart surgery History of cardiac catheterization History of carpal tunnel surgery History of prostatectomy Hx of cholecystectomy Family History Mother Lung cancer Father Lung cancer Social History Smoking Status: Never smoker Tobacco Type: Cigarettes Second Hand Exposure: No; Hx Alcohol Use: No Hx Substance Use: No Preferred Language: German Communication Ability: Effective Pipelines Laborer Required: No Beliefs That Will Affect Care: None marital status: Current Living Situation: Spouse How many Children do You have: 2 Other Information That Helps Us Care for You: No Feels Safe at Home: Yes Safety Concerns: Feels Safe At This Time Assistive Devices: Cane Review of Systems Review of Systems: As per HPI, all other systems reviewed and negative Physical Exam Physical Exam: GENERAL: Comfortable, pleasant, no respiratory distress SKIN: Pallor, warm HEENT: Pale palpebral conjunctivae, no ptosis, dry buccal mucosa NECK : Supple, no tenderness CHEST : CTA, no tenderness HEART : RRR, systolic murmur ABDOMEN: Some distention, nontender EXTREMITIES : No LE swelling/tenderness, no other conspicuous deformities noted NEUROLOGIC : Coherent, no facial asymmetry, no other gross focality Results & Data Results & Data ([facility]) Vital Signs (Past 12 Hours) Vital Signs Temp Pulse Resp BP Pulse Ox 08/19/21 21:56 36.9 C 100 H 24 102/59 L 95 08/19/21 21:40 103 H 23 96 08/19/21 21:39 37.2 C 102 H 24 137/68 95 08/19/21 21:30 99 H 22 08/19/21 21:20 99 H 22 08/19/21 21:10 105 H 23 99 08/19/21 21:07 103 H 28 H 135/71 95 08/19/21 21:00 96 H 22 08/19/21 20:50 96 H 08/19/21 20:40 100 H 54 H 08/19/21 20:30 94 H 22 08/19/21 20:20 95 H 23 08/19/21 20:10 94 H 20 08/19/21 20:00 97 H 23 99 08/19/21 19:50 91 H 23 98 06/29/22 19:40 95 H 28 H 100 08/19/21 19:34 96 08/19/21 19:33 101 H 21 99 08/19/21 19:13 36.0 C L 91 H 22 126/78 100 Laboratory Results Laboratory Results WBC 7.47 K/uL (4.8-10.8) 08/19/21 19:40 RBC 2.55 M/uL (4.7-6.1) L 08/19/21 19:40 Hgb 5.5 g/dL (14.0-18.0) L* 08/19/21 19:40 Hct 19.5 % (42-52) L* 08/19/21 19:40 MCV 76.5 fL (80-100) L 08/19/21 19:40 MCH 21.6 pg (25-34) L 08/19/21 19:40 MCHC 28.2 g/dL (32-36) L 08/19/21 19:40 RDW Std Deviation 44.0 fL (36.4-46.3) 08/19/21 19:40 RDW Coeff of Lisa 15.8 % (11.5-14.5) H 08/19/21 19:40 Plt Count 103 K/uL (130-400) L 08/19/21 19:40 MPV 10.8 fL (7.4-10.4) H 08/19/21 19:40 Immature Gran % (Auto) 0.8 % 08/19/21 19:40 Neut % (Auto) 78.7 % 08/19/21 19:40 Lymph % (Auto) 6.7 % 08/19/21 19:40 [place] % (Auto) 12.7 % 08/19/21 19:40 Eos % (Auto) 0.8 % 08/19/21 19:40 Baso % (Auto) 0.3 % 08/19/21 19:40 Neut # (Auto) 5.88 K/uL (1.4-6.5) 08/19/21 19:40 Lymph # (Auto) 0.50 K/uL (1.2-3.4) L 08/19/21 19:40 [place] # (Auto) 0.95 K/uL (0.11-0.59) H 08/19/21 19:40 Eos # (Auto) 0.06 K/uL (0-0.5) 08/19/21 19:40 Baso # (Auto) 0.02 K/uL (0-0.2) 08/19/21 19:40 Immature Gran # (Auto) 0.06 K/uL (0.00-0.02) H 08/19/21 19:40 Absolute Nucleated RBC 0.23 K/uL (0-0) H 08/19/21 19:40 Nucleated RBC % (auto) 3.1 % 08/19/21 19:40 Polychromasia 1+ 08/19/21 19:40 Hypochromasia Present 08/19/21 19:40 Poikilocytosis Present 08/19/21 19:40 Microcytosis Present 08/19/21 19:40 PT 12.3 Seconds (9.0-12.0) H 08/19/21 19:40 INR 1.2 (0.9-1.1) H 08/19/21 19:40 APTT 26.1 Seconds (21.0-31.0) 08/19/21 19:40 PTT Ratio 0.9 08/19/21 19:40 Sodium 134 mmol/L (136-145) L 08/19/21 19:40 Potassium 3.8 mmol/L (3.5-5.1) 08/19/21 19:40 Chloride 98 mmol/L (98-107) 08/19/21 19:40 Carbon Dioxide 23 mmol/L (21-32) 08/19/21 19:40 Anion Gap 13 (3-11) H 08/19/21 19:40 BUN 33 mg/dl (6-23) H 08/19/21 19:40 Creatinine 1.86 mg/dl (0.6-1.4) H 08/19/21 19:40 Est Cr Clr Drug Dosing Not Reportable 08/19/21 19:40 Est GFR ( Amer) 39.8 ml/min 08/19/21 19:40 Est GFR (Non-Af Amer) 34.4 ml/min 08/19/21 19:40 BUN/Creatinine Ratio 17.7 (10-20) 08/19/21 19:40 Glucose 133 mg/dl (70-99(Fasting)) H 08/19/21 19:40 Calcium 8.6 mg/dl (8.5-10.1) 08/19/21 19:40 Troponin I High Sens 29.3 pg/ml (0-20) H 08/19/21 19:40 Lipase 28 U/L (11-82) 08/19/21 19:40 SARS-CoV-2, RNA, NAAT NEGATIVE (NEGATIVE) 08/19/21 20:10 Blood Type A Negative 08/19/21 19:45 Blood Type Recheck A Negative 08/19/21 20:07 Antibody Screen NEGATIVE 08/19/21 19:45 Crossmatch See Detail 08/19/21 19:45 Impressions Chest X-Ray 08/19/21 19:34 XR chest 1V portable HISTORY: 75 years-old Male Chest Pain . Atypical chest pain with shortness of breath COMPARISON: Chest radiograph 07/25/2021 TECHNIQUE: Portable AP view of the chest FINDINGS: The cardiac silhouette is mildly enlarged. Mild right hemidiaphragmatic elevation. Pulmonary vascular congestion. Mild bibasilar atelectasis. Calcified granulomata of the left midlung again noted. Degenerative changes of the shoulders and spine. IMPRESSION: Cardiomegaly without acute process. ACT 112: Negative or not required by law. The above report was generated using voice recognition software. It may contain grammatical, syntax or spelling errors. Electronically signed by: Cuate Farmer M.D. 08/19/2021 8:07 PM Diagnostic Findings EKG as per my interpretation: Rate 90, NSR, normal axis, no ischemia
[2021-08-19 22:17] LABS: Magnesium 1.9 mg/dl (1.7-2.4)
[2021-08-19] MEDS ORDERED: GLUCAGON FOR INJ 1 MG VIAL SQ PRN (23:10)
[2021-08-19] MEDS ORDERED: DEXTROSE 50% 50 ML SYRINGE IV PRN (23:10)
[2021-08-19] MEDS ORDERED: ACETAMINOPHEN 325 MG TAB PO PRN (23:10)
[2021-08-19] MEDS ORDERED: HYDROcodone/ACETAMINOPHEN 10/325 TAB PO PRN ×2 (23:10→23:34)
[2021-08-19] MEDS ORDERED: GLUCOSE 40% GEL 15 GM TUBE PO PRN (23:10)
[2021-08-19] MEDS ORDERED: PROMETHAZINE HCL 12.5 MG in SODIUM CHLORIDE 0.9% 50 ML IV PRN (23:10)
[2021-08-19] MEDS ORDERED: traMADol HCL 50 MG TABLET PO PRN (23:10)
[2021-08-19] MEDS ORDERED: GLUCOSE 10 TAB/TUBE PO PRN (23:10)
[2021-08-19] MEDS ORDERED: CARBOHYDRATES FOR HYPOGLYCEMIA PO PRN (23:10)
[2021-08-19 23:29] LABS: Creatine Kinase 35 U/L (30-223)
[2021-08-19] MEDS: INSULIN ASPART PER UNIT SC SCH (23:48)
--- NOTE | 2021-08-19 23:51 | Emergency Department Note ---
History of Present Illness General Chief Complaint: Abnormal Labs/Diagnostic Testing Stated Complaint: ABNORMAL LABS Time Seen by Provider: 08/19/21 19:20 History of Present Illness Provider Complaint: + abnormal lab Description of abnormal result: Hemoglobin 5.5. Context: + called for abnormal lab result Associated symptoms: + shortness of breath; no fever, no chills, no chest pain, no nausea or no abdominal pain HPI narrative: Patient denies any melena hematochezia dysuria hematuria syncope. Patient is on Eliquis. Home Medications Medication Instructions Recorded Confirmed Type alendronate 70 mg tablet 70 mg PO GONZALEZ@0900 tab 10/10/18 08/19/21 History enzalutamide 40 mg capsule (Xtandi) 160 mg PO DAILY@1200 10/12/19 08/19/21 History metformin 500 mg tablet 500 mg PO QAM 10/12/19 08/19/21 History hydrocodone 10 mg-acetaminophen 1 tab PO DAILY PRN 04/12/21 08/19/21 History 325 mg tablet solifenacin 10 mg tablet (Vesicare) 10 mg PO HS 04/12/21 08/19/21 History apixaban 5 mg (74 tabs) tablets in 5 mg PO Q12H #74 ea 04/17/21 08/19/21 Rx a dose pack diltiazem HCl 120 mg 120 mg PO QAM 04/27/21 08/19/21 History capsule,extended release 24 hr metoprolol succinate 100 mg 100 mg PO AMHS 04/27/21 08/19/21 History tablet,extended release 24 hr (Toprol XL) omeprazole 20 mg capsule,delayed 20 mg PO QAM 04/27/21 08/19/21 History release ferrous gluconate 324 mg (38 mg 324 mg PO DAILY #30 tab 06/28/21 08/19/21 Rx iron) tablet atorvastatin 40 mg tablet 40 mg PO HS 07/08/21 08/19/21 History magnesium oxide 400 mg (241.3 mg 400 mg PO BID 30 Days #60 tab 07/28/21 08/19/21 Rx magnesium) tablet spironolactone 25 mg tablet 12.5 mg PO DAILY #30 tab 07/28/21 08/19/21 Rx furosemide 40 mg tablet 40 mg PO QAM 08/19/21 08/19/21 History Allergies Allergy/AdvReac Type Severity Reaction Status Date / Time adhesive AdvReac Intermediate REDNESS Verified 08/19/21 20:11 WITH EKG ELECTRODES Past Med/Surg History Medical History Cancer of prostate Chronic anticoagulation Diabetes mellitus Dyslipidemia Dyspnea on minimal exertion Elevated brain natriuretic peptide (BNP) level Elevated troponin Elevated troponin Heart failure, diastolic, with acute decompensation History of pulmonary embolism Hx of brachytherapy Hypomagnesemia Mitral regurgitation Paroxysmal atrial fibrillation Pneumonitis Prostate cancer (2009) SOB (shortness of breath) Surgical History H/O heart surgery History of cardiac catheterization History of carpal tunnel surgery History of prostatectomy Hx of cholecystectomy Family History Mother Lung cancer Father Lung cancer Social History Smoking Status: Never smoker Tobacco Type: Cigarettes Second Hand Exposure: No; Hx Alcohol Use: No Hx Substance Use: No Preferred Language: [place] Citizen Communication Ability: Effective Log Hooker Required: No Beliefs That Will Affect Care: None marital status: Current Living Situation: Spouse How many Children do You have: 2 Feels Safe at Home: Yes Assistive Devices: Cane and Walker Review of Systems A total of 10 systems reviewed and were otherwise negative Physical Exam Vital Signs: Vital Signs - 24 hr 08/19/21 19:13 08/19/21 19:33 08/19/21 19:34 Temperature 36.0 C L Temperature Source Temporal Artery Sc an Pulse Rate 91 H 101 H Pulse Rate from Sp O2 Sensor 101 H Pulse Rhythm Pulse Strength Respiratory Rate 22 21 Respiratory Effort / Characteristics Non-Labored Sponta neous Non-Labored Respiratory Depth Normal Normal Respiratory Patter n Blood Pressure 126/78 Blood Pressure Alisha n 94 Blood Pressure Pos ition Sitting Pulse Oximetry 100 99 96 Oxygen Delivery Me thod Room Air Room Air Sepsis Recent Feve r Within 48 Hours No Sepsis New/Unexpla ined Change in Men pat Status N/A Sepsis Action Take n by Nursing No Action Required 08/19/21 19:40 08/19/21 19:50 08/19/21 20:00 Temperature Temperature Source Pulse Rate 95 H 91 H 97 H Pulse Rate from Sp O2 Sensor 95 H 91 H 97 H Pulse Rhythm Pulse Strength Respiratory Rate 28 H 23 23 Respiratory Effort / Characteristics Respiratory Depth Respiratory Patter n Blood Pressure Blood Pressure Alisha n Blood Pressure Pos ition Pulse Oximetry 100 98 99 Oxygen Delivery Me thod Sepsis Recent Feve r Within 48 Hours Sepsis New/Unexpla ined Change in Men pat Status Sepsis Action Take n by Nursing 08/19/21 20:10 08/19/21 20:20 08/19/21 20:30 Temperature Temperature Source Pulse Rate 94 H 95 H 94 H Pulse Rate from Sp O2 Sensor Pulse Rhythm Pulse Strength Respiratory Rate 20 23 22 Respiratory Effort / Characteristics Respiratory Depth Respiratory Patter n Blood Pressure Blood Pressure Alisha n Blood Pressure Pos ition Pulse Oximetry Oxygen Delivery Me thod Sepsis Recent Feve r Within 48 Hours Sepsis New/Unexpla ined Change in Men pat Status Sepsis Action Take n by Nursing 08/19/21 20:40 08/19/21 20:50 08/19/21 21:00 Temperature Temperature Source Pulse Rate 100 H 96 H 96 H Pulse Rate from Sp O2 Sensor Pulse Rhythm Pulse Strength Respiratory Rate 54 H 22 Respiratory Effort / Characteristics Respiratory Depth Respiratory Patter n Blood Pressure Blood Pressure Alisha n Blood Pressure Pos ition Pulse Oximetry Oxygen Delivery Me thod Sepsis Recent Feve r Within 48 Hours Sepsis New/Unexpla ined Change in Men pat Status Sepsis Action Take n by Nursing 08/19/21 21:07 08/19/21 21:09 08/19/21 21:10 Temperature Temperature Source Pulse Rate 103 H 105 H Pulse Rate from Sp O2 Sensor 102 H 105 H Pulse Rhythm Pulse Strength Respiratory Rate 28 H 23 Respiratory Effort / Characteristics Non-Labored Respiratory Depth Normal Respiratory Patter n Regular Blood Pressure 135/71 Blood Pressure Alisha n 92 Blood Pressure Pos ition Pulse Oximetry 95 99 Oxygen Delivery Me thod Room Air Sepsis Recent Feve r Within 48 Hours Sepsis New/Unexpla ined Change in Men pat Status Sepsis Action Take n by Nursing 08/19/21 21:20 08/19/21 21:30 08/19/21 21:39 Temperature 37.2 C Temperature Source Oral Pulse Rate 99 H 99 H 102 H Pulse Rate from Sp O2 Sensor 102 H Pulse Rhythm Regular Pulse Strength Normal Respiratory Rate 22 22 24 Respiratory Effort / Characteristics Respiratory Depth Respiratory Patter n Blood Pressure 137/68 Blood Pressure Alisha n 91 Blood Pressure Pos ition Semi-fowlers Pulse Oximetry 95 Oxygen Delivery Me thod Sepsis Recent Feve r Within 48 Hours Sepsis New/Unexpla ined Change in Men pat Status Sepsis Action Take n by Nursing 08/19/21 21:40 08/19/21 21:56 08/19/21 22:11 Temperature 36.9 C 37.1 C Temperature Source Oral Oral Pulse Rate 103 H 100 H 102 H Pulse Rate from Sp O2 Sensor 103 H Pulse Rhythm Pulse Strength Respiratory Rate 23 24 18 Respiratory Effort / Characteristics Respiratory Depth Respiratory Patter n Blood Pressure 102/59 L 120/72 Blood Pressure Alisha n 73 88 Blood Pressure Pos ition Pulse Oximetry 96 95 94 Oxygen Delivery Me thod Sepsis Recent Feve r Within 48 Hours Sepsis New/Unexpla ined Change in Men pat Status Sepsis Action Take n by Nursing Physical Exam: Physical Exam GENERAL: He is oriented to person, place, and time. He appears well-developed and well-nourished. He does not appear distressed. HENT: Exam performed. - Head: Normocephalic and atraumatic. - Right Ear: External ear normal. No mastoid tenderness. - Left Ear: External ear normal. No mastoid tenderness. - Mouth/Throat: The oropharynx is clear and moist. No trismus in the jaw. No dental abscesses or uvula swelling. No oropharyngeal exudate or tonsillar abscesses. EYES: Conjunctivae and EOM are normal. Pupils are equal, round, and reactive to light. Right eye exhibits no discharge. Left eye exhibits no discharge. No scleral icterus. NECK: Normal range of motion. Neck supple. No JVD present. No spinous process tenderness present. No carotid bruit present. No rigidity. No tracheal deviation and normal range of motion present. No Brudzinski's sign and no Kernig's sign noted. CV: Normal rate, regular rhythm, normal heart sounds and intact distal pulses. There is no peripheral edema. Palpable radial pulses bue. PULM/CHEST: Effort normal and breath sounds normal. No respiratory distress. No stridor. He has no wheezes. He has no rales. - Chest Wall: He exhibits no tenderness. ABD: The abdomen is soft. Bowel sounds are normal. He has no distension. No mass is present. There is no tenderness. There is no rebound, no guarding, no Elder's sign and no tenderness at McBurney's point. Rovsig negative. Rectal: Bright red blood per rectum. MUSC/SKEL: Normal range of motion. There is no peripheral edema, tenderness or deformity. LYMPH: No cervical adenopathy. NEURO: He is alert and oriented to person, place, and time. He has normal strength. No cranial nerve deficit or sensory deficit. Coordination and gait normal. GCS eye subscore is 4. GCS verbal subscore is 5. GCS motor subscore is 6. Cerebellar tests wnl. SKIN: Pale. Course Course 1919: The patient was evaluated in room C8. A complete history and physical exam was performed Cardiac monitoring: An order was placed for continuous cardiac monitoring. The monitor shows a rate of 100 with sinus rhythm 2200: Vital signs stable. Labs show hemoglobin of 5.5. Patient will be transfused packed red blood cells. Creatinine elevated 1.86. Troponin elevated 29.3. [facility]. Akers notified. Administered Medications Lactated Ringer's (Lr) 1,000 mls @ 80 mls/hr IV .[id number] STA Stop: 08/20/21 10:24 Last Admin: 08/19/21 23:41 Dose: 80 mls/hr Documented by: [id number] Discontinued Medications Potassium Chloride (Potassium Chloride Crtab 20 Meq Tabcr) 40 meq PO NOW STA Stop: 08/19/21 21:46 Last Admin: 08/19/21 23:40 Dose: 40 meq Documented by: [id number] Medical Decision Making Laboratory Data Result diagrams: 08/19/21 19:40 08/19/21 19:40 Lab Results 08/19/21 08/19/21 08/19/21 Range/Units 19:40 19:40 19:40 WBC 7.47 (4.8-10.8) K/uL RBC 2.55 L (4.7-6.1) M/uL Hgb 5.5 L* (14.0-18.0) g/dL Hct 19.5 L* (42-52) % MCV 76.5 L (80-100) fL MCH 21.6 L (25-34) pg MCHC 28.2 L (32-36) g/dL RDW Std Deviation 44.0 (36.4-46.3) fL RDW Coeff of Lisa 15.8 H (11.5-14.5) % Plt Count 103 L (130-400) K/uL MPV 10.8 H (7.4-10.4) fL Immature Gran % (Auto) 0.8 % Neut % (Auto) 78.7 % Lymph % (Auto) 6.7 % [place] % (Auto) 12.7 % Eos % (Auto) 0.8 % Baso % (Auto) 0.3 % Neut # (Auto) 5.88 (1.4-6.5) K/uL Lymph # (Auto) 0.50 L (1.2-3.4) K/uL [place] # (Auto) 0.95 H (0.11-0.59) K/uL Eos # (Auto) 0.06 (0-0.5) K/uL Baso # (Auto) 0.02 (0-0.2) K/uL Immature Gran # (Auto) 0.06 H (0.00-0.02) K/uL Absolute Nucleated RBC 0.23 H (0-0) K/uL Nucleated RBC % (auto) 3.1 % Polychromasia 1+ Hypochromasia Present Poikilocytosis Present Microcytosis Present PT 12.3 H (9.0-12.0) Seconds INR 1.2 H (0.9-1.1) APTT 26.1 (21.0-31.0) Seconds PTT Ratio 0.9 Sodium 134 L (136-145) mmol/L Potassium 3.8 (3.5-5.1) mmol/L Chloride 98 (98-107) mmol/L Carbon Dioxide 23 (21-32) mmol/L Anion Gap 13 H (3-11) BUN 33 H (6-23) mg/dl Creatinine 1.86 H (0.6-1.4) mg/dl Est Cr Clr Drug Dosing Not Reportable Est GFR ( Amer) 39.8 ml/min Est GFR (Non-Af Amer) 34.4 ml/min BUN/Creatinine Ratio 17.7 (10-20) Glucose 133 H (70-99(Fasting)) mg/dl Calcium 8.6 (8.5-10.1) mg/dl Magnesium 1.9 (1.7-2.4) mg/dl Total Creatine Kinase 35 (30-223) U/L Troponin I High Sens 29.3 H (0-20) pg/ml Lipase 28 (11-82) U/L SARS-CoV-2, RNA, NAAT (NEGATIVE) Blood Type Blood Type Recheck Antibody Screen Crossmatch 08/19/21 08/19/21 08/19/21 Range/Units 19:45 19:51 20:07 WBC (4.8-10.8) K/uL RBC (4.7-6.1) M/uL Hgb (14.0-18.0) g/dL Hct (42-52) % MCV (80-100) fL MCH (25-34) pg MCHC (32-36) g/dL RDW Std Deviation (36.4-46.3) fL RDW Coeff of Lisa (11.5-14.5) % Plt Count (130-400) K/uL MPV (7.4-10.4) fL Immature Gran % (Auto) % Neut % (Auto) % Lymph % (Auto) % [place] % (Auto) % Eos % (Auto) % Baso % (Auto) % Neut # (Auto) (1.4-6.5) K/uL Lymph # (Auto) (1.2-3.4) K/uL [place] # (Auto) (0.11-0.59) K/uL Eos # (Auto) (0-0.5) K/uL Baso # (Auto) (0-0.2) K/uL Immature Gran # (Auto) (0.00-0.02) K/uL Absolute Nucleated RBC (0-0) K/uL Nucleated RBC % (auto) % Polychromasia Hypochromasia Poikilocytosis Microcytosis PT (9.0-12.0) Seconds INR (0.9-1.1) APTT (21.0-31.0) Seconds PTT Ratio Sodium (136-145) mmol/L Potassium (3.5-5.1) mmol/L Chloride (98-107) mmol/L Carbon Dioxide (21-32) mmol/L Anion Gap (3-11) BUN (6-23) mg/dl Creatinine (0.6-1.4) mg/dl Est Cr Clr Drug Dosing Est GFR ( Amer) ml/min Est GFR (Non-Af Amer) ml/min BUN/Creatinine Ratio (10-20) Glucose (70-99(Fasting)) mg/dl Calcium (8.5-10.1) mg/dl Magnesium (1.7-2.4) mg/dl Total Creatine Kinase Cancelled (30-223) U/L Troponin I High Sens (0-20) pg/ml Lipase (11-82) U/L SARS-CoV-2, RNA, NAAT (NEGATIVE) Blood Type A Negative Blood Type Recheck A Negative Antibody Screen NEGATIVE Crossmatch See Detail 08/19/21 Range/Units 20:10 WBC (4.8-10.8) K/uL RBC (4.7-6.1) M/uL Hgb (14.0-18.0) g/dL Hct (42-52) % MCV (80-100) fL MCH (25-34) pg MCHC (32-36) g/dL RDW Std Deviation (36.4-46.3) fL RDW Coeff of Lisa (11.5-14.5) % Plt Count (130-400) K/uL MPV (7.4-10.4) fL Immature Gran % (Auto) % Neut % (Auto) % Lymph % (Auto) % [place] % (Auto) % Eos % (Auto) % Baso % (Auto) % Neut # (Auto) (1.4-6.5) K/uL Lymph # (Auto) (1.2-3.4) K/uL [place] # (Auto) (0.11-0.59) K/uL Eos # (Auto) (0-0.5) K/uL Baso # (Auto) (0-0.2) K/uL Immature Gran # (Auto) (0.00-0.02) K/uL Absolute Nucleated RBC (0-0) K/uL Nucleated RBC % (auto) % Polychromasia Hypochromasia Poikilocytosis Microcytosis PT (9.0-12.0) Seconds INR (0.9-1.1) APTT (21.0-31.0) Seconds PTT Ratio Sodium (136-145) mmol/L Potassium (3.5-5.1) mmol/L Chloride (98-107) mmol/L Carbon Dioxide (21-32) mmol/L Anion Gap (3-11) BUN (6-23) mg/dl Creatinine (0.6-1.4) mg/dl Est Cr Clr Drug Dosing Est GFR ( Amer) ml/min Est GFR (Non-Af Amer) ml/min BUN/Creatinine Ratio (10-20) Glucose (70-99(Fasting)) mg/dl Calcium (8.5-10.1) mg/dl Magnesium (1.7-2.4) mg/dl Total Creatine Kinase (30-223) U/L Troponin I High Sens (0-20) pg/ml Lipase (11-82) U/L SARS-CoV-2, RNA, NAAT NEGATIVE (NEGATIVE) Blood Type Blood Type Recheck Antibody Screen Crossmatch Imaging Data Radiologist's Impression: Chest X-Ray 08/19/21 19:34 XR chest 1V portable HISTORY: 75 years-old Male Chest Pain . Atypical chest pain with shortness of breath COMPARISON: Chest radiograph 07/25/2021 TECHNIQUE: Portable AP view of the chest FINDINGS: The cardiac silhouette is mildly enlarged. Mild right hemidiaphragmatic e levation. Pulmonary vascular congestion. Mild bibasilar atelectasis. Calcified granulomata of the left midlung again noted. Degenerative changes of the shoulders and spine. IMPRESSION: Cardiomegaly without acute process. ACT 112: Negative or not required by law. The above report was generated using voice recognition software. It may contain grammatical, syntax or spelling errors. Electronically signed by: Cuate Farmer M.D. 08/19/2021 8:07 PM ECG Data Indication: SOB/dyspnea Rate (beats per minute): 91 Rhythm: normal sinus Findings: no ST depression, no ST elevation or no prolonged QT MDM Narrative Vital signs stable. Labs show hemoglobin of 5.5. Patient will be transfused packed red blood cells. Creatinine elevated 1.86. Troponin elevated 29.3. Patient [facility] be [facility] Dr. Akers notified. Impression & Plan GIB (gastrointestinal bleeding) Critical Care Time Critical Care Time: Yes Total Critical Care Time: 67 I have personally spent greater than 67 minutes of critical care time in the direct management of this patient. This includes bedside care, interpretation of diagnostic studies, and testing, discussion with consultants, patient, and family members, and other required patient management activities. This 67 minutes is in excess of all separately billable procedures. Discharge Plan Visit Data Chief Complaint: Abnormal Labs/Diagnostic Testing Stated Complaint: ABNORMAL LABS Discharge Problem: GIB (gastrointestinal bleeding) Patient Disposition: Admitted As Inpatient Discharge Instructions Interventions: ED Discharge Assessment Last Done: 08/19/21 23:06
[2021-08-20] MEDS ORDERED: SODIUM CHLORIDE 0.9% 250 ML IV PRN (01:44)
[2021-08-20 03:15] LABS: Appearance Urine Clear (Clear); Bacteria Urine Automated Negative (Negative); Bilirubin Urine Negative (Negative); Blood Urine Negative (Negative); Color Urine Yellow; Epithelial Cell Urine Auto 20-30 /lpf (0-5); Glucose Urine UA Negative (Negative); Ketones Urine Trace (Negative); Leukocyte Esterase Urine Trace (Negative); Nitrite Urine Negative (Negative); Protein Urine Negative (Negative); RBC Urine Automated 0-4 /hpf (0-4); Specific Gravity Urine 1.017 (1.000-1.030); Urobilinogen Urine Negative (Negative)
--- NOTE | 2021-08-20 08:35 | Gastrointestinal Consultation ---
Date of Consultation August 20, 2021 Assessment & Plan (1) Symptomatic anemia: (2) BRBPR (bright red blood per rectum): (3) Anticoagulant long-term use: 75-year-old male with history of A. fib, DVT, PE on Eliquis, CAD, metastatic prostate cancer, and others, admitted with abnormal labs, acute on chronic anemia with a hemoglobin of 5.6, JEANINE. Has chronic intermittent painless hematochezia and intermittent dark stool which is chronic. Overnight no GI output, repeat H&H pending after transfusion. He is HD stable. On exam, soft abd; tolerated clears for breakfast. We are asked to see him for concern over LGIB. Discussed diff dx (radiation proctitis, hemorrhoids, AVM, malignancy, etc). Of note, recent PET with significant progression of metastatic disease. - Transfuse to keep HGB > 7, trend H&H Monitor and document GI output Hold Eliquis - Clear liquids today - Continue daily PPI - Will plan for colonoscopy tomorrow. ? EGD w/ h/o heartburn Thank you for allowing us to participate in the care of this patient. Please call with any acute changes, questions or concerns. Please see addendum below with additional recommendation from my supervising physician. Supervising Physician Co-Signing Physician Notes I performed a history and physical examination of the patient today, including specifically on physical exam - soft abdomen. I have discussed the patient's management with the advanced practitioner. Please refer to the nurse practitioner's note for the documented findings and plan of care. EGD/colonoscopy tomorrow History of Present Illness Reason for Consultation: LGIB Requesting Physician: Dr. Gomez Attending Physician: Adalgisa Franco MD History of Present Illness This is a 75 y/o male with PMHX chronic diastolic heart failure (EF 60 to 65%, TTE 2021), CAD, HTN, moderate MR, PAF/PE/DVTon Eliquis, chronic anemia (baseline hemoglobin of 8), metastatic prostate cancer s/p surgery, radiation in 2018, ongoing antiandrogen therapy, DM2, past tobacco abuse. Last admitted 3 weeks ago for decompensated heart failure. Recently has noticed SOB and fatigue. OP labs yesterday w/ HGB 5.6, Cr 1.7 (baseline HGB 8), and he was directed to the ER. On arrival HGB 5.7, cr 1.86, BUN 33. CXR w/ cardiomegaly. Overnight has received 2 units pRBC with 3rd transfused this AM; repeat H&H pending. Eliquis has been held. He had a clear liquid breakfast today which he tolerated. No GI output overnight. He is HD stable. Urinating well. He notes over the last few months he's had intermittent hematochezia (a few drops of blood in the toilet and with wiping), maybe a few times a week. At times this is vaguely described and he is sometimes not a consistent historian. Occasionally a few times a month notices dark (but denies black) stool. Other steinberg stool is light brown and formed. Bowels move generally once a day. Denies diarrhea. Has had a 10 lb weight loss recently; appetite has been somewhat down. He had also been having some heartburn relieved by Rolaids, no longer has heartburn. Epic chart suggests he takes a daily omeprazole. Today denies abd pain, CP, worsening dyspnea, fever, chills, cough, leg edema, abd bloating, n/,v hematemesis, dysphagia. No AC, tobacco or ETOH use. States he had 1 colonoscopy approx 5 years ago in [place]; however [facility] chart suggests this was back in 2008; states he had a few polyps; was supposed to repeat in approx 5 years. Denies prior h/o colon CA. Unknown if he's ever had EGD. Recently had PET CT 08/05/21 thru [facility] - with significant interval progression of disease, with new and enlarging adenopathy within the chest, abd and pelvis, as well as findings suspicious of hepatic metastasis, new/progressing osseous metastasis, and development of new pleural effusion and ascites with radiotracer avid peritoneal carcinomatosis. Allergies Allergy/AdvReac Type Severity Reaction Status Date / Time adhesive AdvReac Intermediate REDNESS Verified 08/19/21 20:11 WITH EKG ELECTRODES Home Medications Medication Instructions Recorded Confirmed Type alendronate 70 mg tablet 70 mg PO GONZALEZ@0900 tab 10/10/18 08/19/21 History enzalutamide 40 mg capsule (Xtandi) 160 mg PO DAILY@1200 10/12/19 08/19/21 History metformin 500 mg tablet 500 mg PO QAM 10/12/19 08/19/21 History hydrocodone 10 mg-acetaminophen 1 tab PO DAILY PRN 04/12/21 08/19/21 History 325 mg tablet solifenacin 10 mg tablet (Vesicare) 10 mg PO HS 04/12/21 08/19/21 History apixaban 5 mg (74 tabs) tablets in 5 mg PO Q12H #74 ea 04/17/21 08/19/21 Rx a dose pack diltiazem HCl 120 mg 120 mg PO QAM 04/27/21 08/19/21 History capsule,extended release 24 hr metoprolol succinate 100 mg 100 mg PO AMHS 04/27/21 08/19/21 History tablet,extended release 24 hr (Toprol XL) omeprazole 20 mg capsule,delayed 20 mg PO QAM 04/27/21 08/19/21 History release ferrous gluconate 324 mg (38 mg 324 mg PO DAILY #30 tab 06/28/21 08/19/21 Rx iron) tablet atorvastatin 40 mg tablet 40 mg PO HS 07/08/21 08/19/21 History magnesium oxide 400 mg (241.3 mg 400 mg PO BID 30 Days #60 tab 07/28/21 08/19/21 Rx magnesium) tablet spironolactone 25 mg tablet 12.5 mg PO DAILY #30 tab 07/28/21 08/19/21 Rx furosemide 40 mg tablet 40 mg PO QAM 08/19/21 08/19/21 History Patient History Medical History Cancer of prostate Chronic anticoagulation Diabetes mellitus Dyslipidemia Dyspnea on minimal exertion Elevated brain natriuretic peptide (BNP) level Elevated troponin Elevated troponin Heart failure, diastolic, with acute decompensation History of pulmonary embolism Hx of brachytherapy Hypomagnesemia Mitral regurgitation Paroxysmal atrial fibrillation Pneumonitis Prostate cancer (2009) SOB (shortness of breath) Surgical History H/O heart surgery History of cardiac catheterization History of carpal tunnel surgery History of prostatectomy Hx of cholecystectomy Family History Mother Lung cancer Father Lung cancer Social History Smoking Status: Never smoker Tobacco Type: Cigarettes Second Hand Exposure: No; Hx Alcohol Use: No Hx Substance Use: No Preferred Language: Mohawk Communication Ability: Effective Credit Office Manager Required: No Beliefs That Will Affect Care: None marital status: Current Living Situation: Spouse How many Children do You have: 2 Other Information That Helps Us Care for You: No Feels Safe at Home: Yes Safety Concerns: Feels Safe At This Time Assistive Devices: Cane Physical Exam Constitutional: WD/WN, vitals as above chronically ill, somewhat pale, NAD Respiratory: normal respiratory effort, lungs clear to auscultation Cardiovascular: RRR, no murmur, no edema Gastrointestinal (Abdomen): normal bowel sounds, soft, nontender, no hepatosp lenomegaly Skin: no rashes, warm and dry Psychiatric: A+Ox3, euthymic affect Results & Data ([facility]) Vital Signs (Past 12 Hours) Vital Signs Temp Pulse Pulse Resp BP BP Pulse Ox 08/20/21 07:27 36.8 C 97 H 19 108/68 92 08/20/21 06:35 36.8 C 94 H 18 109/70 93 08/20/21 05:35 36.8 C 99 H 18 112/64 91 08/20/21 05:05 36.8 C 98 H 18 117/70 91 08/20/21 04:50 36.9 C 105 H 18 108/68 08/20/21 04:49 36.9 C 105 H 18 108/68 08/20/21 04:30 36.9 C 100 H 18 97/58 L 08/20/21 04:06 36.9 C 102 H 18 103/62 95 08/20/21 03:00 36.8 C 98 H 18 105/67 93 08/20/21 02:00 36.7 C 102 H 18 97/58 L 92 08/20/21 01:30 37 C 105 H 18 124/75 91 08/20/21 01:15 37.0 C 102 H 18 100/68 92 08/20/21 00:58 37.0 C 103 H 18 110/69 92 08/20/21 00:55 120 H 08/20/21 00:30 36.9 C 105 H 18 102/54 L 93 08/19/21 23:41 36.5 C 108 H 18 126/73 93 08/19/21 23:00 36.5 C 115 H 18 109/56 L 94 08/19/21 22:38 37.1 C 100 H 24 110/68 95 08/19/21 22:30 37.0 C 103 H 24 108/64 94 08/19/21 22:11 37.1 C 102 H 18 120/72 94 08/19/21 21:56 36.9 C 100 H 24 102/59 L 95 08/19/21 21:40 103 H 23 96 08/19/21 21:39 37.2 C 102 H 24 137/68 95 08/19/21 21:30 99 H 22 08/19/21 21:20 99 H 22 08/19/21 21:10 105 H 23 99 08/19/21 21:07 103 H 28 H 135/71 95 08/19/21 21:00 96 H 22 08/19/21 20:50 96 H 08/19/21 20:40 100 H 54 H 08/19/21 20:30 94 H 22 Laboratory Results 08/20/21 08/20/21 08/19/21 Range/Units 07:38 02:55 23:39 WBC (4.8-10.8) K/uL RBC (4.7-6.1) M/uL Hgb (14.0-18.0) g/dL Hct (42-52) % MCV (80-100) fL MCH (25-34) pg MCHC (32-36) g/dL RDW Std Deviation (36.4-46.3) fL RDW Coeff of Lisa (11.5-14.5) % Plt Count (130-400) K/uL MPV (7.4-10.4) fL Immature Gran % (Auto) % Neut % (Auto) % Lymph % (Auto) % [place] % (Auto) % Eos % (Auto) % Baso % (Auto) % Neut # (Auto) (1.4-6.5) K/uL Lymph # (Auto) (1.2-3.4) K/uL [place] # (Auto) (0.11-0.59) K/uL Eos # (Auto) (0-0.5) K/uL Baso # (Auto) (0-0.2) K/uL Immature Gran # (Auto) (0.00-0.02) K/uL Absolute Nucleated RBC (0-0) K/uL Nucleated RBC % (auto) % Polychromasia Hypochromasia Poikilocytosis Microcytosis PT (9.0-12.0) Seconds INR (0.9-1.1) APTT (21.0-31.0) Seconds PTT Ratio Sodium (136-145) mmol/L Potassium (3.5-5.1) mmol/L Chloride (98-107) mmol/L Carbon Dioxide (21-32) mmol/L Anion Gap (3-11) BUN (6-23) mg/dl Creatinine (0.6-1.4) mg/dl Est Cr Clr Drug Dosing Est GFR ( Amer) ml/min Est GFR (Non-Af Amer) ml/min BUN/Creatinine Ratio (10-20) Glucose (70-99(Fasting)) mg/dl POC Glucose 116 H 125 H (70-99) mg/dl Calcium (8.5-10.1) mg/dl Magnesium (1.7-2.4) mg/dl Total Creatine Kinase (30-223) U/L Troponin I High Sens (0-20) pg/ml Lipase (11-82) U/L Urine Color Yellow Urine Appearance Clear (Clear) Urine pH 5.0 (4.5-7.5) Ur Specific [place] 1.017 (1.000-1.030) Urine Protein Negative (Negative) Urine Glucose (UA) Negative (Negative) Urine Ketones Trace H (Negative) Urine Blood Negative (Negative) Urine Nitrite Negative (Negative) Urine Bilirubin Negative (Negative) Urine Urobilinogen Negative (Negative) Ur Leukocyte Esterase Trace H (Negative) Urine WBC (Auto) 10-30 H (0-5) /hpf Urine RBC (Auto) 0-4 (0-4) /hpf U Hyaline Cast (Auto) 1-5 (0-5) /lpf U Epithel Cells (Auto) 20-30 H (0-5) /lpf Urine Bacteria (Auto) Negative (Negative) SARS-CoV-2, RNA, NAAT (NEGATIVE) Blood Type Blood Type Recheck Antibody Screen Crossmatch 08/19/21 08/19/21 08/19/21 Range/Units 20:10 20:07 19:51 WBC (4.8-10.8) K/uL RBC (4.7-6.1) M/uL Hgb (14.0-18.0) g/dL Hct (42-52) % MCV (80-100) fL MCH (25-34) pg MCHC (32-36) g/dL RDW Std Deviation (36.4-46.3) fL RDW Coeff of Lisa (11.5-14.5) % Plt Count (130-400) K/uL MPV (7.4-10.4) fL Immature Gran % (Auto) % Neut % (Auto) % Lymph % (Auto) % [place] % (Auto) % Eos % (Auto) % Baso % (Auto) % Neut # (Auto) (1.4-6.5) K/uL Lymph # (Auto) (1.2-3.4) K/uL [place] # (Auto) (0.11-0.59) K/uL Eos # (Auto) (0-0.5) K/uL Baso # (Auto) (0-0.2) K/uL Immature Gran # (Auto) (0.00-0.02) K/uL Absolute Nucleated RBC (0-0) K/uL Nucleated RBC % (auto) % Polychromasia Hypochromasia Poikilocytosis Microcytosis PT (9.0-12.0) Seconds INR (0.9-1.1) APTT (21.0-31.0) Seconds PTT Ratio Sodium (136-145) mmol/L Potassium (3.5-5.1) mmol/L Chloride (98-107) mmol/L Carbon Dioxide (21-32) mmol/L Anion Gap (3-11) BUN (6-23) mg/dl Creatinine (0.6-1.4) mg/dl Est Cr Clr Drug Dosing Est GFR ( Amer) ml/min Est GFR (Non-Af Amer) ml/min BUN/Creatinine Ratio (10-20) Glucose (70-99(Fasting)) mg/dl POC Glucose (70-99) mg/dl Calcium (8.5-10.1) mg/dl Magnesium (1.7-2.4) mg/dl Total Creatine Kinase Cancelled (30-223) U/L Troponin I High Sens (0-20) pg/ml Lipase (11-82) U/L Urine Color Urine Appearance (Clear) Urine pH (4.5-7.5) Ur Specific [place] (1.000-1.030) Urine Protein (Negative) Urine Glucose (UA) (Negative) Urine Ketones (Negative) Urine Blood (Negative) Urine Nitrite (Negative) Urine Bilirubin (Negative) Urine Urobilinogen (Negative) Ur Leukocyte Esterase (Negative) Urine WBC (Auto) (0-5) /hpf Urine RBC (Auto) (0-4) /hpf U Hyaline Cast (Auto) (0-5) /lpf U Epithel Cells (Auto) (0-5) /lpf Urine Bacteria (Auto) (Negative) SARS-CoV-2, RNA, NAAT NEGATIVE (NEGATIVE) Blood Type Blood Type Recheck A Negative Antibody Screen Crossmatch 08/19/21 08/19/21 08/19/21 Range/Units 19:45 19:40 19:40 WBC (4.8-10.8) K/uL RBC (4.7-6.1) M/uL Hgb (14.0-18.0) g/dL Hct (42-52) % MCV (80-100) fL MCH (25-34) pg MCHC (32-36) g/dL RDW Std Deviation (36.4-46.3) fL RDW Coeff of Lisa (11.5-14.5) % Plt Count (130-400) K/uL MPV (7.4-10.4) fL Immature Gran % (Auto) % Neut % (Auto) % Lymph % (Auto) % [place] % (Auto) % Eos % (Auto) % Baso % (Auto) % Neut # (Auto) (1.4-6.5) K/uL Lymph # (Auto) (1.2-3.4) K/uL [place] # (Auto) (0.11-0.59) K/uL Eos # (Auto) (0-0.5) K/uL Baso # (Auto) (0-0.2) K/uL Immature Gran # (Auto) (0.00-0.02) K/uL Absolute Nucleated RBC (0-0) K/uL Nucleated RBC % (auto) % Polychromasia Hypochromasia Poikilocytosis Microcytosis PT 12.3 H (9.0-12.0) Seconds INR 1.2 H (0.9-1.1) APTT 26.1 (21.0-31.0) Seconds PTT Ratio 0.9 Sodium 134 L (136-145) mmol/L Potassium 3.8 (3.5-5.1) mmol/L Chloride 98 (98-107) mmol/L Carbon Dioxide 23 (21-32) mmol/L Anion Gap 13 H (3-11) BUN 33 H (6-23) mg/dl Creatinine 1.86 H (0.6-1.4) mg/dl Est Cr Clr Drug Dosing Not Reportable Est GFR ( Amer) 39.8 ml/min Est GFR (Non-Af Amer) 34.4 ml/min BUN/Creatinine Ratio 17.7 (10-20) Glucose 133 H (70-99(Fasting)) mg/dl POC Glucose (70-99) mg/dl Calcium 8.6 (8.5-10.1) mg/dl Magnesium 1.9 (1.7-2.4) mg/dl Total Creatine Kinase 35 (30-223) U/L Troponin I High Sens 29.3 H (0-20) pg/ml Lipase 28 (11-82) U/L Urine Color Urine Appearance (Clear) Urine pH (4.5-7.5) Ur Specific [place] (1.000-1.030) Urine Protein (Negative) Urine Glucose (UA) (Negative) Urine Ketones (Negative) Urine Blood (Negative) Urine Nitrite (Negative) Urine Bilirubin (Negative) Urine Urobilinogen (Negative) Ur Leukocyte Esterase (Negative) Urine WBC (Auto) (0-5) /hpf Urine RBC (Auto) (0-4) /hpf U Hyaline Cast (Auto) (0-5) /lpf U Epithel Cells (Auto) (0-5) /lpf Urine Bacteria (Auto) (Negative) SARS-CoV-2, RNA, NAAT (NEGATIVE) Blood Type A Negative Blood Type Recheck Antibody Screen NEGATIVE Crossmatch See Detail 08/19/21 Range/Units 19:40 WBC 7.47 (4.8-10.8) K/uL RBC 2.55 L (4.7-6.1) M/uL Hgb 5.5 L* (14.0-18.0) g/dL Hct 19.5 L* (42-52) % MCV 76.5 L (80-100) fL MCH 21.6 L (25-34) pg MCHC 28.2 L (32-36) g/dL RDW Std Deviation 44.0 (36.4-46.3) fL RDW Coeff of Lisa 15.8 H (11.5-14.5) % Plt Count 103 L (130-400) K/uL MPV 10.8 H (7.4-10.4) fL Immature Gran % (Auto) 0.8 % Neut % (Auto) 78.7 % Lymph % (Auto) 6.7 % [place] % (Auto) 12.7 % Eos % (Auto) 0.8 % Baso % (Auto) 0.3 % Neut # (Auto) 5.88 (1.4-6.5) K/uL Lymph # (Auto) 0.50 L (1.2-3.4) K/uL [place] # (Auto) 0.95 H (0.11-0.59) K/uL Eos # (Auto) 0.06 (0-0.5) K/uL Baso # (Auto) 0.02 (0-0.2) K/uL Immature Gran # (Auto) 0.06 H (0.00-0.02) K/uL Absolute Nucleated RBC 0.23 H (0-0) K/uL Nucleated RBC % (auto) 3.1 % Polychromasia 1+ Hypochromasia Present Poikilocytosis Present Microcytosis Present PT (9.0-12.0) Seconds INR (0.9-1.1) APTT (21.0-31.0) Seconds PTT Ratio Sodium (136-145) mmol/L Potassium (3.5-5.1) mmol/L Chloride (98-107) mmol/L Carbon Dioxide (21-32) mmol/L Anion Gap (3-11) BUN (6-23) mg/dl Creatinine (0.6-1.4) mg/dl Est Cr Clr Drug Dosing Est GFR ( Amer) ml/min Est GFR (Non-Af Amer) ml/min BUN/Creatinine Ratio (10-20) Glucose (70-99(Fasting)) mg/dl POC Glucose (70-99) mg/dl Calcium (8.5-10.1) mg/dl Magnesium (1.7-2.4) mg/dl Total Creatine Kinase (30-223) U/L Troponin I High Sens (0-20) pg/ml Lipase (11-82) U/L Urine Color Urine Appearance (Clear) Urine pH (4.5-7.5) Ur Specific [place] (1.000-1.030) Urine Protein (Negative) Urine Glucose (UA) (Negative) Urine Ketones (Negative) Urine Blood (Negative) Urine Nitrite (Negative) Urine Bilirubin (Negative) Urine Urobilinogen (Negative) Ur Leukocyte Esterase (Negative) Urine WBC (Auto) (0-5) /hpf Urine RBC (Auto) (0-4) /hpf U Hyaline Cast (Auto) (0-5) /lpf U Epithel Cells (Auto) (0-5) /lpf Urine Bacteria (Auto) (Negative) SARS-CoV-2, RNA, NAAT (NEGATIVE) Blood Type Blood Type Recheck Antibody Screen Crossmatch Diagnostic Findings CXR: IMPRESSION: Cardiomegaly without acute process.
[2021-08-20] MEDS: INSULIN ASPART PER UNIT SC SCH ×4 (08:48→21:24)
[2021-08-20] MEDS: dilTIAZem HCL 120 MG CAPCR PO SCH (08:49)
[2021-08-20] MEDS: FERROUS GLUCONATE 324 MG TAB PO SCH (08:49)
[2021-08-20] MEDS: PANTOprazole 40 MG TAB PO SCH (08:49)
[2021-08-20] MEDS: METOPROLOL SUCC 50MG EXT REL TAB PO SCH ×2 (08:49→20:21)
--- NOTE | 2021-08-20 09:23 | Electrocardiogram Report ---
Test Reason : Blood Pressure : / mmHG Vent. Rate : 091 BPM Atrial Rate : 091 BPM P-R Int : 164 ms QRS Dur : 092 ms QT Int : 382 ms P-R-T Axes : 016 -23 072 degrees QTc Int : 469 ms Normal sinus rhythm Diffuse Minor Nonspecific ST abnormality Abnormal ECG When compared with ECG of 27-JUL-2021 06:29, Premature ventricular complexes are no longer Present Nonspecific ST abnormality now present Confirmed by Hebert Butt ([id number]) on 08/20/2021 9:23:34 AM Referred By: Provider Outside Confirmed By:Hebert Butt
[2021-08-20 11:07] LABS: Hematocrit (blood only) 24.9 % (42-52); Hemoglobin 7.7 g/dL (14.0-18.0); Mean Corpuscular Hemoglobin 24.4 pg (25-34); Mean Corpuscular Hgb Conc 30.9 g/dL (32-36); Nucleated RBC # (auto) 0.24 K/uL (0-0); Nucleated RBC % (auto) 3.3 %; RDW Coefficient of Variation 16.8 % (11.5-14.5); RDW Standard Deviation 48.3 fL (36.4-46.3); Red Blood Count 3.15 M/uL (4.7-6.1)
[2021-08-20 11:22] LABS: BUN Creatinine Ratio 18.9 (10-20); Calcium 8.1 mg/dl (8.5-10.1); Creatinine Clr Calc Pharmacy 47.9 ml/min; Est GFR (African American) 54.7 ml/min; Est GFR (Non-African American) 47.2 ml/min; Potassium 3.8 mmol/L (3.5-5.1)
[2021-08-20 11:29] LABS: Mean Platelet Volume 9.7 fL (7.4-10.4); Platelet Count 65 K/uL (130-400)
[2021-08-20 11:30] LABS: Acanthocytes 1+; Basophils # (auto) 0.02 K/uL (0-0.2); Basophils % (auto) 0.3 %; Eosinophils # (auto) 0.06 K/uL (0-0.5); Eosinophils % (auto) 0.8 %; Hypochromasia Present; Immature Granulocytes # (auto) 0.08 K/uL (0.00-0.02); Immature Granulocytes % (auto) 1.1 %; Lymphocytes # (auto) 0.37 K/uL (1.2-3.4); Lymphocytes % (auto) 5.1 %; Monocytes # (auto) 1.05 K/uL (0.11-0.59); Monocytes % (auto) 14.6 %; Neutrophils # (auto) 5.62 K/uL (1.4-6.5); Neutrophils % (auto) 78.1 %; Platelet Estimate Decreased (Normal); Polychromasia 1+; Target Cells 1+
[2021-08-20 11:49] LABS: Ferritin 64.5 ng/ml (8-388)
[2021-08-20 12:53] LABS: Reticulocyte % 3.4 % (0.5-2.0); Reticulocytes # 0.1 10^6/uL (0.02-0.10)
[2021-08-20] MEDS ORDERED: FUROSEMIDE INJ 20 MG/2 ML VIAL IV ONE (13:20)
[2021-08-20] MEDS ORDERED: LAVAGE SOLUTION 4000ML PO SCH (17:00)
--- NOTE | 2021-08-20 18:04 | Hospitalist Progress Note ---
Date of Service August 20, 2021 Assessment & Plan (1) Symptomatic anemia: Plan: Acute on chronic anemia Pt was sent from cardiology office to the ER after lab work showed Hgb 5.6 He has been feeling tired/fatigue/SOB associated with dark stool Hgb on admission 5.5 Type and crossed done and 3 units PRBC given repeat Hgb 7.7 today case discussed with hematology Dr. Thornton that recommended to check iron study I called lab to check if we could merge the iron study from the yesterday lab prior to the blood transfusion Reticulocytes count 3.4, Iron level 16, Transferrin 370, Ferritin 64 Continue to hold eliquis due to low hgb from GI bleed Continue iron supplement Gastro on board Plan for colonoscopy tomorrow Continue clear liquid diet and will make NPO after midnight Continue monitor H/H Chronic diastolic Heart failure CXR showed Cardiomegaly without acute process. Received IVF and 3units PRBC Lasix placed on hold Will give lasix 20mg IV x1 for now, might give an additional 20mg if pt showed any sign of volume overload Continue monitor closely Acute kidney injury Mostly due to low hgb Creatinine on admission 1.8 Received IVF and blood products creatinine improved to 1.4 Continue to hold lasix and spironolactone Thrombocytopenia Platelet on admission 103, then dropped to 65 Continue monitor closely for active bleeding Eliquis on hold Continue to monitor CBC Elevated troponin ASCVD (arteriosclerotic cardiovascular disease): H/O nonobstructive CAD on cardiac cath July 2020 Likely demand ischemia due to low hgb and elevated creatinine Denies any chest pain Troponin 29.3 on admission Eliquis on hold Continue statin/metoprolol Mitral regurgitation: chronic, stable. Diabetes mellitus: Most recent Hgb A1c 5.6 on 07/27/21 Continue to Hold oral agents Utilize NovoLog per protocol while hospitalized Cancer of prostate: has a h/o prostate cancer with mets to bone. Progression of the cancer as per discussion with Oncology Remains on hormone therapy with Xtandi. Continues on weekly fosamax. Follows with urology, Dr. Alford and medical oncologist Dr. Thornton case discussed with Oncology dr. Thornton Plans to establish with Dr. Goyo Thornton locally History of pulmonary embolism: Eliquis on hold due to low hgb from GI bleed continue monitor closely DVT prophylaxis on SCD due to GI bleed and low hemoglobin Code status full code Admission and Anticipated Discharge Date Admission Date: August 19, 2021 Subjective Pt was seen and examined for follow up of weakness/SOB and anemia Lying in bed with no acute distress Pt received 3 units PRBC last night He said that he does feel SOB with exertion He denies any active bleeding Review of Systems Review of Systems: All systems reviewed & are unremarkable except as noted in Subjective Physical Exam Physical Exam: General- No acute distress Head- at raumatic Eyes- PER RL, EOMI, ENT- gloria pharynx clear Neck - supple, no JVD L ungs- clear to aus cultation Heart- r egular rhythm; no murmur Abdomen- no rmal bowel sounds, soft, nontender E xtremities- no ca lf tenderness, no edema Neuro- aler t, oriented x 3; P ERRL, EOMI; no fac ial palsy; no dysa rthria Skin- warm & dry Results & Data Results & Data ([facility]) Vital Signs (Past 12 Hours) Vital Signs Temp Pulse Pulse Resp BP BP BP 08/20/21 15:23 36.7 C 94 H 18 128/69 08/20/21 15:12 91 H 08/20/21 11:35 37.1 C 96 H 20 108/63 08/20/21 09:18 98 H 08/20/21 08:00 36.7 C 99 H 19 106/66 08/20/21 07:27 36.8 C 97 H 19 108/68 08/20/21 06:35 36.8 C 94 H 18 109/70 Pulse Ox 08/20/21 15:23 93 08/20/21 15:12 08/20/21 11:35 91 08/20/21 09:18 08/20/21 08:00 94 08/20/21 07:27 92 08/20/21 06:35 93
[2021-08-20 19:22] LABS: Hemoglobin 8.1 g/dL (14.0-18.0)
[2021-08-20] MEDS: ATORVASTATIN 40 MG TAB PO SCH (20:21)
[2021-08-21] MEDS ORDERED: Nursing to Pharmacy Communication SCH (04:00)
[2021-08-21] MEDS: INSULIN ASPART PER UNIT SC SCH ×5 (06:10→20:22)
[2021-08-21 06:30] LABS: BUN Creatinine Ratio 16.9 (10-20); Calcium 8.2 mg/dl (8.5-10.1); Creatinine Clr Calc Pharmacy 50.8 ml/min; Est GFR (African American) 58.2 ml/min; Est GFR (Non-African American) 50.2 ml/min; Potassium 3.6 mmol/L (3.5-5.1)
[2021-08-21 06:33] LABS: Hematocrit (blood only) 25.1 % (42-52); Hemoglobin 7.8 g/dL (14.0-18.0); Mean Corpuscular Hemoglobin 24.8 pg (25-34); Mean Corpuscular Hgb Conc 31.1 g/dL (32-36); Mean Corpuscular Volume 79.7 fL (80-100); Nucleated RBC # (auto) 0.18 K/uL (0-0); Nucleated RBC % (auto) 3.3 %; Platelet Count 55 K/uL (130-400); RDW Coefficient of Variation 17.1 % (11.5-14.5); RDW Standard Deviation 48.9 fL (36.4-46.3); Red Blood Count 3.15 M/uL (4.7-6.1); White Blood Count 5.46 K/uL (4.8-10.8)
[2021-08-21 06:34] LABS: Platelet Estimate Decreased (Normal)
[2021-08-21] MEDS: PANTOprazole 40 MG TAB PO SCH (08:43)
[2021-08-21] MEDS: FERROUS GLUCONATE 324 MG TAB PO SCH (08:43)
[2021-08-21] MEDS: METOPROLOL SUCC 50MG EXT REL TAB PO SCH ×2 (08:43→20:21)
[2021-08-21] MEDS: dilTIAZem HCL 120 MG CAPCR PO SCH (08:44)
--- NOTE | 2021-08-21 09:19 | Anesthesiology Consultation ---
Date of Service August 21, 2021 Assessment & Plan (1) Encounter for pre-operative examination: Chart Review Chart Review: Acceptable Risk for Surgery, Patient NOT seen in Pre Admission Testing and entry level receptionist initiated Consults Requested none History Surgery Operation Date: 08/21/21 16:30 Proposed Procedures p Colonoscopy EGD Dr. Liu - Ana María Liu MD Height/Weight Height: 5 ft 7 in Weight: 95.3 kg Allergies Allergy/AdvReac Type Severity Reaction Status Date / Time adhesive AdvReac Intermediate REDNESS Verified 08/19/21 20:11 WITH EKG ELECTRODES Medications Home Medications Medication Instructions Recorded Confirmed Last Taken alendronate 70 mg tablet 70 mg PO GONZALEZ@0900 tab 10/10/18 08/19/21 07/24/21 enzalutamide 40 mg capsule (Xtandi) 160 mg PO DAILY@1200 10/12/19 08/19/21 07/24/21 metformin 500 mg tablet 500 mg PO QAM 10/12/19 08/19/21 07/24/21 hydrocodone 10 mg-acetaminophen 1 tab PO DAILY PRN 04/12/21 08/19/21 07/24/21 325 mg tablet solifenacin 10 mg tablet (Vesicare) 10 mg PO HS 04/12/21 08/19/21 07/24/21 apixaban 5 mg (74 tabs) tablets in 5 mg PO Q12H #74 ea 04/17/21 08/19/21 a dose pack diltiazem HCl 120 mg 120 mg PO QAM 04/27/21 08/19/21 07/24/21 capsule,extended release 24 hr metoprolol succinate 100 mg 100 mg PO AMHS 04/27/21 08/19/21 07/24/21 tablet,extended release 24 hr (Toprol XL) omeprazole 20 mg capsule,delayed 20 mg PO QAM 04/27/21 08/19/21 07/24/21 release ferrous gluconate 324 mg (38 mg 324 mg PO DAILY #30 tab 06/28/21 08/19/21 07/24/21 iron) tablet atorvastatin 40 mg tablet 40 mg PO HS 07/08/21 08/19/21 07/24/21 magnesium oxide 400 mg (241.3 mg 400 mg PO BID 30 Days #60 tab 07/28/21 08/19/21 Unknown magnesium) tablet spironolactone 25 mg tablet 12.5 mg PO DAILY #30 tab 07/28/21 08/19/21 Unknown furosemide 40 mg tablet 40 mg PO QAM 08/19/21 08/19/21 Unknown Active Medications Generic Name Dose Route Start Last Admin Trade Name Freq PRN Reason Stop Dose Admin Atorvastatin Calcium 40 mg 08/20/21 21:00 08/20/21 20:21 Atorvastatin 40 Mg Tab PO 09/19/21 20:59 40 mg HS GUY Administration Diltiazem HCl 120 mg 08/20/21 09:00 08/21/21 08:44 Diltiazem Hcl 120 Mg Capcr PO 09/19/21 08:59 120 mg QAM GUY Administration Ferrous Gluconate 324 mg 08/20/21 09:00 08/21/21 08:43 Ferrous Gluconate 324 Mg Tab PO 09/19/21 08:59 324 mg DAILY GUY Administration Insulin Aspart 0 units 08/21/21 06:00 08/21/21 06:10 Insulin Aspart Per Unit SC 09/20/21 05:59 Not Given Q6 GUY Metoprolol Succinate 50 mg 08/20/21 09:00 08/21/21 08:43 Metoprolol Succ 50mg Ext Rel Tab PO 09/19/21 08:59 50 mg AMHS GUY Administration Miscellaneous 1 ea 08/20/21 00:00 08/21/21 08:44 Xtandi~Order Awaiting Action N/A 09/19/21 00:00 Not Given QS GUY Miscellaneous 1 ea 08/20/21 00:00 08/21/21 08:44 Vesicare~Order Awaiting Action N/A 09/19/21 00:00 Not Given QS GUY Pantoprazole Sodium 40 mg 08/20/21 09:00 08/21/21 08:43 Pantoprazole 40 Mg Tab PO 09/19/21 08:59 40 mg QAM GUY Administration Past Medical History Medical History (Updated 08/21/21 @ 09:24 by El Gomes MD) Cancer of prostate Chronic anticoagulation Diabetes mellitus Dyslipidemia Dyspnea on minimal exertion Elevated brain natriuretic peptide (BNP) level Elevated troponin Elevated troponin Encounter for pre-operative examination Heart failure, diastolic, with acute decompensation History of pulmonary embolism Hx of brachytherapy Hypomagnesemia Mitral regurgitation Paroxysmal atrial fibrillation Pneumonitis Prostate cancer (2009) SOB (shortness of breath) Past Family History Family History Mother Lung cancer Father Lung cancer Past Surgical History Surgical History H/O heart surgery History of cardiac catheterization History of carpal tunnel surgery History of prostatectomy Hx of cholecystectomy Social History Smoking Status: Never smoker tobacco type: cigarettes Hx Alcohol Use: No Hx Substance Use: No substance use type: does not use Physical Exam Vital Signs Last Vital Signs Temp 36.9 C 08/21/21 07:50 Pulse 93 H 08/21/21 07:50 Resp 20 08/21/21 07:50 BP 104/61 08/21/21 07:50 Pulse Ox 94 08/21/21 07:50 Testing Laboratory Results 08/21/21 05:42 08/21/21 05:42 PT 12.3 Seconds (9.0-12.0) H 08/19/21 19:40 INR 1.2 (0.9-1.1) H 08/19/21 19:40 APTT 26.1 Seconds (21.0-31.0) 08/19/21 19:40 Urine Color Yellow 08/20/21 02:55 Urine Appearance Clear (Clear) 08/20/21 02:55 Urine pH 5.0 (4.5-7.5) 08/20/21 02:55 Ur Specific [place] 1.017 (1.000-1.030) 08/20/21 02:55 Urine Protein Negative (Negative) 08/20/21 02:55 Urine Glucose (UA) Negative (Negative) 08/20/21 02:55 Urine Ketones Trace (Negative) H 08/20/21 02:55 Urine Nitrite Negative (Negative) 08/20/21 02:55 Ur Leukocyte Esterase Trace (Negative) H 08/20/21 02:55 Urine WBC (Auto) 10-30 /hpf (0-5) H 08/20/21 02:55 Urine RBC (Auto) 0-4 /hpf (0-4) 08/20/21 02:55 U Hyaline Cast (Auto) 1-5 /lpf (0-5) 08/20/21 02:55 U Epithel Cells (Auto) 20-30 /lpf (0-5) H 08/20/21 02:55 Urine Bacteria (Auto) Negative (Negative) 08/20/21 02:55 Blood Type A Negative 08/19/21 19:45 Antibody Screen NEGATIVE 08/19/21 19:45 08/20/21 02:55 Urine Culture - Final Urine,Clean Catch More than three types of organisms present, all high counts mixed probable skin honey - No further identifications or sensitivities to follow. 08/21/21 05:57 POC Glucose 108 H Electrocardiogram Date: 08/19/21 Test Reason : Blood Pressure : / mmHG Vent. Rate : 091 BPM Atrial Rate : 091 BPM P-R Int : 164 ms QRS Dur : 092 ms QT Int : 382 ms P-R-T Axes : 016 -23 072 degrees QTc Int : 469 ms Normal sinus rhythm Diffuse Minor Nonspecific ST abnormality Abnormal ECG When compared with ECG of 27-JUL-2021 06:29, Premature ventricular complexes are no longer Present Nonspecific ST abnormality now present Confirmed by Hebert Butt ([id number]) on 08/20/2021 9:23:34 AM Chest X-Ray Date: 08/19/21 XR chest 1V portable HISTORY: 75 years-old Male Chest Pain . Atypical chest pain with shortness of breath COMPARISON: Chest radiograph 07/25/2021 TECHNIQUE: Portable AP view of the chest FINDINGS: The cardiac silhouette is mildly enlarged. Mild right hemidiaphragmatic elevation. Pulmonary vascular congestion. Mild bibasilar atelectasis. Calcified granulomata of the left midlung again noted. Degenerative changes of the shoulders and spine. IMPRESSION: Cardiomegaly without acute process. Echocardiogram Date: 06/26/21 EF: 60-65% LV Function: normal RWMA: + none Other Findings: + LVH (Moderate) Valvular Disease: + MR (Moderate)
--- NOTE | 2021-08-21 15:32 | History & Physical Bridge Note ---
Date of Service August 21, 2021 History & Physical Bridge Note I have examined the patient, reviewed the History & Physical and in the interval since the performance of the History & Physical I have noted the following changes of clinical significance: no changes noted EGD/colonoscopy Patient was explained in detail regarding risks, benefits, limitations and alternatives of the above endoscopic procedure. Risks of intravenous sedation used for procedure were also explained. Risks include, but not limited to pe rforation, bleeding, infection, respiratory distress, cardiac arrest and . Patient is also aware about the possibility of missed lesion. Patient's questions were answered. The patient verbalized understanding the information and agreed to undergo the procedure.
[2021-08-21] MEDS ORDERED: PROPOFOL IV EMULSION 10 MG/ML 20 ML VIAL IV ONE ×2 (15:41→16:26)
[2021-08-21] MEDS ORDERED: LIDOCAINE 2% MPF LOCAL 5 ML VIAL INFIL ONE (15:41)
--- NOTE | 2021-08-21 16:16 | GI REPORT ---
Patient Name: Reagan Carbajal Procedure Date: 08/21/2021 3:49 PM Date of : 1945 Admit Type: Inpatient Age: 75 Gender: Male Attending MD: Ana María Liu MD Procedure: Upper GI endoscopy Providers: Ana María Liu MD Referring MD: GUNNAR AZUL Indications: Anemia Medicines: Propofol per Anesthesia Complications: No immediate complications. Estimated Blood Loss: Estimated blood loss: none. Procedure: Pre-Anesthesia Assessment: - Prior to the procedure, a History and Physical was performed, and patient medications, allergies and sensitivities were reviewed. The patient's tolerance of previous anesthesia was reviewed. - The risks and benefits of the procedure and the sedation options and risks were discussed with the patient. All questions were answered and informed consent was obtained. - Patient identification and proposed procedure were verified prior to the procedure by the physician and the nurse. The procedure was verified in the procedure room. - Pre-procedure physical examination revealed no contraindications to sedation. After obtaining informed consent, the endoscope was passed under direct vision. Throughout the procedure, the patient's blood pressure, pulse, and oxygen saturations were monitored continuously. The Endoscope was introduced through the mouth, and advanced to the second part of duodenum. The upper GI endoscopy was accomplished without difficulty. The patient tolerated the procedure well. Findings: A small hiatal hernia was present. The examined esophagus was normal. The entire examined stomach was normal. The duodenal bulb and second portion of the duodenum were normal. Impression: - Small hiatal hernia. - Normal esophagus. - Normal stomach. - Normal duodenal bulb and second portion of the duodenum. Recommendation: - Perform a colonoscopy today. Ana María Liu MD 08/21/2021 4:15:37 PM This report has been signed electronically. Note Initiated On: 08/21/2021 3:49 PM Number of Addenda: 0 I attest to the content of the Intraoperative Record and orders documented therein, exceptions below {[id number]}
--- NOTE | 2021-08-21 16:19 | GI REPORT ---
Patient Name: Reagan Carbajal Procedure Date: 08/21/2021 3:52 PM Date of : 1945 Admit Type: Inpatient Age: 75 Gender: Male Attending MD: Ana María Liu MD Procedure: Colonoscopy Providers: Ana María Liu MD Referring MD: LATHA MAHER Indications: Rectal bleeding Medicines: Propofol per Anesthesia Complications: No immediate complications. Estimated Blood Loss: Estimated blood loss: none. Procedure: Pre-Anesthesia Assessment: - Prior to the procedure, a History and Physical was performed, and patient medications, allergies and sensitivities were reviewed. The patient's tolerance of previous anesthesia was reviewed. - The risks and benefits of the procedure and the sedation options and risks were discussed with the patient. All questions were answered and informed consent was obtained. - Patient identification and proposed procedure were verified prior to the procedure by the physician and the nurse. The procedure was verified in the procedure room. - Pre-procedure physical examination revealed no contraindications to sedation. After I obtained informed consent, the scope was passed under direct vision. Throughout the procedure, the patient's blood pressure, pulse, and oxygen saturations were monitored continuously. The Scope was introduced through the anus and advanced to the cecum, identified by appendiceal orifice and ileocecal valve. The colonoscopy was performed without difficulty. The patient tolerated the procedure well. The quality of the bowel preparation was fair. The ileocecal valve, appendiceal orifice, and rectum were photographed. Findings: The perianal and digital rectal examinations were normal. A 10 mm polyp was found in the rectum. The polyp was sessile. The polyp was removed with a hot snare. Resection and retrieval were complete. Verification of patient identification for the specimen was done by the physician and nurse using the patient's name and date. Multiple small and large-mouthed diverticula were found in the sigmoid colon. Bleeding internal hemorrhoids were found during retroflexion. The hemorrhoids were large. One band was successfully placed. Bleeding had stopped at the end of the procedure. A few small angioectasias were found in the rectum. Coagulation for hemostasis using snare was successful. Impression: - Preparation of the colon was fair. - One 10 mm polyp in the rectum, removed with a hot snare. Resected and retrieved. - Diverticulosis in the sigmoid colon. - Bleeding internal hemorrhoid. Banded. - A few colonic angioectasias. Treated with tip of snare. Recommendation: - [facility]. - Await pathology results. Ana María Liu MD 08/21/2021 4:19:02 PM This report has been signed electronically. Note Initiated On: 08/21/2021 3:52 PM Number of Addenda: 0 I attest to the content of the Intraoperative Record and orders documented therein, exceptions below {[id number]}
--- NOTE | 2021-08-21 17:01 | Anesthesiology Progress Note ---
Date of Service August 21, 2021 Anesthesia Post Procedure Vital Signs Vital Signs: Temp Pulse Pulse Resp BP BP Pulse Ox 08/21/21 16:53 80 16 117/62 95 08/21/21 16:38 84 16 113/60 94 08/21/21 16:23 89 16 116/64 94 08/21/21 15:48 36.5 C 74 18 100/59 L 94 08/21/21 15:09 36.8 C 99 H 18 131/91 94 08/21/21 10:51 36.7 C 93 H 18 121/72 93 08/21/21 08:00 88 08/21/21 07:50 36.9 C 93 H 20 104/61 94 08/21/21 03:02 36.8 C 95 H 18 98/56 L 95 08/20/21 23:21 37.1 C 96 H 18 96/53 L 92 08/20/21 23:01 93 H 08/20/21 19:26 36.7 C 93 H 18 120/67 93 Transfer of Care Handoff Completed per policy Notes Mental Status: alert / awake / arousable Patient Amnestic to Procedure: Yes Nausea / Vomiting: adequately controlled Pain: adequately controlled Airway Patency, RR, SpO2: stable & adequate BP & HR: stable & adequate Hydration State: stable & adequate Anesthetic Complications: no major complications apparent
[2021-08-21] MEDS: POLYETHYLENE (MIRALAX) 17 GM PACK PO SCH (17:37)
[2021-08-21] MEDS: ATORVASTATIN 40 MG TAB PO SCH (20:21)
--- NOTE | 2021-08-21 21:50 | Hospitalist Progress Note ---
Date of Service August 21, 2021 Assessment & Plan (1) Symptomatic anemia: Plan: Acute on chronic anemia Pt was sent from cardiology office to the ER after lab work showed Hgb 5.6 He has been feeling tired/fatigue/SOB associated with dark stool Hgb on admission 5.5 Type and crossed done and 3 units PRBC given repeat Hgb 7.8today case discussed with hematology Dr. Thornton that recommended to check iron study I called lab to check if we could merge the iron study from the yesterday lab prior to the blood transfusion Reticulocytes count 3.4, Iron level 16, Transferrin 370, Ferritin 64 Continue to hold eliquis due to low hgb from GI bleed S/P colonoscopy and EGD today Continue iron supplement Gastro on board Low fiber diet resume Continue monitor H/H Chronic diastolic Heart failure CXR showed Cardiomegaly without acute process. Received IVF and 3 units PRBC so far Will resume lasix 60mg BID Continue monitor closely Acute kidney injury Mostly due to low hgb Creatinine on admission 1.8 Received IVF and blood products creatinine improved to 1.3 lasix and spironolactone resumed Thrombocytopenia Platelet on admission 103, then dropped to 55 Continue monitor closely for active bleeding Eliquis on hold Continue to monitor CBC Elevated troponin ASCVD (arteriosclerotic cardiovascular disease): H/O nonobstructive CAD on cardiac cath July 2020 Likely demand ischemia due to low hgb and elevated creatinine Denies any chest pain Troponin 29.3 on admission Continue to hold Eliquis Continue statin/metoprolol Mitral regurgitation: chronic, stable. Diabetes mellitus: Most recent Hgb A1c 5.6 on 07/27/21 Continue to Hold oral agents Utilize NovoLog per protocol while hospitalized Cancer of prostate: has a h/o prostate cancer with mets to bone. Progression of the cancer as per discussion with Oncology Remains on hormone therapy with Xtandi. Continues on weekly fosamax. Follows with urology, Dr. Alford and medical oncologist Dr. Thornton case discussed with Oncology dr. Thornton Plans to establish with Dr. Goyo Thornton locally History of pulmonary embolism: Eliquis on hold due to low hgb from GI bleed continue monitor closely DVT prophylaxis on SCD due to GI bleed and low hemoglobin Code status full code Admission and Anticipated Discharge Date Admission Date: August 19, 2021 Subjective Pt was seen and examined for follow up of weakness/SOB and anemia Lying in bed with no acute distress Pt said that he feels hungry Denies any chest pain, palpitation, dizziness and SOB Review of Systems Review of Systems: All systems reviewed & are unremarkable except as noted in Subjective Physical Exam Physical Exam: General- No acute distress Head- at raumatic Eyes- PER RL, EOMI, ENT- gloria pharynx clear Neck - supple, no JVD L ungs- clear to aus cultation Heart- r egular rhythm; no murmur Abdomen- no rmal bowel sounds, soft, nontender E xtremities- no ca lf tenderness, no edema Neuro- aler t, oriented x 3; P ERRL, EOMI; no fac ial palsy; no dysa rthria Skin- warm & dry Results & Data Results & Data ([facility]) Vital Signs (Past 12 Hours) Vital Signs Temp Pulse Pulse Resp BP BP Pulse Ox 08/21/21 19:24 36.7 C 95 H 18 110/68 95 08/21/21 16:53 80 16 117/62 95 08/21/21 16:38 84 16 113/60 94 08/21/21 16:23 89 16 116/64 94 08/21/21 15:48 36.5 C 74 18 100/59 L 94 08/21/21 15:09 36.8 C 99 H 18 131/91 94 08/21/21 14:00 89 08/21/21 10:51 36.7 C 93 H 18 121/72 93
[2021-08-21] MEDS: FUROSEMIDE 20 MG TAB PO SCH (23:38)
[2021-08-22 07:30] LABS: BUN Creatinine Ratio 14.4 (10-20); Calcium 8.5 mg/dl (8.5-10.1); Creatinine Clr Calc Pharmacy 43.2 ml/min; Est GFR (African American) 47.8 ml/min; Est GFR (Non-African American) 41.2 ml/min; Potassium 3.7 mmol/L (3.5-5.1)
[2021-08-22 07:34] LABS: Mean Corpuscular Hgb Conc 30.1 g/dL (32-36); Nucleated RBC # (auto) 0.06 K/uL (0-0)
[2021-08-22] MEDS: INSULIN ASPART PER UNIT SC SCH ×4 (07:56→20:27)
[2021-08-22] MEDS: FERROUS GLUCONATE 324 MG TAB PO SCH (08:01)
[2021-08-22] MEDS: POLYETHYLENE (MIRALAX) 17 GM PACK PO SCH (08:01)
[2021-08-22] MEDS: PANTOprazole 40 MG TAB PO SCH (08:01)
[2021-08-22 08:10] LABS: Hematocrit (blood only) 26.6 % (42-52); Mean Corpuscular Hemoglobin 24.8 pg (25-34); Mean Corpuscular Volume 82.6 fL (80-100); RDW Coefficient of Variation 18.2 % (11.5-14.5); RDW Standard Deviation 52.8 fL (36.4-46.3); Red Blood Count 3.22 M/uL (4.7-6.1)
[2021-08-22 08:15] LABS: Platelet Count 35 K/uL (130-400)
[2021-08-22 08:16] LABS: Platelet Estimate SIGNIFIC DECREASED (Normal)
[2021-08-22] MEDS: METOPROLOL SUCC 50MG EXT REL TAB PO SCH ×2 (09:25→20:04)
[2021-08-22] MEDS: dilTIAZem HCL 120 MG CAPCR PO SCH (09:26)
[2021-08-22] MEDS: ATORVASTATIN 40 MG TAB PO SCH (20:04)
--- NOTE | 2021-08-22 23:50 | Hospitalist Progress Note ---
Date of Service August 22, 2021 Assessment & Plan (1) Symptomatic anemia: Plan: Acute on chronic anemia Pt was sent from cardiology office to the ER after lab work showed Hgb 5.6 He has been feeling tired/fatigue/SOB associated with dark stool Hgb on admission 5.5 Type and crossed done and 3 units PRBC given case discussed with hematology Dr. Thornton that recommended to check iron study I called lab to check if we could merge the iron study from lab prior to the blood transfusion on admission Reticulocytes count 3.4, Iron level 16, Transferrin 370, Ferritin 64 Continue to hold eliquis due to low hgb from GI bleed S/P colonoscopy and EGD today Hemoglobin today 8 Continue iron supplement Gastro on board Continue Low fiber diet resume Will discuss with hematology tomorrow about when to resume Eliquis Chronic diastolic Heart failure CXR showed Cardiomegaly without acute process. Received IVF and 3 units PRBC so far Lasix held today due to elevated creatinine, plan to resume in a.m. if creatinine improved Continue monitor closely Acute kidney injury Mostly due to low hgb Creatinine on admission 1.8 Received IVF and blood products creatinine bumped to 1.6 Lasix and spironolactone hold, plan to resume in am Thrombocytopenia Platelet on admission 103, then dropped to 55--->35K Continue monitor closely for sign of active bleeding Continue to hold Eliquis Continue to monitor CBC Elevated troponin ASCVD (arteriosclerotic cardiovascular disease): H/O nonobstructive CAD on cardiac cath July 2020 Likely demand ischemia due to low hgb and elevated creatinine Denies any chest pain Troponin 29.3 on admission Continue to hold Eliquis Continue statin/metoprolol Mitral regurgitation: chronic, stable. Diabetes mellitus: Most recent Hgb A1c 5.6 on 07/27/21 Continue to Hold oral agents Utilize NovoLog per protocol while hospitalized Cancer of prostate: has a h/o prostate cancer with mets to bone. Progression of the cancer as per discussion with Oncology Remains on hormone therapy with Xtandi. Continues on weekly fosamax. Follows with urology, Dr. Alford and medical oncologist Dr. Thornton case discussed with Oncology dr. Thornton Plans to establish with Dr. Goyo Thornton locally History of pulmonary embolism: Eliquis on hold due to low hgb from GI bleed continue monitor closely DVT prophylaxis on SCD due to GI bleed and low hemoglobin Code status full code Admission and Anticipated Discharge Date Admission Date: August 19, 2021 Subjective Pt was seen and examined for follow up of weakness/SOB and anemia Sitting at the edge of the bed bed with no acute distress Patient said that she feels fine Denies any chest pain, palpitation, dizziness and SOB Review of Systems Review of Systems: All systems reviewed & are unremarkable except as noted in Subjective Physical Exam Physical Exam: General- No acute distress Head- at raumatic Eyes- PER RL, EOMI, ENT- gloria pharynx clear Neck - supple, no JVD L ungs- clear to aus cultation Heart- r egular rhythm; no murmur Abdomen- no rmal bowel sounds, soft, nontender E xtremities- no ca lf tenderness, no edema Neuro- aler t, oriented x 3; P ERRL, EOMI; no fac ial palsy; no dysa rthria Skin- warm & dry Results & Data Results & [facility] ([facility]) Vital Signs (Past 12 Hours) Vital Signs Temp Pulse Pulse Resp BP Pulse Ox 08/22/21 23:01 36.8 C 106 H 18 129/63 94 08/22/21 22:17 98 H 08/22/21 19:21 36.7 C 99 H 18 110/68 96 08/22/21 16:49 96 H 08/22/21 14:53 36.5 C 101 H 20 124/68 97
[2021-08-23] MEDS: INSULIN ASPART PER UNIT SC SCH ×4 (08:11→20:18)
[2021-08-23] MEDS: PANTOprazole 40 MG TAB PO SCH (08:13)
[2021-08-23] MEDS: POLYETHYLENE (MIRALAX) 17 GM PACK PO SCH (08:13)
[2021-08-23] MEDS: dilTIAZem HCL 120 MG CAPCR PO SCH (08:13)
[2021-08-23] MEDS: METOPROLOL SUCC 50MG EXT REL TAB PO SCH ×2 (08:13→20:16)
[2021-08-23] MEDS: FERROUS GLUCONATE 324 MG TAB PO SCH (08:13)
[2021-08-23 08:47] LABS: Mean Corpuscular Hgb Conc 29.8 g/dL (32-36)
[2021-08-23 09:02] LABS: BUN Creatinine Ratio 18.4 (10-20); Calcium 8.5 mg/dl (8.5-10.1); Creatinine Clr Calc Pharmacy 50.8 ml/min; Est GFR (African American) 58.2 ml/min; Est GFR (Non-African American) 50.2 ml/min; Hematocrit (blood only) 25.5 % (42-52); Hemoglobin 7.6 g/dL (14.0-18.0); Mean Corpuscular Hemoglobin 24.5 pg (25-34); Mean Corpuscular Volume 82.3 fL (80-100); Potassium 3.5 mmol/L (3.5-5.1); RDW Standard Deviation 53.8 fL (36.4-46.3); White Blood Count 6.53 K/uL (4.8-10.8)
[2021-08-23] MEDS ORDERED: FUROSEMIDE 20 MG TAB PO ONE (09:16)
[2021-08-23 09:18] LABS: Platelet Count 27 K/uL (130-400)
[2021-08-23 09:19] LABS: Platelet Estimate SIGNIFIC DECREASED (Normal)
[2021-08-23] MEDS: SPIRONOLACTONE 12.5 MG TAB PO SCH (09:45)
[2021-08-23 16:46] LABS: Mean Corpuscular Hgb Conc 29.3 g/dL (32-36); Nucleated RBC # (auto) 0.06 K/uL (0-0); Nucleated RBC % (auto) 0.9 %
--- NOTE | 2021-08-23 16:58 | Hospitalist Progress Note ---
Date of Service August 23, 2021 Assessment & Plan (1) Symptomatic anemia: Plan: Acute on chronic anemia Pt was sent from cardiology office to the ER after lab work showed Hgb 5.6 He has been feeling tired/fatigue/SOB associated with dark stool Hgb on admission 5.5 Type and crossed done and 3 units PRBC given case discussed with hematology Dr. Thornton that recommended to check iron study I called lab to check if we could merge the iron study from lab prior to the blood transfusion on admission Reticulocytes count 3.4, Iron level 16, Transferrin 370, Ferritin 64 S/P colonoscopy where One 10 mm polyp in the rectum removed. Bleeding internal hemorrhoid. Banded. A few colonic angioectasias. Treated with tip of snare. Pathology pending EGD showed normal esophagus and normal stomach. Hemoglobin today 7.7 Continue to hold eliquis due to low hgb from GI bleed Continue iron supplement Gastro on board Continue Low fiber diet resume Will repeat H/H later Chronic diastolic Heart failure CXR showed Cardiomegaly without acute process. Received IVF and 3 units PRBC so far Lasix and spironolactone resumed today Continue monitor closely Acute kidney injury Mostly due to low hgb Creatinine on admission 1.8 Received IVF and blood products Creatinine bumped to 1.6, now improved to 1.3 Lasix and spironolactone resumed Thrombocytopenia Platelet on admission 103, then dropped to 55--->35K-->27K Continue monitor closely for sign of active bleeding Continue to hold Eliquis Continue to monitor CBC Elevated troponin ASCVD (arteriosclerotic cardiovascular disease): H/O nonobstructive CAD on cardiac cath July 2020 Likely demand ischemia due to low hgb and elevated creatinine Denies any chest pain Troponin 29.3 on admission Continue to hold Eliquis Continue statin/metoprolol Mitral regurgitation: chronic, stable. Diabetes mellitus: Most recent Hgb A1c 5.6 on 07/27/21 Continue to Hold oral agents Utilize NovoLog per protocol while hospitalized Cancer of prostate: has a h/o prostate cancer with mets to bone. Progression of the cancer as per discussion with Oncology Remains on hormone therapy with Xtandi. Continues on weekly fosamax. Follows with urology, Dr. Alford and medical oncologist Dr. Thornton case discussed with Oncology dr. Thornton Plans to establish with Dr. Goyo Thornton locally History of pulmonary embolism: Eliquis on hold due to low hgb from GI bleed continue monitor closely DVT prophylaxis on SCD due to GI bleed and low hemoglobin Code status full code Admission and Anticipated Discharge Date Admission Date: August 19, 2021 Subjective Pt was seen and examined for follow up of weakness/SOB and anemia Sitting at the edge of the bed bed with no acute distress Nurse said pt mentioned that he had a dark bowel movement Denies any chest pain, palpitation, dizziness and SOB Review of Systems Review of Systems: All systems reviewed & are unremarkable except as noted in Subjective Physical Exam Physical Exam: General- No acute distress Head- at raumatic Eyes- PER RL, EOMI, ENT- gloria pharynx clear Neck - supple, no JVD L ungs- clear to aus cultation Heart- r egular rhythm; no murmur Abdomen- no rmal bowel sounds, soft, nontender E xtremities- no ca lf tenderness, no edema Neuro- aler t, oriented x 3; P ERRL, EOMI; no fac ial palsy; no dysa rthria Skin- warm & dry Results & Data Results & Data ([facility]) Vital Signs (Past 12 Hours) Vital Signs Temp Pulse Pulse Resp BP Pulse Ox 08/23/21 16:03 90 08/23/21 15:19 36.9 C 88 20 105/65 94 08/23/21 11:32 36.7 C 96 H 20 112/68 94 08/23/21 08:00 101 H 08/23/21 06:21 36.7 C 95 H 18 111/65 93
[2021-08-23 17:13] LABS: Platelet Count 27 K/uL (130-400)
[2021-08-23 17:14] LABS: Hematocrit (blood only) 26.3 % (42-52); Hemoglobin 7.9 g/dL (14.0-18.0); Mean Corpuscular Hemoglobin 24.6 pg (25-34); Mean Corpuscular Volume 81.9 fL (80-100); Platelet Estimate SIGNIFIC DECREASED (Normal); RDW Coefficient of Variation 19.3 % (11.5-14.5); Red Blood Count 3.21 M/uL (4.7-6.1); White Blood Count 6.25 K/uL (4.8-10.8)
[2021-08-23] MEDS: FUROSEMIDE 20 MG TAB PO SCH (17:21)
[2021-08-23] MEDS: ATORVASTATIN 40 MG TAB PO SCH (20:18)
[2021-08-24 07:10] LABS: Nucleated RBC # (auto) 0.03 K/uL (0-0); Nucleated RBC % (auto) 0.5 %
[2021-08-24 07:20] LABS: Hematocrit (blood only) 23.3 % (42-52); Mean Corpuscular Hemoglobin 24.8 pg (25-34); Mean Corpuscular Volume 82.6 fL (80-100); RDW Coefficient of Variation 19.5 % (11.5-14.5); RDW Standard Deviation 56.2 fL (36.4-46.3); Red Blood Count 2.82 M/uL (4.7-6.1)
[2021-08-24 07:30] LABS: Platelet Count 25 K/uL (130-400); Platelet Estimate SIGNIFIC DECREASED (Normal)
[2021-08-24] MEDS ORDERED: SODIUM CHLORIDE 0.9% 250 ML IV PRN (08:28)
[2021-08-24] MEDS: PANTOprazole 40 MG TAB PO SCH (08:55)
[2021-08-24] MEDS: FERROUS GLUCONATE 324 MG TAB PO SCH (08:55)
[2021-08-24] MEDS: dilTIAZem HCL 120 MG CAPCR PO SCH (08:55)
[2021-08-24] MEDS: FUROSEMIDE 20 MG TAB PO SCH ×2 (08:55→17:38)
[2021-08-24] MEDS: INSULIN ASPART PER UNIT SC SCH ×4 (08:55→20:15)
[2021-08-24] MEDS: SPIRONOLACTONE 12.5 MG TAB PO SCH (08:55)
[2021-08-24] MEDS: METOPROLOL SUCC 50MG EXT REL TAB PO SCH ×2 (08:55→20:14)
[2021-08-24] MEDS: POLYETHYLENE (MIRALAX) 17 GM PACK PO SCH (08:56)
--- NOTE | 2021-08-24 13:41 | Hospitalist Progress Note ---
Date of Service August 24, 2021 Assessment & Plan (1) Symptomatic anemia: Plan: Acute on chronic anemia Pt was sent from cardiology office to the ER after lab work showed Hgb 5.6 He has been feeling tired/fatigue/SOB associated with dark stool Hgb on admission 5.5 Type and crossed done and 3 units PRBC given case discussed with hematology Dr. Thornton that recommended to check iron study I called lab to check if we could merge the iron study from lab prior to the blood transfusion on admission Reticulocytes count 3.4, Iron level 16, Transferrin 370, Ferritin 64 S/P colonoscopy where One 10 mm polyp in the rectum removed. Bleeding internal hemorrhoid. Banded. A few colonic angioectasias. Treated with tip of snare. Pathology pending EGD showed normal esophagus and normal stomach. Continue to have dark stools Continue iron supplement Hemoglobin dropped to 7 today Spoke to hem/onc dr. Thornton that agreed to transfuse 1 unit PRBC, but repeat CBC in the morning and if platelet continues to drop, Dr. Thornton might consider to transfuse platelet product Type and crossed and plan transfuse 1 unit PRBC today Continue to hold eliquis due to low hgb from GI bleed Gastro on board Will check for Cdiff and FOBT since pt has been having dark watery stool Continue Low fiber diet resume Will repeat H/H later Chronic diastolic Heart failure CXR showed Cardiomegaly without acute process. Received IVF and 3 units PRBC so far Continue Lasix and spironolactone Continue monitor closely Acute kidney injury Mostly due to low hgb Creatinine on admission 1.8 Received IVF and blood products Creatinine bumped to 1.6, now improved to 1.3 Continue Lasix and spironolactone Check BMP in am Thrombocytopenia Platelet on admission 103, then dropped to 55--->35K-->27K-->25K Continue monitor closely for sign of active bleeding Check CBC in the morning and if platelet continues to drop, Dr. Thornton might consider to transfuse platelet product Continue to hold Eliquis Continue to monitor CBC Elevated troponin ASCVD (arteriosclerotic cardiovascular disease): H/O nonobstructive CAD on cardiac cath July 2020 Likely demand ischemia due to low hgb and elevated creatinine Denies any chest pain Troponin 29.3 on admission Continue to hold Eliquis Continue statin/metoprolol Chronic Mitral regurgitation Stable Diabetes mellitus: Most recent Hgb A1c 5.6 on 07/27/21 Continue to Hold oral agents Utilize NovoLog per protocol while hospitalized Cancer of prostate: has a h/o prostate cancer with mets to bone. Progression of the cancer as per discussion with Oncology Remains on hormone therapy with Xtandi. Continues on weekly fosamax. Follows with urology, Dr. Alford and medical oncologist Dr. Thornton case discussed with Oncology dr. Thornton Plans to establish with Dr. Goyo Thornton [facility] History of pulmonary embolism: Eliquis on hold due to low hgb from GI bleed continue monitor closely DVT prophylaxis on SCD due to GI bleed and low hemoglobin Code status full code Admission and Anticipated Discharge Date Admission Date: August 19, 2021 Subjective Pt was seen and examined for follow up of weakness/SOB and anemia Sitting at the edge of the bed with no acute distress Pt said that he continues to have dark diarrhea stools His hemoglobin dropped to 7 this morning I spoke to hem/onc dr. Thornton that agreed to transfuse 1 unit PRBC, but repeat CBC in the morning and if platelet continues to drop, Dr. Thornton recommended to consider transfusing platelet product Denies any chest pain, palpitation, dizziness and SOB Review of Systems Review of Systems: All systems reviewed & are unremarkable except as noted in Subjective Physical Exam Physical Exam: General- No acute distress Head- at raumatic Eyes- PER RL, EOMI, ENT- gloria pharynx clear Neck - supple, no JVD L ungs- clear to aus cultation Heart- r egular rhythm; no murmur Abdomen- no rmal bowel sounds, soft, nontender E xtremities- no ca lf tenderness, no edema Neuro- aler t, oriented x 3; P ERRL, EOMI; no fac ial palsy; no dysa rthria Skin- warm & dry Results & Data Results & Data ([facility]) Vital Signs (Past 12 Hours) Vital Signs Temp Pulse Pulse Resp BP BP BP 08/24/21 11:55 36.9 C 86 19 114/67 08/24/21 11:52 37.5 C 89 18 111/64 08/24/21 11:25 37.1 C 97 H 18 117/63 08/24/21 11:10 37.2 C 87 18 109/63 08/24/21 10:52 36.8 C 63 18 121/70 08/24/21 07:57 88 08/24/21 07:52 36.8 C 98 H 16 116/66 08/24/21 04:34 37 C 90 18 107/62 Pulse Ox 08/24/21 11:55 95 08/24/21 11:52 93 08/24/21 11:25 96 08/24/21 11:10 94 08/24/21 10:52 95 08/24/21 07:57 08/24/21 07:52 95 08/24/21 04:34 92
[2021-08-24] MEDS: ATORVASTATIN 40 MG TAB PO SCH (20:14)
[2021-08-25 08:00] LABS: Mean Corpuscular Hgb Conc 30.3 g/dL (32-36)
[2021-08-25 08:05] LABS: Hematocrit (blood only) 27.1 % (42-52); Hemoglobin 8.2 g/dL (14.0-18.0); Mean Corpuscular Volume 82.6 fL (80-100); RDW Coefficient of Variation 19.4 % (11.5-14.5); RDW Standard Deviation 57.5 fL (36.4-46.3); Red Blood Count 3.28 M/uL (4.7-6.1); White Blood Count 5.56 K/uL (4.8-10.8)
[2021-08-25] MEDS: METOPROLOL SUCC 50MG EXT REL TAB PO SCH ×2 (08:11→21:08)
[2021-08-25] MEDS: dilTIAZem HCL 120 MG CAPCR PO SCH (08:11)
[2021-08-25] MEDS: SPIRONOLACTONE 12.5 MG TAB PO SCH (08:11)
[2021-08-25] MEDS: FERROUS GLUCONATE 324 MG TAB PO SCH (08:11)
[2021-08-25] MEDS: FUROSEMIDE 20 MG TAB PO SCH (08:11)
[2021-08-25] MEDS: PANTOprazole 40 MG TAB PO SCH (08:11)
[2021-08-25] MEDS: POLYETHYLENE (MIRALAX) 17 GM PACK PO SCH (08:12)
[2021-08-25] MEDS: INSULIN ASPART PER UNIT SC SCH ×4 (08:30→21:11)
[2021-08-25 08:37] LABS: BUN Creatinine Ratio 17.7 (10-20); Calcium 8.2 mg/dl (8.5-10.1); Est GFR (African American) 55.7 ml/min; Potassium 3.4 mmol/L (3.5-5.1)
[2021-08-25 08:39] LABS: Platelet Count 28 K/uL (130-400)
[2021-08-25 08:41] LABS: Platelet Estimate SIGNIFIC DECREASED (Normal)
[2021-08-25] MEDS ORDERED: POTASSIUM CHLORIDE CRTAB 20 MEQ TABCR PO STA (10:14)
[2021-08-25] MEDS ORDERED: ENZALUTAMIDE PO SCH (12:00)
--- NOTE | 2021-08-25 18:31 | Hospitalist Progress Note ---
Date of Service August 25, 2021 Assessment & Plan (1) Symptomatic anemia: Plan: Acute on chronic anemia Pt was sent from cardiology office to the ER after lab work showed Hgb 5.6 He has been feeling tired/fatigue/SOB associated with dark stool Hgb on admission 5.5 Type and crossed done and 3 units PRBC given case discussed with hematology Dr. Thornton that recommended to check iron study I called lab to check if we could merge the iron study from lab prior to the blood transfusion on admission Reticulocytes count 3.4, Iron level 16, Transferrin 370, Ferritin 64 gastro on board S/P colonoscopy where One 10 mm polyp in the rectum removed. Bleeding internal hemorrhoid. Banded. A few colonic angioectasias. Treated with tip of snare. Pathology pending EGD showed normal esophagus and normal stomach. Continue to have dark stools Continue iron supplement Spoke to hem/onc dr. Thornton that agreed to transfuse 1 unit PRBC yesterday Hgb 8.2 today FOBT and Cdiff negative Continue to hold eliquis due to low hgb and low platelet Continue Low fiber diet resume Will repeat CBC in the morning- If hgb stable, ok to discharge ( please discuss with hem/onc dr. Thornton before discharge about when to resume eliquis) Chronic diastolic Heart failure CXR showed Cardiomegaly without acute process. Received IVF and 4 units PRBC so far during this admission Received morning dose Lasix and spironolactone, but will hold afternoon dose Lasix due to bump on creatinine Continue monitor closely Acute kidney injury Mostly due to low hgb Creatinine on admission 1.8 Received IVF and blood products Creatinine 1.4 today (baseline around creatinine 1- 1.2 ) Continue Lasix and spironolactone, after lasix dose was not given Check BMP in am Thrombocytopenia Platelet on admission 103, then dropped to 55--->35K-->27K-->25K -->28 Continue monitor closely for sign of active bleeding Check CBC in the morning and if platelet drops significantly, Dr. Thornton might consider to transfuse platelet product Continue to hold Eliquis Elevated troponin ASCVD (arteriosclerotic cardiovascular disease): H/O nonobstructive CAD on cardiac cath July 2020 Likely demand ischemia due to low hgb and elevated creatinine Denies any chest pain Troponin 29.3 on admission Continue to hold Eliquis Continue statin/metoprolol Chronic Mitral regurgitation Stable Diabetes mellitus: Most recent Hgb A1c 5.6 on 07/27/21 Continue to Hold oral agents Utilize NovoLog per protocol while hospitalized Cancer of prostate: has a h/o prostate cancer with mets to bone. Progression of the cancer as per discussion with Oncology Remains on hormone therapy with Xtandi. Continues on weekly fosamax. Follows with urology, Dr. Alford and medical oncologist Dr. Thornton case discussed with Oncology dr. Thornton Plans to establish with Dr. Goyo Thornton [facility] History of pulmonary embolism: Eliquis on hold due to low hgb from GI bleed continue monitor closely DVT prophylaxis on SCD due to GI bleed and low hemoglobin Code status full code Disposition Plan to discharge home tomorrow if hgb stable Admission and Anticipated Discharge Date Admission Date: August 19, 2021 Subjective Pt was seen and examined for follow up of weakness/SOB and anemia Lying in bed with no acute distress Pt said that he continues to have dark stools that is mostly due to iron supplement FOBT is negative and Hgb 8.2 today He is very anxious to go home today Denies any chest pain, palpitation, dizziness and SOB Review of Systems Review of Systems: All systems reviewed & are unremarkable except as noted in Subjective Physical Exam Physical Exam: General- No acute distress Head- at raumatic Eyes- PER RL, EOMI, ENT- gloria pharynx clear Neck - supple, no JVD L ungs- clear to aus cultation Heart- r egular rhythm; no murmur Abdomen- no rmal bowel sounds, soft, nontender E xtremities- no ca lf tenderness, no edema Neuro- aler t, oriented x 3; P ERRL, EOMI; no fac ial palsy; no dysa rthria Skin- warm & dry Results & Data Results & Data ([facility]) Vital Signs (Past 12 Hours) Vital Signs Temp Pulse Pulse Resp BP Pulse Ox 08/25/21 15:24 36.9 C 94 H 16 113/66 94 08/25/21 11:21 36.8 C 86 16 118/73 93 08/25/21 08:01 83
[2021-08-25] MEDS: ATORVASTATIN 40 MG TAB PO SCH (21:08)
[2021-08-26 07:30] LABS: Mean Corpuscular Hgb Conc 31.3 g/dL (32-36)
[2021-08-26 07:39] LABS: Hematocrit (blood only) 27.2 % (42-52); Hemoglobin 8.5 g/dL (14.0-18.0); Mean Corpuscular Hemoglobin 25.5 pg (25-34); Mean Corpuscular Volume 81.7 fL (80-100); RDW Coefficient of Variation 19.9 % (11.5-14.5); RDW Standard Deviation 58.3 fL (36.4-46.3); Red Blood Count 3.33 M/uL (4.7-6.1); White Blood Count 6.75 K/uL (4.8-10.8)
[2021-08-26 07:50] LABS: BUN Creatinine Ratio 20.9 (10-20); Calcium 8.4 mg/dl (8.5-10.1); Est GFR (Non-African American) 53.5 ml/min; Potassium 3.4 mmol/L (3.5-5.1)
[2021-08-26 07:57] LABS: Platelet Count 35 K/uL (130-400); Platelet Estimate Decreased (Normal)
[2021-08-26] MEDS ORDERED: POTASSIUM CHLORIDE CRTAB 20 MEQ TABCR PO STA (08:24)
[2021-08-26 08:32] VITALS: TEMP 97.9; O2SAT 94
[2021-08-26] MEDS: INSULIN ASPART PER UNIT SC SCH (09:02)
[2021-08-26] MEDS: FERROUS GLUCONATE 324 MG TAB PO SCH (09:04)
[2021-08-26] MEDS: dilTIAZem HCL 120 MG CAPCR PO SCH (09:04)
[2021-08-26] MEDS: FUROSEMIDE 20 MG TAB PO SCH (09:04)
[2021-08-26] MEDS: POLYETHYLENE (MIRALAX) 17 GM PACK PO SCH (09:05)
[2021-08-26] MEDS: PANTOprazole 40 MG TAB PO SCH (09:05)
[2021-08-26] MEDS: SPIRONOLACTONE 12.5 MG TAB PO SCH (09:05)
[2021-08-26] MEDS: METOPROLOL SUCC 50MG EXT REL TAB PO SCH (09:05)
--- NOTE | 2021-08-26 10:53 | Discharge Summary ---
Date of Service August 26, 2021 Admission HPI Per Admitting Provider History obtained from patient and records. Medical history significant for chronic diastolic heart failure (EF 60 to 65%, TTE 2021), CAD as per records, moderate MR, PAF/PE/DVT on Eliquis, hypertension, chronic anemia (baseline hemoglobin of 8), metastatic prostate cancer status post surgery, radiation, ongoing antiandrogen therapy, DM2 on oral medications, past tobacco abuse. Last confinement 3 weeks ago for decompensated heart failure. Patient seen on follow-up [facility] [place] today. Patient with shortness of breath and fatigue symptoms as per documentation. Patient noted to be pale by provider. Appetite not too good as per patient. Intermittent bloody stools since last year as per patient without abdominal pain complaints. No diarrhea, no fever, no chills. Outpatient hemoglobin noted to be 5.6, serum creatinine 1.7. Patient directed to ER for evaluation. 1 unit PRBC transfused at the ER. 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 Admission Exam Per Admitting Provider GENERAL: Comfortable, pleasant, no respiratory distress SKIN: Pallor, warm HEENT: Pale palpebral conjunctivae, no ptosis, dry buccal mucosa NECK : Supple, no tenderness CHEST : CTA, no tenderness HEART : RRR, systolic murmur ABDOMEN: Some distention, nontender EXTREMITIES : No LE swelling/tenderness, no other conspicuous deformities noted NEUROLOGIC : Coherent, no facial asymmetry, no other gross focality Principal Diagnosis Symptomatic anemia Discharge Exam Constitutional + well hydrated; no acute distress Eyes PERRL, conjunctivae normal, anicteric sclerae ENMT external ear and nose normal, oropharynx normal Respiratory normal respiratory effort, lungs clear to auscultation Cardiovascular Rate/Rhythm: regular rate and regular rhythm S1 S2 Gastrointestinal (Abdomen) normal bowel sounds, soft, nontender, no hepatosplenomegaly Musculoskeletal +trace pedal edema Neurologic PERRL, EOMI, accommodation nl, no face palsy, no dysarthria Psychiatric A+Ox3, euthymic affect Discharge Data Allergies Allergy/AdvReac Type Severity Reaction Status Date / Time adhesive AdvReac Intermediate REDNESS Verified 08/21/21 15:08 WITH EKG ELECTRODES Consultations 08/19/21 21:59 ED Decision to Admit Stat 08/19/21 23:10 Consult Gastroenterology Routine Procedures Performed Operation Date: 08/21/21 16:30 Actual Procedures p Esophagogastroduodenoscopy - Ana María Liu MD Findings: A small hiatal hernia was present. The examined esophagus was normal. The entire examined stomach was normal. The duodenal bulb and second portion of the duodenum were normal. Impression: - Small hiatal hernia. - Normal esophagus. - Normal stomach. - Normal duodenal bulb and second portion of the duodenum. s Colonoscopy Polypectomy - Ana María Liu MD The perianal and digital rectal examinations were normal. A 10 mm polyp was found in the rectum. The polyp was sessile. The polyp was removed with a hot snare. Resection and retrieval were complete. Verification of patient identification for the specimen was done by the physician and nurse using the patient's name and date. Multiple small and large-mouthed diverticula were found in the sigmoid colon. Bleeding internal hemorrhoids were found during retroflexion. The hemorrhoids were large. One band was successfully placed. Bleeding had stopped at the end of the procedure. A few small angioectasias were found in the rectum. Coagulation for hemostasis using snare was successful. Impression: - Preparation of the colon was fair. - One 10 mm polyp in the rectum, removed with a hot snare. Resected and retrieved. - Diverticulosis in the sigmoid colon. - Bleeding internal hemorrhoid. Banded. - A few colonic angioectasias. Treated with tip of snare. Hospital Course (1) Symptomatic anemia: Acute on chronic anemia Pt was sent from cardiology office to the ER after lab work showed Hgb 5.6 He has been feeling tired/fatigue/SOB associated with dark stool Hgb on admission 5.5 Received 4 PRBC Reticulocytes count 3.4, Iron level 16, Transferrin 370, Ferritin 64 S/P colonoscopy where One 10 mm polyp in the rectum removed. Bleeding internal hemorrhoid. Banded. A few colonic angioectasias. Treated with tip of snare. Pathology pending EGD showed normal esophagus and normal stomach. Hb has remained stable in 8s. Currently 8.[address] Goyo Thornton today. He recommends holding eliquis on discharge until he sees patient outpatient on 08/27/21 Chronic diastolic Heart failure CXR showed Cardiomegaly without acute process. Continue home medications Acute kidney injury Creatinine on admission 1.8 Received IVF and blood products Creatinine 1.29 today (baseline around creatinine 1- 1.2 ) Continue Lasix and spironolactone Thrombocytopenia Platelet on admission 103, then dropped to 55--->35K-->27K-->25K -->28 Platelet improving. 35K today Elevated troponin ASCVD (arteriosclerotic cardiovascular disease): H/O nonobstructive CAD on cardiac cath July 2020 Likely demand ischemia due to low hgb and elevated creatinine Denies any chest pain Troponin 29.3 on admission Continue statin/metoprolol Diabetes mellitus: Most recent Hgb A1c 5.6 on 07/27/21 Continue home antidiabetics Cancer of prostate: Has a h/o prostate cancer with mets to bone. Remains on hormone therapy with Xtandi. Continues on weekly fosamax. Follows with urology, Dr. Alford and medical oncologist Dr. Thornton History of pulmonary embolism: Eliquis on hold as above Total Time Total Time Spent Total Time Spent (In Minutes): 50 Total Time Includes: Examination of the Patient, Discharge Planning, Medication Reconciliation and Communication With Other Providers Discharge Plan Discharge Items Patient Disposition: Home - Home Health Services Reason For Visit: Shortness of breath Discharge Diagnosis: Symptomatic anemia Activity: Resume your previous activity Non-emergency contact: Primary Care Provider and Oncologist Call non-emergency contact if: you have any medication questions and your symptoms worsen Follow-up/Referrals: Forrest Prather [Physician Milk Drying Machine Operator] - (Date & Time 09/08/2021 1:30 PM Provider Forrest Prather PA-C Department Cardiology, [facility] ) Goyo Thornton MD [Surgeon] - (Date & Time 08/27/2021 7:45 AM Provider Goyo Thornton MD Department Hematology/Oncology [facility] ) Jimmy Allen [Primary Care Provider] - 09/03/21 10:00 am Diet: Carb Consistent or DM2 and Heart Healthy Addtl Attending Provider Instructions: Mr Carbajal. You came to the hospital with fatigue and shortness of breath. You were evaluated and noted to have symptomatic anemia. You received 4 units of blood. You also had endoscopies by Gastroenterology with polyp removal. Please follow up with Gastroenterology about the results. Your blood level stabilized. PLEASE STOP TAKING APIXABAN (ELIQUIS) FOR NOW UNTIL YOU FOLLOW UP WITH DR. THORNTON. According to your Sample Patternmaker note on last visit, your lasix was increased from 40mg to 60mg daily. Please ensure follow up with Cardiology. Please continue your other home medicine as prescribed. Please ensure follow up with your Primary Doctor. It was a pleasure taking care of you. Pending Studies at Discharge: No Stand-Alone Forms: My [facility], Smoking Cessation Medications and DC Order Prescriptions: Continued metformin 500 mg tablet 500 mg PO QAM RF: 0 Xtandi 40 mg capsule 160 mg PO DAILY@1200 RF: 0 alendronate 70 mg tablet 70 mg PO GONZALEZ@0900 RF: 0 spironolactone 25 mg Tablet 12.5 mg PO DAILY Qty: 30 RF: 0 magnesium oxide 400 mg (241.3 mg magnesium) Tablet 400 mg PO BID 30 Days Qty: 60 RF: 0 hydrocodone-acetaminophen 10-325 mg tablet 1 tab PO DAILY PRN (Reason: Pain) RF: 0 solifenacin [Vesicare] 10 mg tablet 10 mg PO HS RF: 0 omeprazole 20 mg capsule,delayed release(DR/EC) 20 mg PO QAM RF: 0 diltiazem HCl 120 mg capsule,extended release 24hr 120 mg PO QAM RF: 0 metoprolol succinate [Toprol XL] 100 mg tablet extended release 24 hr 100 mg PO AMHS RF: 0 ferrous gluconate 324 mg (38 mg iron) Tablet 324 mg PO DAILY Qty: 30 RF: 0 atorvastatin 40 mg tablet 40 mg PO HS RF: 0 Changed furosemide 40 mg tablet 60 mg PO QAM 30 Days Qty: 45 RF: 0 Discontinued apixaban 5 mg (74 tabs) tablets,dose pack 5 mg PO Q12H Qty: 74 RF: 0 Discharge Orders: Discharge Order (Routine); Ordered 08/26/21 Ordered By: Annette Ashley Admission Data Admit Date/Time: 08/19/21 22:18 Attending Provider: Annette Ashley I. Admit Provider: Thomas Gomez Primary Care Provider: Jimmy Allen Other Providers: Thomas Gomez ; Curly Chapa ; Marisol Thomas ; Shama Rivas ; Aleksandra Najera ; Pete Orr ; Silas Gottlieb ; Usama Rubio ; Zaire Alfredo ; Yolanda Burnette ; Tasha Kidd ; Susie Yeung ; Rosita Abreu ; Ana María Liu ; Adalgisa Franco Other Interventions: Discharge Summary Assessment (RN) Last Done: 08/26/21 11:17
[2021-08-26 11:19] VITALS: BP 100/61; PULSE 85
== END 2021-08-26 13:29 | disposition home health service (06) | DRG 348 ==
LOC: ED 19:08 → SUATTDRO 22:18 → 2N 22:18